=== PATIENT | male | born 1935 | race Caucasian/White ===

== ENCOUNTER 2021-03-23 14:11 | Inpatient (IN) ==
[2021-03-23] MEDS: SODIUM CHLORIDE 0.9% 1000ML 1,000 ML IV SCH ×5 (15:17→21:33)
[2021-03-23 15:20] LABS: Prothrombin Time 10.3 Seconds (9.0-12.0)
[2021-03-23] MEDS: METOPROLOL TARTRATE 1 MG/ML VIAL IV PRN ×2 (15:28→17:16)
[2021-03-23 15:44] LABS: Albumin Globulin Ratio 0.5 (0.9-2); Albumin Level 2.4 gm/dl (3.4-5.0); BUN Creatinine Ratio 49.4 (10-20); Bilirubin,Total 0.9 mg/dl (0.2-1); Calcium 8.4 mg/dl (8.5-10.1); Creatinine Clr Calc Pharmacy 42.9 ml/min; Est GFR (African American) 53.4 ml/min; Globulin 4.5 gm/dl (2.5-4.0)
[2021-03-23 15:47] LABS: Bilirubin Direct 0.4 mg/dl (0-0.2); Potassium 3.4 mmol/L (3.5-5.1); Total Protein 6.9 gm/dl (6.4-8.2)
[2021-03-23 16:14] LABS: Appearance Urine Clear (Clear); Bacteria Urine Automated Negative (Negative); Bilirubin Urine Negative (Negative); Blood Urine Negative (Negative); Color Urine Dark Yellow; Glucose Urine UA Negative (Negative); Ketones Urine Trace (Negative); Leukocyte Esterase Urine Negative (Negative); Nitrite Urine Negative (Negative); Protein Urine 1+ (Negative); Urobilinogen Urine Negative (Negative)
--- NOTE | 2021-03-23 16:29 | CT Scan Report ---
CT head/brain wo con CLINICAL HISTORY: 85 years-old Male with Ams. Acutely altered mental status TECHNIQUE: Multiple axial CT images of the head were obtained without contrast. A dose lowering tech nique was utilized adhering to the principles of ALARA. CT DOSE: 767.83 mGy.cm COMPARISON: None. FINDINGS: No acute intracranial hemorrhage, midline shift, intracranial mass, hydrocephalus, territorial ischem ia or abnormal extra-axial collection. Age-related involutional changes with ex vacuo ventricular lita tamra. White matter hypodensities suggestive of chronic microvascular ischemic disease. Mildly motion d egraded exam. The calvarium is intact. Prior bilateral lens repair. The paranasal sinuses, mastoid air cells, and m iddle ear cavities are clear. IMPRESSION: No acute intracranial abnormality. ACT 112: Negative or not required by law. The above report was generated using voice recognition software. It may contain grammatical, syntax o r spelling errors. Electronically signed by: Trey Good M.D. 03/23/2021 4:28 PM
[2021-03-23 17:09] LABS: Hematocrit (blood only) 42.4 % (42-52); Hemoglobin 14.7 g/dL (14.0-18.0); Mean Corpuscular Hgb Conc 34.7 g/dL (32-36); Mean Corpuscular Volume 92.2 fL (80-100); Mean Platelet Volume 12.8 fL (7.4-10.4); Platelet Count 38 K/uL (130-400); RDW Coefficient of Variation 13.9 % (11.5-14.5); RDW Standard Deviation 46.9 fL (36.4-46.3); White Blood Count 25.86 K/uL (4.8-10.8)
--- NOTE | 2021-03-23 17:14 | Emergency Department Note ---
History of Present Illness General Chief complaint: Weakness Stated complaint: increased weakness,dehydration, not taking meds Time Seen by Provider: 03/23/21 14:28 History of Present Illness Maximum Pain Intensity: 5 This 85-year-old male presents today by EMS, for evaluation of weakness and inability to care for himself. Patient is a poor historian. He lives at home with his and son. 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 Patient states he has been bedridden. He feels weak and is afraid he will fall if he gets out of bed. He is unclear if he has been in bed for a few days, or over a week. He last saw his PCP March 10. He was given some prednisone at that time. He states he also saw his orthopedist at some point over the last 14 days, for knee pain. He was able to get out of bed at that point. He denies any fevers, chills, sweats, nausea, vomiting, or diarrhea. When asked how he is feeding himself, he states his brings him oranges in bed. He denies any chest pain or shortness of breath. He is noted to have extensive bruising on his extremities, as well as abrasions on his knees and hemorrhagic rash on his right elbow. EMS reports that the house was filthy and in disarray. Neighbors noticed that the grass was not cut for an extended period of time, and they saw his demented walking outside by herself. They became concerned and investigated. They then notified the patient's daughter. Home Medications Medication Instructions Recorded Confirmed Type aspirin 81 mg tablet,delayed 81 mg PO DAILY 03/23/21 03/23/21 History release (Aspirin Low Dose) chlorthalidone 25 mg tablet 25 mg PO DAILY 03/23/21 03/23/21 History citalopram 20 mg tablet 20 mg PO DAILY 03/23/21 03/23/21 History doxazosin 2 mg tablet 2 mg PO HS 03/23/21 03/23/21 History ibuprofen 600 mg tablet 600 mg PO Q8H PRN 03/23/21 03/23/21 History metformin 500 mg tablet 500 mg PO BID 03/23/21 03/23/21 History wluhlpmt-mlf-imavz acid 0.4 1 tab PO DAILY 03/23/21 03/23/21 History mg-lycopene 300 mcg-lutein 250 mcg tablet (Centrum Silver) prednisone 20 mg tablet 20 mg PO UD 03/23/21 03/23/21 History propranolol 40 mg tablet 40 mg PO BID 03/23/21 03/23/21 History simvastatin 10 mg tablet 10 mg PO HS 03/23/21 03/23/21 History tamsulosin 0.4 mg capsule 0.4 mg PO DAILY 03/23/21 03/23/21 History Allergies Allergy/AdvReac Type Severity Reaction Status Date / Time yellow jacket Allergy Severe Unknown Uncoded 03/23/21 15:39 Past Med/Surg History Medical History A-fib Diabetes mellitus Family History Other Cerebral palsy Social History Smoking Status: Former smoker Hx Alcohol Use: No Hx Substance Use: No Preferred Language: Chinese Communication Ability: Effective 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 Son is complete care. has dementia Other Information That Helps Us Care for You: No Feels Safe at Home: Yes Safety Concerns: Feels Safe At This Time Assistive Devices: Glasses Assistive Devices Comment: Dentures at home Review of Systems Unobtainable due to cognitive status Physical Exam Vital Signs Vital Signs - 24 hr 03/23/21 14:15 03/23/21 15:43 03/23/21 17:08 Temperature 36.8 C Temperature Source Oral Pulse Rate 144 H 96 H Pulse Rate [Finger] 106 H Pulse Rhythm Irregular Pulse Strength Normal Respiratory Rate 21 16 18 Respiratory Effort / Characteristics Non-Labored Spontaneous Respiratory Depth Normal Respiratory Pattern Regular Blood Pressure 148/88 H 126/78 Blood Pressure [Left Arm] 128/80 Blood Pressure Mean 108 94 Blood Pressure Mean [Left Arm] 96 Blood Pressure Position Lying Pulse Oximetry 100 100 96 Oxygen Delivery Method Room Air Room Air Room Air Sepsis Recent Fever Within 48 Hours No Sepsis New/Unexplained Change in Mental Status Yes Sepsis Action Taken by Nursing Adv Provider Notified General: Frail, elderly white male, in no acute distress. Pleasantly confused. Laying on the bed. Conversive. Answers unreliably. Skin: Warm and dry with fair turgor. He has a hemorrhagic rash present on his right elbow and upper arm. Dozens of small blisters containing old blood. Skin is erythemic consistent with cellulitis. No areas of niall pus. He has extensive ecchymosis present on his upper and lower extremities. No current skin tears. He does have abrasions present on his legs. 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 Mild intra-articular effusion in the right knee. HEENT: Normocephalic atraumatic. Eyes PERRLA, EOMI. No conjunctiva or scleral injection. Ears TMs intact bilaterally with good light reflexes. No erythema or bulging. No hemotympanum. Canals are patent. Nares patent bilaterally without turbinate enlargement. No significant drainage. No epistaxis. Oropharynx without erythema or exudate. Uvula midline, oral mucosa moist. No lesions present. Heart: Tachycardic, irregularly irregular. No gallops or rubs. No murmurs. Peripheral pulses are 2+. Lungs: Lungs are clear to auscultation. No crackles rhonchi or wheezing. Good air movement. The patient is able to take a deep breath. Abdomen: Abdomen was inspected, auscultated, and palpated. Bowel sounds present x 4. Soft, nontender to palpation. No hepato-splenomegaly. No masses noted. No rebound. Musculoskeletal: Gross motor function of the upper and lower extremities is intact and unremarkable. Patient denies discomfort with motion of his right elbow. There is some mild tenderness to touch diffusely about the elbow. He has intact motor function of his fingers, wrist, and shoulders. Supple motion of both hips without discomfort. Intact flexion and extension of both knees and both ankles. Neurologic: Gross sensation is intact across the upper and lower extremities by soft touch. Course Administered Medications Apixaban (Apixaban 5 Mg Tablet) 5 mg PO BID [facility] Stop: 04/26/21 10:29 Last Admin: 03/27/21 11:08 Dose: 5 mg Documented by: [id number] Aspirin ([facility]in 81 Mg Ectab) [facility] [place] Stop: 04/26/21 08:59 Last Admin: 03/27/21 08:39 Dose: 81 mg Documented by: [id number] Chlorthalidone (Chlorthalidone 25 Mg Tab) 25 mg PO DAILY [facility] Stop: 04/26/21 08:59 Last Admin: 03/27/21 08:40 Dose: 25 mg Documented by: [id number] Citalopram Hydrobromide (Citalopram 20 Mg Tab) 20 mg PO DAILY [facility] Stop: 04/23/21 08:59 Last Admin: 03/27/21 08:40 Dose: 20 mg Documented by: [id number] Admin: 03/26/21 08:22 Dose: 20 mg Documented by: [id number] Admin: 03/25/21 08:07 Dose: 20 mg Documented by: [id number] Admin: 03/24/21 08:22 Dose: 20 mg Documented by: [id number] Ceftriaxone Sodium 2,000 mg/ (Dextrose) 70 mls @ 140 mls/hr IV Q24H [facility]; Protocol Stop: 04/07/21 17:59 Last Infusion: 03/27/21 19:00 Dose: 0 mls/hr Documented by: [id number] Admin: 03/27/21 18:26 Dose: 140 mls/hr Documented by: [id number] Infusion: 03/26/21 17:56 Dose: 0 mls/hr Documented by: [id number] Admin: 03/26/21 17:25 Dose: 140 mls/hr Documented by: [id number] Infusion: 03/25/21 17:54 Dose: 0 mls/hr Documented by: [id number] Admin: 03/25/21 17:26 Dose: 140 mls/hr Documented by: [id number] Infusion: 03/24/21 17:34 Dose: 0 mls/hr Documented by: [id number] Admin: 03/24/21 17:00 Dose: 140 mls/hr Documented by: [id number] Insulin Aspart (Insulin Aspart 100 Units/Ml 3 Ml Pen) 0 units SC ACHS [facility] Stop: 04/23/21 11:29 Last Admin: 03/27/21 16:50 Dose: 3 units Documented by: [id number] Cosigned by: [id number] Admin: 03/27/21 12:01 Dose: 3 units Documented by: [id number] Cosigned by: [id number] Admin: 03/27/21 08:38 Dose: 2 units Documented by: [id number] Cosigned by: [id number] Admin: 03/26/21 20:59 Dose: 2 units Documented by: [id number] Cosigned by: [id number] Admin: 03/26/21 17:10 Dose: 4 units Documented by: [id number] Cosigned by: [id number] Admin: 03/26/21 12:22 Dose: 6 units Documented by: [id number] Cosigned by: [id number] Admin: 03/26/21 08:34 Dose: 2 units Documented by: [id number] Cosigned by: [id number] Admin: 03/25/21 21:46 Dose: 2 units Documented by: [id number] Cosigned by: [id number] Admin: 03/25/21 17:26 Dose: 5 units Documented by: [id number] Cosigned by: [id number] Admin: 03/25/21 12:10 Dose: Not Given Documented by: [id number] Admin: 03/25/21 08:07 Dose: 2 units Documented by: [id number] Cosigned by: [id number] Admin: 03/24/21 21:32 Dose: 2 units Documented by: [id number] Cosigned by: [id number] Admin: 03/24/21 17:00 Dose: 5 units Documented by: [id number] Cosigned by: [id number] Admin: 03/24/21 12:07 Dose: 3 units Documented by: [id number] Cosigned by: [id number] Metoprolol Tartrate (Metoprolol Tartrate 25 Mg Tab) 25 mg PO BID [facility] Stop: 04/26/21 08:59 Last Admin: 03/27/21 08:40 Dose: 25 mg Documented by: [id number] Multivitamins (Multivitamin Tab) 1 tab PO DAILY [facility] Stop: 04/23/21 08:59 Last Admin: 03/27/21 08:40 Dose: 1 tab Documented by: [id number] Admin: 03/26/21 08:33 Dose: 1 tab Documented by: [id number] Admin: 03/25/21 08:07 Dose: 1 tab Documented by: [id number] Admin: 03/24/21 08:22 Dose: 1 tab Documented by: [id number] Multivitamins/Minerals (Calcium 600mg + Vit D 400 Iu Tab) 1 tab PO BID [facility] Stop: 04/23/21 20:59 Last Admin: 03/27/21 08:40 Dose: 1 tab Documented by: [id number] Admin: 03/26/21 19:45 Dose: 1 tab Documented by: [id number] Admin: 03/26/21 08:22 Dose: 1 tab Documented by: [id number] Admin: 03/25/21 20:09 Dose: 1 tab Documented by: [id number] Admin: 03/25/21 08:07 Dose: 1 tab Documented by: [id number] Admin: 03/24/21 21:31 Dose: 1 tab Documented by: [id number] Simvastatin (Simvastatin 10 Mg Tab) 10 mg PO HS [facility] Stop: 04/22/21 20:59 Last Admin: 03/26/21 19:45 Dose: 10 mg Documented by: [id number] Admin: 03/25/21 20:09 Dose: 10 mg Documented by: [id number] Admin: 03/24/21 21:31 Dose: 10 mg Documented by: [id number] Admin: 03/23/21 21:36 Dose: 10 mg Documented by: [id number] Tamsulosin HCl (Tamsulosin Hcl 0.4 Mg Cap) 0.4 mg PO DAILY [facility] Stop: 04/23/21 08:59 Last Admin: 03/27/21 08:41 Dose: 0.4 mg Documented by: [id number] Admin: 03/26/21 08:33 Dose: 0.4 mg Documented by: [id number] Admin: 03/25/21 08:06 Dose: 0.4 mg Documented by: [id number] Admin: 03/24/21 08:22 Dose: 0.4 mg Documented by: [id number] Discontinued Medications Aspirin (Aspirin 81 Mg Ectab) 81 mg PO DAILY [facility] Stop: 04/23/21 08:59 Last Admin: 03/24/21 08:24 Dose: 81 mg Documented by: [id number] Doxazosin Mesylate (Doxazosin Mesylate Tab 2 Mg Tab) 2 mg PO HS [facility] Stop: 04/22/21 20:59 Last Admin: 03/23/21 21:36 Dose: 2 mg Documented by: [id number] Famotidine (Famotidine 20 Mg Tab) 20 mg PO NOW STA Stop: 03/26/21 20:05 Last Admin: 03/26/21 20:58 Dose: 20 mg Documented by: [id number] Heparin Sodium (Porcine) (Heparin Sod 5,000 Unit/0.5 Ml Vial) 5,000 units SQ Q8 [facility] Stop: 04/22/21 21:59 Last Admin: 03/24/21 05:56 Dose: 5,000 units Documented by: [id number] Admin: 03/23/21 21:36 Dose: 5,000 units Documented by: [id number] Sodium Chloride (Nss 1000ml) 1,000 mls @ 80 mls/hr IV .[id number] [facility] Stop: 04/22/21 14:59 Last Infusion: 03/24/21 09:04 Dose: 0 mls/hr Documented by: [id number] Admin: 03/23/21 21:33 Dose: 80 mls/hr Documented by: [id number] Infusion: 03/23/21 21:33 Dose: 80 mls/hr Documented by: [id number] Admin: 03/23/21 15:17 Dose: 80 mls/hr Documented by: [id number] Ceftriaxone Sodium (Rocephin) 2,000 mg in 70 mls @ 140 mls/hr IV NOW STA Stop: 03/23/21 17:48 Last Infusion: 03/23/21 18:11 Dose: 0 mls/hr Documented by: [id number] Admin: 03/23/21 17:41 Dose: 140 mls/hr Documented by: [id number] Sodium Chloride (Nss 1000ml) 500 mls @ 999 mls/hr IV .Q31M [facility] Stop: 03/23/21 17:50 Last Infusion: 03/23/21 18:20 Dose: 0 mls/hr Documented by: [id number] Admin: 03/23/21 17:40 Dose: 999 mls/hr Documented by: [id number] Vancomycin HCl 1,750 mg/ (Sodium Chloride) 535 mls @ 200 mls/hr IV NOW ONE Stop: 03/23/21 20:11 Last Infusion: 03/23/21 21:18 Dose: 0 mls/hr Documented by: [id number] Admin: 03/23/21 18:37 Dose: 200 mls/hr Documented by: [id number] Sodium Chloride (Nss 1000ml) 1,000 mls @ 999 mls/hr IV .Q1H1M [facility] Stop: 03/23/21 20:42 Last Infusion: 03/23/21 21:40 Dose: 0 mls/hr Documented by: [id number] Admin: 03/23/21 20:39 Dose: 999 mls/hr Documented by: [id number] Infusion: 03/23/21 20:39 Dose: 999 mls/hr Documented by: [id number] Admin: 03/23/21 20:00 Dose: 999 mls/hr Documented by: [id number] Sodium Chloride (Nss 1000ml) 1,000 mls @ 100 mls/hr IV .Q10H [facility] Stop: 04/22/21 19:59 Last Infusion: 03/27/21 08:47 Dose: 0 mls/hr Documented by: [id number] Admin: 03/27/21 05:14 Dose: 100 mls/hr Documented by: [id number] Infusion: 03/27/21 05:14 Dose: 100 mls/hr Documented by: [id number] Admin: 03/26/21 19:39 Dose: 100 mls/hr Documented by: [id number] Infusion: 03/26/21 18:21 Dose: 100 mls/hr Documented by: [id number] Admin: 03/26/21 08:21 Dose: 100 mls/hr Documented by: [id number] Infusion: 03/26/21 08:21 Dose: 0 mls/hr Documented by: [id number] Admin: 03/25/21 21:45 Dose: 100 mls/hr Documented by: [id number] Infusion: 03/25/21 21:45 Dose: 100 mls/hr Documented by: [id number] Admin: 03/25/21 12:13 Dose: 100 mls/hr Documented by: [id number] Infusion: 03/25/21 11:42 Dose: 0 mls/hr Documented by: [id number] Admin: 03/25/21 01:42 Dose: 100 mls/hr Documented by: [id number] Infusion: 03/25/21 01:42 Dose: 100 mls/hr Documented by: [id number] Admin: 03/24/21 16:07 Dose: 100 mls/hr Documented by: [id number] Infusion: 03/24/21 15:57 Dose: 100 mls/hr Documented by: [id number] Admin: 03/24/21 05:57 Dose: 100 mls/hr Documented by: [id number] Infusion: 03/24/21 05:57 Dose: 100 mls/hr Documented by: [id number] Admin: 03/23/21 21:30 Dose: 100 mls/hr Documented by: [id number] Vancomycin HCl 1,250 mg/ (Sodium Chloride) 275 mls @ 200 mls/hr IV Q24H [facility] Stop: 03/24/21 18:00 Last Infusion: 03/24/21 15:27 Dose: 0 mls/hr Documented by: [id number] Admin: 03/24/21 13:46 Dose: 200 mls/hr Documented by: [id number] Vancomycin HCl 1,250 mg/ (Sodium Chloride) 275 mls @ 200 mls/hr IV Q18H [facility] Stop: 03/26/21 23:59 Last Infusion: 03/25/21 04:14 Dose: 0 mls/hr Documented by: [id number] Admin: 03/25/21 02:41 Dose: 200 mls/hr Documented by: [id number] Metoprolol Tartrate (Metoprolol Tartrate 1 Mg/Ml Vial) 5 mg IV Q5M PRN PRN Reason: Tachycardia Stop: 04/22/21 15:12 Last Admin: 03/23/21 17:16 Dose: 5 mg Documented by: [id number] Admin: 03/23/21 15:28 Dose: 5 mg Documented by: [id number] Metoprolol Tartrate (Metoprolol Tartrate 25 Mg Tab) 12.5 mg PO QAM [facility] Stop: 04/23/21 08:59 Last Admin: 03/24/21 09:03 Dose: 12.5 mg Documented by: [id number] Metoprolol Tartrate (Metoprolol Tartrate 25 Mg Tab) 12.5 mg PO BID [facility] Stop: 04/23/21 20:59 Last Admin: 03/26/21 19:45 Dose: 12.5 mg Documented by: [id number] Admin: 03/26/21 08:32 Dose: 12.5 mg Documented by: [id number] Admin: 03/25/21 20:09 Dose: 12.5 mg Documented by: [id number] Admin: 03/25/21 08:07 Dose: 12.5 mg Documented by: [id number] Admin: 03/24/21 21:31 Dose: 12.5 mg Documented by: [id number] Potassium Chloride (Potassium Chloride Crtab 20 Meq Tabcr) 40 meq PO NOW [facility] Stop: 03/24/21 12:59 Last Admin: 03/24/21 13:46 Dose: 40 meq Documented by: [id number] Potassium Chloride (Potassium Chloride Crtab 20 Meq Tabcr) 40 meq PO ONE ONE Stop: 03/26/21 09:06 Last Admin: 03/26/21 10:13 Dose: 40 meq Documented by: [id number] Potassium Chloride (Potassium Chloride Crtab 20 Meq Tabcr) 40 meq PO ONE ONE Stop: 03/27/21 09:01 Last Admin: 03/27/21 09:49 Dose: 40 meq Documented by: [id number] Propranolol HCl (Propranolol Hcl 20 Mg Tab) 40 mg PO BID [facility] Stop: 04/22/21 20:59 Last Admin: 03/24/21 08:23 Dose: 40 mg Documented by: [id number] Admin: 03/23/21 21:36 Dose: 40 mg Documented by: [id number] Medical Decision Making Differential Diagnosis Cellulitis, sepsis, dementia, dehydration, electrolyte abnormality, anemia, generalized weakness Medical Records Hospital records, including records from his PCP, were reviewed. Home Medications Additional Comments: Current medication list was reviewed. Laboratory Data CBC, chemistry panel, lactate, UA, Troponin, PT/INR, and blood cultures x2 were obtained. CBC shows a white count of 25.8, hemoglobin 14.7 and hematocrit 42.4. Platelets are 38,000 INR is 1.0. Sodium 135, potassium 3.4, CO2 26, BUN of 68 with creatinine 1.37. Glucose 234. Lactate is 1.9. AST mildly elevated at 41. Total CK unremarkable at 33. Troponin is mildly elevated at 0.045. Urine shows 1+ protein and trace ketones. No bacteria. No significant WBCs. Result diagrams: 03/27/21 06:19 03/27/21 06:19 Lab Results 03/23/21 03/23/21 03/23/21 Range/Units 14:35 14:35 14:35 WBC Cancelled RBC Cancelled Hgb Cancelled Hct Cancelled MCV Cancelled MCH Cancelled MCHC Cancelled RDW Std Deviation Cancelled RDW Coeff of Néstor Cancelled Plt Count Cancelled MPV Cancelled Immature Gran % (Auto) Cancelled Neut % (Auto) Cancelled Lymph % (Auto) Cancelled [place] % (Auto) Cancelled Eos % (Auto) Cancelled Baso % (Auto) Cancelled Neut # (Auto) Cancelled Lymph # (Auto) Cancelled [place] # (Auto) Cancelled Eos # (Auto) Cancelled Baso # (Auto) Cancelled Immature Gran # (Auto) Cancelled Absolute Nucleated RBC Cancelled Nucleated RBC % (auto) Cancelled Neutrophils % (Manual) Cancelled Band Neutrophils % Cancelled Lymphocytes % (Manual) Cancelled Prolymphocyte % Cancelled Reactive Lymphs % (Man) Cancelled Monocytes % (Manual) Cancelled Eosinophils % (Manual) Cancelled Basophils % (Manual) Cancelled Metamyelocytes % (Man) Cancelled Myelocytes % (Man) Cancelled Promyelocytes % (Man) Cancelled Blast Cells % (Manual) Cancelled Plasma Cell % (Manual) Cancelled Other Cells % Cancelled Nucleated RBC % Cancelled Neutrophils # (Manual) Cancelled Band Neutrophils # Cancelled Total Absolute Neuts Cancelled Lymphocytes # (Manual) Cancelled Prolymphocyte # Cancelled Reactive Lymphs # Cancelled Total Abs Lymphocytes Cancelled Monocytes # (Manual) Cancelled Eosinophils # (Manual) Cancelled Basophils # (Manual) Cancelled Metamyelocytes # (Man) Cancelled Myelocytes # (Manual) Cancelled Promyelocytes # (Man) Cancelled Blast Cells # (Man) Cancelled Plasma Cell # (Manual) Cancelled Other Cells # Cancelled Nucleated RBCs # (Man) Cancelled Hypersegmented Neuts Cancelled Hyposegmented Neuts Cancelled Hypogranular Neuts Cancelled Large Granular Lymphs Cancelled # Lrg Granular Lymphs Cancelled Hairy Cells Cancelled Smudge Cells Cancelled Blood Smear Review Toxic Granulation Cancelled Toxic Vacuolation Cancelled Dohle Bodies Cancelled Ac Rods Cancelled Platelet Estimate Cancelled Hypogranular Platelets Cancelled Clumped Platelets Cancelled Giant Platelets Cancelled Platelet Satelliting Cancelled RBC Morphology Cancelled Polychromasia Cancelled Hypochromasia Cancelled Poikilocytosis Cancelled Basophilic Stippling Cancelled Anisocytosis Cancelled Microcytosis Cancelled Macrocytosis Cancelled Spherocytes Cancelled Pappenheimer Bodies Cancelled Sickle Cells Cancelled Target Cells Cancelled Tear Drop Cells Cancelled Ovalocytes Cancelled Stomatocytes Cancelled Whitt-Brewton Bodies Cancelled Echinocytes Cancelled Acanthocytes (Spur) Cancelled Rouleaux Cancelled RBC Agglutinates Cancelled Schistocytes Cancelled RBC Morph Comment Cancelled Sezary Cell Cancelled PT 10.3 (9.0-12.0) Seconds INR 1.0 (0.9-1.1) Sodium 135 L (136-145) mmol/L Potassium 3.4 L (3.5-5.1) mmol/L Chloride 98 (98-107) mmol/L Carbon Dioxide 26 (21-32) mmol/L Anion Gap 11.0 (3-11) BUN 68 H (7-18) mg/dl Creatinine 1.37 (0.6-1.4) mg/dl Est Cr Clr Drug Dosing 42.9 ml/min Est GFR ( Amer) 53.4 ml/min Est GFR (Non-Af Amer) 46.0 ml/min BUN/Creatinine Ratio 49.4 H (10-20) Glucose 234 H (70-99) mg/dl Lactate (0.4-2.0) mmol/L Calcium 8.4 L (8.5-10.1) mg/dl Total Bilirubin 0.9 (0.2-1) mg/dl Direct Bilirubin 0.4 H (0-0.2) mg/dl AST 41 H (15-37) U/L ALT 37 (12-78) U/L Alkaline Phosphatase 75 (45-117) U/L Total Creatine Kinase (39-308) U/L Troponin I (0-0.045) ng/ml Total Protein 6.9 (6.4-8.2) gm/dl Albumin 2.4 L (3.4-5.0) gm/dl Globulin 4.5 H (2.5-4.0) gm/dl Albumin/Globulin Ratio 0.5 L (0.9-2) Procalcitonin (0-0.5) ng/ml Urine Color Urine Appearance (Clear) Urine pH (4.5-7.5) Ur Specific Crescent (1.000-1.030) Urine Protein (Negative) Urine Glucose (UA) (Negative) Urine Ketones (Negative) Urine Blood (Negative) Urine Nitrite (Negative) Urine Bilirubin (Negative) Urine Urobilinogen (Negative) Ur Leukocyte Esterase (Negative) Urine WBC (Auto) (0-5) /hpf Urine RBC (Auto) (0-4) /hpf U Hyaline Cast (Auto) (0-5) /lpf U Epithel Cells (Auto) (0-5) /lpf Urine Bacteria (Auto) (Negative) COVID-19 Eval Order SARS-CoV-2 (PCR) (Negative) Bld Cult Staph aureus PCR (Negative) Blood Culture MRSA PCR (Negative) 03/23/21 03/23/21 03/23/21 Range/Units 14:35 14:35 15:25 WBC RBC Hgb Hct MCV MCH MCHC RDW Std Deviation RDW Coeff of Néstor Plt Count MPV Immature Gran % (Auto) Neut % (Auto) Lymph % (Auto) [place] % (Auto) Eos % (Auto) Baso % (Auto) Neut # (Auto) Lymph # (Auto) [place] # (Auto) Eos # (Auto) Baso # (Auto) Immature Gran # (Auto) Absolute Nucleated RBC Nucleated RBC % (auto) Neutrophils % (Manual) Band Neutrophils % Lymphocytes % (Manual) Prolymphocyte % Reactive Lymphs % (Man) Monocytes % (Manual) Eosinophils % (Manual) Basophils % (Manual) Metamyelocytes % (Man) Myelocytes % (Man) Promyelocytes % (Man) Blast Cells % (Manual) Plasma Cell % (Manual) Other Cells % Nucleated RBC % Neutrophils # (Manual) Band Neutrophils # Total Absolute Neuts Lymphocytes # (Manual) Prolymphocyte # Reactive Lymphs # Total Abs Lymphocytes Monocytes # (Manual) Eosinophils # (Manual) Basophils # (Manual) Metamyelocytes # (Man) Myelocytes # (Manual) Promyelocytes # (Man) Blast Cells # (Man) Plasma Cell # (Manual) Other Cells # Nucleated RBCs # (Man) Hypersegmented Neuts Hyposegmented Neuts Hypogranular Neuts Large Granular Lymphs # Lrg Granular Lymphs Hairy Cells Smudge Cells Blood Smear Review Toxic Granulation Toxic Vacuolation Dohle Bodies Ac Rods Platelet Estimate Hypogranular Platelets Clumped Platelets Giant Platelets Platelet Satelliting RBC Morphology Polychromasia Hypochromasia Poikilocytosis Basophilic Stippling Anisocytosis Microcytosis Macrocytosis Spherocytes Pappenheimer Bodies Sickle Cells Target Cells Tear Drop Cells Ovalocytes Stomatocytes Whitt-Brewton Bodies Echinocytes Acanthocytes (Spur) Rouleaux RBC Agglutinates Schistocytes RBC Morph Comment Sezary Cell PT (9.0-12.0) Seconds INR (0.9-1.1) Sodium (136-145) mmol/L Potassium (3.5-5.1) mmol/L Chloride (98-107) mmol/L Carbon Dioxide (21-32) mmol/L Anion Gap (3-11) BUN (7-18) mg/dl Creatinine (0.6-1.4) mg/dl Est Cr Clr Drug Dosing ml/min Est GFR ( Amer) ml/min Est GFR (Non-Af Amer) ml/min BUN/Creatinine Ratio (10-20) Glucose (70-99) mg/dl Lactate (0.4-2.0) mmol/L Calcium (8.5-10.1) mg/dl Total Bilirubin (0.2-1) mg/dl Direct Bilirubin (0-0.2) mg/dl AST (15-37) U/L ALT (12-78) U/L Alkaline Phosphatase (45-117) U/L Total Creatine Kinase 33 L (39-308) U/L Troponin I (0-0.045) ng/ml Total Protein (6.4-8.2) gm/dl Albumin (3.4-5.0) gm/dl Globulin (2.5-4.0) gm/dl Albumin/Globulin Ratio (0.9-2) Procalcitonin < 0.05 (0-0.5) ng/ml Urine Color Dark Yellow Urine Appearance Clear (Clear) Urine pH 6.0 (4.5-7.5) Ur Specific Crescent 1.020 (1.000-1.030) Urine Protein 1+ H (Negative) Urine Glucose (UA) Negative (Negative) Urine Ketones Trace H (Negative) Urine Blood Negative (Negative) Urine Nitrite Negative (Negative) Urine Bilirubin Negative (Negative) Urine Urobilinogen Negative (Negative) Ur Leukocyte Esterase Negative (Negative) Urine WBC (Auto) 1-5 (0-5) /hpf Urine RBC (Auto) 5-10 H (0-4) /hpf U Hyaline Cast (Auto) 5-10 H (0-5) /lpf U Epithel Cells (Auto) 10-20 H (0-5) /lpf Urine Bacteria (Auto) Negative (Negative) COVID-19 Eval Order SARS-CoV-2 (PCR) (Negative) Bld Cult Staph aureus PCR (Negative) Blood Culture MRSA PCR (Negative) 03/23/21 03/23/21 03/23/21 Range/Units 16:34 16:34 16:34 WBC 25.86 H RBC 4.60 L Hgb 14.7 Hct 42.4 MCV 92.2 MCH 32.0 MCHC 34.7 RDW Std Deviation 46.9 H RDW Coeff of Néstor 13.9 Plt Count 38 L MPV 12.8 H Immature Gran % (Auto) Neut % (Auto) Lymph % (Auto) [place] % (Auto) Eos % (Auto) Baso % (Auto) Neut # (Auto) Lymph # (Auto) [place] # (Auto) Eos # (Auto) Baso # (Auto) Immature Gran # (Auto) Absolute Nucleated RBC Nucleated RBC % (auto) Neutrophils % (Manual) 81.7 Band Neutrophils % Lymphocytes % (Manual) 13.9 Prolymphocyte % Reactive Lymphs % (Man) Monocytes % (Manual) 3.5 Eosinophils % (Manual) Basophils % (Manual) Metamyelocytes % (Man) Myelocytes % (Man) 0.9 Promyelocytes % (Man) Blast Cells % (Manual) Plasma Cell % (Manual) Other Cells % Nucleated RBC % Neutrophils # (Manual) 21.13 H Band Neutrophils # Total Absolute Neuts 21.13 H Lymphocytes # (Manual) 3.59 H Prolymphocyte # Reactive Lymphs # Total Abs Lymphocytes 3.59 H Monocytes # (Manual) 0.91 H Eosinophils # (Manual) Basophils # (Manual) Metamyelocytes # (Man) Myelocytes # (Manual) 0.23 H Promyelocytes # (Man) Blast Cells # (Man) Plasma Cell # (Manual) Other Cells # Nucleated RBCs # (Man) Hypersegmented Neuts Hyposegmented Neuts Hypogranular Neuts Large Granular Lymphs # Lrg Granular Lymphs Hairy Cells Smudge Cells Blood Smear Review Cancelled Toxic Granulation Toxic Vacuolation Dohle Bodies Ac Rods Platelet Estimate Decreased L Hypogranular Platelets Clumped Platelets Giant Platelets Platelet Satelliting RBC Morphology Polychromasia Hypochromasia Poikilocytosis Basophilic Stippling Anisocytosis Microcytosis Macrocytosis Spherocytes Pappenheimer Bodies Sickle Cells Target Cells Tear Drop Cells Ovalocytes Stomatocytes Whitt-Brewton Bodies Echinocytes Acanthocytes (Spur) Rouleaux RBC Agglutinates Schistocytes RBC Morph Comment Sezary Cell PT (9.0-12.0) Seconds INR (0.9-1.1) Sodium (136-145) mmol/L Potassium (3.5-5.1) mmol/L Chloride (98-107) mmol/L Carbon Dioxide (21-32) mmol/L Anion Gap (3-11) BUN (7-18) mg/dl Creatinine (0.6-1.4) mg/dl Est Cr Clr Drug Dosing ml/min Est GFR ( Amer) ml/min Est GFR (Non-Af Amer) ml/min BUN/Creatinine Ratio (10-20) Glucose (70-99) mg/dl Lactate 2.2 H* (0.4-2.0) mmol/L Calcium (8.5-10.1) mg/dl Total Bilirubin (0.2-1) mg/dl Direct Bilirubin (0-0.2) mg/dl AST (15-37) U/L ALT (12-78) U/L Alkaline Phosphatase (45-117) U/L Total Creatine Kinase (39-308) U/L Troponin I (0-0.045) ng/ml Total Protein (6.4-8.2) gm/dl Albumin (3.4-5.0) gm/dl Globulin (2.5-4.0) gm/dl Albumin/Globulin Ratio (0.9-2) Procalcitonin (0-0.5) ng/ml Urine Color Urine Appearance (Clear) Urine pH (4.5-7.5) Ur Specific Crescent (1.000-1.030) Urine Protein (Negative) Urine Glucose (UA) (Negative) Urine Ketones (Negative) Urine Blood (Negative) Urine Nitrite (Negative) Urine Bilirubin (Negative) Urine Urobilinogen (Negative) Ur Leukocyte Esterase (Negative) Urine WBC (Auto) (0-5) /hpf Urine RBC (Auto) (0-4) /hpf U Hyaline Cast (Auto) (0-5) /lpf U Epithel Cells (Auto) (0-5) /lpf Urine Bacteria (Auto) (Negative) COVID-19 Eval Order SARS-CoV-2 (PCR) (Negative) Bld Cult Staph aureus PCR Positive A (Negative) Blood Culture MRSA PCR Negative (Negative) 03/23/21 03/23/21 Range/Units 16:57 16:57 WBC RBC Hgb Hct MCV MCH MCHC RDW Std Deviation RDW Coeff of Néstor Plt Count MPV Immature Gran % (Auto) Neut % (Auto) Lymph % (Auto) [place] % (Auto) Eos % (Auto) Baso % (Auto) Neut # (Auto) Lymph # (Auto) [place] # (Auto) Eos # (Auto) Baso # (Auto) Immature Gran # (Auto) Absolute Nucleated RBC Nucleated RBC % (auto) Neutrophils % (Manual) Band Neutrophils % Lymphocytes % (Manual) Prolymphocyte % Reactive Lymphs % (Man) Monocytes % (Manual) Eosinophils % (Manual) Basophils % (Manual) Metamyelocytes % (Man) Myelocytes % (Man) Promyelocytes % (Man) Blast Cells % (Manual) Plasma Cell % (Manual) Other Cells % Nucleated RBC % Neutrophils # (Manual) Band Neutrophils # Total Absolute Neuts Lymphocytes # (Manual) Prolymphocyte # Reactive Lymphs # Total Abs Lymphocytes Monocytes # (Manual) Eosinophils # (Manual) Basophils # (Manual) Metamyelocytes # (Man) Myelocytes # (Manual) Promyelocytes # (Man) Blast Cells # (Man) Plasma Cell # (Manual) Other Cells # Nucleated RBCs # (Man) Hypersegmented Neuts Hyposegmented Neuts Hypogranular Neuts Large Granular Lymphs # Lrg Granular Lymphs Hairy Cells Smudge Cells Blood Smear Review Toxic Granulation Toxic Vacuolation Dohle Bodies Ac Rods Platelet Estimate Hypogranular Platelets Clumped Platelets Giant Platelets Platelet Satelliting RBC Morphology Polychromasia Hypochromasia Poikilocytosis Basophilic Stippling Anisocytosis Microcytosis Macrocytosis Spherocytes Pappenheimer Bodies Sickle Cells Target Cells Tear Drop Cells Ovalocytes Stomatocytes Whitt-Brewton Bodies Echinocytes Acanthocytes (Spur) Rouleaux RBC Agglutinates Schistocytes RBC Morph Comment Sezary Cell PT (9.0-12.0) Seconds INR (0.9-1.1) Sodium (136-145) mmol/L Potassium (3.5-5.1) mmol/L Chloride (98-107) mmol/L Carbon Dioxide (21-32) mmol/L Anion Gap (3-11) BUN (7-18) mg/dl Creatinine (0.6-1.4) mg/dl Est Cr Clr Drug Dosing ml/min Est GFR ( Amer) ml/min Est GFR (Non-Af Amer) ml/min BUN/Creatinine Ratio (10-20) Glucose (70-99) mg/dl Lactate (0.4-2.0) mmol/L Calcium (8.5-10.1) mg/dl Total Bilirubin (0.2-1) mg/dl Direct Bilirubin (0-0.2) mg/dl AST (15-37) U/L ALT (12-78) U/L Alkaline Phosphatase (45-117) U/L Total Creatine Kinase (39-308) U/L Troponin I (0-0.045) ng/ml Total Protein (6.4-8.2) gm/dl Albumin (3.4-5.0) gm/dl Globulin (2.5-4.0) gm/dl Albumin/Globulin Ratio (0.9-2) Procalcitonin (0-0.5) ng/ml Urine Color Urine Appearance (Clear) Urine pH (4.5-7.5) Ur Specific Crescent (1.000-1.030) Urine Protein (Negative) Urine Glucose (UA) (Negative) Urine Ketones (Negative) Urine Blood (Negative) Urine Nitrite (Negative) Urine Bilirubin (Negative) Urine Urobilinogen (Negative) Ur Leukocyte Esterase (Negative) Urine WBC (Auto) (0-5) /hpf Urine RBC (Auto) (0-4) /hpf U Hyaline Cast (Auto) (0-5) /lpf U Epithel Cells (Auto) (0-5) /lpf Urine Bacteria (Auto) (Negative) COVID-19 Eval Order Covid19 at [facility] SARS-CoV-2 (PCR) NEGATIVE (Negative) Bld Cult Staph aureus PCR (Negative) Blood Culture MRSA PCR (Negative) Imaging Data My Impression: Films obtained today were reviewed by me and read by radiology. Chest x-ray obtained today shows no acute process. No pulmonary edema consoli dation, or pneumothorax. Elbow films obtained today show soft tissue swelling without acute fracture. No foreign bodies. CT scan imaging of the head was also obtained. This was read by radiology as unremarkable. Chronic microvascular ischemic disease. Age-related changes are present. Radiologist's Impression: Head CT 03/23/21 15:12 CT head/brain wo con CLINICAL HISTORY: 85 years-old Male with Ams. Acutely altered mental status TECHNIQUE: Multiple axial CT images of the head were obtained without contrast. A dose lowering technique was utilized adhering to the principles of ALARA. CT DOSE: 767.83 mGy.cm COMPARISON: None. FINDINGS: No acute intracranial hemorrhage, midline shift, intracranial mass, hydrocephalus, territorial ischemia or abnormal extra-axial collection. Age- related involutional changes with ex vacuo ventricular megaly. White matter hypodensities suggestive of chronic microvascular ischemic disease. Mildly motion degraded exam. The calvarium is intact. Prior bilateral lens repair. The paranasal sinuses, mastoid air cells, and middle ear cavities are clear. IMPRESSION: No acute intracranial abnormality. ACT 112: Negative or not required by law. The above report was generated using voice recognition software. It may contain grammatical, syntax or spelling errors. Electronically signed by: Trey Good M.D. 03/23/2021 4:28 PM ECG Data Additional Comments: EKG obtained today shows atrial fibrillation with RVR. Rate of 144. No other significant abnormalities. Blood Pressure Blood Pressure Findings: Normal blood pressure MDM Narrative Patient was evaluated in room A12. Conservative care measures were discussed. Patient is pleasantly confused. He is an unreliable historian. 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 He must get on the ground and hug him close to lift him. Patient states he has been unable to get out of bed for the last several days. He has not been able to take his medication, or give his and son their medications. Patient believes that the rash on his arm is not significant. He thinks it is getting better over the last few days. He is not sure what started it. He cannot recall if he fell. I did speak with his daughter, who did come to the department. She states that the patient has been unwilling to sign over power of tax attorney, or make any medical decisions regarding future care for his or son. They are also here in the department due to his inability to care for them. IV was established. Labs were obtained. Patient was initially hydrated gently at 80 mL/h of normal sterile saline. His initial CBC coagulated, and required a redraw. Upon finding that his white count was significantly elevated, patient was given a liter of fluid bolus. He was also given Rocephin 2 g IV. Because of his tachycardic rate, patient was given metoprolol 5 mg IV. Imaging, including chest x-ray, right elbow x-ray, and CT imaging of the head, were all obtained. They are all unremarkable. Likelihood of sepsis from the elbow cellulitis was discussed. He will require admission. Troponin did come back at 0.045, mildly elevated. He is also in A. fib. When asked about this, patient states that he knows that he frequently has an abnormal rhythm. He is unsure how long this has occurred and whether he is being treated for it. He seems to believe that it is not new. Impression & Plan Sepsis, Dehydration, Cellulitis of arm, right Patient was seen in conjunction with Dr. Davis, who also evaluated the patient. Patient appears to be currently septic. Cultures have been obtained. Hospitalist service was consulted for admission. Please see that dictation for final management. Covid nasal swab was obtained prior to admission, and is negative. Care plan decisions were made in conjunction with his daughter, who was in the department for discussion. Discharge Plan Visit Data Chief Complaint: Weakness Stated Complaint: increased weakness,dehydration, not taking meds ED Midlevel Provider: Sachin Nichols Discharge Problem: Sepsis, Dehydration, Cellulitis of arm, right Patient Disposition: Admitted As Inpatient Discharge Instructions Interventions: ED Discharge Assessment Last Done: 03/23/21 20:12 Discharge Problem: Sepsis Qualifiers: Sepsis type: sepsis due to unspecified organism Sepsis acute organ dysfunction status: unspecified Qualified Code(s): A41.9 - Sepsis, unspecified organism
[2021-03-23 17:15] LABS: ALC (manual) 3.59 K/uL (1.2-3.4); ANC (manual) 21.13 K/uL (1.4-6.5); Lymphocytes # (manual) 3.59 K/uL (1.2-3.4); Lymphocytes % (manual) 13.9 %; Monocytes # (manual) 0.91 K/uL (0.11-0.59); Monocytes % (manual) 3.5 %; Myelocytes # (manual) 0.23 K/uL (0-0); Myelocytes % (manual) 0.9 %; Neutrophils # (manual) 21.13 K/uL (1.4-6.5); Neutrophils % (manual) 81.7 %; Platelet Estimate Decreased (Normal)
[2021-03-23] MEDS ORDERED: cefTRIAXone SODIUM 2,000 MG/70 ML BAG IV STA (17:19)
[2021-03-23] MEDS ORDERED: SODIUM CHLORIDE 0.9% 1000ML 500 ML IV ONE ×2 (17:20→18:42)
--- NOTE | 2021-03-23 17:27 | Emergency Department Note ---
ED Visit Note Physician Wheel Loader Operator Supervision Note: I interviewed and examined the patient. Discussed with Sachin Nichols PA-C and agree with findings and plan as documented in the note. Patient was evaluated and appeared to be significantly weak and debilitated. He had right elbow cellulitis, likely posttraumatic. There is no evidence of fracture on x-ray. WBC is noted to be 25 with a platelet count of 38. Blood cultures were sent and the patient was medicated with IV ceftriaxone. IV fluids were initiated. Patient's case was discussed with the hospitalist service. Dr. Desai has requested the addition of vancomycin. We have discussed the IV fluid management in the emergency department and he will complete the 30 cc/kg hydration as patient does meet sepsis criteria. It also appears that he is in a new onset atrial fibrillation although his most previous EKG is many years ago. Head CT is negative. Pt was discussed will be admitted to the hospitalist service for further management. Please see Sachin Nichols PA-C's notes for further details of the history, physical and visit. Documented By: Leni Davis MD .
[2021-03-23] MEDS ORDERED: VANCOMYCIN CONSULT ACTIVE PRN (17:31)
[2021-03-23] MEDS ORDERED: VANCOMYCIN HCL 1,750 MG in SODIUM CHLORIDE 0.9% 500 ML IV ONE (17:31)
--- NOTE | 2021-03-23 17:34 | History & Physical Report ---
Date of Service March 23, 2021 Assessment & Plan (1) Sepsis: (2) Dehydration: Patient is clearly very dehydrated. Unclear how long patient has been bedbound from history obtained but at least he was a seen by PCP on 03/10/2021. Lactate is 2.2, WBCs 25,000, tachycardic Meets SIRS criteria. Unclear source. Skin rash is a possible source Give vancomycin and ceftriaxone Follow-up blood cultures MRSA screen, check procalcitonin We will give 30 cc/kg bolus as patient is severely dehydrated, tachycardic and possible sepsis Add on CPK as it is unclear how long patient has been down CT head does not show acute abnormality Exam is nonfocal Confusion likely metabolic encephalopathy We will do dysphagia screen and start diet once passed with aspiration precaution Hold home chlorthalidone (3) Ambulatory dysfunction: We will get PT/OT evaluation (4) A-fib: EKG shows A. fib (compared to one in [facility] from 2010) Get 2D echo Cardiology consult Lopressor IV as needed Continue home propranolol CHADVASC is 4. Likely high risk for bleeding as well considering ecchymoses on hand Also high fall risk Will hold off anticoagulation till card eval Hep sq for DVT ppx for now (5) Diabetes mellitus: A1c from 03/10/2021 is 6.4 Monitor blood glucose (6) DVT prophylaxis: hep sq History of Present Illness 85-year-old man with history of DM type II, dyslipidemia, hypertension, BPH adjustment disorder with anxious mood who was brought into the ER for weakness and confusion. Patient is a very poor historian though currently alert and oriented to person and place, is confused. Could not obtain much history from patient. History obtained from ER physician. Patient lives at home with who has dementia and 60-year-old son who has cerebral palsy and fully dependent. Patient takes care of both. Apparently, his grass was high which is unusual and was seen wandering by neighbor trying to get mail. Patient was apparently found by neighbor who followed into the home. Daughter was called According to patient, he has been having difficulty moving around to have been in bed for days or weeks. He is not exactly sure. Review of outpatient labs showed that patient was seen by his PCP on 03/10/2021. Difficult to get review of system from patient as he is confused and answering yes and no to same questions On presentation to the ER, was noted to be in A. fib with initial heart rate in [address] head without contrast did not show any acute abnormal ities WBC is 25,000, lactate is 2.2. 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 Review of systems, family and social history could not be obtained due to confus ion Primary Care Provider: Sarita Rebolledo MD Allergies Allergy/AdvReac Type Severity Reaction Status Date / Time yellow jacket Allergy Severe Unknown Uncoded 03/23/21 15:39 Home Medications Medication Instructions Recorded Confirmed Type aspirin [Aspirin Low Dose] 81 mg PO DAILY 03/23/21 03/23/21 History chlorthalidone 25 mg PO DAILY 03/23/21 03/23/21 History citalopram 20 mg PO DAILY 03/23/21 03/23/21 History doxazosin 2 mg PO HS 03/23/21 03/23/21 History ibuprofen 600 mg PO Q8H PRN 03/23/21 03/23/21 History metformin 500 mg PO BID 03/23/21 03/23/21 History ykeammds-rnt-SG-lycopen-lutein 1 tab PO DAILY 03/23/21 03/23/21 History [Centrum Silver] prednisone 20 mg PO UD 03/23/21 03/23/21 History propranolol 40 mg PO BID 03/23/21 03/23/21 History simvastatin 10 mg PO HS 03/23/21 03/23/21 History tamsulosin 0.4 mg PO DAILY 03/23/21 03/23/21 History Past Med/Surg History Social History Smoking Status: Unknown if ever smoked Feels Safe at Home: Yes Review of Systems Review of Systems: Unobtainable due to cognitive status Physical Exam Constitutional: no acute distress Dehydrated Elderly man confused Eyes: PERRL, conjunctivae normal, anicteric sclerae ENMT: Dry oral mucosa Respiratory: normal respiratory effort, lungs clear to auscultation Cardiovascular: Rate/Rhythm: + tachycardic and + irregularly irregular S1- S2 No pedal edema Gastrointestinal (Abdomen): normal bowel sounds, soft, nontender, no hepatosplenomegaly Musculoskeletal: no cyanosis or clubbing, extremities motor strength 5/5 Skin: Ecchymosis over both forearms. Rash and bruise over the right elbow. Abrasions on right knee Neurologic: PERRL, EOMI, accommodation nl, no face palsy, no dysarthria Alert and oriented to person. Knows he is in the hospital but does not know which Oriented to month Cooperative. Moves all extremities and follows commands Results & Data Results & Data ([facility]) Vital Signs (Past 12 Hours) Vital Signs Temp Pulse Pulse Resp BP BP Pulse Ox 03/23/21 17:08 106 H 18 128/80 96 03/23/21 15:43 96 H 16 126/78 100 03/23/21 14:15 36.8 C 144 H 21 148/88 H 100 Laboratory Results Abnormal lab results 03/23/21 03/23/21 03/23/21 Range/Units 14:35 15:25 16:34 WBC (4.8-10.8) K/uL RBC (4.7-6.1) M/uL RDW Std Deviation (36.4-46.3) fL Plt Count (130-400) K/uL MPV (7.4-10.4) fL Neutrophils # (Manual) (1.4-6.5) K/uL Total Absolute Neuts (1.4-6.5) K/uL Lymphocytes # (Manual) (1.2-3.4) K/uL Total Abs Lymphocytes (1.2-3.4) K/uL Monocytes # (Manual) (0.11-0.59) K/uL Myelocytes # (Manual) (0-0) K/uL Platelet Estimate (Normal) Sodium 135 L (136-145) mmol/L Potassium 3.4 L (3.5-5.1) mmol/L BUN 68 H (7-18) mg/dl BUN/Creatinine Ratio 49.4 H (10-20) Glucose 234 H (70-99) mg/dl Lactate 2.2 H* (0.4-2.0) mmol/L Calcium 8.4 L (8.5-10.1) mg/dl Direct Bilirubin 0.4 H (0-0.2) mg/dl AST 41 H (15-37) U/L Albumin 2.4 L (3.4-5.0) gm/dl Globulin 4.5 H (2.5-4.0) gm/dl Albumin/Globulin Ratio 0.5 L (0.9-2) Urine Protein 1+ H (Negative) Urine Ketones Trace H (Negative) Urine RBC (Auto) 5-10 H (0-4) /hpf U Hyaline Cast (Auto) 5-10 H (0-5) /lpf U Epithel Cells (Auto) 10-20 H (0-5) /lpf 03/23/21 Range/Units 16:34 WBC 25.86 H (4.8-10.8) K/uL RBC 4.60 L (4.7-6.1) M/uL RDW Std Deviation 46.9 H (36.4-46.3) fL Plt Count 38 L (130-400) K/uL MPV 12.8 H (7.4-10.4) fL Neutrophils # (Manual) 21.13 H (1.4-6.5) K/uL Total Absolute Neuts 21.13 H (1.4-6.5) K/uL Lymphocytes # (Manual) 3.59 H (1.2-3.4) K/uL Total Abs Lymphocytes 3.59 H (1.2-3.4) K/uL Monocytes # (Manual) 0.91 H (0.11-0.59) K/uL Myelocytes # (Manual) 0.23 H (0-0) K/uL Platelet Estimate Decreased L (Normal) Sodium (136-145) mmol/L Potassium (3.5-5.1) mmol/L BUN (7-18) mg/dl BUN/Creatinine Ratio (10-20) Glucose (70-99) mg/dl Lactate (0.4-2.0) mmol/L Calcium (8.5-10.1) mg/dl Direct Bilirubin (0-0.2) mg/dl AST (15-37) U/L Albumin (3.4-5.0) gm/dl Globulin (2.5-4.0) gm/dl Albumin/Globulin Ratio (0.9-2) Urine Protein (Negative) Urine Ketones (Negative) Urine RBC (Auto) (0-4) /hpf U Hyaline Cast (Auto) (0-5) /lpf U Epithel Cells (Auto) (0-5) /lpf
--- NOTE | 2021-03-23 17:45 | XRay Report ---
XR elbow RT min 3V routine HISTORY: 85 years-old Male Cellulitis acute pain with soft tissue swelling of the right elbow COMPARISON: None TECHNIQUE: 3 views of the right elbow FINDINGS: Degenerative spurring of the distal humerus] proximal ulna. Mild multifocal osteoarthritis. No acute fracture, dislocation or large joint effusion. Moderate soft tissue swelling circumferentially about the elbow. No opaque foreign body. IMPRESSION: Soft tissue swelling without acute fracture. ACT 112: Negative or not required by law. The above report was generated using voice recognition software. It may contain grammatical, syntax o r spelling errors. Electronically signed by: Trey Good M.D. 03/23/2021 5:44 PM
--- NOTE | 2021-03-23 17:46 | XRay Report ---
XR chest 1V portable HISTORY: 85 years-old Male Fever acute fever COMPARISON: None TECHNIQUE: Portable AP view the chest FINDINGS: Cardiomediastinal and hilar silhouettes are within normal limits. Nodular opacities projecting over t he lung bases are suggestive of nipple shadows. No pneumothorax, pleural effusion, airspace consolida tion or overt pulmonary edema. Degenerative changes of the shoulders and spine. IMPRESSION: No acute process. ACT 112: Negative or not required by law. The above report was generated using voice recognition software. It may contain grammatical, syntax o r spelling errors. Electronically signed by: Trey Good M.D. 03/23/2021 5:45 PM
[2021-03-23] MEDS ORDERED: DEXTROSE 50% 50 ML SYRINGE IV PRN (19:56)
[2021-03-23] MEDS ORDERED: GLUCAGON FOR INJ 1 MG VIAL SQ PRN (19:56)
[2021-03-23] MEDS ORDERED: METOPROLOL TARTRATE 1 MG/ML VIAL IV PRN (19:56)
[2021-03-23] MEDS ORDERED: GLUCOSE 40% GEL 15 GM TUBE PO PRN (19:56)
[2021-03-23] MEDS ORDERED: GLUCOSE 10 TABS/TUBE PO PRN (19:56)
[2021-03-23] MEDS ORDERED: CARBOHYDRATES FOR HYPOGLYCEMIA PO PRN (19:56)
--- NOTE | 2021-03-23 20:49 | Pharmacy Report ---
Pharmacy Abx Dose Short Note - Date of Service March 23, 2021 - Assessment & Plan Assessment 85 year old M receiving Vancomycin and Ceftriaxone for empiric treatment of skin and soft tissue infection * Afebrile. White count of 26k. Lactate elevated. * Cultures pending Plan Vancomycin * Loading Dose: 1750 mg (21 mg/kg) IV x 1 * Maintenance Dose: 1250 mg (15 mg/kg) IV every 24 hours * No trough level ordered unless therapy to extend beyond 48 hours Pharmacy will continue to follow and will adjust dose/frequency as necessary. Thank you.
[2021-03-23] MEDS ORDERED: DOXAZosin MESYLATE TAB 2 MG TAB PO SCH (21:00)
[2021-03-23] MEDS: PROPRANOLOL HCL 20 MG TAB PO SCH (21:36)
[2021-03-23] MEDS: HEPARIN SOD 5,000 UNIT/0.5 ML VIAL SQ SCH (21:36)
[2021-03-23] MEDS: SIMVASTATIN 10 MG TAB PO SCH (21:36)
[2021-03-24] MEDS: HEPARIN SOD 5,000 UNIT/0.5 ML VIAL SQ SCH (05:56)
[2021-03-24] MEDS: SODIUM CHLORIDE 0.9% 1000ML 1,000 ML IV SCH ×2 (05:57→16:07)
[2021-03-24] MEDS: CITALOPRAM 20 MG TAB PO SCH (08:22)
[2021-03-24] MEDS: TAMSULOSIN HCL 0.4 MG CAP PO SCH (08:22)
[2021-03-24] MEDS: MULTIVITAMIN TAB PO SCH (08:22)
[2021-03-24] MEDS: PROPRANOLOL HCL 20 MG TAB PO SCH (08:23)
[2021-03-24] MEDS ORDERED: METOPROLOL TARTRATE 25 MG TAB PO SCH (09:00)
[2021-03-24] MEDS ORDERED: ASPIRIN 81 MG ECTAB PO SCH (09:00)
--- NOTE | 2021-03-24 09:01 | Hospitalist Progress Note ---
Date of Service March 24, 2021 Assessment & Plan (1) Sepsis: (2) Dehydration: Severe sepsis,: Meets criteria for sepsis admitted with lactic 2.2, WBC 25,000, tachycardic lactate is 2.2, WBCs 25,000, tachycardic Meets SIRS criteria. Clear of the source, blood culture obtained still pending, chest x-ray on imaging shows no acute abnormality, on auscultation, stress crackles noted on left lower base. Sent for urine culture, Continue with IV vancomycin and Rocephin, will cultures are available Continue IV fluids to correct dehydration-secondary to above Confusion disorientation secondary to metabolic encephalopathy. CT head does not show acute abnormality Mental status improved to baseline after fluid resuscitation (3) Ambulatory dysfunction: Evidence of falls, with multiple bruises ecchymosis of the knees, and arms, PT OT evaluation (4) A-fib: New diagnosis of A. fib, Possible secondary to acute illness,? Patient remains in A. fib, heart rate between 90s to low 100s Patient remains asymptomatic Discontinued home propanolol, Ordered for low-dose of Lopressor 12.5 daily 2D echo ordered Cardiology consult will defer to cardiology for antiarrhythmic drugs CHADVASC is 4. Likely high risk for bleeding as well considering ecchymoses on hand Also high fall risk Labs shows thrombocytopenia, platelet count less than 100-possible secondary to sepsis Order to hold aspirin now, but may needs to be resumed if there is no other option for anticoagulation Systemic anticoagulation with IV heparin was not ordered We will wait for cardiology recommendation (5) Diabetes mellitus: A1c from 03/10/2021 is 6.4 Insulin sliding scale (6) DVT prophylaxis: hep sq We will follow daily platelets level watch for evidence of bleeding, subcu heparin may need to be discontinued if worsening of thrombocytopenia noted CODE STATUS: Full code Disposition: 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 fib: Patient seen at bedside, very pleasant, alert and oriented today, Knows that he is in the hospital-can tell me it is [facility] knows this is 2019, of March, was not sure of the date but could tell that it was Wednesday, knows the name of the president of [employer] Says that he has not been feeling well for past several days or week he was not sure He was overwhelmed with all the responsibilities of taking care of of his adult son with disability, and with advanced dementia. Not get out of bed for days, Not sure he was eating or drinking enough, does not recall whether he had fever or chills, Day he is feeling better, still have severe weakness and fatigue, No complaint of chest pain or shortness of breath does not feel any palpitation, No dizzy spell or lightheadedness while lying down, patient has not been out of bed since admission Does not have any cough, no fever or chills No nausea vomiting appetite fair,-finished his breakfast tray Worried about his son and , Patient is updated that his son is admitted in hospital and being taken care of, patient feels relieved He will reach out to his daughter to check where about of his Review of Systems Review of Systems: All systems reviewed & are unremarkable except as noted in HPI & below Cardiovascular: no chest pain, no orthopnea, no palpitations and no syncope Gastrointestinal: no abdominal pain, no nausea, no vomiting and no diarrhea/loose stools Musculoskeletal: Generalized weakness, denies of any muscle ache or joint pain Integumentary: To pull bruise/ecchymosis on bilateral arms, Physical Exam Constitutional: WD/WN, vitals as above + ill appearing; no acute distress Very pleasant conversing Eyes: PERRL, conjunctivae normal, anicteric sclerae + anicteric sclerae ENMT: external ear and nose normal, oropharynx normal Neck: normal visual inspection Respiratory: normal respiratory effort; no respiratory distress A uscultation: + crackles (Faint crackles noted on left lower lobe); no wheezes Cardiovascular: Rate/Rhythm: + irregularly irregular Extremities: no edema Gastrointestinal (Abdomen): Percussion/Palpation: abdomen soft; abdomen nontender Musculoskeletal: Knee: + ecchymosis (On bilateral knee, right is worse than left) Extensive bruise/ecchymosis on bilateral arm Skin: + ecchymosis (Extensive ecchymosis noted on bilateral arms.) Trauma: + abrasion Neurologic: PERRL, EOMI, accommodation nl, no face palsy, no dysarthria moves all extremities (Noted to have normal muscle strength); no focal motor deficits Psychiatric: A+Ox3, euthymic affect Results & Data Results & Data ([facility]) Vital Signs (Past 12 Hours) Vital Signs Temp Pulse Pulse Resp BP Pulse Ox 03/24/21 07:05 36.7 C 96 H 19 113/69 94 03/24/21 03:53 36.6 C 89 18 126/76 95 03/23/21 23:25 89 03/23/21 22:43 36.4 C L 78 20 103/69 94 03/23/21 21:24 102 H
--- NOTE | 2021-03-24 09:51 | Cardiology Consultation ---
Date of Consultation March 24, 2021 Assessment & Plan (1) Sepsis: (2) Dehydration: (3) A-fib: The patient has no significant cardiac history and actually his last EKG was 2010 at our clinic when he was in a sinus mechanism. He is on a low dose of metoprolol with adequate rate control of his atrial fibrillation. At this point I would treat his sepsis. I agree with subcu heparin at this time. His echocardiogram completed this admission is encouraging with normal left and right ventricular function and no significant valvular pathology. I do not believe any additional cardiac testing is indicated at this time. History of Present Illness Attending Physician: Vannessa Lackey MD History of Present Illness This is an 85-year-old male patient with no significant cardiac history. He was admitted with confusion and possible sepsis. He has been started on antibiotics and has improved. He has newly discovered atrial fibrillation. The only previous EKGs at our clinic were from 2010 when he was in a sinus mechanism. He has been started on a low-dose of metoprolol and is currently in a rate controlled atrial fibrillation. He has no cardiac complaints. Echocardiogram is being completed during my visit with him. Overall LV and RV function looks good with no significant valvular pathology. Past medical history: Type 2 diabetes mellitus with hemoglobin A1c goal of less than 8.0% ([facility]) History of peptic ulcer disease Sciatica Cervical spondylosis Chronic rhinitis GENERAL OSTEOARTHROSIS BPH without obstruction/lower urinary tract symptoms HTN, GOAL BELOW 140/90 Dyslipidemia, goal LDL below 100 Adjustment disorder with anxious mood Seasonal allergic rhinitis due to pollen Allergies Allergy/AdvReac Type Severity Reaction Status Date / Time yellow jacket Allergy Severe Unknown Uncoded 03/23/21 15:39 Home Medications Medication Instructions Recorded Confirmed Type aspirin [Aspirin Low Dose] 81 mg PO DAILY 03/23/21 03/23/21 History chlorthalidone 25 mg PO DAILY 03/23/21 03/23/21 History citalopram 20 mg PO DAILY 03/23/21 03/23/21 History doxazosin 2 mg PO HS 03/23/21 03/23/21 History ibuprofen 600 mg PO Q8H PRN 03/23/21 03/23/21 History metformin 500 mg PO BID 03/23/21 03/23/21 History qbewzcuf-oai-HO-lycopen-lutein 1 tab PO DAILY 03/23/21 03/23/21 History [Centrum Silver] prednisone 20 mg PO UD 03/23/21 03/23/21 History propranolol 40 mg PO BID 03/23/21 03/23/21 History simvastatin 10 mg PO HS 03/23/21 03/23/21 History tamsulosin 0.4 mg PO DAILY 03/23/21 03/23/21 History Patient History Social History Smoking Status: Former smoker Hx Alcohol Use: No Hx Substance Use: No Preferred Language: Maori Communication Ability: Effective Hand Rug Cleaner Required: No Beliefs That Will Affect Care: None Current Living Situation: Family Current Living Situation Comment: Lives in house with and son. Son is complete care. has dementia Other Information That Helps Us Care for You: No Feels Safe at Home: Yes Safety Concerns: Feels Safe At This Time Assistive Devices: None Assistive Devices Comment: Dentures at home Review of Systems Review of Systems: All systems reviewed & are unremarkable except as noted in HPI & below Nothing additional to add. Physical Exam Physical Exam: General: no acute distress and stated age Head: normocephalic, no masses, lesions, tenderness or abnormalities Eyes: conjunctiva are pink and non-injected, sclera clear Neck: supple, no adenopathy, no bruits, normal jugular venous pulse, no hepatojugular reflux Chest: normal shape and normal respiratory effort Lungs: clear to auscultation and percussion Cardiac Exam: - regular rate & rhythm, no murmurs gallops or rubs - normal S1, normal S2 Pulses: 2(+) throughout Abdomen: abdomen soft, non-tender, no abnormal masses and no hepatosplenomegaly Musculoskeletal: no gait disturbance, no joint inflammation, no deforming arthritis Extremities: no edema and no cyanosis Neuro: grossly normal exam Results & Data ([facility]) Vital Signs (Past 12 Hours) Vital Signs Temp Pulse Pulse Resp BP Pulse Ox 03/24/21 07:05 36.7 C 96 H 19 113/69 94 03/24/21 03:53 36.6 C 89 18 126/76 95 03/23/21 23:25 89 03/23/21 22:43 36.4 C L 78 20 103/69 94 Laboratory Results Laboratory Results - last 24 hr 03/23/21 03/23/21 03/23/21 14:35 14:35 14:35 WBC Cancelled RBC Cancelled Hgb Cancelled Hct Cancelled MCV Cancelled MCH Cancelled MCHC Cancelled RDW Std Deviation Cancelled RDW Coeff of Néstor Cancelled Plt Count Cancelled MPV Cancelled Immature Gran % (Auto) Cancelled Neut % (Auto) Cancelled Lymph % (Auto) Cancelled [place] % (Auto) Cancelled Eos % (Auto) Cancelled Baso % (Auto) Cancelled Neut # (Auto) Cancelled Lymph # (Auto) Cancelled [place] # (Auto) Cancelled Eos # (Auto) Cancelled Baso # (Auto) Cancelled Immature Gran # (Auto) Cancelled Absolute Nucleated RBC Cancelled Nucleated RBC % (auto) Cancelled Neutrophils % (Manual) Cancelled Band Neutrophils % Cancelled Lymphocytes % (Manual) Cancelled Prolymphocyte % Cancelled Reactive Lymphs % (Man) Cancelled Monocytes % (Manual) Cancelled Eosinophils % (Manual) Cancelled Basophils % (Manual) Cancelled Metamyelocytes % (Man) Cancelled Myelocytes % (Man) Cancelled Promyelocytes % (Man) Cancelled Blast Cells % (Manual) Cancelled Plasma Cell % (Manual) Cancelled Other Cells % Cancelled Nucleated RBC % Cancelled Neutrophils # (Manual) Cancelled Band Neutrophils # Cancelled Total Absolute Neuts Cancelled Lymphocytes # (Manual) Cancelled Prolymphocyte # Cancelled Reactive Lymphs # Cancelled Total Abs Lymphocytes Cancelled Monocytes # (Manual) Cancelled Eosinophils # (Manual) Cancelled Basophils # (Manual) Cancelled Metamyelocytes # (Man) Cancelled Myelocytes # (Manual) Cancelled Promyelocytes # (Man) Cancelled Blast Cells # (Man) Cancelled Plasma Cell # (Manual) Cancelled Other Cells # Cancelled Nucleated RBCs # (Man) Cancelled Hypersegmented Neuts Cancelled Hyposegmented Neuts Cancelled Hypogranular Neuts Cancelled Large Granular Lymphs Cancelled # Lrg Granular Lymphs Cancelled Hairy Cells Cancelled Smudge Cells Cancelled Blood Smear Review Toxic Granulation Cancelled Toxic Vacuolation Cancelled Dohle Bodies Cancelled Ac Rods Cancelled Platelet Estimate Cancelled Hypogranular Platelets Cancelled Clumped Platelets Cancelled Giant Platelets Cancelled Platelet Satelliting Cancelled RBC Morphology Cancelled Polychromasia Cancelled Hypochromasia Cancelled Poikilocytosis Cancelled Basophilic Stippling Cancelled Anisocytosis Cancelled Microcytosis Cancelled Macrocytosis Cancelled Spherocytes Cancelled Pappenheimer Bodies Cancelled Sickle Cells Cancelled Target Cells Cancelled Tear Drop Cells Cancelled Ovalocytes Cancelled Stomatocytes Cancelled Whitt-[place] Bodies Cancelled Echinocytes Cancelled Acanthocytes (Spur) Cancelled Rouleaux Cancelled RBC Agglutinates Cancelled Schistocytes Cancelled RBC Morph Comment Cancelled Sezary Cell Cancelled PT 10.3 INR 1.0 Sodium 135 L Potassium 3.4 L Chloride 98 Carbon Dioxide 26 Anion Gap 11.0 BUN 68 H Creatinine 1.37 Est Cr Clr Drug Dosing 42.9 Est GFR ( Amer) 53.4 Est GFR (Non-Af Amer) 46.0 BUN/Creatinine Ratio 49.4 H Glucose 234 H POC Glucose Lactate Calcium 8.4 L Magnesium Total Bilirubin 0.9 Direct Bilirubin 0.4 H AST 41 H ALT 37 Alkaline Phosphatase 75 Total Creatine Kinase Troponin I Total Protein 6.9 Albumin 2.4 L Globulin 4.5 H Albumin/Globulin Ratio 0.5 L Procalcitonin Urine Color Urine Appearance Urine pH Ur Specific [place] Urine Protein Urine Glucose (UA) Urine Ketones Urine Blood Urine Nitrite Urine Bilirubin Urine Urobilinogen Ur Leukocyte Esterase Urine WBC (Auto) Urine RBC (Auto) U Hyaline Cast (Auto) U Epithel Cells (Auto) Urine Bacteria (Auto) Nasal Screen MRSA (PCR) COVID-19 Eval Order SARS-CoV-2 (PCR) Hepatitis C Ab Screen 03/23/21 03/23/21 03/23/21 14:35 14:35 15:25 WBC RBC Hgb Hct MCV MCH MCHC RDW Std Deviation RDW Coeff of Néstor Plt Count MPV Immature Gran % (Auto) Neut % (Auto) Lymph % (Auto) [place] % (Auto) Eos % (Auto) Baso % (Auto) Neut # (Auto) Lymph # (Auto) [place] # (Auto) Eos # (Auto) Baso # (Auto) Immature Gran # (Auto) Absolute Nucleated RBC Nucleated RBC % (auto) Neutrophils % (Manual) Band Neutrophils % Lymphocytes % (Manual) Prolymphocyte % Reactive Lymphs % (Man) Monocytes % (Manual) Eosinophils % (Manual) Basophils % (Manual) Metamyelocytes % (Man) Myelocytes % (Man) Promyelocytes % (Man) Blast Cells % (Manual) Plasma Cell % (Manual) Other Cells % Nucleated RBC % Neutrophils # (Manual) Band Neutrophils # Total Absolute Neuts Lymphocytes # (Manual) Prolymphocyte # Reactive Lymphs # Total Abs Lymphocytes Monocytes # (Manual) Eosinophils # (Manual) Basophils # (Manual) Metamyelocytes # (Man) Myelocytes # (Manual) Promyelocytes # (Man) Blast Cells # (Man) Plasma Cell # (Manual) Other Cells # Nucleated RBCs # (Man) Hypersegmented Neuts Hyposegmented Neuts Hypogranular Neuts Large Granular Lymphs # Lrg Granular Lymphs Hairy Cells Smudge Cells Blood Smear Review Toxic Granulation Toxic Vacuolation Dohle Bodies Ac Rods Platelet Estimate Hypogranular Platelets Clumped Platelets Giant Platelets Platelet Satelliting RBC Morphology Polychromasia Hypochromasia Poikilocytosis Basophilic Stippling Anisocytosis Microcytosis Macrocytosis Spherocytes Pappenheimer Bodies Sickle Cells Target Cells Tear Drop Cells Ovalocytes Stomatocytes Whitt-[place] Bodies Echinocytes Acanthocytes (Spur) Rouleaux RBC Agglutinates Schistocytes RBC Morph Comment Sezary Cell PT INR Sodium Potassium Chloride Carbon Dioxide Anion Gap BUN Creatinine Est Cr Clr Drug Dosing Est GFR ( Amer) Est GFR (Non-Af Amer) BUN/Creatinine Ratio Glucose POC Glucose Lactate Calcium Magnesium Total Bilirubin Direct Bilirubin AST ALT Alkaline Phosphatase Total Creatine Kinase 33 L Troponin I Total Protein Albumin Globulin Albumin/Globulin Ratio Procalcitonin < 0.05 Urine Color Dark Yellow Urine Appearance Clear Urine pH 6.0 Ur Specific [place] 1.020 Urine Protein 1+ H Urine Glucose (UA) Negative Urine Ketones Trace H Urine Blood Negative Urine Nitrite Negative Urine Bilirubin Negative Urine Urobilinogen Negative Ur Leukocyte Esterase Negative Urine WBC (Auto) 1-5 Urine RBC (Auto) 5-10 H U Hyaline Cast (Auto) 5-10 H U Epithel Cells (Auto) 10-20 H Urine Bacteria (Auto) Negative Nasal Screen MRSA (PCR) COVID-19 Eval Order SARS-CoV-2 (PCR) Hepatitis C Ab Screen 03/23/21 03/23/21 03/23/21 16:34 16:34 16:57 WBC 25.86 H RBC 4.60 L Hgb 14.7 Hct 42.4 MCV 92.2 MCH 32.0 MCHC 34.7 RDW Std Deviation 46.9 H RDW Coeff of Néstor 13.9 Plt Count 38 L MPV 12.8 H Immature Gran % (Auto) Neut % (Auto) Lymph % (Auto) [place] % (Auto) Eos % (Auto) Baso % (Auto) Neut # (Auto) Lymph # (Auto) [place] # (Auto) Eos # (Auto) Baso # (Auto) Immature Gran # (Auto) Absolute Nucleated RBC Nucleated RBC % (auto) Neutrophils % (Manual) 81.7 Band Neutrophils % Lymphocytes % (Manual) 13.9 Prolymphocyte % Reactive Lymphs % (Man) Monocytes % (Manual) 3.5 Eosinophils % (Manual) Basophils % (Manual) Metamyelocytes % (Man) Myelocytes % (Man) 0.9 Promyelocytes % (Man) Blast Cells % (Manual) Plasma Cell % (Manual) Other Cells % Nucleated RBC % Neutrophils # (Manual) 21.13 H Band Neutrophils # Total Absolute Neuts 21.13 H Lymphocytes # (Manual) 3.59 H Prolymphocyte # Reactive Lymphs # Total Abs Lymphocytes 3.59 H Monocytes # (Manual) 0.91 H Eosinophils # (Manual) Basophils # (Manual) Metamyelocytes # (Man) Myelocytes # (Manual) 0.23 H Promyelocytes # (Man) Blast Cells # (Man) Plasma Cell # (Manual) Other Cells # Nucleated RBCs # (Man) Hypersegmented Neuts Hyposegmented Neuts Hypogranular Neuts Large Granular Lymphs # Lrg Granular Lymphs Hairy Cells Smudge Cells Blood Smear Review Cancelled Toxic Granulation Toxic Vacuolation Dohle Bodies Ac Rods Platelet Estimate Decreased L Hypogranular Platelets Clumped Platelets Giant Platelets Platelet Satelliting RBC Morphology Polychromasia Hypochromasia Poikilocytosis Basophilic Stippling Anisocytosis Microcytosis Macrocytosis Spherocytes Pappenheimer Bodies Sickle Cells Target Cells Tear Drop Cells Ovalocytes Stomatocytes Whitt-[place]cken[place] Bodies Echinocytes Acanthocytes (Spur) Rouleaux RBC Agglutinates Schistocytes RBC Morph Comment Sezary Cell PT INR Sodium Potassium Chloride Carbon Dioxide Anion Gap BUN Creatinine Est Cr Clr Drug Dosing Est GFR ( Amer) Est GFR (Non-Af Amer) BUN/Creatinine Ratio Glucose POC Glucose Lactate 2.2 H* Calcium Magnesium Total Bilirubin Direct Bilirubin AST ALT Alkaline Phosphatase Total Creatine Kinase Troponin I Total Protein Albumin Globulin Albumin/Globulin Ratio Procalcitonin Urine Color Urine Appearance Urine pH Ur Specific [place] Urine Protein Urine Glucose (UA) Urine Ketones Urine Blood Urine Nitrite Urine Bilirubin Urine Urobilinogen Ur Leukocyte Esterase Urine WBC (Auto) Urine RBC (Auto) U Hyaline Cast (Auto) U Epithel Cells (Auto) Urine Bacteria (Auto) Nasal Screen MRSA (PCR) COVID-19 Eval Order Covid19 at [facility] SARS-CoV-2 (PCR) Hepatitis C Ab Screen 03/23/21 03/23/21 03/23/21 16:57 20:34 20:40 WBC RBC Hgb Hct MCV MCH MCHC RDW Std Deviation RDW Coeff of Néstor Plt Count MPV Immature Gran % (Auto) Neut % (Auto) Lymph % (Auto) [place] % (Auto) Eos % (Auto) Baso % (Auto) Neut # (Auto) Lymph # (Auto) [place] # (Auto) Eos # (Auto) Baso # (Auto) Immature Gran # (Auto) Absolute Nucleated RBC Nucleated RBC % (auto) Neutrophils % (Manual) Band Neutrophils % Lymphocytes % (Manual) Prolymphocyte % Reactive Lymphs % (Man) Monocytes % (Manual) Eosinophils % (Manual) Basophils % (Manual) Metamyelocytes % (Man) Myelocytes % (Man) Promyelocytes % (Man) Blast Cells % (Manual) Plasma Cell % (Manual) Other Cells % Nucleated RBC % Neutrophils # (Manual) Band Neutrophils # Total Absolute Neuts Lymphocytes # (Manual) Prolymphocyte # Reactive Lymphs # Total Abs Lymphocytes Monocytes # (Manual) Eosinophils # (Manual) Basophils # (Manual) Metamyelocytes # (Man) Myelocytes # (Manual) Promyelocytes # (Man) Blast Cells # (Man) Plasma Cell # (Manual) Other Cells # Nucleated RBCs # (Man) Hypersegmented Neuts Hyposegmented Neuts Hypogranular Neuts Large Granular Lymphs # Lrg Granular Lymphs Hairy Cells Smudge Cells Blood Smear Review Toxic Granulation Toxic Vacuolation Dohle Bodies Ac Rods Platelet Estimate Hypogranular Platelets Clumped Platelets Giant Platelets Platelet Satelliting RBC Morphology Polychromasia Hypochromasia Poikilocytosis Basophilic Stippling Anisocytosis Microcytosis Macrocytosis Spherocytes Pappenheimer Bodies Sickle Cells Target Cells Tear Drop Cells Ovalocytes Stomatocytes Whitt-Brecken[place] Bodies Echinocytes Acanthocytes (Spur) Rouleaux RBC Agglutinates Schistocytes RBC Morph Comment Sezary Cell PT INR Sodium Potassium Chloride Carbon Dioxide Anion Gap BUN Creatinine Est Cr Clr Drug Dosing Est GFR ( Amer) Est GFR (Non-Af Amer) BUN/Creatinine Ratio Glucose POC Glucose 215 H Lactate 4.0 H* Calcium Magnesium Total Bilirubin Direct Bilirubin AST ALT Alkaline Phosphatase Total Creatine Kinase Troponin I Total Protein Albumin Globulin Albumin/Globulin Ratio Procalcitonin Urine Color Urine Appearance Urine pH Ur Specific [place] Urine Protein Urine Glucose (UA) Urine Ketones Urine Blood Urine Nitrite Urine Bilirubin Urine Urobilinogen Ur Leukocyte Esterase Urine WBC (Auto) Urine RBC (Auto) U Hyaline Cast (Auto) U Epithel Cells (Auto) Urine Bacteria (Auto) Nasal Screen MRSA (PCR) COVID-19 Eval Order SARS-CoV-2 (PCR) NEGATIVE Hepatitis C Ab Screen 03/23/21 03/23/21 03/24/21 21:40 22:36 06:38 WBC RBC Hgb Hct MCV MCH MCHC RDW Std Deviation RDW Coeff of Néstor Plt Count MPV Immature Gran % (Auto) Neut % (Auto) Lymph % (Auto) [place] % (Auto) Eos % (Auto) Baso % (Auto) Neut # (Auto) Lymph # (Auto) [place] # (Auto) Eos # (Auto) Baso # (Auto) Immature Gran # (Auto) Absolute Nucleated RBC Nucleated RBC % (auto) Neutrophils % (Manual) Band Neutrophils % Lymphocytes % (Manual) Prolymphocyte % Reactive Lymphs % (Man) Monocytes % (Manual) Eosinophils % (Manual) Basophils % (Manual) Metamyelocytes % (Man) Myelocytes % (Man) Promyelocytes % (Man) Blast Cells % (Manual) Plasma Cell % (Manual) Other Cells % Nucleated RBC % Neutrophils # (Manual) Band Neutrophils # Total Absolute Neuts Lymphocytes # (Manual) Prolymphocyte # Reactive Lymphs # Total Abs Lymphocytes Monocytes # (Manual) Eosinophils # (Manual) Basophils # (Manual) Metamyelocytes # (Man) Myelocytes # (Manual) Promyelocytes # (Man) Blast Cells # (Man) Plasma Cell # (Manual) Other Cells # Nucleated RBCs # (Man) Hypersegmented Neuts Hyposegmented Neuts Hypogranular Neuts Large Granular Lymphs # Lrg Granular Lymphs Hairy Cells Smudge Cells Blood Smear Review Toxic Granulation Toxic Vacuolation Dohle Bodies Ac Rods Platelet Estimate Hypogranular Platelets Clumped Platelets Giant Platelets Platelet Satelliting RBC Morphology Polychromasia Hypochromasia Poikilocytosis Basophilic Stippling Anisocytosis Microcytosis Macrocytosis Spherocytes Pappenheimer Bodies Sickle Cells Target Cells Tear Drop Cells Ovalocytes Stomatocytes Whitt-Breck[place] Bodies Echinocytes Acanthocytes (Spur) Rouleaux RBC Agglutinates Schistocytes RBC Morph Comment Sezary Cell PT INR Sodium Potassium Chloride Carbon Dioxide Anion Gap BUN Creatinine Est Cr Clr Drug Dosing Est GFR ( Amer) Est GFR (Non-Af Amer) BUN/Creatinine Ratio Glucose POC Glucose Lactate 1.9 Calcium Magnesium Total Bilirubin Direct Bilirubin AST ALT Alkaline Phosphatase Total Creatine Kinase Troponin I Total Protein Albumin Globulin Albumin/Globulin Ratio Procalcitonin Urine Color Urine Appearance Urine pH Ur Specific [place] Urine Protein Urine Glucose (UA) Urine Ketones Urine Blood Urine Nitrite Urine Bilirubin Urine Urobilinogen Ur Leukocyte Esterase Urine WBC (Auto) Urine RBC (Auto) U Hyaline Cast (Auto) U Epithel Cells (Auto) Urine Bacteria (Auto) Nasal Screen MRSA (PCR) Negative COVID-19 Eval Order SARS-CoV-2 (PCR) Hepatitis C Ab Screen Pending 03/24/21 03/24/21 03/24/21 07:02 09:25 09:33 WBC RBC Hgb Hct MCV MCH MCHC RDW Std Deviation RDW Coeff of Néstor Plt Count MPV Immature Gran % (Auto) Neut % (Auto) Lymph % (Auto) [place] % (Auto) Eos % (Auto) Baso % (Auto) Neut # (Auto) Lymph # (Auto) [place] # (Auto) Eos # (Auto) Baso # (Auto) Immature Gran # (Auto) Absolute Nucleated RBC Nucleated RBC % (auto) Neutrophils % (Manual) Band Neutrophils % Lymphocytes % (Manual) Prolymphocyte % Reactive Lymphs % (Man) Monocytes % (Manual) Eosinophils % (Manual) Basophils % (Manual) Metamyelocytes % (Man) Myelocytes % (Man) Promyelocytes % (Man) Blast Cells % (Manual) Plasma Cell % (Manual) Other Cells % Nucleated RBC % Neutrophils # (Manual) Band Neutrophils # Total Absolute Neuts Lymphocytes # (Manual) Prolymphocyte # Reactive Lymphs # Total Abs Lymphocytes Monocytes # (Manual) Eosinophils # (Manual) Basophils # (Manual) Metamyelocytes # (Man) Myelocytes # (Manual) Promyelocytes # (Man) Blast Cells # (Man) Plasma Cell # (Manual) Other Cells # Nucleated RBCs # (Man) Hypersegmented Neuts Hyposegmented Neuts Hypogranular Neuts Large Granular Lymphs # Lrg Granular Lymphs Hairy Cells Smudge Cells Blood Smear Review Toxic Granulation Toxic Vacuolation Dohle Bodies Ac Rods Platelet Estimate Hypogranular Platelets Clumped Platelets Giant Platelets Platelet Satelliting RBC Morphology Polychromasia Hypochromasia Poikilocytosis Basophilic Stippling Anisocytosis Microcytosis Macrocytosis Spherocytes Pappenheimer Bodies Sickle Cells Target Cells Tear Drop Cells Ovalocytes Stomatocytes Whitt-Breckenridge Bodies Echinocytes Acanthocytes (Spur) Rouleaux RBC Agglutinates Schistocytes RBC Morph Comment Sezary Cell PT INR Sodium Pending Potassium Pending Chloride Pending Carbon Dioxide Pending Anion Gap Pending BUN Pending Creatinine Pending Est Cr Clr Drug Dosing Pending Est GFR ( Amer) Pending Est GFR (Non-Af Amer) Pending BUN/Creatinine Ratio Pending Glucose Pending POC Glucose 179 H Lactate Calcium Pending Magnesium Pending Cancelled Total Bilirubin Pending Direct Bilirubin AST Pending ALT Pending Alkaline Phosphatase Pending Total Creatine Kinase Troponin I Total Protein Pending Albumin Pending Globulin Pending Albumin/Globulin Ratio Pending Procalcitonin Urine Color Urine Appearance Urine pH Ur Specific [place] Urine Protein Urine Glucose (UA) Urine Ketones Urine Blood Urine Nitrite Urine Bilirubin Urine Urobilinogen Ur Leukocyte Esterase Urine WBC (Auto) Urine RBC (Auto) U Hyaline Cast (Auto) U Epithel Cells (Auto) Urine Bacteria (Auto) Nasal Screen MRSA (PCR) COVID-19 Eval Order SARS-CoV-2 (PCR) Hepatitis C Ab Screen Medications Administered Current Inpatient Medications Aspirin (Aspirin 81 Mg Ectab) 81 mg PO DAILY [facility] Stop: 04/23/21 08:59 Last Admin: 03/24/21 08:24 Dose: 81 mg Documented by: Citalopram Hydrobromide (Citalopram 20 Mg Tab) 20 mg PO DAILY [facility] Stop: 04/23/21 08:59 Last Admin: 03/24/21 08:22 Dose: 20 mg Documented by: Dextrose (Dextrose 50% 50 Ml Syringe) 25 - 50 ml IV UD PRN; Protocol PRN Reason: Hypoglycemia Protocol Stop: 04/22/21 19:55 Glucagon (Glucagon For Inj 1 Mg Vial) 1 mg SQ UD PRN; Protocol PRN Reason: Hypoglycemia Protocol Stop: 04/22/21 19:55 Glucose (Glucose 10 Tabs/Tube) 4 - 8 tabs PO UD PRN; Protocol PRN Reason: Hypoglycemia Protocol Stop: 04/22/21 19:55 Glucose (Glucose 40% Gel 15 Gm Tube) 15 - 30 gm PO UD PRN; Protocol PRN Reason: Hypoglycemia Protocol Stop: 04/22/21 19:55 Heparin Sodium (Porcine) (Heparin Sod 5,000 Unit/0.5 Ml Vial) 5,000 units SQ Q8 [facility] Stop: 04/22/21 21:59 Last Admin: 03/24/21 05:56 Dose: 5,000 units Documented by: Ceftriaxone Sodium 2,000 mg/ (Dextrose) 70 mls @ 140 mls/hr IV Q24H [facility]; Protocol Stop: 03/26/21 17:59 Sodium Chloride (Nss 1000ml) 1,000 mls @ 100 mls/hr IV .Q10H [facility] Stop: 04/22/21 19:59 Last Admin: 03/24/21 05:57 Dose: 100 mls/hr Documented by: Vancomycin HCl 1,250 mg/ (Sodium Chloride) 275 mls @ 200 mls/hr IV Q24H [facility] Stop: 03/26/21 17:59 Insulin Aspart (Insulin Aspart 100 Units/Ml 3 Ml Pen) 0 units SC ACHS [facility] Stop: 04/23/21 11:29 Metoprolol Tartrate (Metoprolol Tartrate 1 Mg/Ml Vial) 5 mg IV Q6 PRN PRN Reason: HR>120 Stop: 04/22/21 19:55 Metoprolol Tartrate (Metoprolol Tartrate 25 Mg Tab) 12.5 mg PO BID [facility] Stop: 04/23/21 20:59 Miscellaneous (Carbohydrates For Hypoglycemia ) 15 - 30 gm PO UD PRN PRN Reason: Hypoglycemia Protocol Stop: 04/22/21 19:55 Miscellaneous Information (Vancomycin Consult Active) 1 ea N/A UD PRN PRN Reason: Consult Stop: 04/22/21 17:30 Multivitamins (Multivitamin Tab) 1 tab PO DAILY [facility] Stop: 04/23/21 08:59 Last Admin: 03/24/21 08:22 Dose: 1 tab Documented by: Simvastatin (Simvastatin 10 Mg Tab) 10 mg PO HS [facility] Stop: 04/22/21 20:59 Last Admin: 03/23/21 21:36 Dose: 10 mg Documented by: Tamsulosin HCl (Tamsulosin Hcl 0.4 Mg Cap) 0.4 mg PO DAILY [facility] Stop: 04/23/21 08:59 Last Admin: 03/24/21 08:22 Dose: 0.4 mg Documented by:
[2021-03-24 10:08] LABS: BUN Creatinine Ratio 47.9 (10-20); Calcium 7.7 mg/dl (8.5-10.1); Creatinine Clr Calc Pharmacy 56.6 ml/min; Est GFR (African American) 74.5 ml/min; Est GFR (Non-African American) 64.3 ml/min; Magnesium 2.5 mg/dl (1.8-2.4); Potassium 3.1 mmol/L (3.5-5.1)
[2021-03-24 10:13] LABS: Albumin Globulin Ratio 0.5 (0.9-2); Bilirubin,Total 0.7 mg/dl (0.2-1); Globulin 3.7 gm/dl (2.5-4.0); Total Protein 5.7 gm/dl (6.4-8.2)
[2021-03-24 11:13] LABS: Hematocrit (blood only) 37.1 % (42-52); Hemoglobin 12.7 g/dL (14.0-18.0); Mean Corpuscular Hemoglobin 31.2 pg (25-34); Mean Corpuscular Hgb Conc 34.2 g/dL (32-36); Mean Corpuscular Volume 91.2 fL (80-100); Mean Platelet Volume 11.7 fL (7.4-10.4); Platelet Count 29 K/uL (130-400); RDW Coefficient of Variation 14.1 % (11.5-14.5); RDW Standard Deviation 47.3 fL (36.4-46.3); Red Blood Count 4.07 M/uL (4.7-6.1); White Blood Count 19.52 K/uL (4.8-10.8)
[2021-03-24 11:14] LABS: Basophils # (auto) 0.05 K/uL (0-0.2); Basophils % (auto) 0.3 %; Eosinophils # (auto) 0.01 K/uL (0-0.5); Eosinophils % (auto) 0.1 %; Immature Granulocytes % (auto) 0.5 %; Lymphocytes # (auto) 3.66 K/uL (1.2-3.4); Lymphocytes % (auto) 18.8 %; Monocytes # (auto) 1.47 K/uL (0.11-0.59); Monocytes % (auto) 7.5 %; Neutrophils # (auto) 14.23 K/uL (1.4-6.5); Neutrophils % (auto) 72.8 %; Platelet Estimate SIGNIFIC DECREASED (Normal)
[2021-03-24] MEDS: INSULIN ASPART 100 UNITS/ML 3 ML PEN SC SCH ×3 (12:07→21:32)
[2021-03-24] MEDS ORDERED: POTASSIUM CHLORIDE CRTAB 20 MEQ TABCR PO STA (12:58)
[2021-03-24] MEDS ORDERED: VANCOMYCIN HCL 1,250 MG in SODIUM CHLORIDE 0.9% 250 ML IV SCH ×2 (14:00→18:00)
[2021-03-24] MEDS: cefTRIAXone SODIUM 2,000 MG in DEXTROSE 5% 50 ML IV SCH (17:00)
--- NOTE | 2021-03-24 17:31 | Electrocardiogram Report ---
Test Reason : Blood Pressure : / mmHG Vent. Rate : 144 BPM Atrial Rate : 113 BPM P-R Int : 000 ms QRS Dur : 088 ms QT Int : 322 ms P-R-T Axes : 000 023 071 degrees QTc Int : 498 ms Atrial fibrillation with rapid ventricular response Nonspecific ST abnormality Abnormal ECG No previous ECGs available Confirmed by Michael Wooten ([id number]) on 03/24/2021 5:31:03 PM Referred By: REFERRED SELF Confirmed By:Brad Wooten
--- NOTE | 2021-03-24 17:37 | Electrocardiogram Report ---
Test Reason : Blood Pressure : / mmHG Vent. Rate : 097 BPM Atrial Rate : 085 BPM P-R Int : 000 ms QRS Dur : 098 ms QT Int : 382 ms P-R-T Axes : 000 000 028 degrees QTc Int : 485 ms Atrial fibrillation Prolonged QT Abnormal ECG When compared with ECG of 23-MAR-2021 14:21, (unconfirmed) No significant change was found Confirmed by Michael Wooten ([id number]) on 03/24/2021 5:37:07 PM Referred By: REFERRED SELF Confirmed By:Brad Wooten
[2021-03-24] MEDS: METOPROLOL TARTRATE 25 MG TAB PO SCH (21:31)
[2021-03-24] MEDS: CALCIUM 600MG + VIT D 400 IU TAB PO SCH (21:31)
[2021-03-24] MEDS: SIMVASTATIN 10 MG TAB PO SCH (21:31)
[2021-03-25] MEDS: SODIUM CHLORIDE 0.9% 1000ML 1,000 ML IV SCH ×3 (01:42→21:45)
[2021-03-25] MEDS ORDERED: VANCOMYCIN HCL 1,250 MG in SODIUM CHLORIDE 0.9% 250 ML IV SCH (02:00)
[2021-03-25 07:07] LABS: Hematocrit (blood only) 33.5 % (42-52); Hemoglobin 11.2 g/dL (14.0-18.0); Mean Corpuscular Hemoglobin 31.2 pg (25-34); Mean Corpuscular Hgb Conc 33.4 g/dL (32-36); Mean Corpuscular Volume 93.3 fL (80-100); Mean Platelet Volume 10.5 fL (7.4-10.4); Platelet Count 63 K/uL (130-400); RDW Coefficient of Variation 14.3 % (11.5-14.5); RDW Standard Deviation 49.3 fL (36.4-46.3); Red Blood Count 3.59 M/uL (4.7-6.1); White Blood Count 11.72 K/uL (4.8-10.8)
[2021-03-25 07:28] LABS: Basophils # (auto) 0.02 K/uL (0-0.2); Basophils % (auto) 0.2 %; Eosinophils # (auto) 0.05 K/uL (0-0.5); Eosinophils % (auto) 0.4 %; Immature Granulocytes # (auto) 0.06 K/uL (0.00-0.02); Immature Granulocytes % (auto) 0.5 %; Lymphocytes # (auto) 1.96 K/uL (1.2-3.4); Lymphocytes % (auto) 16.7 %; Monocytes # (auto) 1.09 K/uL (0.11-0.59); Monocytes % (auto) 9.3 %; Neutrophils # (auto) 8.54 K/uL (1.4-6.5); Neutrophils % (auto) 72.9 %
[2021-03-25 07:43] LABS: Calcium 7.6 mg/dl (8.5-10.1); Creatinine Clr Calc Pharmacy 73.5 ml/min; Est GFR (African American) 93.1 ml/min; Est GFR (Non-African American) 80.3 ml/min
[2021-03-25] MEDS: TAMSULOSIN HCL 0.4 MG CAP PO SCH (08:06)
[2021-03-25] MEDS: CALCIUM 600MG + VIT D 400 IU TAB PO SCH ×2 (08:07→20:09)
[2021-03-25] MEDS: METOPROLOL TARTRATE 25 MG TAB PO SCH ×2 (08:07→20:09)
[2021-03-25] MEDS: INSULIN ASPART 100 UNITS/ML 3 ML PEN SC SCH ×4 (08:07→21:46)
[2021-03-25] MEDS: CITALOPRAM 20 MG TAB PO SCH (08:07)
[2021-03-25] MEDS: MULTIVITAMIN TAB PO SCH (08:07)
--- NOTE | 2021-03-25 11:57 | Hospitalist Progress Note ---
Date of Service March 25, 2021 Assessment & Plan (1) Sepsis: (2) Dehydration: Severe sepsis,: Meets criteria for sepsis admitted with lactic 2.2, WBC 25,000, tachycardic lactate is 2.2, WBCs 25,000, tachycardic Meets SIRS criteria. source of infection left arm infected wound blood culture : gram positive cocci [facility] ID eval requesed Sent for urine culture, Continue with IV vancomycin and Rocephin, Confusion disorientation secondary to metabolic encephalopathy. CT head does not show acute abnormality Mental status improved to baseline after fluid resuscitation (3) Ambulatory dysfunction: Evidence of falls, with multiple bruises ecchymosis of the knees, and arms, PT OT evaluation (4) A-fib: New diagnosis of A. fib, Possible secondary to acute illness,? Patient remains in A. fib, heart rate between 90s to low 100s Patient remains asymptomatic Discontinued home propanolol, on low-dose of Lopressor 12.5 daily 2D echo ordered Cardiology consult appreciated CHADVASC is 4. 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 anticoagulation (5) Diabetes mellitus: A1c from 03/10/2021 is 6.4 Insulin sliding scale (6) DVT prophylaxis: scd and teds avoid pharmacological anticoagulation given thormbocytopenia CODE STATUS: Full code Disposition: 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 of 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-year-old son with cerebral palsy who is nonambulatory and nonverbal needs complete assistance And with advanced dementia Office of aging should be involved to assess home situation, Social service consulted PT OT evaluation requested Admission and Anticipated Discharge Date Admission Date: March 23, 2021 Subjective awake and alert today , conversing appropriately still experiencing significant weakness and fatigue no fever or chills no cough or sob no complain of palpitation or chest heaviness Review of Systems Cardiovascular: no chest pain, no orthopnea, no palpitations and no syncope Gastrointestinal: no abdominal pain, no nausea, no vomiting and no diarrhea/loose stools Musculoskeletal: Generalized weakness, denies of any muscle ache or joint pain Integumentary: bruise/ecchymosis on bilateral arms, Physical Exam Constitutional: WD/WN, vitals as above + ill appearing; no acute distress Eyes: PERRL, conjunctivae normal, anicteric sclerae + anicteric sclerae ENMT: external ear and nose normal, oropharynx normal Neck: normal visual inspection Respiratory: normal respiratory effort; no respiratory distress Auscultation: + crackles (Faint crackles noted on left lower lobe); no wheezes Cardiovascular: Rate/Rhythm: + irregularly irregular Extremities: no edema Gastrointestinal (Abdomen): Percussion/Palpation: abdomen soft; abdomen nontender Musculoskeletal: Knee: + ecchymosis (On bilateral knee, right is worse than left) Skin: + ecchymosis (Extensive ecchymosis noted on bilateral arms.) Trauma: + abrasion Neurologic: PERRL, EOMI, accommodation nl, no face palsy, no dysarthria moves all extremities (Noted to have normal muscle strength); no focal motor deficits Psychiatric: A+Ox3, euthymic affect Results & Data Results & Data ([facility]) Vital Signs (Past 12 Hours) Vital Signs Temp Pulse Resp BP Pulse Ox 03/25/21 11:44 36.5 C 97 H 23 136/66 95 03/25/21 07:40 36.6 C 103 H 23 131/81 93 03/25/21 04:47 36.7 C 87 18 152/78 H 93
--- NOTE | 2021-03-25 14:44 | Cardiology Progress Note ---
Date of Service March 25, 2021 Assessment & Plan (1) Sepsis: (2) A-fib: (3) Diabetes mellitus: The patient is currently clinically stable. He has atrial fibrillation with a controlled heart rate. I think at this time it is adequate just to control his heart rate and to keep him on anticoagulation. Admission and Anticipated Discharge Date Admission Date: March 23, 2021 Subjective The patient had an uneventful night. No new cardiac complaints. Review of Systems Review of Systems: All systems reviewed & are unremarkable except as noted in Subjective Physical Exam Physical Exam: General: no acute distress and stated age Head: normocephalic, no masses, lesions, tenderness or abnormalities Eyes: conjunctiva are pink and non-injected, sclera clear Neck: supple, no adenopathy, no bruits, normal jugular venous pulse, no hepatojugular reflux Chest: normal shape and normal respiratory effort Lungs: clear to auscultation and percussion Cardiac Exam: - regular rate & rhythm, no murmurs gallops or rubs - normal S1, normal S2 Pulses: 2(+) throughout Abdomen: abdomen soft, non-tender, no abnormal masses and no hepatosplenomegaly Musculoskeletal: no gait disturbance, no joint inflammation, no deforming arthritis Extremities: no edema and no cyanosis Neuro: grossly normal exam Results & Data ([facility]) Vital Signs (Past 12 Hours) Vital Signs Temp Pulse Resp BP Pulse Ox 03/25/21 11:44 36.5 C 97 H 23 136/66 95 03/25/21 07:40 36.6 C 103 H 23 131/81 93 03/25/21 04:47 36.7 C 87 18 152/78 H 93 Laboratory Results Laboratory Results - last 24 hr 03/23/21 03/24/21 03/24/21 16:34 15:59 20:32 WBC RBC Hgb Hct MCV MCH MCHC RDW Std Deviation RDW Coeff of Néstor Plt Count MPV Immature Gran % (Auto) Neut % (Auto) Lymph % (Auto) Nicholas % (Auto) Eos % (Auto) Baso % (Auto) Neut # (Auto) Lymph # (Auto) Nicholas # (Auto) Eos # (Auto) Baso # (Auto) Immature Gran # (Auto) Sodium Potassium Chloride Carbon Dioxide Anion Gap BUN Creatinine Est Cr Clr Drug Dosing Est GFR ( Amer) Est GFR (Non-Af Amer) BUN/Creatinine Ratio Glucose POC Glucose 231 H 223 H Calcium Iron TIBC Transferrin Bld Cult Staph aureus PCR Positive A Blood Culture MRSA PCR Negative 03/25/21 03/25/21 03/25/21 06:31 06:31 07:53 WBC 11.72 H RBC 3.59 L Hgb 11.2 L Hct 33.5 L MCV 93.3 MCH 31.2 MCHC 33.4 RDW Std Deviation 49.3 H RDW Coeff of Néstor 14.3 Plt Count 63 L D MPV 10.5 H Immature Gran % (Auto) 0.5 Neut % (Auto) 72.9 Lymph % (Auto) 16.7 Nicholas % (Auto) 9.3 Eos % (Auto) 0.4 Baso % (Auto) 0.2 Neut # (Auto) 8.54 H Lymph # (Auto) 1.96 Nicholas # (Auto) 1.09 H Eos # (Auto) 0.05 Baso # (Auto) 0.02 Immature Gran # (Auto) 0.06 H Sodium 139 Potassium 3.0 L Chloride 110 H Carbon Dioxide 26 Anion Gap 3.0 BUN 38 H Creatinine 0.80 Est Cr Clr Drug Dosing 73.5 Est GFR ( Amer) 93.1 Est GFR (Non-Af Amer) 80.3 BUN/Creatinine Ratio 47.0 H Glucose 158 H POC Glucose 164 H Calcium 7.6 L Iron 20 L TIBC 181 L Transferrin 115 L Bld Cult Staph aureus PCR Blood Culture MRSA PCR 03/25/21 11:08 WBC RBC Hgb Hct MCV MCH MCHC RDW Std Deviation RDW Coeff of Néstor Plt Count MPV Immature Gran % (Auto) Neut % (Auto) Lymph % (Auto) Nicholas % (Auto) Eos % (Auto) Baso % (Auto) Neut # (Auto) Lymph # (Auto) Nicholas # (Auto) Eos # (Auto) Baso # (Auto) Immature Gran # (Auto) Sodium Potassium Chloride Carbon Dioxide Anion Gap BUN Creatinine Est Cr Clr Drug Dosing Est GFR ( Amer) Est GFR (Non-Af Amer) BUN/Creatinine Ratio Glucose POC Glucose 152 H Calcium Iron TIBC Transferrin Bld Cult Staph aureus PCR Blood Culture MRSA PCR Medications Administered Current Inpatient Medications Citalopram Hydrobromide (Citalopram 20 Mg Tab) 20 mg PO DAILY [facility] Stop: 04/23/21 08:59 Last Admin: 03/25/21 08:07 Dose: 20 mg Documented by: Dextrose (Dextrose 50% 50 Ml Syringe) 25 - 50 ml IV UD PRN; Protocol PRN Reason: Hypoglycemia Protocol Stop: 04/22/21 19:55 Glucagon (Glucagon For Inj 1 Mg Vial) 1 mg SQ UD PRN; Protocol PRN Reason: Hypoglycemia Protocol Stop: 04/22/21 19:55 Glucose (Glucose 10 Tabs/Tube) 4 - 8 tabs PO UD PRN; Protocol PRN Reason: Hypoglycemia Protocol Stop: 04/22/21 19:55 Glucose (Glucose 40% Gel 15 Gm Tube) 15 - 30 gm PO UD PRN; Protocol PRN Reason: Hypoglycemia Protocol Stop: 04/22/21 19:55 Ceftriaxone Sodium 2,000 mg/ (Dextrose) 70 mls @ 140 mls/hr IV Q24H [facility]; Protocol Stop: 04/07/21 17:59 Last Infusion: 03/24/21 17:34 Dose: Infused Documented by: Sodium Chloride (Nss 1000ml) 1,000 mls @ 100 mls/hr IV .Q10H [facility] Stop: 04/22/21 19:59 Last Admin: 03/25/21 12:13 Dose: 100 mls/hr Documented by: Insulin Aspart (Insulin Aspart 100 Units/Ml 3 Ml Pen) 0 units SC ACHS [facility] Stop: 04/23/21 11:29 Last Admin: 03/25/21 12:10 Dose: Not Given Documented by: Metoprolol Tartrate (Metoprolol Tartrate 1 Mg/Ml Vial) 5 mg IV Q6 PRN PRN Reason: HR>120 Stop: 04/22/21 19:55 Metoprolol Tartrate (Metoprolol Tartrate 25 Mg Tab) 12.5 mg PO BID [facility] Stop: 04/23/21 20:59 Last Admin: 03/25/21 08:07 Dose: 12.5 mg Documented by: Miscellaneous (Carbohydrates For Hypoglycemia ) 15 - 30 gm PO UD PRN PRN Reason: Hypoglycemia Protocol Stop: 04/22/21 19:55 Multivitamins (Multivitamin Tab) 1 tab PO DAILY [facility] Stop: 04/23/21 08:59 Last Admin: 03/25/21 08:07 Dose: 1 tab Documented by: Multivitamins/Minerals (Calcium 600mg + Vit D 400 Iu Tab) 1 tab PO BID [facility] Stop: 04/23/21 20:59 Last Admin: 03/25/21 08:07 Dose: 1 tab Documented by: Simvastatin (Simvastatin 10 Mg Tab) 10 mg PO HS [facility] Stop: 04/22/21 20:59 Last Admin: 03/24/21 21:31 Dose: 10 mg Documented by: Tamsulosin HCl (Tamsulosin Hcl 0.4 Mg Cap) 0.4 mg PO DAILY [facility] Stop: 04/23/21 08:59 Last Admin: 03/25/21 08:06 Dose: 0.4 mg Documented by:
[2021-03-25] MEDS: cefTRIAXone SODIUM 2,000 MG in DEXTROSE 5% 50 ML IV SCH (17:26)
[2021-03-25] MEDS: SIMVASTATIN 10 MG TAB PO SCH (20:09)
[2021-03-26 07:45] LABS: BUN Creatinine Ratio 38.4 (10-20); Calcium 7.9 mg/dl (8.5-10.1); Est GFR (African American) 98.3 ml/min; Est GFR (Non-African American) 84.9 ml/min
[2021-03-26] MEDS: SODIUM CHLORIDE 0.9% 1000ML 1,000 ML IV SCH ×2 (08:21→19:39)
[2021-03-26] MEDS: CALCIUM 600MG + VIT D 400 IU TAB PO SCH ×2 (08:22→19:45)
[2021-03-26] MEDS: CITALOPRAM 20 MG TAB PO SCH (08:22)
[2021-03-26] MEDS: METOPROLOL TARTRATE 25 MG TAB PO SCH ×2 (08:32→19:45)
[2021-03-26] MEDS: MULTIVITAMIN TAB PO SCH (08:33)
[2021-03-26] MEDS: TAMSULOSIN HCL 0.4 MG CAP PO SCH (08:33)
[2021-03-26] MEDS: INSULIN ASPART 100 UNITS/ML 3 ML PEN SC SCH ×4 (08:34→20:59)
[2021-03-26 08:41] LABS: Basophils # (auto) 0.03 K/uL (0-0.2); Basophils % (auto) 0.3 %; Eosinophils # (auto) 0.09 K/uL (0-0.5); Hematocrit (blood only) 33.9 % (42-52); Hemoglobin 11.2 g/dL (14.0-18.0); Immature Granulocytes # (auto) 0.05 K/uL (0.00-0.02); Immature Granulocytes % (auto) 0.5 %; Lymphocytes # (auto) 1.94 K/uL (1.2-3.4); Lymphocytes % (auto) 21.1 %; Mean Corpuscular Hemoglobin 31.3 pg (25-34); Mean Corpuscular Volume 94.7 fL (80-100); Mean Platelet Volume 10.6 fL (7.4-10.4); Monocytes # (auto) 1.02 K/uL (0.11-0.59); Monocytes % (auto) 11.1 %; Neutrophils # (auto) 6.08 K/uL (1.4-6.5); Platelet Count 107 K/uL (130-400); Platelet Estimate Decreased (Normal); RDW Coefficient of Variation 14.4 % (11.5-14.5); RDW Standard Deviation 50.2 fL (36.4-46.3); Red Blood Count 3.58 M/uL (4.7-6.1); White Blood Count 9.21 K/uL (4.8-10.8)
[2021-03-26] MEDS ORDERED: POTASSIUM CHLORIDE CRTAB 20 MEQ TABCR PO ONE (09:05)
[2021-03-26] MEDS: cefTRIAXone SODIUM 2,000 MG in DEXTROSE 5% 50 ML IV SCH (17:25)
--- NOTE | 2021-03-26 18:39 | Hospitalist Progress Note ---
Date of Service March 26, 2021 Assessment & Plan (1) Sepsis: Plan: Severe sepsis Meets SIRS criteria. Left arm infected wound/Cellulitis Staph Bacteremia Blood culture: 1/2 Staph Repeat Blood Cx: pending Wound Cx not obtained prior to starting abx ECHO: No evidence of mass or vegetation IV vancomycin, Rocephin>> transition to Rocephin Appreciate ID input Continue wound care Acute metabolic encephalopathy. CT head does not show acute abnormality Mental status back to baseline Thrombocytopenia Likely secondary to sepsis Platelet count improving No signs of bleeding Monitor Ambulatory dysfunction: Evidence of falls, with multiple bruises ecchymosis of the knees, and arms, PT OT evaluation Atrial Fibrillation New diagnosis Possible secondary to acute infection Continue Metoprolol Given high risk of bleeding, falls, currently not on any anticoagulation Appreciate cardiology input Diabetes mellitus: A1c from 03/10/2021 is 6.4 Insulin sliding scale DVT Px: SCDs CODE STATUS: Full code Admission and Anticipated Discharge Date Admission Date: March 23, 2021 Subjective Patient is seen and examined at bedside States having right elbow swelling, discomfort Denies chest pain, dyspnea, dizziness, nausea, abd pain Offers no other complaints Review of Systems Review of Systems: All systems reviewed & are unremarkable except as noted in Subjective Physical Exam Physical Exam: Physical Exam: Vitals signs as noted above General Appearance:Moderately built and nourished, no apparent distress Head: normocephalic, Atraumatic Eyes: normal inspection, EOMI Neck: supple, Trachea midline Respiratory/Chest: Normal breath sounds, CTA, No accessory muscle use Cardiovascular: Irregularly irregular, +murmur Abdomen/GI:Soft, Non tender, Bowel sounds present Extremities/Musculoskeletal:normal inspection, no edema, R elbow in dressing Neurologic/Psych:AAOX3, grossly no focal neurological deficits Skin: normal color, warm Results & Data Results & Data ([facility]) Vital Signs (Past 12 Hours) Vital Signs Temp Pulse Pulse Resp BP BP Pulse Ox 03/26/21 15:35 36.4 C L 105 H 19 172/78 H 995 H 03/26/21 11:45 36.5 C 89 17 160/92 H 97 03/26/21 08:15 36.6 C 100 H 17 115/76 97 03/26/21 07:48 103 H Laboratory Results Short CBC 03/26/21 Range/Units 06:42 WBC 9.21 (4.8-10.8) K/uL Hgb 11.2 L (14.0-18.0) g/dL Hct 33.9 L (42-52) % Plt Count 107 L D (130-400) K/uL [facility] 03/26/21 06:42 Sodium 139 Potassium 3.0 L Chloride 109 H Carbon Dioxide 24 BUN 27 H Creatinine 0.70 Glucose 150 H Calcium 7.9 L
[2021-03-26] MEDS: SIMVASTATIN 10 MG TAB PO SCH (19:45)
[2021-03-26] MEDS ORDERED: FAMOTIDINE 20 MG TAB PO STA (20:04)
[2021-03-26] MEDS ORDERED: FAMOTIDINE 20 MG TAB PO PRN (20:05)
[2021-03-27] MEDS: SODIUM CHLORIDE 0.9% 1000ML 1,000 ML IV SCH (05:14)
[2021-03-27 06:42] LABS: Basophils # (auto) 0.01 K/uL (0-0.2); Basophils % (auto) 0.1 %; Eosinophils # (auto) 0.07 K/uL (0-0.5); Hematocrit (blood only) 32.3 % (42-52); Hemoglobin 10.7 g/dL (14.0-18.0); Immature Granulocytes # (auto) 0.04 K/uL (0.00-0.02); Immature Granulocytes % (auto) 0.6 %; Lymphocytes # (auto) 1.75 K/uL (1.2-3.4); Lymphocytes % (auto) 24.3 %; Mean Corpuscular Hemoglobin 30.7 pg (25-34); Mean Corpuscular Hgb Conc 33.1 g/dL (32-36); Mean Corpuscular Volume 92.8 fL (80-100); Mean Platelet Volume 9.4 fL (7.4-10.4); Monocytes # (auto) 0.82 K/uL (0.11-0.59); Monocytes % (auto) 11.4 %; Neutrophils # (auto) 4.51 K/uL (1.4-6.5); Neutrophils % (auto) 62.6 %; Platelet Count 126 K/uL (130-400); RDW Coefficient of Variation 14.5 % (11.5-14.5); RDW Standard Deviation 48.9 fL (36.4-46.3); Red Blood Count 3.48 M/uL (4.7-6.1)
[2021-03-27 07:23] LABS: BUN Creatinine Ratio 27.6 (10-20); Calcium 7.8 mg/dl (8.5-10.1); Creatinine Clr Calc Pharmacy 79.5 ml/min; Est GFR (African American) 96.1 ml/min; Est GFR (Non-African American) 82.9 ml/min; Magnesium 1.8 mg/dl (1.8-2.4); Potassium 3.4 mmol/L (3.5-5.1)
[2021-03-27] MEDS: INSULIN ASPART 100 UNITS/ML 3 ML PEN SC SCH ×4 (08:38→21:02)
[2021-03-27] MEDS: ASPIRIN 81 MG ECTAB PO SCH (08:39)
[2021-03-27] MEDS: MULTIVITAMIN TAB PO SCH (08:40)
[2021-03-27] MEDS: CHLORTHALIDONE 25 MG TAB PO SCH (08:40)
[2021-03-27] MEDS: CALCIUM 600MG + VIT D 400 IU TAB PO SCH ×2 (08:40→21:03)
[2021-03-27] MEDS: METOPROLOL TARTRATE 25 MG TAB PO SCH ×2 (08:40→21:03)
[2021-03-27] MEDS: CITALOPRAM 20 MG TAB PO SCH (08:40)
[2021-03-27] MEDS: TAMSULOSIN HCL 0.4 MG CAP PO SCH (08:41)
[2021-03-27] MEDS ORDERED: POTASSIUM CHLORIDE CRTAB 20 MEQ TABCR PO ONE (09:00)
--- NOTE | 2021-03-27 10:08 | Cardiology Progress Note ---
Date of Service March 27, 2021 Assessment & Plan (1) Sepsis: (2) A-fib: (3) Diabetes mellitus: Plan: The patient had high heart rates while working with physical therapy. His heart rates are in the low 100s currently while he is sitting in a chair. He just got his first increased dose of metoprolol. He also has a as needed IV dose if necessary. Otherwise from a cardiac standpoint he is stable. He is not anticoagulated and today I am going to start Eliquis at 5 mg twice daily. Admission and Anticipated Discharge Date Admission Date: March 23, 2021 Subjective The patient is currently sitting in a chair but he was working with physical therapy. He states that he is doing better. Review of Systems Review of Systems: Review of Systems: See HPI for pertinent positives. All other 10 point review of systems are negative. Physical Exam Physical Exam: General: no acute distress and stated age Head: normocephalic, no masses, lesions, tenderness or abnormalities Eyes: conjunctiva are pink and non-injected, sclera clear Neck: supple, no adenopathy, no bruits, normal jugular venous pulse, no hepatojugular reflux Chest: normal shape and normal respiratory effort Lungs: clear to auscultation and percussion Cardiac Exam: - irregular rate & rhythm, no murmurs gallops or rubs - normal S1, normal S2 Pulses: 2(+) throughout Abdomen: abdomen soft, non-tender, no abnormal masses and no hepatosplenomegaly Musculoskeletal: no gait disturbance, no joint inflammation, no deforming arthritis Extremities: Right arm is bandaged. Neuro: grossly normal exam Results & Data ([facility]) Vital Signs (Past 12 Hours) Vital Signs Temp Pulse Pulse Resp BP BP Pulse Ox 03/27/21 08:07 120 H 03/27/21 07:50 36.8 C 107 H 18 150/81 H 94 03/27/21 04:17 36.5 C 114 H 18 132/76 94 03/26/21 23:27 36.7 C 101 H 20 147/83 H 95 Laboratory Results Laboratory Results - last 24 hr 03/26/21 03/26/21 03/26/21 11:18 16:11 20:56 WBC RBC Hgb Hct MCV MCH MCHC RDW Std Deviation RDW Coeff of Néstor Plt Count MPV Immature Gran % (Auto) Neut % (Auto) Lymph % (Auto) Orange % (Auto) Eos % (Auto) Baso % (Auto) Neut # (Auto) Lymph # (Auto) Orange # (Auto) Eos # (Auto) Baso # (Auto) Immature Gran # (Auto) Sodium Potassium Chloride Carbon Dioxide Anion Gap BUN Creatinine Est Cr Clr Drug Dosing Est GFR ( Amer) Est GFR (Non-Af Amer) BUN/Creatinine Ratio Glucose POC Glucose 267 H 220 H 214 H Calcium Magnesium COVID-19 Eval Order SARS-CoV-2, RNA, NAAT 03/26/21 03/26/21 03/27/21 Unknown Unknown 06:19 WBC 7.20 RBC 3.48 L Hgb 10.7 L Hct 32.3 L MCV 92.8 MCH 30.7 MCHC 33.1 RDW Std Deviation 48.9 H RDW Coeff of Néstor 14.5 Plt Count 126 L MPV 9.4 Immature Gran % (Auto) 0.6 Neut % (Auto) 62.6 Lymph % (Auto) 24.3 Orange % (Auto) 11.4 Eos % (Auto) 1.0 Baso % (Auto) 0.1 Neut # (Auto) 4.51 Lymph # (Auto) 1.75 Orange # (Auto) 0.82 H Eos # (Auto) 0.07 Baso # (Auto) 0.01 Immature Gran # (Auto) 0.04 H Sodium Potassium Chloride Carbon Dioxide Anion Gap BUN Creatinine Est Cr Clr Drug Dosing Est GFR ( Amer) Est GFR (Non-Af Amer) BUN/Creatinine Ratio Glucose POC Glucose Calcium Magnesium COVID-19 Eval Order Covid19 [facility] SARS-CoV-2, RNA, NAAT NEGATIVE 03/27/21 03/27/21 06:19 07:29 WBC RBC Hgb Hct MCV MCH MCHC RDW Std Deviation RDW Coeff of Néstor Plt Count MPV Immature Gran % (Auto) Neut % (Auto) Lymph % (Auto) Orange % (Auto) Eos % (Auto) Baso % (Auto) Neut # (Auto) Lymph # (Auto) Orange # (Auto) Eos # (Auto) Baso # (Auto) Immature Gran # (Auto) Sodium 137 Potassium 3.4 L Chloride 108 H Carbon Dioxide 27 Anion Gap 2.0 L BUN 20 H Creatinine 0.74 Est Cr Clr Drug Dosing 79.5 Est GFR ( Amer) 96.1 Est GFR (Non-Af Amer) 82.9 BUN/Creatinine Ratio 27.6 H Glucose 160 H POC Glucose 155 H Calcium 7.8 L Magnesium 1.8 COVID-19 Eval Order SARS-CoV-2, RNA, NAAT Medications Administered Current Inpatient Medications Aspirin (Aspirin 81 Mg Ectab) 81 mg PO QAM [facility] Stop: 04/26/21 08:59 Last Admin: 03/27/21 08:39 Dose: 81 mg Documented by: Chlorthalidone (Chlorthalidone 25 Mg Tab) 25 mg PO DAILY [facility] Stop: 04/26/21 08:59 Last Admin: 03/27/21 08:40 Dose: 25 mg Documented by: Citalopram Hydrobromide (Citalopram 20 Mg Tab) 20 mg PO DAILY [facility] Stop: 04/23/21 08:59 Last Admin: 03/27/21 08:40 Dose: 20 mg Documented by: Dextrose (Dextrose 50% 50 Ml Syringe) 25 - 50 ml IV UD PRN; Protocol PRN Reason: Hypoglycemia Protocol Stop: 04/22/21 19:55 Famotidine (Famotidine 20 Mg Tab) 20 mg PO DAILY PRN PRN Reason: Heartburn Stop: 04/26/21 08:59 Glucagon (Glucagon For Inj 1 Mg Vial) 1 mg SQ UD PRN; Protocol PRN Reason: Hypoglycemia Protocol Stop: 04/22/21 19:55 Glucose (Glucose 10 Tabs/Tube) 4 - 8 tabs PO UD PRN; Protocol PRN Reason: Hypoglycemia Protocol Stop: 04/22/21 19:55 Glucose (Glucose 40% Gel 15 Gm Tube) 15 - 30 gm PO UD PRN; Protocol PRN Reason: Hypoglycemia Protocol Stop: 04/22/21 19:55 Ceftriaxone Sodium 2,000 mg/ (Dextrose) 70 mls @ 140 mls/hr IV Q24H [facility]; Protocol Stop: 04/07/21 17:59 Last Infusion: 03/26/21 17:56 Dose: Infused Documented by: Insulin Aspart (Insulin Aspart 100 Units/Ml 3 Ml Pen) 0 units SC ACHS [facility] Stop: 04/23/21 11:29 Last Admin: 03/27/21 08:38 Dose: 2 units Documented by: Metoprolol Tartrate (Metoprolol Tartrate 1 Mg/Ml Vial) 5 mg IV Q6 PRN PRN Reason: HR>120 Stop: 04/22/21 19:55 Metoprolol Tartrate (Metoprolol Tartrate 25 Mg Tab) 25 mg PO BID [facility] Stop: 04/26/21 08:59 Last Admin: 03/27/21 08:40 Dose: 25 mg Documented by: Miscellaneous (Carbohydrates For Hypoglycemia ) 15 - 30 gm PO UD PRN PRN Reason: Hypoglycemia Protocol Stop: 04/22/21 19:55 Multivitamins (Multivitamin Tab) 1 tab PO DAILY [facility] Stop: 04/23/21 08:59 Last Admin: 03/27/21 08:40 Dose: 1 tab Documented by: Multivitamins/Minerals (Calcium 600mg + Vit D 400 Iu Tab) 1 tab PO BID [facility] Stop: 04/23/21 20:59 Last Admin: 03/27/21 08:40 Dose: 1 tab Documented by: Simvastatin (Simvastatin 10 Mg Tab) 10 mg PO HS [facility] Stop: 04/22/21 20:59 Last Admin: 03/26/21 19:45 Dose: 10 mg Documented by: Tamsulosin HCl (Tamsulosin Hcl 0.4 Mg Cap) 0.4 mg PO DAILY [facility] Stop: 04/23/21 08:59 Last Admin: 03/27/21 08:41 Dose: 0.4 mg Documented by:
[2021-03-27] MEDS: APIXABAN 5 MG TABLET PO SCH ×2 (11:08→21:03)
--- NOTE | 2021-03-27 15:10 | Hospitalist Progress Note ---
Date of Service March 27, 2021 Assessment & Plan (1) Sepsis: Plan: Severe sepsis Meets SIRS criteria. Left arm infected wound/Cellulitis Staph Bacteremia Blood culture: 1/2 Staph Repeat Blood Cx: No growth to date Wound Cx not obtained prior to starting abx ECHO: No evidence of mass or vegetation IV vancomycin, Rocephin>> transition to Rocephin Appreciate ID input Continue wound care Plan to complete 2 week course of IV Rocephin Acute metabolic encephalopathy. CT head does not show acute abnormality Mental status back to baseline Thrombocytopenia Likely secondary to sepsis Platelet count improving No signs of bleeding Monitor Ambulatory dysfunction: Evidence of falls, with multiple bruises ecchymosis of the knees, and arms, PT OT evaluation Atrial Fibrillation New diagnosis Possible secondary to acute infection Continue Metoprolol increased to 25mg BID Started on Eliquis for anticoagulation Appreciate cardiology input Diabetes mellitus: A1c from 03/10/2021 is 6.4 Insulin sliding scale DVT Px: Eliquis CODE STATUS: Full code Admission and Anticipated Discharge Date Admission Date: March 23, 2021 Subjective Patient is seen and examined at bedside Noted to be in afib RVR this morning but asymptomatic Had PT eval Less right elbow pain today Denies chest pain, dyspnea, dizziness, nausea, abd pain Discussed with ID today Review of Systems Review of Systems: All systems reviewed & are unremarkable except as noted in Subjective Physical Exam Physical Exam: Physical Exam: Vitals signs as noted above General Appearance:Moderately built and nourished, no apparent distress Head: normocephalic, Atraumatic Eyes: normal inspection, EOMI Neck: supple, Trachea midline Respiratory/Chest: Normal breath sounds, CTA, No accessory muscle use Cardiovascular: Irregularly irregular, +murmur Abdomen/GI:Soft, Non tender, Bowel sounds present Extremities/Musculoskeletal:normal inspection, no edema, R elbow in dressing Neurologic/Psych:AAOX3, grossly no focal neurological deficits Skin: normal color, warm Results & Data Results & Data ([facility]) Vital Signs (Past 12 Hours) Vital Signs Temp Pulse Pulse Resp BP BP Pulse Ox 03/27/21 12:05 36.6 C 85 18 148/82 H 95 03/27/21 08:07 120 H 03/27/21 07:50 36.8 C 107 H 18 150/81 H 94 03/27/21 04:17 36.5 C 114 H 18 132/76 94 Laboratory Results Short CBC 03/27/21 Range/Units 06:19 WBC 7.20 (4.8-10.8) K/uL Hgb 10.7 L (14.0-18.0) g/dL Hct 32.3 L (42-52) % Plt Count 126 L (130-400) K/uL [facility] 03/27/21 06:19 Sodium 137 Potassium 3.4 L Chloride 108 H Carbon Dioxide 27 BUN 20 H Creatinine 0.74 Glucose 160 H Calcium 7.8 L
[2021-03-27] MEDS: cefTRIAXone SODIUM 2,000 MG in DEXTROSE 5% 50 ML IV SCH (18:26)
[2021-03-27] MEDS: SIMVASTATIN 10 MG TAB PO SCH (21:03)
[2021-03-28] MEDS: ACETAMINOPHEN 325 MG TAB PO PRN (05:59)
[2021-03-28 08:08] LABS: Hematocrit (blood only) 32.3 % (42-52); Hemoglobin 10.5 g/dL (14.0-18.0); Mean Corpuscular Hemoglobin 30.9 pg (25-34); Mean Corpuscular Hgb Conc 32.5 g/dL (32-36); Mean Platelet Volume 9.6 fL (7.4-10.4); Platelet Count 142 K/uL (130-400); RDW Coefficient of Variation 14.2 % (11.5-14.5); RDW Standard Deviation 49.1 fL (36.4-46.3)
[2021-03-28] MEDS: ASPIRIN 81 MG ECTAB PO SCH (08:36)
[2021-03-28] MEDS: CALCIUM 600MG + VIT D 400 IU TAB PO SCH ×2 (08:37→20:33)
[2021-03-28] MEDS: CITALOPRAM 20 MG TAB PO SCH (08:37)
[2021-03-28] MEDS: CHLORTHALIDONE 25 MG TAB PO SCH (08:38)
[2021-03-28] MEDS: APIXABAN 5 MG TABLET PO SCH ×2 (08:38→20:34)
[2021-03-28] MEDS: TAMSULOSIN HCL 0.4 MG CAP PO SCH (08:38)
[2021-03-28] MEDS: MULTIVITAMIN TAB PO SCH (08:39)
[2021-03-28 08:40] LABS: BUN Creatinine Ratio 22.7 (10-20); Calcium 8.2 mg/dl (8.5-10.1); Creatinine Clr Calc Pharmacy 80.6 ml/min; Est GFR (African American) 96.7 ml/min; Est GFR (Non-African American) 83.4 ml/min; Magnesium 1.7 mg/dl (1.8-2.4); Potassium 3.7 mmol/L (3.5-5.1)
[2021-03-28] MEDS: INSULIN ASPART 100 UNITS/ML 3 ML PEN SC SCH ×4 (08:45→20:32)
[2021-03-28] MEDS ORDERED: MAGNESIUM SULFATE / D5W 1 GM/100 ML BAG IV ONE (09:00)
[2021-03-28] MEDS: METOPROLOL TARTRATE 50 MG TAB PO SCH ×2 (11:14→20:33)
[2021-03-28] MEDS ORDERED: DIGOXIN 0.25 MG TAB PO ONE (11:45)
--- NOTE | 2021-03-28 11:55 | Cardiology Progress Note ---
Date of Service March 28, 2021 Assessment & Plan (1) Sepsis: (2) A-fib: (3) Diabetes mellitus: Plan: The patient continues to have high heart rates with his atrial fibrillation especially when he ambulates. He will continue his beta-isabel and Eliquis. I have added digoxin to his medical regimen. He will receive digoxin 0.5 mg now and then 0.125 mg at 4 PM today and daily thereafter. The patient should stay on the heart monitor. Admission and Anticipated Discharge Date Admission Date: March 23, 2021 Subjective The patient has no new cardiac complaints today. He is sitting comfortably in a chair. Review of Systems Review of Systems: Review of Systems: See HPI for pertinent positives. All other 10 point review of systems are negative. Physical Exam Physical Exam: General: no acute distress and stated age Head: normocephalic, no masses, lesions, tenderness or abnormalities Eyes: conjunctiva are pink and non-injected, sclera clear Neck: supple, no adenopathy, no bruits, normal jugular venous pulse, no hepatojugular reflux Chest: normal shape and normal respiratory effort Lungs: clear to auscultation and percussion Cardiac Exam: - regular rate & rhythm, no murmurs gallops or rubs - normal S1, normal S2 Pulses: 2(+) throughout Abdomen: abdomen soft, non-tender, no abnormal masses and no hepatosplenomegaly Musculoskeletal: no gait disturbance, no joint inflammation, no deforming arthritis Extremities: no edema and no cyanosis Neuro: grossly normal exam Results & Data ([facility]) Vital Signs (Past 12 Hours) Vital Signs Temp Pulse Resp BP Pulse Ox 03/28/21 11:40 36.5 C 99 H 19 101/52 L 95 03/28/21 07:48 36.7 C 105 H 18 154/78 H 95 03/28/21 03:48 36.8 C 108 H 20 177/75 H 94 03/28/21 00:01 36.7 C 78 20 165/82 H 95 Laboratory Results Laboratory Results - last 24 hr 03/27/21 03/27/21 03/28/21 16:15 20:37 07:23 WBC RBC Hgb Hct MCV MCH MCHC RDW Std Deviation RDW Coeff of Néstor Plt Count MPV Sodium Potassium Chloride Carbon Dioxide Anion Gap BUN Creatinine Est Cr Clr Drug Dosing Est GFR ( Amer) Est GFR (Non-Af Amer) BUN/Creatinine Ratio Glucose POC Glucose 172 H 210 H 190 H Calcium Magnesium 03/28/21 03/28/21 03/28/21 07:40 07:40 11:24 WBC 6.40 RBC 3.40 L Hgb 10.5 L Hct 32.3 L MCV 95.0 MCH 30.9 MCHC 32.5 RDW Std Deviation 49.1 H RDW Coeff of Néstor 14.2 Plt Count 142 MPV 9.6 Sodium 134 L Potassium 3.7 Chloride 104 Carbon Dioxide 29 Anion Gap 1.0 L BUN 17 Creatinine 0.73 Est Cr Clr Drug Dosing 80.6 Est GFR ( Amer) 96.7 Est GFR (Non-Af Amer) 83.4 BUN/Creatinine Ratio 22.7 H Glucose 161 H POC Glucose 202 H Calcium 8.2 L Magnesium 1.7 L Medications Administered Current Inpatient Medications Acetaminophen (Acetaminophen 325 Mg Tab) 650 mg PO Q6H PRN PRN Reason: Fever/pain Stop: 04/27/21 05:40 Last Admin: 03/28/21 05:59 Dose: 650 mg Documented by: Apixaban (Apixaban 5 Mg Tablet) 5 mg PO BID [facility] Stop: 04/26/21 10:29 Last Admin: 03/28/21 08:38 Dose: 5 mg Documented by: Aspirin (Aspirin 81 Mg Ectab) 81 mg PO QAM [facility] Stop: 04/26/21 08:59 Last Admin: 03/28/21 08:36 Dose: 81 mg Documented by: Chlorthalidone (Chlorthalidone 25 Mg Tab) 25 mg PO DAILY [facility] Stop: 04/26/21 08:59 Last Admin: 03/28/21 08:38 Dose: 25 mg Documented by: Citalopram Hydrobromide (Citalopram 20 Mg Tab) 20 mg PO DAILY [facility] Stop: 04/23/21 08:59 Last Admin: 03/28/21 08:37 Dose: 20 mg Documented by: Dextrose (Dextrose 50% 50 Ml Syringe) 25 - 50 ml IV UD PRN; Protocol PRN Reason: Hypoglycemia Protocol Stop: 04/22/21 19:55 Digoxin (Digoxin 0.125 Mg Tab) 0.125 mg PO DAILY@1600 [facility] Stop: 04/27/21 15:59 Famotidine (Famotidine 20 Mg Tab) 20 mg PO DAILY PRN PRN Reason: Heartburn Stop: 04/26/21 08:59 Glucagon (Glucagon For Inj 1 Mg Vial) 1 mg SQ UD PRN; Protocol PRN Reason: Hypoglycemia Protocol Stop: 04/22/21 19:55 Glucose (Glucose 10 Tabs/Tube) 4 - 8 tabs PO UD PRN; Protocol PRN Reason: Hypoglycemia Protocol Stop: 04/22/21 19:55 Glucose (Glucose 40% Gel 15 Gm Tube) 15 - 30 gm PO UD PRN; Protocol PRN Reason: Hypoglycemia Protocol Stop: 04/22/21 19:55 Ceftriaxone Sodium 2,000 mg/ (Dextrose) 70 mls @ 140 mls/hr IV Q24H [facility]; Protocol Stop: 04/07/21 17:59 Last Infusion: 03/27/21 19:00 Dose: Infused Documented by: Insulin Aspart (Insulin Aspart 100 Units/Ml 3 Ml Pen) 0 units SC ACHS [facility] Stop: 04/23/21 11:29 Last Admin: 03/28/21 08:45 Dose: 3 units Documented by: Magnesium Chloride (Magnesium Chloride 64mg Delayed Rel Tab) 64 mg PO BID [facility] Stop: 04/27/21 20:59 Metoprolol Tartrate (Metoprolol Tartrate 1 Mg/Ml Vial) 5 mg IV Q6 PRN PRN Reason: HR>120 Stop: 04/22/21 19:55 Metoprolol Tartrate (Metoprolol Tartrate 50 Mg Tab) 50 mg PO BID [facility] Stop: 04/27/21 08:59 Last Admin: 03/28/21 11:14 Dose: 50 mg Documented by: Miscellaneous (Carbohydrates For Hypoglycemia ) 15 - 30 gm PO UD PRN PRN Reason: Hypoglycemia Protocol Stop: 04/22/21 19:55 Multivitamins (Multivitamin Tab) 1 tab PO DAILY [facility] Stop: 04/23/21 08:59 Last Admin: 03/28/21 08:39 Dose: 1 tab Documented by: Multivitamins/Minerals (Calcium 600mg + Vit D 400 Iu Tab) 1 tab PO BID [facility] Stop: 04/23/21 20:59 Last Admin: 03/28/21 08:37 Dose: 1 tab Documented by: Simvastatin (Simvastatin 10 Mg Tab) 10 mg PO HS [facility] Stop: 04/22/21 20:59 Last Admin: 03/27/21 21:03 Dose: 10 mg Documented by: Tamsulosin HCl (Tamsulosin Hcl 0.4 Mg Cap) 0.4 mg PO DAILY [facility] Stop: 04/23/21 08:59 Last Admin: 03/28/21 08:38 Dose: 0.4 mg Documented by: (1) Sepsis Sepsis acute organ dysfunction status: unspecified Sepsis type: sepsis due to unspecified organism Qualified Code(s): A41.9 - Sepsis, unspecified organism
[2021-03-28] MEDS: cefTRIAXone SODIUM 2,000 MG in DEXTROSE 5% 50 ML IV SCH (17:10)
[2021-03-28] MEDS: DIGOXIN 0.125 MG TAB PO SCH (17:11)
--- NOTE | 2021-03-28 18:16 | Hospitalist Progress Note ---
Date of Service March 28, 2021 Assessment & Plan (1) Sepsis: Plan: Severe sepsis Meets SIRS criteria. Left arm infected wound/Cellulitis Staph Bacteremia Blood culture: 1/2 Staph Repeat Blood Cx: No growth to date Wound Cx not obtained prior to starting abx ECHO: No evidence of mass or vegetation IV vancomycin, Rocephin>> transition to Rocephin Appreciate ID input Continue wound care Plan to complete 2 week course of IV Rocephin as per ID Acute metabolic encephalopathy. CT head does not show acute abnormality Mental status back to baseline Thrombocytopenia Likely secondary to sepsis Platelet count improving No signs of bleeding Monitor Ambulatory dysfunction: Evidence of falls, with multiple bruises ecchymosis of the knees, and arms, PT OT evaluation Needs Rehab placement Atrial Fibrillation New diagnosis Possible secondary to acute infection Continue Eliquis for anticoagulation Appreciate cardiology input Metoprolol increased to 50 mg daily Added digoxin Continue to monitor on telemetry Diabetes mellitus: A1c from 03/10/2021 is 6.4 Insulin sliding scale DVT Px: Eliquis CODE STATUS: Full code Admission and Anticipated Discharge Date Admission Date: March 23, 2021 Subjective Patient is seen and examined at bedside Remains tachycardic on monitor No new complaints Right elbow swelling, pain improving Denies chest pain, dyspnea, dizziness, nausea, abd pain Review of Systems Review of Systems: All systems reviewed & are unremarkable except as noted in Subjective Physical Exam Physical Exam: Physical Exam: Vitals signs as noted above General Appearance:Moderately built and nourished, no apparent distress Head: normocephalic, Atraumatic Eyes: normal inspection, EOMI Neck: supple, Trachea midline Respiratory/Chest: Normal breath sounds, CTA, No accessory muscle use Cardiovascular: Irregularly irregular, +murmur Abdomen/GI:Soft, Non tender, Bowel sounds present Extremities/Musculoskeletal:normal inspection, no edema, R elbow in dressing Neurologic/Psych:AAOX3, grossly no focal neurological deficits Skin: normal color, warm Results & Data Results & Data ([facility]) Vital Signs (Past 12 Hours) Vital Signs Temp Pulse Pulse Resp BP Pulse Ox 03/28/21 17:11 108 H 03/28/21 15:44 36.6 C 101 H 20 147/68 H 95 03/28/21 12:48 97 H 03/28/21 11:40 36.5 C 99 H 19 101/52 L 95 03/28/21 07:48 36.7 C 105 H 18 154/78 H 95 Laboratory Results Short CBC 03/28/21 Range/Units 07:40 WBC 6.40 (4.8-10.8) K/uL Hgb 10.5 L (14.0-18.0) g/dL Hct 32.3 L (42-52) % Plt Count 142 (130-400) K/uL BMP 03/28/21 07:40 Sodium 134 L Potassium 3.7 Chloride 104 Carbon Dioxide 29 BUN 17 Creatinine 0.73 Glucose 161 H Calcium 8.2 L (1) Sepsis Sepsis acute organ dysfunction status: unspecified Sepsis type: sepsis due to unspecified organism Qualified Code(s): A41.9 - Sepsis, unspecified organism
[2021-03-28] MEDS: MAGNESIUM CHLORIDE 64MG DELAYED REL TAB PO SCH (20:34)
[2021-03-28] MEDS: SIMVASTATIN 10 MG TAB PO SCH (20:34)
[2021-03-29] MEDS: ACETAMINOPHEN 325 MG TAB PO PRN (04:36)
[2021-03-29 05:42] LABS: Hemoglobin 10.2 g/dL (14.0-18.0); Mean Corpuscular Hgb Conc 32.9 g/dL (32-36); Mean Corpuscular Volume 94.2 fL (80-100); Mean Platelet Volume 9.1 fL (7.4-10.4); Platelet Count 141 K/uL (130-400); RDW Coefficient of Variation 13.9 % (11.5-14.5); RDW Standard Deviation 48.2 fL (36.4-46.3); Red Blood Count 3.29 M/uL (4.7-6.1); White Blood Count 5.47 K/uL (4.8-10.8)
[2021-03-29 06:11] LABS: BUN Creatinine Ratio 21.6 (10-20); Calcium 8.1 mg/dl (8.5-10.1); Creatinine Clr Calc Pharmacy 78.4 ml/min; Est GFR (African American) 95.6 ml/min; Est GFR (Non-African American) 82.5 ml/min; Magnesium 1.7 mg/dl (1.8-2.4); Potassium 3.5 mmol/L (3.5-5.1)
[2021-03-29] MEDS ORDERED: POTASSIUM CHLORIDE CRTAB 20 MEQ TABCR PO ONE (08:06)
[2021-03-29] MEDS ORDERED: MAGNESIUM SULFATE / D5W 1 GM/100 ML BAG IV ONE (08:30)
[2021-03-29] MEDS: ASPIRIN 81 MG ECTAB PO SCH (08:30)
[2021-03-29] MEDS: APIXABAN 5 MG TABLET PO SCH ×2 (08:31→20:56)
[2021-03-29] MEDS: CITALOPRAM 20 MG TAB PO SCH (08:31)
[2021-03-29] MEDS: TAMSULOSIN HCL 0.4 MG CAP PO SCH (08:31)
[2021-03-29] MEDS: MAGNESIUM CHLORIDE 64MG DELAYED REL TAB PO SCH ×2 (08:31→20:57)
[2021-03-29] MEDS: METOPROLOL TARTRATE 50 MG TAB PO SCH ×2 (08:31→20:57)
[2021-03-29] MEDS: MULTIVITAMIN TAB PO SCH (08:31)
[2021-03-29] MEDS: CHLORTHALIDONE 25 MG TAB PO SCH (08:31)
[2021-03-29] MEDS: CALCIUM 600MG + VIT D 400 IU TAB PO SCH ×2 (08:31→20:57)
[2021-03-29] MEDS: INSULIN ASPART 100 UNITS/ML 3 ML PEN SC SCH ×4 (08:32→20:55)
--- NOTE | 2021-03-29 12:29 | Hospitalist Progress Note ---
Date of Service March 29, 2021 Assessment & Plan (1) Sepsis: Plan: Severe sepsis Meets SIRS criteria. Left arm infected wound/Cellulitis Staph Bacteremia Blood culture: 1/2 Staph Repeat Blood Cx: Remains Negative Wound Cx not obtained prior to starting abx ECHO: No evidence of mass or vegetation IV vancomycin, Rocephin>> transition to Rocephin Appreciate ID input Continue wound care Plan to complete 2 week course of IV Rocephin as per ID Continue current meds Acute metabolic encephalopathy. CT head does not show acute abnormality Mental status back to baseline Thrombocytopenia Likely secondary to sepsis Platelet count Normalized No signs of bleeding Monitor Ambulatory dysfunction: Evidence of falls, with multiple bruises ecchymosis of the knees, and arms PT OT evaluation Needs Rehab placement Atrial Fibrillation New diagnosis Possible secondary to acute infection Continue Eliquis for anticoagulation Explained patient about risk for bleeding while on anticoagulation Appreciate cardiology input Metoprolol increased to 50 mg daily Added digoxin Continue to monitor on telemetry Diabetes mellitus: A1c from 03/10/2021 is 6.4 Insulin sliding scale DVT Px: Eliquis CODE STATUS: Full code Disposition Needs Rehab placement Admission and Anticipated Discharge Date Admission Date: March 23, 2021 Subjective Patient is seen and examined at bedside States feeling well No new complaints Heart rate better controlled Denies any significant Right elbow pain Also denies chest pain, dyspnea, dizziness, nausea, abd pain Review of Systems Review of Systems: All systems reviewed & are unremarkable except as noted in Subjective Physical Exam Physical Exam: Physical Exam: Vitals signs as noted above General Appearance:Moderately built and nourished, no apparent distress Head: normocephalic, Atraumatic Eyes: normal inspection, EOMI Neck: supple, Trachea midline Respiratory/Chest: Normal breath sounds, CTA, No accessory muscle use Cardiovascular: Irregularly irregular, +murmur Abdomen/GI:Soft, Non tender, Bowel sounds present Extremities/Musculoskeletal:normal inspection, no edema, R elbow in dressing Neurologic/Psych:AAOX3, grossly no focal neurological deficits Skin: normal color, warm Results & Data Results & Data ([facility]) Vital Signs (Past 12 Hours) Vital Signs Temp Pulse Resp BP BP Pulse Ox 03/29/21 10:51 36.6 C 77 19 132/76 95 03/29/21 07:02 36.5 C 92 H 19 142/72 H 95 03/29/21 04:30 36.8 C 100 H 17 152/72 H 95 Laboratory Results Short CBC 03/29/21 Range/Units 05:23 WBC 5.47 (4.8-10.8) K/uL Hgb 10.2 L (14.0-18.0) g/dL Hct 31.0 L (42-52) % Plt Count 141 (130-400) K/uL BMP 03/29/21 05:23 Sodium 132 L Potassium 3.5 Chloride 100 Carbon Dioxide 30 BUN 16 Creatinine 0.75 Glucose 156 H Calcium 8.1 L (1) Sepsis Sepsis acute organ dysfunction status: unspecified Sepsis type: sepsis due to unspecified organism Qualified Code(s): A41.9 - Sepsis, unspecified organism
[2021-03-29] MEDS: DIGOXIN 0.125 MG TAB PO SCH (16:58)
[2021-03-29] MEDS: cefTRIAXone SODIUM 2,000 MG in DEXTROSE 5% 50 ML IV SCH (17:06)
--- NOTE | 2021-03-29 17:39 | Communication Note ---
Date of Service: March 29, 2021 resting comfortably, atrial fibrillation in the 90s noted on telemetry. Continue metoprolol 50 mg twice daily, digoxin 0.125 mg daily, Eliquis. Will reassess tomorrow.
[2021-03-29] MEDS: SIMVASTATIN 10 MG TAB PO SCH (20:58)
[2021-03-29] MEDS ORDERED: PHENAZOPYRIDINE HCL 100 MG TAB PO PRN (23:29)
[2021-03-30 00:41] LABS: Appearance Urine Clear (Clear); Bacteria Urine Automated Negative (Negative); Bilirubin Urine Negative (Negative); Blood Urine Trace (Negative); Color Urine Yellow; Glucose Urine UA Negative (Negative); Ketones Urine Negative (Negative); Leukocyte Esterase Urine Negative (Negative); Nitrite Urine Negative (Negative); Protein Urine Negative (Negative); Specific Gravity Urine 1.016 (1.000-1.030); Urobilinogen Urine Negative (Negative); pH Urine 8.5 (4.5-7.5)
[2021-03-30 06:05] LABS: BUN Creatinine Ratio 20.3 (10-20); Calcium 7.8 mg/dl (8.5-10.1); Est GFR (African American) 98.3 ml/min; Est GFR (Non-African American) 84.9 ml/min; Magnesium 1.6 mg/dl (1.8-2.4); Potassium 3.6 mmol/L (3.5-5.1)
--- NOTE | 2021-03-30 06:21 | Communication Note ---
Date of Service: March 30, 2021 6:20 AM Patient noted to have small right red bloody stool as per RN without abdominal complaints. Serum sodium 131. AP Painless L GIB Hyponatremia CBC now, hold aspirin, NOAC until hemoglobin back Hyponatremia work-up, careful correction of sodium, appropriate to hold home diuretic and SSRI for now.
[2021-03-30] MEDS ORDERED: MAGNESIUM SULFATE / D5W 1 GM/100 ML BAG IV ONE (06:23)
[2021-03-30] MEDS ORDERED: SODIUM CHLORIDE 0.9% 500 ML IV ONE (06:26)
[2021-03-30 07:00] LABS: Basophils # (auto) 0.02 K/uL (0-0.2); Basophils % (auto) 0.4 %; Eosinophils # (auto) 0.03 K/uL (0-0.5); Eosinophils % (auto) 0.6 %; Hematocrit (blood only) 32.6 % (42-52); Hemoglobin 10.9 g/dL (14.0-18.0); Immature Granulocytes # (auto) 0.01 K/uL (0.00-0.02); Immature Granulocytes % (auto) 0.2 %; Lymphocytes # (auto) 1.24 K/uL (1.2-3.4); Lymphocytes % (auto) 23.5 %; Mean Corpuscular Hemoglobin 31.3 pg (25-34); Mean Corpuscular Hgb Conc 33.4 g/dL (32-36); Mean Corpuscular Volume 93.7 fL (80-100); Mean Platelet Volume 8.8 fL (7.4-10.4); Monocytes # (auto) 0.66 K/uL (0.11-0.59); Monocytes % (auto) 12.5 %; Neutrophils # (auto) 3.32 K/uL (1.4-6.5); Neutrophils % (auto) 62.8 %; Platelet Count 144 K/uL (130-400); RDW Coefficient of Variation 13.7 % (11.5-14.5); RDW Standard Deviation 46.9 fL (36.4-46.3); Red Blood Count 3.48 M/uL (4.7-6.1); White Blood Count 5.28 K/uL (4.8-10.8)
--- NOTE | 2021-03-30 07:43 | XRay Report ---
XR chest 1V portable CLINICAL HISTORY: hyponatremia COMPARISON STUDY: Chest radiograph March 23, 2021. FINDINGS: There is no pneumothorax. Small left pleural effusion has developed. Bibasilar opacities gan ve developed. Cardiac size is normal. There is no evidence for pulmonary edema. IMPRESSION: Interval development of a small pleural effusion bibasilar opacities that could reflect atelectasis or an infectious process. ACT 112: Negative or not required by law. Electronically signed by: Chester Spears M.D. 03/30/2021 7:42 AM
[2021-03-30] MEDS: INSULIN ASPART 100 UNITS/ML 3 ML PEN SC SCH ×4 (07:54→20:23)
[2021-03-30] MEDS: MULTIVITAMIN TAB PO SCH (07:54)
[2021-03-30] MEDS: METOPROLOL TARTRATE 50 MG TAB PO SCH ×2 (07:54→20:26)
[2021-03-30] MEDS: CALCIUM 600MG + VIT D 400 IU TAB PO SCH ×2 (07:55→20:26)
[2021-03-30] MEDS: TAMSULOSIN HCL 0.4 MG CAP PO SCH (07:55)
[2021-03-30] MEDS: MAGNESIUM CHLORIDE 64MG DELAYED REL TAB PO SCH ×2 (07:55→20:25)
[2021-03-30] MEDS: CITALOPRAM 20 MG TAB PO SCH (08:49)
[2021-03-30] MEDS ORDERED: MAGNESIUM SULFATE / D5W 1 GM/100 ML BAG IV SCH (09:00)
[2021-03-30] MEDS ORDERED: SODIUM CHLORIDE 0.9% 1,500 ML IV ONE (10:36)
[2021-03-30] MEDS: PANTOprazole 40 MG in SYRINGE 0 ML IV SCH ×2 (11:57→20:25)
[2021-03-30 12:07] LABS: Hematocrit (blood only) 30.1 % (42-52); Hemoglobin 10.1 g/dL (14.0-18.0)
[2021-03-30] MEDS ORDERED: SODIUM CHLORIDE 0.9% 1,500 ML IV SCH (14:30)
--- NOTE | 2021-03-30 14:44 | Cardiology Progress Note ---
Date of Service March 30, 2021 Assessment & Plan (1) A-fib: (2) Gastrointestinal bleeding: Plan: Agree with stopping ASA, Eliquis and administering Kcentra. Continue metoprolol and digoxin for rate control Holding chlorthalidone. BP is stable. Hgb of 10.1 g/dl stable compared to yesterday, continue serial measurements. Agree with GI referral. Pt stable for endoscopy if deemed indicated. Admission and Anticipated Discharge Date Admission Date: March 23, 2021 Subjective Pt seen and examined. Nursing notes 8 copious bloody bowel movements. Telemetry reveals AF 100-110 bpm, slightly faster than yesterday. Physical Exam Physical Exam: Temp Pulse Resp BP Pulse Ox 37.2 C 109 H 17 128/75 93 03/30/21 14:12 03/30/21 14:12 03/30/21 14:12 03/30/21 14:12 03/30/21 14:12 Constitutional: ill in appearance, no acute distress Respiratory: normal respiratory effort, lungs clear to auscultation Cardiovascular: Rate/Rhythm: + tachycardic and + irregularly irregular Heart Sounds: no murmur Extremities: no edema Gastrointestinal (Abdomen): normal bowel sounds, soft, nontender, no hepatosplenomegaly Neurologic: PERRL, EOMI, accommodation nl, no face palsy, no dysarthria Results & Data ([facility]) Vital Signs (Past 12 Hours) Vital Signs Temp Pulse Pulse Resp BP BP Pulse Ox 03/30/21 14:12 37.2 C 109 H 17 128/75 93 03/30/21 11:14 36.8 C 92 H 18 131/72 93 03/30/21 11:06 108 H 03/30/21 07:05 36.8 C 104 H 17 163/74 H 93 03/30/21 03:14 36.6 C 95 H 16 144/78 H 93
[2021-03-30] MEDS: SODIUM CHLORIDE 0.9% 1,000 ML IV SCH (14:45)
[2021-03-30] MEDS ORDERED: PROTHROMBIN COMP CONC- KCENTRA 2,000 UNITS in SYRINGE 0 ML IV ONE (14:45)
[2021-03-30 14:59] LABS: Hematocrit (blood only) 29.2 % (42-52); Hemoglobin 9.8 g/dL (14.0-18.0)
--- NOTE | 2021-03-30 15:05 | Hospitalist Progress Note ---
Date of Service March 30, 2021 Assessment & Plan (1) Sepsis: Plan: Severe sepsis Meets SIRS criteria. Left arm infected wound/Cellulitis Staph Bacteremia Blood culture: 1/2 Staph Repeat Blood Cx: Remains Negative Wound Cx not obtained prior to starting abx ECHO: No evidence of mass or vegetation IV vancomycin, Rocephin>> transition to Rocephin Appreciate ID input Continue wound care Plan to complete 2 week course of IV Rocephin as per ID Acute GI bleeding/Rectal Bleeding In setting of Apixaban/Aspirin use-Held Will give Kcentra today Monitor and transfuse PRBCs PRN Appreciate GI Input Continue PPI, Fluids, bowel rest Possible scope tomorrow Check stool for C diff if continues to have diarrhea Hypomagnesemia Likely due to GI loses Replace electrolyses as needed Hyponatremia Likely due to dehydration from GI loses Continue IV fluids Monitor Sodium levels Acute metabolic encephalopathy. CT head does not show acute abnormality Mental status back to baseline Resolved Thrombocytopenia Likely secondary to sepsis Platelet count Normalized Monitor Ambulatory dysfunction: Evidence of falls, with multiple bruises ecchymosis of the knees, and arms PT OT evaluation Needs Rehab placement Atrial Fibrillation New diagnosis Appreciate cardiology input Continue Metoprolol, digoxin Continue to monitor on telemetry Eliquis DCed due to GI bleeding Diabetes mellitus: A1c from 03/10/2021 is 6.4 Insulin sliding scale DVT Px: SCDs Re:GI bleeding CODE STATUS: Full code Disposition Needs Rehab placement Admission and Anticipated Discharge Date Admission Date: March 23, 2021 Subjective Patient is seen and examined at bedside Patient had bloody bowel movements this morning Also noted to have urinary retention well Patient denies any chest pain, dyspnea, abdominal pain Apixaban, Aspirin on hold Discussed with GI today Review of Systems Review of Systems: All systems reviewed & are unremarkable except as noted in Subjective Physical Exam Physical Exam: Physical Exam: Vitals signs as noted above General Appearance:Moderately built and nourished, no apparent distress Head: normocephalic, Atraumatic Eyes: normal inspection, EOMI Neck: supple, Trachea midline Respiratory/Chest: Normal breath sounds, CTA, No accessory muscle use Cardiovascular: Irregularly irregular, +murmur Abdomen/GI:Soft, Non tender, Bowel sounds present Extremities/Musculoskeletal:normal inspection, no edema, R elbow in dressing Neurologic/Psych:AAOX3, grossly no focal neurological deficits Skin: normal color, warm Results & Data Results & Data ([facility]) Vital Signs (Past 12 Hours) Vital Signs Temp Pulse Pulse Resp BP BP Pulse Ox 03/30/21 14:12 37.2 C 109 H 17 128/75 93 03/30/21 11:14 36.8 C 92 H 18 131/72 93 03/30/21 11:06 108 H 03/30/21 07:05 36.8 C 104 H 17 163/74 H 93 03/30/21 03:14 36.6 C 95 H 16 144/78 H 93 Laboratory Results Short CBC 03/30/21 03/30/21 03/30/21 Range/Units 06:41 11:56 14:46 WBC 5.28 (4.8-10.8) K/uL Hgb 10.9 L 10.1 L 9.8 L (14.0-18.0) g/dL Hct 32.6 L 30.1 L 29.2 L (42-52) % Plt Count 144 (130-400) K/uL BMP 03/30/21 03/30/21 05:16 11:56 Sodium 131 L 129 L Potassium 3.6 Chloride 99 Carbon Dioxide 29 BUN 14 Creatinine 0.70 Glucose 137 H Calcium 7.8 L Urine 03/30/21 Range/Units 00:10 Urine Color Yellow Urine Appearance Clear (Clear) Urine pH 8.5 H (4.5-7.5) Ur Specific [place] 1.016 (1.000-1.030) Urine Protein Negative (Negative) Urine Glucose (UA) Negative (Negative) (1) Sepsis Sepsis acute organ dysfunction status: unspecified Sepsis type: sepsis due to unspecified organism Qualified Code(s): A41.9 - Sepsis, unspecified organism
--- NOTE | 2021-03-30 15:14 | Gastrointestinal Consultation ---
Date of Consultation March 30, 2021 Assessment & Plan (1) Acute blood loss anemia: (2) Hematochezia: Agree with holding Eliquis and Aspirin therapy He received Kcentra Continue Protonix 40 mg IV BID Check CT Scan of the abd/pelvis with IV contrast now Clear liquid diet Bowel prep tonight NPO after bowel prep EGD and Colonoscopy with Dr. Delgado in the AM History of Present Illness Reason for Consultation: GI bleed Attending Physician: Chepe Suazo MD History of Present Illness Bebeto Sandoval Sr. has had a prolonged hospitalization secondary to Cellulitis with sepsis and Staph bactereremia, which has been complicated by new onset A-fib with RVR. He was receiving Eliquis therapy in addition to beta blo cker and Digoxin therapy, and was doing quite well until this AM, when he had multiple episodes of bright red blood per rectum. Nursing staff reports that he had approximately 8 bloody BM's. The patient states that he is not having any lightheadedness or dizziness. He is hemodynamically stable at present. He states that he has never had an EGD or colonoscopy in the past. He does take PPI therapy at home for GERD, and admits to using Aspirin, Aleve and Ibuprofen therapy almost every day to treat, "aches and pains." He denies any abdominal pain, fevers, chills, nausea, vomiting, hematemesis, or other complaints. His Hgb was 10.1 earlier today, and his repeat following his BM's returned at 9.8. Allergies Allergy/AdvReac Type Severity Reaction Status Date / Time yellow jacket Allergy Severe Unknown Uncoded 03/23/21 15:39 Home Medications Medication Instructions Recorded Confirmed Type aspirin 81 mg tablet,delayed 81 mg PO DAILY 03/23/21 03/23/21 History release (Aspirin Low Dose) chlorthalidone 25 mg tablet 25 mg PO DAILY 03/23/21 03/23/21 History citalopram 20 mg tablet 20 mg PO DAILY 03/23/21 03/23/21 History doxazosin 2 mg tablet 2 mg PO HS 03/23/21 03/23/21 History ibuprofen 600 mg tablet 600 mg PO Q8H PRN 03/23/21 03/23/21 History metformin 500 mg tablet 500 mg PO BID 03/23/21 03/23/21 History eezakruu-kgj-unvyh acid 0.4 1 tab PO DAILY 03/23/21 03/23/21 History mg-lycopene 300 mcg-lutein 250 mcg tablet (Centrum Silver) prednisone 20 mg tablet 20 mg PO UD 03/23/21 03/23/21 History propranolol 40 mg tablet 40 mg PO BID 03/23/21 03/23/21 History simvastatin 10 mg tablet 10 mg PO HS 03/23/21 03/23/21 History tamsulosin 0.4 mg capsule 0.4 mg PO DAILY 03/23/21 03/23/21 History Patient History Medical History A-fib Diabetes mellitus Family History Other Cerebral palsy Social History Smoking Status: Former smoker Hx Alcohol Use: No Hx Substance Use: No Preferred Language: Com[place] Communication Ability: Effective Owner Professional Engineer Required: No Beliefs That Will Affect Care: None Current Living Situation: Family Current Living Situation Comment: Lives in house with and son. Son is complete care. has dementia Other Information That Helps Us Care for You: No Feels Safe at Home: Yes Safety Concerns: Feels Safe At This Time Assistive Devices: None Assistive Devices Comment: Dentures at home Review of Systems Constitutional: as per Subjective / HPI Eyes: as per Subjective / HPI Ear, Nose, Mouth, Throat: as per Subjective / HPI Respiratory: as per Subjective / HPI Cardiovascular: as per Subjective / HPI Gastrointestinal: as per Subjective / HPI Musculoskeletal: as per Subjective / HPI Integumentary: as per Subjective / HPI Neurologic: as per Subjective / HPI Psychiatric: as per Subjective / HPI Endocrine: as per Subjective / HPI Hematologic / Lymphatic: as per Subjective / HPI Allergy / Immunological: as per Subjective / HPI Physical Exam Constitutional: + ill appearing (chronic); no acute distress Eyes: + anicteric sclerae ENMT: external ear and nose normal, oropharynx normal Neck: normal visual inspection Respiratory: normal respiratory effort, lungs clear to auscultation Cardiovascular: Rate/Rhythm: + irregularly irregular Gastrointestinal (Abdomen): normal bowel sounds, soft, nontender, no hepatosplenomegaly Skin: + pallor Psychiatric: A+Ox3, euthymic affect Results & Data ([facility]) Vital Signs (Past 12 Hours) Vital Signs Temp Pulse Pulse Resp BP BP Pulse Ox 03/30/21 14:12 37.2 C 109 H 17 128/75 93 03/30/21 11:14 36.8 C 92 H 18 131/72 93 03/30/21 11:06 108 H 03/30/21 07:05 36.8 C 104 H 17 163/74 H 93 03/30/21 03:14 36.6 C 95 H 16 144/78 H 93 PG Care Time/CCT Total # of Minutes Spent Total Time Spent with Patient: Total time spent is greater than 50% in coordination of care (as documented) at patient's floor/unit and/or counseling patient: Coding Level of Care Code 00713 Initial Inpt Care Lvl 3 Diagnoses Acute blood loss anemia D62 Hematochezia K92.1
[2021-03-30 15:21] LABS: Appearance Urine Clear (Clear); Bacteria Urine Automated Negative (Negative); Bilirubin Urine Negative (Negative); Blood Urine Trace (Negative); Color Urine Yellow; Glucose Urine UA Negative (Negative); Ketones Urine Negative (Negative); Leukocyte Esterase Urine Negative (Negative); Nitrite Urine Negative (Negative); Protein Urine Negative (Negative); Specific Gravity Urine 1.016 (1.000-1.030); Urobilinogen Urine Negative (Negative)
[2021-03-30] MEDS ORDERED: OPTIRAY 320 100ml IV ONE (15:38)
[2021-03-30] MEDS: DIGOXIN 0.125 MG TAB PO SCH (15:49)
--- NOTE | 2021-03-30 16:11 | CT Scan Report ---
CT OF THE ABDOMEN AND PELVIS WITH CONTRAST CLINICAL HISTORY: GI bleeding COMPARISON STUDY: None. TECHNIQUE: Following IV administration of 90 mL of Optiray, axial images of the abdomen and pelvis we re obtained from the lung bases to the proximal femurs. Images were reviewed in the axial, sagittal, and coronal planes. IV contrast was administered without complication. Automated exposure control wa s utilized for the study. A dose lowering technique was utilized adhering to the principles of ALARA . CT DOSE: 616.03 mGy.cm FINDINGS: This exam is mildly compromised by motion artifact. Visualized portions of the lower chest demonstrate small bilateral pleural effusions. No pneumatosis, free air or portal venous gas is prese nt. Size of the spleen is at the upper limits of normal. No hepatic lesions are present. The adrenal glands are unremarkable. There is a probable 1.5 cm cystic lesion within the pancreatic tail. This fa vors a side branch IPMN. Bilateral renal lesions favor cyst. There are multiple subcentimeter renal l esions which are too small to characterize. No hydronephrosis. There is no biliary or pancreatic duct al dilatation. The appendix is mildly distended, measuring 8 mm. There is apparent mild thickening at the base of the cecum There is no definite periappendiceal infiltration. There is evidence for mild anasarca. There is gas within the bladder, likely from recent instrumentation. Note is made of extens leticia sigmoid diverticulosis. There is a subtle linear hyperdense focus within the proximal sigmoid col on shown on axial image 358 of 511. Small fat-containing left inguinal hernia is present. There is no evidence for a bowel obstruction. There is no evidence for acute diverticulitis. There is a small am ount of pelvic ascites. There is trace abdominal ascites. IMPRESSION: 1. Extensive sigmoid diverticulosis. No evidence for acute diverticulitis. Small linear intraluminal hyperdense focus within the proximal sigmoid colon. This is of questionable significance and may be a rtifactual. However, given the clinical history, intraluminal GI bleed cannot be excluded. 2. Apparent mild wall thickening at the base of the cecum with mildly distended appendix. However, no convincing evidence for acute appendicitis. Findings could be correlated with follow-up colonoscopy to exclude the unlikely possibility of an underlying lesion. 3. Evidence for mild volume overload. Small bilateral pleural effusions and trace ascites. Anasarca. ACT 112: Negative or not required by law. Electronically signed by: Chester Spears M.D. 03/30/2021 4:10 PM
[2021-03-30] MEDS: cefTRIAXone SODIUM 2,000 MG in DEXTROSE 5% 50 ML IV SCH (17:04)
[2021-03-30 18:55] LABS: Hematocrit (blood only) 27.7 % (42-52); Hemoglobin 9.2 g/dL (14.0-18.0)
[2021-03-30] MEDS ORDERED: POLYETHYLENE (MIRALAX) 17 GM PACK PO ONE (19:00)
[2021-03-30] MEDS: SIMVASTATIN 10 MG TAB PO SCH (20:26)
[2021-03-31 01:05] LABS: Hematocrit (blood only) 25.5 % (42-52); Hemoglobin 8.6 g/dL (14.0-18.0)
[2021-03-31] MEDS: SODIUM CHLORIDE 0.9% 1,000 ML IV SCH ×2 (01:20→10:46)
[2021-03-31] MEDS ORDERED: POLYETHYLENE (MIRALAX) 17 GM PACK PO ONE (02:00)
[2021-03-31] MEDS ORDERED: LORazepam 0.5 MG TAB PO STA (04:05)
[2021-03-31 04:19] LABS: Hemoglobin 8.4 g/dL (14.0-18.0)
[2021-03-31] MEDS ORDERED: LORazepam 0.25 MG/0.5 ML VIAL IV STA (04:21)
[2021-03-31] MEDS ORDERED: LORazepam 2 MG/4 ML VIAL ONE (04:25)
[2021-03-31 04:36] LABS: BUN Creatinine Ratio 20.8 (10-20); Calcium 7.5 mg/dl (8.5-10.1); Creatinine Clr Calc Pharmacy 73.5 ml/min; Est GFR (African American) 93.1 ml/min; Est GFR (Non-African American) 80.3 ml/min; Magnesium 1.9 mg/dl (1.8-2.4); Potassium 3.8 mmol/L (3.5-5.1)
[2021-03-31] MEDS ORDERED: LIDOCAINE 2% 2 ML VIAL/AMP(20MG/ML) INFIL ONE (08:22)
[2021-03-31] MEDS ORDERED: PROPOFOL IV EMULSION 10 MG/ML 20 ML VIAL IV ONE (08:22)
--- NOTE | 2021-03-31 08:27 | Gastroenterology Progress Note ---
Date of Service March 31, 2021 Assessment & Plan (1) Gastrointestinal bleeding: (2) Acute blood loss anemia: Plan: Pt is a 85 y/o male seen for rectal bleeding in setting of Eliquis & ASA use for Afib. Completed autumn prep overnight and NPO for endoscopic eval. Blood ct decreasing - EGD/Colonoscopy today - Keep NPO - Keep PPI IV BID - Monitor blood ct and transfuse prn - Hold Eliquis and ASA - Further recs after endoscopies completed Admission and Anticipated Discharge Date Admission Date: March 23, 2021 Supervising Physician Co-Signing Physician Notes I saw and evaluated the patient. We are planning to perform an upper endoscopy and colonoscopy today due to evaluate a history of hematochezia thought to be related to anticoagulation. I have discussed the risks of the procedures to include bleeding, infection, perforation, pain and need for follow-up exams. Subjective Pt denies abd pain, n/v. He completed bowel prep for planned EGD/Colonoscopy today. Had been NPO Review of Systems Review of Systems: All systems reviewed & are unremarkable except as noted in HPI & below Constitutional: as per Subjective / HPI Physical Exam Constitutional: WD/WN, vitals as above well groomed, cooperative and comfortable Eyes: PERRL, conjunctivae normal, anicteric sclerae ENMT: external ear and nose normal, oropharynx normal Respiratory: normal respiratory effort, lungs clear to auscultation Cardiovascular: RRR, no murmur, no edema Gastrointestinal (Abdomen): normal bowel sounds, soft, nontender, no hepatosplenomegaly Skin: no rashes, warm and dry no jaundice Psychiatric: A+Ox3, euthymic affect Lymphatic: no lymphedema Results & Data ([facility]) Vital Signs (Past 12 Hours) Vital Signs Temp Pulse Pulse Resp BP Pulse Ox 03/31/21 04:17 36.7 C 101 H 18 109/67 92 03/31/21 00:03 36.8 C 100 H 18 126/75 94 03/30/21 23:43 95 H
--- NOTE | 2021-03-31 08:38 | Anesthesiology Consultation ---
Date of Service March 31, 2021 Assessment & Plan (1) Encounter for pre-operative examination: Chart Review Chart Review: Acceptable Risk for Surgery, Patient NOT seen in Pre Admission Testing and data entry initiated Consults Requested none ASA ASA3 Proposed Anesthesia Anesthesia Type: MAC Risk / Benefits Reviewed With: PT / POA / Parent / Guardian, Accepts Plan and Informed Consent Obtained History Surgery Operation Date: 03/31/21 16:00 Proposed Procedures p Colonoscopy EGD Dr Danny Delgado, DO Height/Weight Height: 6 ft 1 in Weight: 93.3 kg Allergies Allergy/AdvReac Type Severity Reaction Status Date / Time yellow jacket Allergy Severe Unknown Uncoded 03/23/21 15:39 Medications Home Medications Medication Instructions Recorded Confirmed Last Taken aspirin 81 mg tablet,delayed 81 mg PO DAILY 03/23/21 03/23/21 Unknown release (Aspirin Low Dose) chlorthalidone 25 mg tablet 25 mg PO DAILY 03/23/21 03/23/21 Unknown citalopram 20 mg tablet 20 mg PO DAILY 03/23/21 03/23/21 Unknown doxazosin 2 mg tablet 2 mg PO HS 03/23/21 03/23/21 Unknown ibuprofen 600 mg tablet 600 mg PO Q8H PRN 03/23/21 03/23/21 Unknown metformin 500 mg tablet 500 mg PO BID 03/23/21 03/23/21 Unknown [id number] acid 0.4 1 tab PO DAILY 03/23/21 03/23/21 Unknown mg-lycopene 300 mcg-lutein 250 mcg tablet (Centrum Silver) prednisone 20 mg tablet 20 mg PO UD 03/23/21 03/23/21 Unknown propranolol 40 mg tablet 40 mg PO BID 03/23/21 03/23/21 Unknown simvastatin 10 mg tablet 10 mg PO HS 03/23/21 03/23/21 Unknown tamsulosin 0.4 mg capsule 0.4 mg PO DAILY 03/23/21 03/23/21 Unknown Active Medications Generic Name Dose Route Start Last Admin Trade Name Freq PRN Reason Stop Dose Admin Acetaminophen 650 mg 03/28/21 05:41 03/29/21 04:36 Acetaminophen 325 Mg Tab PO 04/27/21 05:40 650 mg Q6H PRN Administration Fever/pain Apixaban 5 mg 03/27/21 10:30 03/29/21 20:56 Apixaban 5 Mg Tablet PO 04/26/21 10:29 5 mg BID WESLEY Administration Aspirin 81 mg 03/27/21 09:00 03/29/21 08:30 Aspirin 81 Mg Ectab PO 04/26/21 08:59 81 mg QAM WESLEY Administration Chlorthalidone 25 mg 03/27/21 09:00 03/29/21 08:31 Chlorthalidone 25 Mg Tab PO 04/26/21 08:59 25 mg DAILY WESLEY Administration Citalopram Hydrobromide 20 mg 03/24/21 09:00 03/30/21 08:49 Citalopram 20 Mg Tab PO 04/23/21 08:59 20 mg DAILY WESLEY Administration Digoxin 0.125 mg 03/28/21 16:00 03/30/21 15:49 Digoxin 0.125 Mg Tab PO 04/27/21 15:59 0.125 mg DAILY@1600 WESLEY Administration Famotidine 20 mg 03/26/21 20:05 03/29/21 09:48 Famotidine 20 Mg Tab PO 04/26/21 08:59 20 mg DAILY PRN Administration Heartburn Ceftriaxone Sodium 2,000 mg/ 70 mls @ 140 mls/hr 03/24/21 18:00 03/30/21 17:54 Dextrose IV 04/07/21 17:59 Infused Q24H WESLEY Infusion Protocol Pantoprazole Sodium 40 mg/ 10 mls @ 5 mls/min 03/30/21 11:00 03/30/21 20:25 Syringe IV 04/29/21 10:59 5 mls/min BID WESLEY Administration Sodium Chloride 1,000 mls @ 100 mls/hr 03/30/21 14:45 03/31/21 01:20 Nss IV 04/29/21 14:44 100 mls/hr .Q10H WESLEY Administration Insulin Aspart 0 units 03/24/21 11:30 03/30/21 20:23 Insulin Aspart 100 Units/Ml 3 Ml Pen SC 04/23/21 11:29 Not Given ACHS WESLEY Magnesium Chloride 64 mg 03/28/21 21:00 03/30/21 20:25 Magnesium Chloride 64mg Delayed Rel Tab PO 04/27/21 20:59 64 mg BID WESLEY Administration Metoprolol Tartrate 50 mg 03/28/21 09:00 03/30/21 20:26 Metoprolol Tartrate 50 Mg Tab PO 04/27/21 08:59 50 mg BID WESLEY Administration Multivitamins 1 tab 03/24/21 09:00 03/30/21 07:54 Multivitamin Tab PO 04/23/21 08:59 1 tab DAILY WESLEY Administration Multivitamins/Minerals 1 tab 03/24/21 21:00 03/30/21 20:26 Calcium 600mg + Vit D 400 Iu Tab PO 04/23/21 20:59 1 tab BID WESLEY Administration Simvastatin 10 mg 03/23/21 21:00 03/30/21 20:26 Simvastatin 10 Mg Tab PO 04/22/21 20:59 10 mg HS WESLEY Administration Tamsulosin HCl 0.4 mg 03/24/21 09:00 03/30/21 07:55 Tamsulosin Hcl 0.4 Mg Cap PO 04/23/21 08:59 0.4 mg DAILY WESLEY Administration Past Medical History Medical History A-fib Diabetes mellitus Past Family History Family History Other Cerebral palsy Social History Smoking Status: Former smoker Hx Alcohol Use: No Hx Substance Use: No Physical Exam Vital Signs Last Vital Signs Temp 36.7 C 03/31/21 04:17 Pulse 101 H 03/31/21 04:17 Resp 18 03/31/21 04:17 BP 109/67 03/31/21 04:17 Pulse Ox 92 03/31/21 04:17 Testing Laboratory Results 03/31/21 04:09 PT 10.3 Seconds (9.0-12.0) 03/23/21 14:35 INR 1.0 (0.9-1.1) 03/23/21 14:35 Urine Color Yellow 03/30/21 14:07 Urine Appearance Clear (Clear) 03/30/21 14:07 Urine pH 8.0 (4.5-7.5) H 03/30/21 14:07 Ur Specific [place] 1.016 (1.000-1.030) 03/30/21 14:07 Urine Protein Negative (Negative) 03/30/21 14:07 Urine Glucose (UA) Negative (Negative) 03/30/21 14:07 Urine Ketones Negative (Negative) 03/30/21 14:07 Urine Nitrite Negative (Negative) 03/30/21 14:07 Ur Leukocyte Esterase Negative (Negative) 03/30/21 14:07 Urine WBC (Auto) 1-5 /hpf (0-5) 03/30/21 14:07 Urine RBC (Auto) 5-10 /hpf (0-4) H 03/30/21 14:07 U Hyaline Cast (Auto) 1-5 /lpf (0-5) 03/30/21 14:07 U Epithel Cells (Auto) 10-20 /lpf (0-5) H 03/30/21 14:07 Urine Bacteria (Auto) Negative (Negative) 03/30/21 14:07 Blood Type A Negative 03/30/21 06:41 Antibody Screen NEGATIVE 03/30/21 06:41 03/23/21 14:35 Aerobic Blood Culture - Final Blood No growth in Aerobic bottle after 5 days. Anaerobic Blood Culture - Final 03/26/21 09:51 Aerobic Blood Culture - Preliminary Blood No growth in Aerobic bottle after 48 hours. Anaerobic Blood Culture - Preliminary No growth in Anaerobic bottle after 48 hours. 03/26/21 09:47 Aerobic Blood Culture - Preliminary Blood No growth in Aerobic bottle after 48 hours. Anaerobic Blood Culture - Preliminary No growth in Anaerobic bottle after 48 hours. 03/24/21 10:50 Urine Culture - Final Urine,Clean Catch No growth - less than 1,000 colonies/mL. 03/23/21 16:34 Aerobic Blood Culture - Final Blood Staphylococcus aureus Anaerobic Blood Culture - Final Staphylococcus aureus 03/31/21 07:31 POC Glucose 138 H Electrocardiogram Date: 03/23/21 Test Reason : Blood Pressure : / mmHG Vent. Rate : 097 BPM Atrial Rate : 085 BPM P-R Int : 000 ms QRS Dur : 098 ms QT Int : 382 ms P-R-T Axes : 000 000 028 degrees QTc Int : 485 ms Atrial fibrillation Prolonged QT Abnormal ECG When compared with ECG of 23-MAR-2021 14:21, (unconfirmed) No significant change was found Confirmed by Michael Wooten ([id number]) on 03/24/2021 5:37:07 PM Referred By: REFERRED SELF Confirmed By:Brad Wooten Chest X-Ray Date: 03/30/21 XR chest 1V portable CLINICAL HISTORY: hyponatremia COMPARISON STUDY: Chest radiograph March 23, 2021. FINDINGS: There is no pneumothorax. Small left pleural effusion has developed. Bibasilar opacities have developed. Cardiac size is normal. There is no evidence for pulmonary edema. IMPRESSION: Interval development of a small pleural effusion bibasilar opacities that could reflect atelectasis or an infectious process. ACT 112: Negative or not required by law.
[2021-03-31 08:45] LABS: Hematocrit (blood only) 23.8 % (42-52)
[2021-03-31] MEDS: INSULIN ASPART 100 UNITS/ML 3 ML PEN SC SCH ×4 (09:06→20:46)
--- NOTE | 2021-03-31 09:38 | GI REPORT ---
Patient Name: Bebeto Sandoval Procedure Date: 03/31/2021 8:42 AM Date of : 1935 Admit Type: Inpatient Age: 85 Gender: Male Attending MD: Santiago Delgado DO Procedure: Colonoscopy Providers: Santiago Delgado DO Referring MD: Chepe Suazo Md Indications: Hematochezia Medicines: Monitored Anesthesia Care Complications: No immediate complications. Estimated blood loss: Minimal. Estimated Blood Loss: Estimated blood loss was minimal. Procedure: Pre-Anesthesia Assessment: - Prior to the procedure, a History and Physical was performed, and patient medications, allergies and sensitivities were reviewed. The patient's tolerance of previous anesthesia was reviewed. - The risks and benefits of the procedure and the sedation options and risks were discussed with the patient. All questions were answered and informed consent was obtained. - Patient identification and proposed procedure were verified prior to the procedure by the physician, the nurse and the broker in charge. The procedure was verified in the procedure room. - Pre-procedure physical examination revealed no contraindications to sedation. - ASA Grade Assessment: III - A patient with severe systemic disease. - After reviewing the risks and benefits, the patient was deemed in satisfactory condition to undergo the procedure. - The anesthesia plan was to use monitored anesthesia care (MAC). - Immediately prior to administration of medications, the patient was re-assessed for adequacy to receive sedatives. - The heart rate, respiratory rate, oxygen saturations, blood pressure, adequacy of pulmonary ventilation, and response to care were monitored throughout the procedure. - The physical status of the patient was re-assessed after the procedure. After I obtained informed consent, the scope was passed under direct vision. Throughout the procedure, the patient's blood pressure, pulse, and oxygen saturations were monitored continuously. The scope was introduced through the anus and advanced to the cecum, identified by appendiceal orifice and ileocecal valve. The colonoscopy was performed without difficulty. The patient tolerated the procedure well. The quality of the bowel preparation was fair. Findings: The digital rectal exam findings include non-thrombosed external hemorrhoids. Pertinent negatives include normal sphincter tone. Many small and large-mouthed diverticula were found in the sigmoid colon, descending colon and transverse colon. There was no evidence of diverticular bleeding. Internal hemorrhoids were found during retroflexion. The hemorrhoids were moderate. Clotted blood was found in the entire colon. Impression: - Preparation of the colon was fair. - Non-thrombosed external hemorrhoids found on digital rectal exam. - Moderate diverticulosis in the sigmoid colon, in the descending colon and in the transverse colon. There was no evidence of diverticular bleeding. - Internal hemorrhoids. - Old blood in the entire examined colon, likely for an upper GI source as seen on EGD. - No specimens collected. Recommendation: - The patient will be observed post-procedure, until all discharge criteria are met. - Clear liquid diet today. Santiago Delgado D.O. Santiago Delgado, 03/31/2021 9:38:32 AM This report has been signed electronically. Note Initiated On: 03/31/2021 8:42 AM Number of Addenda: 0 I attest to the content of the Intraoperative Record and orders documented therein, exceptions below {[id number]}
--- NOTE | 2021-03-31 09:46 | GI REPORT ---
Patient Name: Bebeto Sandoval Procedure Date: 03/31/2021 8:44 AM Date of : 1935 Admit Type: Inpatient Age: 85 Gender: Male Attending MD: Santigao Delgado DO Procedure: Upper GI endoscopy Providers: Santiago Delgado DO Referring MD: Chepe Suazo Md Indications: Hematochezia Medicines: Monitored Anesthesia Care Complications: No immediate complications. Estimated blood loss: Minimal. Estimated Blood Loss: Estimated blood loss was minimal. Procedure: Pre-Anesthesia Assessment: - Prior to the procedure, a History and Physical was performed, and patient medications, allergies and sensitivities were reviewed. The patient's tolerance of previous anesthesia was reviewed. - The risks and benefits of the procedure and the sedation options and risks were discussed with the patient. All questions were answered and informed consent was obtained. - Patient identification and proposed procedure were verified prior to the procedure by the physician, the nurse and the core paster. The procedure was verified in the procedure room. - Pre-procedure physical examination revealed no contraindications to sedation. - ASA Grade Assessment: III - A patient with severe systemic disease. - After reviewing the risks and benefits, the patient was deemed in satisfactory condition to undergo the procedure. - The anesthesia plan was to use monitored anesthesia care (MAC). - Immediately prior to administration of medications, the patient was re-assessed for adequacy to receive sedatives. - The heart rate, respiratory rate, oxygen saturations, blood pressure, adequacy of pulmonary ventilation, and response to care were monitored throughout the procedure. - The physical status of the patient was re-assessed after the procedure. After obtaining informed consent, the endoscope was passed under direct vision. Throughout the procedure, the patient's blood pressure, pulse, and oxygen saturations were monitored continuously. The scope was introduced through the mouth, and advanced to the fourth part of duodenum. The Endoscope was introduced through the mouth, and advanced to the third part of duodenum. The upper GI endoscopy was accomplished without difficulty. The patient tolerated the procedure well. Findings: The examined esophagus was normal. A small hiatal hernia was found. The proximal extent of the gastric folds (end of tubular esophagus) was 38 cm from the incisors. The hiatal narrowing was 40 cm from the incisors. The Z-line was 38 cm from the incisors. Diffuse mild inflammation characterized by congestion (edema), erythema and granularity was found in the entire examined stomach. Biopsies were taken with a cold forceps for histology. The pathology specimen was placed into Bottle A. Estimated blood loss was minimal. Many non-obstructing non-bleeding cratered duodenal ulcers, one with a visible vessel were found in the duodenal bulb. The largest lesion was 8 mm in largest dimension. To prevent bleeding post-intervention, one hemostatic clip was successfully placed (MR conditional) to the visible vessel ([employer]). There was no bleeding at the end of the procedure. The second portion of the duodenum, third portion of the duodenum and fourth portion of the duodenum were normal. Impression: - Normal esophagus. - Small hiatal hernia. - Gastritis. Biopsied. - Non-obstructing non-bleeding duodenal ulcers with a visible vessel. NSAID induced etiology. Clip (MR conditional) was placed to a visible vessel. - Normal second portion of the duodenum, third portion of the duodenum and fourth portion of the duodenum. Recommendation: - Clear liquid diet today. - Use Protonix (pantoprazole) 40 mg PO BID for 6 weeks, then 20 mg daily indefinitely. - Use sucralfate tablets 1 gram PO QID for 2 weeks. - No aspirin, ibuprofen, naproxen, or other non-steroidal anti-inflammatory drugs for 6 weeks. Santiago Delgado D.O. Santiago Delgado, 03/31/2021 9:45:39 AM This report has been signed electronically. Note Initiated On: 03/31/2021 8:44 AM Number of Addenda: 0 I attest to the content of the Intraoperative Record and orders documented therein, exceptions below {[id number]}
--- NOTE | 2021-03-31 09:47 | Communication Note ---
Date of Service: March 31, 2021 The patient underwent upper endoscopy and colonoscopy today as scheduled. Colonoscopy was notable for extensive diverticulosis of the left colon and inter nal hemorrhoids. There was evidence of old blood in the colon. The upper endoscopy was notable for mild gastritis and multiple ulcers of the duodenal bulb. One of the ulcers did have a visible vessel which was the likely source of the patient's bleeding. The visible vessel was treated with placement of an endoscopic clip Recommendations Avoid use of nonsteroidals Protonix 40 mg twice daily for 6 weeks then 20 mg 1 time daily indefinitely Carafate 4 times daily for 2 weeks Surveillance upper endoscopy in 3 months Clear liquid diet today then advance diet as tolerated If rebleeding occurs patient would need to be referred to a tertiary center with interventional radiology capabilities
--- NOTE | 2021-03-31 09:50 | Anesthesiology Progress Note ---
Date of Service March 31, 2021 Anesthesia Post Procedure Vital Signs Vital Signs: Temp Pulse Pulse Resp BP Pulse Ox 03/31/21 08:40 36.5 C 106 H 24 136/73 94 03/31/21 04:17 36.7 C 101 H 18 109/67 92 03/31/21 00:03 36.8 C 100 H 18 126/75 94 03/30/21 23:43 95 H 03/30/21 20:01 37.2 C 110 H 18 131/69 94 03/30/21 15:49 95 H 03/30/21 15:14 36.8 C 105 H 17 142/77 H 94 03/30/21 14:12 37.2 C 109 H 17 128/75 93 03/30/21 11:14 36.8 C 92 H 18 131/72 93 03/30/21 11:06 108 H Pain Intensity Right Elbow: Pain Intensity: 5 Transfer of Care Handoff Completed per policy Notes Mental Status: alert / awake / arousable and participated in evaluation Patient Amnestic to Procedure: Yes Nausea / Vomiting: adequately controlled Pain: adequately controlled Airway Patency, RR, SpO2: stable & adequate BP & HR: stable & adequate Hydration State: stable & adequate Anesthetic Complications: no major complications apparent and Pt Satisfied with anesthetic care
[2021-03-31] MEDS: PANTOprazole 40 MG in SYRINGE 0 ML IV SCH ×2 (10:46→20:32)
[2021-03-31] MEDS: METOPROLOL TARTRATE 50 MG TAB PO SCH ×2 (12:08→20:33)
[2021-03-31] MEDS: MAGNESIUM CHLORIDE 64MG DELAYED REL TAB PO SCH ×2 (12:09→20:34)
[2021-03-31] MEDS: CALCIUM 600MG + VIT D 400 IU TAB PO SCH ×2 (12:09→20:33)
[2021-03-31] MEDS: CITALOPRAM 20 MG TAB PO SCH (12:09)
[2021-03-31] MEDS: TAMSULOSIN HCL 0.4 MG CAP PO SCH (12:09)
[2021-03-31] MEDS: MULTIVITAMIN TAB PO SCH (12:09)
[2021-03-31] MEDS: SUCRALFATE 1 GM/10 ML UDC PO SCH ×7 (12:10→20:41)
--- NOTE | 2021-03-31 15:45 | Cardiology Progress Note ---
Date of Service March 31, 2021 Assessment & Plan (1) A-fib: (2) Gastrointestinal bleeding: Plan: Gastritis, duodenal ulcers noted on EGD. Non bleeding diverticula noted on colonoscopy. Continue protonix. ASA and Eliquis have been stopped. Continue metoprolol and digoxin for rate control. Admission and Anticipated Discharge Date Admission Date: March 23, 2021 Subjective Patient without complaints. Atrial fibrillation with rates of 90-100 bpm noted while resting in bed. Physical Exam 2 Physical Exam: Temp Pulse Resp BP Pulse Ox 37.1 C 106 H 20 137/78 93 03/31/21 15:36 03/31/21 15:36 03/31/21 15:36 03/31/21 15:36 03/31/21 15:36 Respiratory: normal respiratory effort, lungs clear to auscultation Cardiovascular: Rate/Rhythm: + irregularly irregular Heart Sounds: no murmur Neurologic: PERRL, EOMI, accommodation nl, no face palsy, no dysarthria Results & Data ([facility]) Vital Signs (Past 12 Hours) Vital Signs Temp Pulse Pulse Resp BP Pulse Ox 03/31/21 15:36 37.1 C 106 H 20 137/78 93 03/31/21 12:14 36.5 C 96 H 20 162/79 H 91 03/31/21 11:30 93 H 03/31/21 10:36 36.7 C 105 H 22 116/71 94 03/31/21 10:10 96 H 20 102/56 L 95 03/31/21 09:55 108 H 20 107/48 L 98 03/31/21 09:52 96/47 L 03/31/21 09:45 101 H 20 100 03/31/21 08:40 36.5 C 106 H 24 136/73 94 03/31/21 04:17 36.7 C 101 H 18 109/67 92 Laboratory Results CBC 03/30/21 03/31/21 03/31/21 Range/Units 18:42 00:50 04:08 Hgb 9.2 L 8.6 L 8.4 L (14.0-18.0) g/dL Hct 27.7 L 25.5 L 25.0 L (42-52) % 03/31/21 Range/Units 08:14 Hgb 8.0 L (14.0-18.0) g/dL Hct 23.8 L (42-52) % Comprehensive Metabolic Panel 03/30/21 03/31/21 Range/Units 18:42 04:09 Sodium 128 L 131 L (136-145) mmol/L Potassium 3.8 (3.5-5.1) mmol/L Chloride 99 (98-107) mmol/L Carbon Dioxide 27 (21-32) mmol/L BUN 17 (7-18) mg/dl Creatinine 0.80 (0.6-1.4) mg/dl Glucose 133 H (70-99) mg/dl Calcium 7.5 L (8.5-10.1) mg/dl Intake and Output 03/31/21 03/31/21 03/31/21 06:59 14:59 22:59 Intake Total 1100 / 2385 943.333 / 943.333 Output Total 200 / 932 250 / 1000 750 / 1000 Balance 900 / 1453 693.333 / -56.667 -750 / -56.667 Intake: IV 1000 / 1735 943.333 / 943.333 Sodium Chloride 0.9% 1,000 ml @ 1000 / 1000 943.333 / 943.333 60 mls/hr IV .[id number] [facility] Rx#: [id number] Oral 100 / 650 Output: Urine 200 / 625 250 / 250 Urine Amount (Catheter) 750 / 750 Nielson/Indwelling 750 / 750 Other: Weight 93.3 kg 93.3 kg Weight Measurement Method Built in [facility] Patient Weight 04/01/21 06:59 Weight 93.3 kg
[2021-03-31 16:23] LABS: Hematocrit (blood only) 26.3 % (42-52); Hemoglobin 8.8 g/dL (14.0-18.0)
[2021-03-31] MEDS: DIGOXIN 0.125 MG TAB PO SCH (17:27)
[2021-03-31] MEDS: cefTRIAXone SODIUM 2,000 MG in DEXTROSE 5% 50 ML IV SCH (17:31)
--- NOTE | 2021-03-31 18:12 | Hospitalist Progress Note ---
Date of Service March 31, 2021 Assessment & Plan (1) Sepsis: Plan: Severe sepsis Meets SIRS criteria. Left arm infected wound/Cellulitis Staph Bacteremia Blood culture: 1/2 Staph Repeat Blood Cx: Negative Wound Cx not obtained prior to starting abx ECHO: No evidence of mass or vegetation IV vancomycin, Rocephin>> transition to Rocephin Appreciate ID input Continue wound care Plan to complete 2 week course of IV Rocephin as per ID Acute GI bleeding/Rectal Bleeding In setting of Apixaban/Aspirin use-Held -S/P EGD: Normal esophagus, small hiatal hernia, gastritis, nonobstructing nonbleeding duodenal ulcers with visible vessel -Colonoscopy: External hemorrhoids, moderate diverticulosis of the sigmoid colon, descending colon and transverse colon, internal hemorrhoids, Received Kcentra Monitor and transfuse PRBCs PRN Appreciate GI Input Continue PPI BID for 6 weeks and then 20 mg daily indefinitely Decrease IV Fluids Started on Carafate --continue for 2 weeks Check stool for C diff if continues to have diarrhea Needs repeat upper endoscopy in 3 months Advance diet as tolerated Hypomagnesemia Likely due to GI loses Replace electrolyses as needed Hyponatremia Likely due to dehydration from GI loses Continue IV fluids Monitor Sodium levels: 131 Acute metabolic encephalopathy. CT head does not show acute abnormality Mental status back to baseline Resolved Thrombocytopenia Likely secondary to sepsis Platelet count Normalized Monitor Ambulatory dysfunction: Evidence of falls, with multiple bruises ecchymosis of the knees, and arms PT OT evaluation Needs Rehab placement Atrial Fibrillation New diagnosis Appreciate cardiology input Continue Metoprolol, digoxin Continue to monitor on telemetry Eliquis DCed due to GI bleeding Diabetes mellitus: A1c from 03/10/2021 is 6.4 Insulin sliding scale DVT Px: SCDs Re:GI bleeding CODE STATUS: Full code Disposition Needs Rehab placement Admission and Anticipated Discharge Date Admission Date: March 23, 2021 Subjective Patient is seen and examined at bedside States feeling better today Had EGD/Colonoscopy earlier today No bleeding this morning Denies any chest pain, dyspnea, abdominal pain Review of Systems Review of Systems: All systems reviewed & are unremarkable except as noted in Subjective Physical Exam Physical Exam: Physical Exam: Vitals signs as noted above General Appearance:Moderately built and nourished, no apparent distress Head: normocephalic, Atraumatic Eyes: normal inspection, EOMI Neck: supple, Trachea midline Respiratory/Chest: Normal breath sounds, CTA, No accessory muscle use Cardiovascular: Irregularly irregular, +murmur Abdomen/GI:Soft, Non tender, Bowel sounds present Extremities/Musculoskeletal:normal inspection, no edema, R elbow in dressing Neurologic/Psych:AAOX3, grossly no focal neurological deficits Skin: normal color, warm Results & Data Results & Data ([facility]) Vital Signs (Past 12 Hours) Vital Signs Temp Pulse Pulse Resp BP Pulse Ox 03/31/21 17:27 115 H 03/31/21 16:07 96 H 03/31/21 15:36 37.1 C 106 H 20 137/78 93 03/31/21 12:14 36.5 C 96 H 20 162/79 H 91 03/31/21 11:30 93 H 03/31/21 10:36 36.7 C 105 H 22 116/71 94 03/31/21 10:10 96 H 20 102/56 L 95 03/31/21 09:55 108 H 20 107/48 L 98 03/31/21 09:52 96/47 L 03/31/21 09:45 101 H 20 100 03/31/21 08:40 36.5 C 106 H 24 136/73 94 Laboratory Results Short CBC 03/30/21 03/31/21 03/31/21 Range/Units 18:42 00:50 04:08 Hgb 9.2 L 8.6 L 8.4 L (14.0-18.0) g/dL Hct 27.7 L 25.5 L 25.0 L (42-52) % 03/31/21 03/31/21 Range/Units 08:14 16:12 Hgb 8.0 L 8.8 L (14.0-18.0) g/dL Hct 23.8 L 26.3 L (42-52) % BMP 03/30/21 03/31/21 18:42 04:09 Sodium 128 L 131 L Potassium 3.8 Chloride 99 Carbon Dioxide 27 BUN 17 Creatinine 0.80 Glucose 133 H Calcium 7.5 L (1) Sepsis Sepsis acute organ dysfunction status: unspecified Sepsis type: sepsis due to unspecified organism Qualified Code(s): A41.9 - Sepsis, unspecified organism
[2021-03-31] MEDS: SIMVASTATIN 10 MG TAB PO SCH (20:33)
[2021-03-31] MEDS: ACETAMINOPHEN 325 MG TAB PO PRN (23:06)
[2021-04-01 06:55] LABS: Hematocrit (blood only) 22.5 % (42-52); Hemoglobin 7.4 g/dL (14.0-18.0)
[2021-04-01 07:26] LABS: BUN Creatinine Ratio 18.5 (10-20); Calcium 7.2 mg/dl (8.5-10.1); Creatinine Clr Calc Pharmacy 66.8 ml/min; Est GFR (African American) 89.5 ml/min; Est GFR (Non-African American) 77.2 ml/min; Magnesium 1.8 mg/dl (1.8-2.4); Potassium 3.4 mmol/L (3.5-5.1)
[2021-04-01] MEDS: SUCRALFATE 1 GM/10 ML UDC PO SCH ×4 (07:30→20:31)
[2021-04-01] MEDS: SODIUM CHLORIDE 0.9% 1,000 ML IV SCH (08:52)
[2021-04-01] MEDS: INSULIN ASPART 100 UNITS/ML 3 ML PEN SC SCH ×4 (08:53→20:30)
[2021-04-01] MEDS: CITALOPRAM 20 MG TAB PO SCH (08:54)
[2021-04-01] MEDS: CALCIUM 600MG + VIT D 400 IU TAB PO SCH ×2 (08:54→20:29)
[2021-04-01] MEDS: MAGNESIUM CHLORIDE 64MG DELAYED REL TAB PO SCH ×2 (08:54→20:29)
[2021-04-01] MEDS: PANTOprazole 40 MG in SYRINGE 0 ML IV SCH (08:54)
[2021-04-01] MEDS: METOPROLOL TARTRATE 50 MG TAB PO SCH ×2 (08:55→20:29)
[2021-04-01] MEDS: TAMSULOSIN HCL 0.4 MG CAP PO SCH (08:55)
[2021-04-01] MEDS ORDERED: POTASSIUM CHLORIDE CRTAB 20 MEQ TABCR PO ONE (09:28)
--- NOTE | 2021-04-01 10:22 | Gastroenterology Progress Note ---
Date of Service April 01, 2021 Assessment & Plan (1) Gastrointestinal bleeding: (2) Acute blood loss anemia: Plan: Pt is a 85 y/o male seen for rectal bleeding in setting of Eliquis & ASA use for Afib. Completed autumn prep overnight and NPO for endoscopic eval. EGD/colonoscopy 03/31/2021 - showed gastritis, duodenal ulcer w visible vessel, clipped; diverticulosis, int/ext hemorrhoids No further s/s of GI bleeding. Blood ct dropped slightly today. - Advanced diet as tolerated - Protonix 40mg BID x 6 weeks ; then once daily indefinitely - Carafate 1g QID x 2 weeks - Avoid NSAIDs - Monitor blood ct and transfuse prn - Repeat EGD in 3 month's time to eval for ulcer healing - GI sign off; pls recall prn Admission and Anticipated Discharge Date Admission Date: March 23, 2021 Supervising Physician Co-Signing Physician Notes I saw and evaluated the patient this afternoon. He denies having any abdominal discomfort and there is no evidence of recurrent bleeding overnight. His hemoglobin hematocrit appear to be remaining stable. Recommendations Protonix 40 mg twice daily for 6 weeks then 20 mg once daily thereafter Carafate 1 g 4 times daily for 2 weeks Avoid use of nonsteroidals Would suggest an iron supplement 1 time daily for 6 to 8 weeks to help rebuild red blood cell count Repeat upper endoscopy in 3 months Please call with any questions or concerns Subjective Pt reports no BM today, no abd pain, n/v. Tolerated CL diet well Noted blood ct decreased slightly today 7.01/02 Review of Systems Review of Systems: All systems reviewed & are unremarkable except as noted in Subjective Physical Exam Constitutional: WD/WN, vitals as above well groomed, cooperative and comfortable Eyes: PERRL, conjunctivae normal, anicteric sclerae ENMT: external ear and nose normal, oropharynx normal Respiratory: normal respiratory effort, lungs clear to auscultation Cardiovascular: RRR, no murmur, no edema Gastrointestinal (Abdomen): normal bowel sounds, soft, nontender, no hepatosplenomegaly Skin: no rashes, warm and dry no jaundice Psychiatric: A+Ox3, euthymic affect Lymphatic: no lymphedema Results & Data ([facility]) Vital Signs (Past 12 Hours) Vital Signs Temp Pulse Pulse Resp BP Pulse Ox 04/01/21 08:26 36.5 C 103 H 18 127/72 93 03/31/21 23:49 91 H 03/31/21 23:03 38.1 C H 92 H 16 111/71 93
[2021-04-01] MEDS: MULTIVITAMIN TAB PO SCH (10:35)
--- NOTE | 2021-04-01 16:45 | Hospitalist Progress Note ---
Date of Service April 01, 2021 Assessment & Plan (1) Sepsis: Plan: Severe sepsis Meets SIRS criteria. Left arm infected wound/Cellulitis Staph Bacteremia Blood culture: 1/2 Staph Repeat Blood Cx: Negative Wound Cx not obtained prior to starting abx ECHO: No evidence of mass or vegetation IV vancomycin, Rocephin>> transition to Rocephin Appreciate ID input Continue wound care Plan to complete 2 week course of IV Rocephin as per ID Repeat Blood Cultures given Low grade fever Recheck CXR Acute GI bleeding/Rectal Bleeding In setting of Apixaban/Aspirin use-Held -S/P EGD: Normal esophagus, small hiatal hernia, gastritis, nonobstructing nonbleeding duodenal ulcers with visible vessel -Colonoscopy: External hemorrhoids, moderate diverticulosis of the sigmoid colon, descending colon and transverse colon, internal hemorrhoids, Received Kcentra Monitor and transfuse PRBCs PRN Appreciate GI Input Continue PPI BID for 6 weeks and then 20 mg daily indefinitely Decrease IV Fluids Started on Carafate --continue for 2 weeks stool for C diff:Negative Needs repeat upper endoscopy in 3 months Hb drop likely dilutional due to IV fluids Monitor H&H and transfuse PRBCs PRN Hypomagnesemia Likely due to GI loses Replace electrolyses as needed Hyponatremia Likely due to dehydration from GI loses Received IV fluids Monitor Sodium levels: 132 Acute metabolic encephalopathy. CT head does not show acute abnormality Mental status back to baseline Resolved Thrombocytopenia Likely secondary to sepsis Platelet count Normalized Monitor Ambulatory dysfunction: Evidence of falls, with multiple bruises ecchymosis of the knees, and arms PT OT evaluation Needs Rehab placement Atrial Fibrillation New diagnosis Appreciate cardiology input Continue Metoprolol, digoxin Continue to monitor on telemetry Eliquis DCed due to GI bleeding Diabetes mellitus: A1c from 03/10/2021 is 6.4 Insulin sliding scale DVT Px: SCDs Re:GI bleeding CODE STATUS: Full code Disposition Needs Rehab placement Admission and Anticipated Discharge Date Admission Date: March 23, 2021 Subjective Patient is seen and examined at bedside Febrile overnight Denies any bleeding issues currently Denies any chest pain, dyspnea, abdominal pain Hb drop likely dilutional from IV fluids Review of Systems Review of Systems: All systems reviewed & are unremarkable except as noted in Subjective Physical Exam Physical Exam: Physical Exam: Vitals signs as noted above General Appearance:Moderately built and nourished, no apparent distress Head: normocephalic, Atraumatic Eyes: normal inspection, EOMI Neck: supple, Trachea midline Respiratory/Chest: Normal breath sounds, CTA, No accessory muscle use Cardiovascular: Irregularly irregular, +murmur Abdomen/GI:Soft, Non tender, Bowel sounds present Extremities/Musculoskeletal:normal inspection, no edema, R elbow in dressing Neurologic/Psych:AAOX3, grossly no focal neurological deficits Skin: normal color, warm Results & Data Results & Data ([facility]) Vital Signs (Past 12 Hours) Vital Signs Temp Pulse Resp BP Pulse Ox 04/01/21 16:08 37.8 C H 129 H 21 170/82 H 91 04/01/21 10:51 36.4 C L 91 H 19 133/84 94 04/01/21 08:26 36.5 C 103 H 18 127/72 93 Laboratory Results Short CBC 03/31/21 04/01/21 Range/Units 22:56 06:32 Hgb 8.0 L 7.4 L (14.0-18.0) g/dL Hct 24.0 L 22.5 L (42-52) % BMP 04/01/21 06:32 Sodium 132 L Potassium 3.4 L Chloride 102 Carbon Dioxide 23 BUN 16 Creatinine 0.88 Glucose 116 H Calcium 7.2 L (1) Sepsis Sepsis acute organ dysfunction status: unspecified Sepsis type: sepsis due to unspecified organism Qualified Code(s): A41.9 - Sepsis, unspecified organism
[2021-04-01 17:00] LABS: Hematocrit (blood only) 25.3 % (42-52); Hemoglobin 8.4 g/dL (14.0-18.0)
[2021-04-01] MEDS: DIGOXIN 0.125 MG TAB PO SCH (17:00)
[2021-04-01] MEDS ORDERED: LEVALBUTEROL HCL 0.63 MG/3 ML NEB NEB PRN (17:42)
[2021-04-01] MEDS: cefTRIAXone SODIUM 2,000 MG in DEXTROSE 5% 50 ML IV SCH (17:59)
[2021-04-01] MEDS: ACETAMINOPHEN 325 MG TAB PO PRN (18:00)
[2021-04-01] MEDS ORDERED: FUROSEMIDE 40 MG in SYRINGE 0 ML IV ONE (18:00)
--- NOTE | 2021-04-01 18:10 | XRay Report ---
XR chest 1V portable CLINICAL HISTORY: Wheezing COMPARISON STUDY: 03/30/2021 FINDINGS: The cardiac and mediastinal contours remain stable. There are bibasilar opacities, likely a telectatic although an infectious/inflammatory processes could appear similar. There are trace bilate ral pleural effusions. A line shadow paralleling the left chest wall. Markings are seen peripheral to this and therefore this is felt to represent a skinfold.[ IMPRESSION: 1. Persistent bibasilar opacities, atelectatic versus infectious/inflammatory 2. Trace bilateral pleural effusions ACT 112: Negative or not required by law. Electronically signed by: Thom Bui M.D. 04/01/2021 6:09 PM
--- NOTE | 2021-04-01 19:17 | Cardiology Progress Note ---
Date of Service April 01, 2021 Assessment & Plan (1) A-fib: (2) Gastrointestinal bleeding: Plan: Gastritis, duodenal ulcers noted on EGD. Non bleeding diverticula noted on colonoscopy. Continue protonix. ASA and Eliquis have been stopped. Continue metoprolol and digoxin for rate control. Ventricular rates a little high, but pt is asymptomatic. Agree with furosemide 40 mg IV x 1 and potassium supplement. SCDs for DVT prophylaxis. Admission and Anticipated Discharge Date Admission Date: March 23, 2021 Subjective Pt seen in follow up. No complaints. Physical Exam Physical Exam: Temp Pulse Resp BP Pulse Ox 37.1 C 121 H 18 106/62 91 04/01/21 19:10 04/01/21 19:10 04/01/21 19:10 04/01/21 19:10 04/01/21 19:10 Constitutional: no acute distress Respiratory: normal respiratory effort, lungs clear to auscultation Cardiovascular: Rate/Rhythm: + irregularly irregular Heart Sounds: no murmur Gastrointestinal (Abdomen): normal bowel sounds, soft, nontender, no hepatosplenomegaly Results & Data ([facility]) Vital Signs (Past 12 Hours) Vital Signs Temp Pulse Pulse Resp BP Pulse Ox 04/01/21 19:10 37.1 C 121 H 18 106/62 91 04/01/21 17:00 108 H 04/01/21 16:08 37.8 C H 129 H 21 170/82 H 91 04/01/21 10:51 36.4 C L 91 H 19 133/84 94 04/01/21 08:26 36.5 C 103 H 18 127/72 93 Laboratory Results CBC 03/31/21 04/01/21 04/01/21 Range/Units 22:56 06:32 16:49 Hgb 8.0 L 7.4 L 8.4 L (14.0-18.0) g/dL Hct 24.0 L 22.5 L 25.3 L (42-52) % Comprehensive Metabolic Panel 04/01/21 Range/Units 06:32 Sodium 132 L (136-145) mmol/L Potassium 3.4 L (3.5-5.1) mmol/L Chloride 102 (98-107) mmol/L Carbon Dioxide 23 (21-32) mmol/L BUN 16 (7-18) mg/dl Creatinine 0.88 (0.6-1.4) mg/dl Glucose 116 H (70-99) mg/dl Calcium 7.2 L (8.5-10.1) mg/dl Intake and Output 04/01/21 04/01/21 04/01/21 06:59 14:59 22:59 Intake Total 100 / 2451.666 242 / 572 330 / 572 Output Total 50 / 1125 250 / 450 200 / 450 Balance 50 / 1326.666 -8 / 122 130 / 122 Intake: IV 42 / 112 70 / 112 Sodium Chloride 0.9% 1,000 ml @ 42 / 42 60 mls/hr IV .[id number] [facility] Rx#: [id number] cefTRIAXone SODIUM 2,000 mg In 70 / 70 Dextrose 5% 50 ml @ 140 mls/hr IV Q24H [facility] Rx#:[id number] Oral 100 / 450 200 / 460 260 / 460 Output: Urine 50 / 375 250 / 450 200 / 450 Other: Weight 95 kg 95 kg Weight Measurement Method Built in [facility] Patient Weight 04/02/21 06:59 Weight 95 kg
[2021-04-01] MEDS: DOXYCYCLINE HYCLATE 100 MG CAP PO SCH (20:28)
[2021-04-01] MEDS: SIMVASTATIN 10 MG TAB PO SCH (20:29)
[2021-04-01] MEDS: PANTOprazole 40 MG TAB PO SCH (20:30)
[2021-04-01 22:09] LABS: Hematocrit (blood only) 22.3 % (42-52); Hemoglobin 7.5 g/dL (14.0-18.0)
[2021-04-02] MEDS: ACETAMINOPHEN 325 MG TAB PO PRN ×2 (01:51→16:33)
[2021-04-02 06:21] LABS: Hematocrit (blood only) 22.8 % (42-52); Hemoglobin 7.5 g/dL (14.0-18.0); Mean Corpuscular Hemoglobin 30.6 pg (25-34); Mean Corpuscular Hgb Conc 32.9 g/dL (32-36); Mean Corpuscular Volume 93.1 fL (80-100); RDW Coefficient of Variation 13.6 % (11.5-14.5); RDW Standard Deviation 46.3 fL (36.4-46.3); Red Blood Count 2.45 M/uL (4.7-6.1); White Blood Count 3.72 K/uL (4.8-10.8)
[2021-04-02 06:56] LABS: BUN Creatinine Ratio 16.9 (10-20); Calcium 7.4 mg/dl (8.5-10.1); Creatinine Clr Calc Pharmacy 71.4 ml/min; Est GFR (African American) 89.1 ml/min; Est GFR (Non-African American) 76.9 ml/min; Potassium 3.7 mmol/L (3.5-5.1)
[2021-04-02 07:16] LABS: Mean Platelet Volume 8.8 fL (7.4-10.4); Platelet Count 83 K/uL (130-400)
[2021-04-02 07:37] LABS: Basophils # (auto) 0.02 K/uL (0-0.2); Basophils % (auto) 0.5 %; Dohle Bodies 1+; Eosinophils # (auto) 0.01 K/uL (0-0.5); Eosinophils % (auto) 0.3 %; Immature Granulocytes # (auto) 0.01 K/uL (0.00-0.02); Immature Granulocytes % (auto) 0.3 %; Lymphocytes # (auto) 1.06 K/uL (1.2-3.4); Lymphocytes % (auto) 28.5 %; Monocytes # (auto) 0.49 K/uL (0.11-0.59); Monocytes % (auto) 13.2 %; Neutrophils # (auto) 2.13 K/uL (1.4-6.5); Neutrophils % (auto) 57.2 %; Platelet Estimate Decreased (Normal)
[2021-04-02] MEDS: PANTOprazole 40 MG TAB PO SCH ×2 (08:43→20:53)
[2021-04-02] MEDS: FERROUS SULFATE 325 MG TAB PO SCH (08:43)
[2021-04-02] MEDS: SUCRALFATE 1 GM/10 ML UDC PO SCH ×4 (08:43→20:52)
[2021-04-02] MEDS: METOPROLOL TARTRATE 50 MG TAB PO SCH ×2 (08:43→20:54)
[2021-04-02] MEDS: TAMSULOSIN HCL 0.4 MG CAP PO SCH (08:44)
[2021-04-02] MEDS: DOXYCYCLINE HYCLATE 100 MG CAP PO SCH (08:44)
[2021-04-02] MEDS: INSULIN ASPART 100 UNITS/ML 3 ML PEN SC SCH ×4 (08:44→20:58)
[2021-04-02] MEDS: MULTIVITAMIN TAB PO SCH (08:44)
[2021-04-02] MEDS: MAGNESIUM CHLORIDE 64MG DELAYED REL TAB PO SCH ×2 (08:44→20:53)
[2021-04-02] MEDS: CALCIUM 600MG + VIT D 400 IU TAB PO SCH ×2 (08:44→20:53)
[2021-04-02] MEDS: CITALOPRAM 20 MG TAB PO SCH (08:44)
--- NOTE | 2021-04-02 09:10 | XRay Report ---
SINGLE VIEW CHEST CLINICAL HISTORY: Fever. FINDINGS: An AP, portable, upright chest radiograph is compared to study dated 04/01/2021. The heart i s top normal for projection noting atherosclerotic calcification of the thoracic aorta. The pulmonary vasculature is noncongested. There are left larger than right pleural effusions with bibasilar conso lidation. No pneumothorax is seen. The skeletal structures are osteopenic. The bony thorax is grossly intact. IMPRESSION: Left larger than right pleural effusions with bibasilar consolidation. These are unchange d to minimally increased as compared to yesterday. ACT 112: Negative or not required by law. Electronically signed by: Selwyn Diez M.D. 04/02/2021 9:09 AM
--- NOTE | 2021-04-02 14:31 | Hospitalist Progress Note ---
Date of Service April 02, 2021 Assessment & Plan (1) Sepsis: Plan: Severe sepsis Left arm infected wound/Cellulitis Staph Bacteremia ,Blood culture: 1/2 Staph Repeat Blood Cx: Negative Wound Cx not obtained prior to starting abx ECHO: No evidence of mass or vegetation Started with IV vancomycin transition to Rocephin after sensitivity Appreciate ID input Continue wound care Plan to complete 2 week course of IV Rocephin as per ID Recheck CXR-left larger than right pleural effusions with bibasilar consolidation. Slightly worse compared with prior Continue current treatment with IV doxycycline which was added yesterday 04/01/2021 Possible anaplasmosis Bloody smear is suggestive of anaplasmosis He has been on doxycycline since yesterday Await PCR Acute GI bleeding/Rectal Bleeding In setting of Apixaban/Aspirin use-Held -S/P EGD: Normal esophagus, small hiatal hernia, gastritis, nonobstructing nonbleeding duodenal ulcers with visible vessel -Colonoscopy: External hemorrhoids, moderate diverticulosis of the sigmoid colon, descending colon and transverse colon, internal hemorrhoids, Received Kcentra Appreciate GI Input Continue PPI BID for 6 weeks and then 20 mg daily indefinitely Started on Carafate --continue for 2 weeks stool for C diff:Negative Needs repeat upper endoscopy in 3 months Hemoglobin remains stable at 7.5 Hypomagnesemia Likely due to GI loses Replace electrolyses as needed Hyponatremia Likely due to dehydration from GI loses Received IV fluids Monitor Sodium levels: 132 Sodium level is slightly dropped to [address] metabolic [address] head does not show acute abnormality Mental status back to baseline Resolved Thrombocytopenia Likely secondary to sepsis Platelet count Normalized Haladaf-[id number]-uxxqh one 04/02/2021 Ambulatory dysfunction: Evidence of falls, with multiple bruises ecchymosis of the knees, and arms PT OT evaluation Needs Rehab placement Atrial Fibrillation New diagnosis Appreciate cardiology input Continue Metoprolol, digoxin Continue to monitor on telemetry Eliquis DCed due to GI bleeding Diabetes mellitus: A1c from 03/10/2021 is 6.4 Insulin sliding scale DVT Px: SCDs Re:GI bleeding CODE STATUS: Full code Disposition Needs Rehab placement Admission and Anticipated Discharge Date Admission Date: March 23, 2021 Subjective 04/02/2021 The patient was seen and examined in telemetry unit He has been feeling much better today and denies any significant symptoms except weakness He has dry mouth and speech seems to be a little bit off Review of Systems Review of Systems: All systems reviewed and are unremarkable except as noted below Neurologic: + generalized weakness Physical Exam Physical Exam: Lying in bed without any distress Constitutional: + ill appearing and + obese; no acute distress Eyes: PERRL, conjunctivae normal, anicteric sclerae ENMT: external ear and nose normal, oropharynx normal Neck: trachea midline, no thyromegaly Respiratory: no respiratory distress and no cough Auscultation: + diminished lung sounds; no crackles and no wheezes Cardiovascular: Rate/Rhythm: regular rate and regular rhythm; not tachycardic Gastrointestinal (Abdomen): normal bowel sounds, soft, nontender, no hepatosplenomegaly Neurologic: moves all extremities, awake and + confused (Pleasantly confused) Results & Data Results & Data ([facility]) Vital Signs (Past 12 Hours) Vital Signs Temp Pulse Pulse Resp BP Pulse Ox 04/02/21 11:37 36.5 C 92 H 19 121/71 94 04/02/21 09:00 91 H 04/02/21 06:50 36.6 C 87 16 128/69 95 04/02/21 04:37 36.7 C 96 H 18 116/57 L 91 Laboratory Results Short CBC 04/01/21 04/01/21 04/02/21 Range/Units 16:49 21:15 06:04 WBC 3.72 L (4.8-10.8) K/uL Hgb 8.4 L 7.5 L 7.5 L (14.0-18.0) g/dL Hct 25.3 L 22.3 L 22.8 L (42-52) % Plt Count 83 L (130-400) K/uL [facility] 04/02/21 06:04 Sodium 130 L Potassium 3.7 Chloride 100 Carbon Dioxide 26 BUN 15 Creatinine 0.89 Glucose 114 H Calcium 7.4 L Medications Administered Current Inpatient Medications Acetaminophen (Acetaminophen 325 Mg Tab) 650 mg PO Q6H PRN PRN Reason: Fever/pain Stop: 04/27/21 05:40 Last Admin: 04/02/21 01:51 Dose: 650 mg Documented by: Aspirin (Aspirin 81 Mg Ectab) 81 mg PO [facility] Stop: 04/26/21 08:59 Last Admin: 03/29/21 08:30 Dose: 81 mg Documented by: Chlorthalidone (Chlorthalidone 25 Mg Tab) 25 mg PO DAILY [facility] Stop: 04/26/21 08:59 Last Admin: 03/29/21 08:31 Dose: 25 mg Documented by: Citalopram Hydrobromide (Citalopram 20 Mg Tab) 20 mg PO DAILY [facility] Stop: 04/23/21 08:59 Last Admin: 04/02/21 08:44 Dose: 20 mg Documented by: Dextrose (Dextrose 50% 50 Ml Syringe) 25 - 50 ml IV UD PRN; Protocol PRN Reason: Hypoglycemia Protocol Stop: 04/22/21 19:55 Digoxin (Digoxin 0.125 Mg Tab) 0.125 mg PO DAILY@1600 [facility] Stop: 04/27/21 15:59 Last Admin: 04/01/21 17:00 Dose: 0.125 mg Documented by: Doxycycline Hyclate (Doxycycline Hyclate 100 Mg Cap) 100 mg PO BID@0700,1900 [facility] Stop: 04/08/21 18:59 Last Admin: 04/02/21 08:44 Dose: 100 mg Documented by: Famotidine (Famotidine 20 Mg Tab) 20 mg PO DAILY PRN PRN Reason: Heartburn Stop: 04/26/21 08:59 Last Admin: 03/29/21 09:48 Dose: 20 mg Documented by: Ferrous Sulfate (Ferrous Sulfate 325 Mg Tab) 325 mg PO QAM [facility] Stop: 05/02/21 08:59 Last Admin: 04/02/21 08:43 Dose: 325 mg Documented by: Glucagon (Glucagon For Inj 1 Mg Vial) 1 mg SQ UD PRN; Protocol PRN Reason: Hypoglycemia Protocol Stop: 04/22/21 19:55 Glucose (Glucose 10 Tabs/Tube) 4 - 8 tabs PO UD PRN; Protocol PRN Reason: Hypoglycemia Protocol Stop: 04/22/21 19:55 Glucose (Glucose 40% Gel 15 Gm Tube) 15 - 30 gm PO UD PRN; Protocol PRN Reason: Hypoglycemia Protocol Stop: 04/22/21 19:55 Ceftriaxone Sodium 2,000 mg/ (Dextrose) 70 mls @ 140 mls/hr IV Q24H [facility]; Protocol Stop: 04/07/21 17:59 Last Infusion: 04/01/21 18:47 Dose: Infused Documented by: Insulin Aspart (Insulin Aspart 100 Units/Ml 3 Ml Pen) 0 units SC ACHS [facility] Stop: 04/23/21 11:29 Last Admin: 04/02/21 12:35 Dose: 2 units Documented by: Levalbuterol HCl (Levalbuterol Hcl 0.63 Mg/3 Ml Neb) 0.63 mg NEB Q6R PRN PRN Reason: Shortness Of Breath Or Wheezing Stop: 05/01/21 18:59 Magnesium Chloride (Magnesium Chloride 64mg Delayed Rel Tab) 64 mg PO BID [facility] Stop: 04/27/21 20:59 Last Admin: 04/02/21 08:44 Dose: 64 mg Documented by: Metoprolol Tartrate (Metoprolol Tartrate 1 Mg/Ml Vial) 5 mg IV Q6 PRN PRN Reason: HR>120 Stop: 04/22/21 19:55 Metoprolol Tartrate (Metoprolol Tartrate 50 Mg Tab) 50 mg PO BID [facility] Stop: 04/27/21 08:59 Last Admin: 04/02/21 08:43 Dose: 50 mg Documented by: Miscellaneous (Carbohydrates For Hypoglycemia ) 15 - 30 gm PO UD PRN PRN Reason: Hypoglycemia Protocol Stop: 04/22/21 19:55 Multivitamins (Multivitamin Tab) 1 tab PO DAILY [facility] Stop: 04/23/21 08:59 Last Admin: 04/02/21 08:44 Dose: 1 tab Documented by: Multivitamins/Minerals (Calcium 600mg + Vit D 400 Iu Tab) 1 tab PO BID [facility] Stop: 04/23/21 20:59 Last Admin: 04/02/21 08:44 Dose: 1 tab Documented by: Pantoprazole Sodium (Pantoprazole 40 Mg Tab) 40 mg PO BID [facility] Stop: 05/01/21 20:59 Last Admin: 04/02/21 08:43 Dose: 40 mg Documented by: Phenazopyridine HCl (Phenazopyridine Hcl 100 Mg Tab) 100 mg PO TID PRN PRN Reason: Bladder pain Stop: 04/28/21 23:28 Simvastatin (Simvastatin 10 Mg Tab) 10 mg PO HS [facility] Stop: 04/22/21 20:59 Last Admin: 04/01/21 20:29 Dose: 10 mg Documented by: Sucralfate (Sucralfate 1 Gm/10 Ml Udc) 1 gm PO ACHS [facility] Stop: 04/30/21 11:29 Last Admin: 04/02/21 12:35 Dose: 1 gm Documented by: Tamsulosin HCl (Tamsulosin Hcl 0.4 Mg Cap) 0.4 mg PO DAILY [facility] Stop: 04/23/21 08:59 Last Admin: 04/02/21 08:44 Dose: 0.4 mg Documented by: (1) Sepsis Sepsis acute organ dysfunction status: unspecified Sepsis type: sepsis due to unspecified organism Qualified Code(s): A41.9 - Sepsis, unspecified organism
--- NOTE | 2021-04-02 16:10 | Cardiology Progress Note ---
Date of Service April 02, 2021 Assessment & Plan (1) A-fib: Plan: Continue metoprolol 40 mg BID , digoxin for rate control. (2) Gastrointestinal bleeding: Plan: Hgb 7.5. Continue to hold ASA and Eliquis. I do not plan to resume anticoagulation. Continue Carafate, protonix, FeSO4. Pt lives at home with elderly spouse and son who is handicapped (about 60 years old) who has cerebral palsy. Will likely need help at home. Admission and Anticipated Discharge Date Admission Date: March 23, 2021 Subjective 04/02/2021 No cardiac complaints. On telemetry, he remains in AF, however ventricular rates are much improved, down to the 70s. Denies having had recurrent blood with bowel movements. Physical Exam Physical Exam: Temp Pulse Resp BP Pulse Ox 37.1 C 121 H 18 106/62 91 04/01/21 19:10 04/01/21 19:10 04/01/21 19:10 04/01/21 19:10 04/01/21 19:10 Constitutional: no acute distress Respiratory: normal respiratory effort, lungs clear to auscultation Cardiovascular: Rate/Rhythm: + irregularly irregular Heart Sounds: no murmur Extremities: no edema Gastrointestinal (Abdomen): normal bowel sounds, soft, nontender, no hepatosplenomegaly Neurologic: PERRL, EOMI, accommodation nl, no face palsy, no dysarthria Results & Data ([facility]) Vital Signs (Past 12 Hours) Vital Signs Temp Pulse Pulse Resp BP Pulse Ox 04/02/21 15:37 36.4 C L 66 22 112/68 96 04/02/21 14:50 36.4 C L 76 17 111/70 93 04/02/21 11:37 36.5 C 92 H 19 121/71 94 04/02/21 09:00 91 H 04/02/21 06:50 36.6 C 87 16 128/69 95 04/02/21 04:37 36.7 C 96 H 18 116/57 L 91
[2021-04-02] MEDS: DIGOXIN 0.125 MG TAB PO SCH (16:30)
[2021-04-02] MEDS: DOXYCYCLINE HYCLATE 100 MG in DEXTROSE 5% 100 ML IV SCH (17:03)
[2021-04-02] MEDS: cefTRIAXone SODIUM 2,000 MG in DEXTROSE 5% 50 ML IV SCH (17:04)
[2021-04-02] MEDS: SIMVASTATIN 10 MG TAB PO SCH (20:54)
[2021-04-03] MEDS: ACETAMINOPHEN 325 MG TAB PO PRN (03:20)
[2021-04-03] MEDS: DOXYCYCLINE HYCLATE 100 MG in DEXTROSE 5% 100 ML IV SCH ×2 (06:28→17:27)
[2021-04-03] MEDS: INSULIN ASPART 100 UNITS/ML 3 ML PEN SC SCH ×4 (08:28→20:26)
[2021-04-03] MEDS: METOPROLOL TARTRATE 50 MG TAB PO SCH ×2 (08:29→20:25)
[2021-04-03] MEDS: CITALOPRAM 20 MG TAB PO SCH (08:29)
[2021-04-03] MEDS: FERROUS SULFATE 325 MG TAB PO SCH (08:29)
[2021-04-03] MEDS: MULTIVITAMIN TAB PO SCH (08:30)
[2021-04-03] MEDS: TAMSULOSIN HCL 0.4 MG CAP PO SCH (08:30)
[2021-04-03] MEDS: PANTOprazole 40 MG TAB PO SCH ×2 (08:30→20:25)
[2021-04-03] MEDS: SUCRALFATE 1 GM/10 ML UDC PO SCH ×4 (08:30→20:25)
[2021-04-03] MEDS: MAGNESIUM CHLORIDE 64MG DELAYED REL TAB PO SCH ×2 (08:30→20:25)
[2021-04-03] MEDS: CALCIUM 600MG + VIT D 400 IU TAB PO SCH ×2 (08:30→20:25)
[2021-04-03 10:00] LABS: Hematocrit (blood only) 20.3 % (42-52); Hemoglobin 6.8 g/dL (14.0-18.0); Mean Corpuscular Hemoglobin 30.9 pg (25-34); Mean Corpuscular Hgb Conc 33.5 g/dL (32-36); Mean Corpuscular Volume 92.3 fL (80-100); Mean Platelet Volume 8.8 fL (7.4-10.4); Platelet Count 112 K/uL (130-400); RDW Coefficient of Variation 13.7 % (11.5-14.5); RDW Standard Deviation 46.3 fL (36.4-46.3); White Blood Count 3.03 K/uL (4.8-10.8)
[2021-04-03 10:17] LABS: Calcium 7.3 mg/dl (8.5-10.1); Creatinine Clr Calc Pharmacy 76.6 ml/min; Est GFR (African American) 91.7 ml/min; Est GFR (Non-African American) 79.1 ml/min; Potassium 3.5 mmol/L (3.5-5.1)
[2021-04-03] MEDS ORDERED: SODIUM CHLORIDE 0.9% 250 ML IV PRN (10:18)
[2021-04-03] MEDS ORDERED: SODIUM PHOSPHATE 3 MMOL/1 ML 5 ML VIAL IV ONE (10:20)
[2021-04-03] MEDS ORDERED: FUROSEMIDE 40 MG in SYRINGE 0 ML IV ONE (10:21)
[2021-04-03 10:44] LABS: Basophils # (auto) 0.02 K/uL (0-0.2); Basophils % (auto) 0.7 %; Eosinophils # (auto) 0.03 K/uL (0-0.5); Lymphocytes # (auto) 1.26 K/uL (1.2-3.4); Lymphocytes % (auto) 41.6 %; Monocytes # (auto) 0.52 K/uL (0.11-0.59); Monocytes % (auto) 17.2 %; Neutrophils % (auto) 39.5 %
[2021-04-03] MEDS ORDERED: SODIUM PHOSPHATE 30 MMOL in SODIUM CHLORIDE 0.9% 500 ML IV ONE (11:00)
[2021-04-03] MEDS: DIGOXIN 0.125 MG TAB PO SCH (17:19)
[2021-04-03] MEDS: cefTRIAXone SODIUM 2,000 MG in DEXTROSE 5% 50 ML IV SCH (17:27)
--- NOTE | 2021-04-03 18:24 | Hospitalist Progress Note ---
Date of Service April 03, 2021 Assessment & Plan (1) Sepsis: Plan: Severe sepsis Left arm infected wound/Cellulitis Staph Bacteremia ,Blood culture: 1/2 Staph Repeat Blood Cx: Negative Wound Cx not obtained prior to starting abx ECHO: No evidence of mass or vegetation Started with IV vancomycin transition to Rocephin after sensitivity Appreciate ID input Continue wound care Plan to complete 2 week course of IV Rocephin as per ID Recheck CXR-left larger than right pleural effusions with bibasilar consolidation. Slightly worse compared with prior Continue current treatment with IV doxycycline which was added yesterday 04/01/2021 Hemoglobin dropped to 6.8 today and likely secondary to ongoing infection and is complicated by GI bleed We will give 2 units of blood transfusion today Lasix in between Possible anaplasmosis Bloody smear is suggestive of anaplasmosis He has been on doxycycline since yesterday Await PCR Clinically better Acute GI bleeding/Rectal Bleeding In setting of Apixaban/Aspirin use-Held -S/P EGD: Normal esophagus, small hiatal hernia, gastritis, nonobstructing nonbleeding duodenal ulcers with visible vessel -Colonoscopy: External hemorrhoids, moderate diverticulosis of the sigmoid colon, descending colon and transverse colon, internal hemorrhoids, Received Kcentra Appreciate GI Input Continue PPI BID for 6 weeks and then 20 mg daily indefinitely Started on Carafate --continue for 2 weeks stool for C diff:Negative Needs repeat upper endoscopy in 3 months Hemoglobin is 6.8-we will receive 2 units PRBC today Hypomagnesemia Likely due to GI loses Replace electrolyses as needed Hyponatremia Likely due to dehydration from GI loses Received IV fluids Monitor Sodium levels: 132 Sodium level is slightly dropped to 129 We will monitor Acute metabolic encephalopathy. CT head does not show acute abnormality Mental status back to baseline Resolved Thrombocytopenia Likely secondary to sepsis Platelet count Normalized Hjslcgw-[id number] one 04/02/2021 Ambulatory dysfunction: Evidence of falls, with multiple bruises ecchymosis of the knees, and arms PT OT evaluation Needs Rehab placement Atrial Fibrillation New diagnosis Appreciate cardiology input Continue Metoprolol, digoxin Continue to monitor on telemetry Eliquis DCed due to GI bleeding Will not start any aspirin and/or Eliquis Diabetes mellitus: A1c from 03/10/2021 is 6.4 Insulin sliding scale DVT Px: SCDs Re:GI bleeding Will not restart any aspirin and/or Eliquis for A. fib CODE STATUS: Full code Disposition Needs Rehab placement Admission and Anticipated Discharge Date Admission Date: March 23, 2021 Subjective 04/02/2021 The patient was seen and examined in telemetry unit He has been feeling much better today and denies any significant symptoms except weakness He has dry mouth and speech seems to be a little bit off 04/03/2021 The patient was seen and examined in telemetry unit He has been feeling much better but remains weak and lethargic He was noted to have a hemoglobin drop to 6.8 today Denies any acute distress Review of Systems Review of Systems: All systems reviewed and are unremarkable except as noted below Cardiovascular: no chest pain, no orthopnea, no palpitations and no syncope Gastrointestinal: no abdominal pain, no nausea, no vomiting and no diarrhea/loose stools Musculoskeletal: Generalized weakness, denies of any muscle ache or joint pain Integumentary: bruise/ecchymosis on bilateral arms, Neurologic: + generalized weakness Physical Exam Physical Exam: Lying in bed without any distress Constitutional: + ill appearing and + obese; no acute distress Eyes: PERRL, conjunctivae normal, anicteric sclerae ENMT: external ear and nose normal, oropharynx normal Neck: trachea midline, no thyromegaly Respiratory: no respiratory distress and no cough Auscultation: + diminished lung sounds; no crackles and no wheezes Cardiovascular: Rate/Rhythm: regular rate and regular rhythm; not tachycardic Gastrointestinal (Abdomen): normal bowel sounds, soft, nontender, no hepatosplenomegaly Musculoskeletal: No acute arthritis in any joint Neurologic: moves all extremities, awake and + confused (Pleasantly confused) Results & Data Results & Data ([facility]) Vital Signs (Past 12 Hours) Vital Signs Temp Pulse Pulse Resp BP BP BP 04/03/21 18:10 36.9 C 86 18 119/73 04/03/21 18:09 36.8 C 86 18 124/74 04/03/21 17:36 36.9 C 86 18 140/83 04/03/21 17:19 84 04/03/21 17:06 36.8 C 83 18 137/80 04/03/21 16:51 36.8 C 74 18 126/72 04/03/21 16:37 36.7 C 72 16 128/77 04/03/21 14:49 36.7 C 69 18 111/66 04/03/21 14:03 36.4 C L 81 16 119/56 L 04/03/21 13:03 36.5 C 76 16 106/67 04/03/21 12:33 36.5 C 74 18 106/66 04/03/21 12:18 36.4 C L 81 18 114/66 04/03/21 12:01 36.4 C L 82 14 114/63 04/03/21 11:45 36.9 C 82 20 114/68 04/03/21 08:00 70 04/03/21 07:07 36.7 C 84 17 132/65 Pulse Ox 04/03/21 18:10 95 04/03/21 18:09 94 04/03/21 17:36 96 04/03/21 17:19 04/03/21 17:06 95 04/03/21 16:51 95 04/03/21 16:37 94 04/03/21 14:49 95 04/03/21 14:03 94 04/03/21 13:03 92 04/03/21 12:33 94 04/03/21 12:18 94 04/03/21 12:01 96 04/03/21 11:45 94 04/03/21 08:00 04/03/21 07:07 93 Laboratory Results Short CBC 04/03/21 Range/Units 09:37 WBC 3.03 L (4.8-10.8) K/uL Hgb 6.8 L* (14.0-18.0) g/dL Hct 20.3 L* (42-52) % Plt Count 112 L (130-400) K/uL BMP 04/03/21 09:37 Sodium 129 L Potassium 3.5 Chloride 99 Carbon Dioxide 26 BUN 18 Creatinine 0.83 Glucose 115 H Calcium 7.3 L Medications Administered Current Inpatient Medications Acetaminophen (Acetaminophen 325 Mg Tab) 650 mg PO Q6H PRN PRN Reason: Fever/pain Stop: 04/27/21 05:40 Last Admin: 04/03/21 03:20 Dose: 650 mg Documented by: Aspirin (Aspirin 81 Mg Ectab) 81 mg PO [facility] Stop: 04/26/21 08:59 Last Admin: 03/29/21 08:30 Dose: 81 mg Documented by: Chlorthalidone (Chlorthalidone 25 Mg Tab) 25 mg PO DAILY [facility] Stop: 04/26/21 08:59 Last Admin: 03/29/21 08:31 Dose: 25 mg Documented by: Citalopram Hydrobromide (Citalopram 20 Mg Tab) 20 mg PO DAILY [facility] Stop: 04/23/21 08:59 Last Admin: 04/03/21 08:29 Dose: 20 mg Documented by: Dextrose (Dextrose 50% 50 Ml Syringe) 25 - 50 ml IV UD PRN; Protocol PRN Reason: Hypoglycemia Protocol Stop: 04/22/21 19:55 Digoxin (Digoxin 0.125 Mg Tab) 0.125 mg PO DAILY@1600 [facility] Stop: 04/27/21 15:59 Last Admin: 04/03/21 17:19 Dose: 0.125 mg Documented by: Famotidine (Famotidine 20 Mg Tab) 20 mg PO DAILY PRN PRN Reason: Heartburn Stop: 04/26/21 08:59 Last Admin: 03/29/21 09:48 Dose: 20 mg Documented by: Ferrous Sulfate (Ferrous Sulfate 325 Mg Tab) 325 mg PO QAM [facility] Stop: 05/02/21 08:59 Last Admin: 04/03/21 08:29 Dose: 325 mg Documented by: Glucagon (Glucagon For Inj 1 Mg Vial) 1 mg SQ UD PRN; Protocol PRN Reason: Hypoglycemia Protocol Stop: 04/22/21 19:55 Glucose (Glucose 10 Tabs/Tube) 4 - 8 tabs PO UD PRN; Protocol PRN Reason: Hypoglycemia Protocol Stop: 04/22/21 19:55 Glucose (Glucose 40% Gel 15 Gm Tube) 15 - 30 gm PO UD PRN; Protocol PRN Reason: Hypoglycemia Protocol Stop: 04/22/21 19:55 Ceftriaxone Sodium 2,000 mg/ (Dextrose) 70 mls @ 140 mls/hr IV Q24H [facility]; Protocol Stop: 04/07/21 17:59 Last Infusion: 04/03/21 18:05 Dose: Infused Documented by: Doxycycline Hyclate 100 mg/ (Dextrose) 110 mls @ 50 mls/hr IV Q12H [facility]; Protocol Stop: 04/16/21 17:59 Last Admin: 04/03/21 17:27 Dose: 50 mls/hr Documented by: Sodium Chloride (Nss) 250 mls @ 15 mls/hr IV .[id number] PRN PRN Reason: For Transfusion Stop: 04/03/21 20:18 Insulin Aspart (Insulin Aspart 100 Units/Ml 3 Ml Pen) 0 units SC ACHS [facility] Stop: 04/23/21 11:29 Last Admin: 04/03/21 17:19 Dose: 2 units Documented by: Levalbuterol HCl (Levalbuterol Hcl 0.63 Mg/3 Ml Neb) 0.63 mg NEB Q6R PRN PRN Reason: Shortness Of Breath Or Wheezing Stop: 05/01/21 18:59 Magnesium Chloride (Magnesium Chloride 64mg Delayed Rel Tab) 64 mg PO BID [facility] Stop: 04/27/21 20:59 Last Admin: 04/03/21 08:30 Dose: 64 mg Documented by: Metoprolol Tartrate (Metoprolol Tartrate 1 Mg/Ml Vial) 5 mg IV Q6 PRN PRN Reason: HR>120 Stop: 04/22/21 19:55 Metoprolol Tartrate (Metoprolol Tartrate 50 Mg Tab) 50 mg PO BID [facility] Stop: 04/27/21 08:59 Last Admin: 04/03/21 08:29 Dose: 50 mg Documented by: Miscellaneous (Carbohydrates For Hypoglycemia ) 15 - 30 gm PO UD PRN PRN Reason: Hypoglycemia Protocol Stop: 04/22/21 19:55 Multivitamins (Multivitamin Tab) 1 tab PO DAILY [facility] Stop: 04/23/21 08:59 Last Admin: 04/03/21 08:30 Dose: 1 tab Documented by: Multivitamins/Minerals (Calcium 600mg + Vit D 400 Iu Tab) 1 tab PO BID [facility] Stop: 04/23/21 20:59 Last Admin: 04/03/21 08:30 Dose: 1 tab Documented by: Pantoprazole Sodium (Pantoprazole 40 Mg Tab) 40 mg PO BID [facility] Stop: 05/01/21 20:59 Last Admin: 04/03/21 08:30 Dose: 40 mg Documented by: Phenazopyridine HCl (Phenazopyridine Hcl 100 Mg Tab) 100 mg PO TID PRN PRN Reason: Bladder pain Stop: 04/28/21 23:28 Simvastatin (Simvastatin 10 Mg Tab) 10 mg PO HS [facility] Stop: 04/22/21 20:59 Last Admin: 04/02/21 20:54 Dose: 10 mg Documented by: Sucralfate (Sucralfate 1 Gm/10 Ml Udc) 1 gm PO ACHS [facility] Stop: 04/30/21 11:29 Last Admin: 04/03/21 17:21 Dose: 1 gm Documented by: Tamsulosin HCl (Tamsulosin Hcl 0.4 Mg Cap) 0.4 mg PO DAILY [facility] Stop: 04/23/21 08:59 Last Admin: 04/03/21 08:30 Dose: 0.4 mg Documented by: (1) Sepsis Sepsis acute organ dysfunction status: unspecified Sepsis type: sepsis due to unspecified organism Qualified Code(s): A41.9 - Sepsis, unspecified organism
[2021-04-03] MEDS: SIMVASTATIN 10 MG TAB PO SCH (20:25)
[2021-04-04] MEDS: DOXYCYCLINE HYCLATE 100 MG in DEXTROSE 5% 100 ML IV SCH ×2 (06:01→17:08)
[2021-04-04 07:24] LABS: Hematocrit (blood only) 26.1 % (42-52); Hemoglobin 8.9 g/dL (14.0-18.0); Mean Corpuscular Hemoglobin 30.5 pg (25-34); Mean Corpuscular Hgb Conc 34.1 g/dL (32-36); Mean Corpuscular Volume 89.4 fL (80-100); Mean Platelet Volume 8.8 fL (7.4-10.4); Platelet Count 142 K/uL (130-400); RDW Coefficient of Variation 14.4 % (11.5-14.5); RDW Standard Deviation 47.9 fL (36.4-46.3); Red Blood Count 2.92 M/uL (4.7-6.1)
[2021-04-04] MEDS: SUCRALFATE 1 GM/10 ML UDC PO SCH ×4 (07:48→20:14)
[2021-04-04 07:54] LABS: BUN Creatinine Ratio 18.3 (10-20); Calcium 7.5 mg/dl (8.5-10.1); Creatinine Clr Calc Pharmacy 74.2 ml/min; Est GFR (African American) 90.4 ml/min; Potassium 3.1 mmol/L (3.5-5.1)
[2021-04-04] MEDS: INSULIN ASPART 100 UNITS/ML 3 ML PEN SC SCH ×4 (07:56→20:50)
[2021-04-04] MEDS: TAMSULOSIN HCL 0.4 MG CAP PO SCH (08:00)
[2021-04-04] MEDS: PANTOprazole 40 MG TAB PO SCH ×2 (08:00→20:14)
[2021-04-04] MEDS: MAGNESIUM CHLORIDE 64MG DELAYED REL TAB PO SCH ×2 (08:00→20:14)
[2021-04-04] MEDS: MULTIVITAMIN TAB PO SCH (08:00)
[2021-04-04] MEDS: CITALOPRAM 20 MG TAB PO SCH (08:00)
[2021-04-04] MEDS: CALCIUM 600MG + VIT D 400 IU TAB PO SCH ×2 (08:00→20:14)
[2021-04-04] MEDS: METOPROLOL TARTRATE 50 MG TAB PO SCH ×2 (08:00→20:14)
[2021-04-04] MEDS: FERROUS SULFATE 325 MG TAB PO SCH (08:00)
[2021-04-04 08:07] LABS: Basophils # (auto) 0.04 K/uL (0-0.2); Eosinophils # (auto) 0.06 K/uL (0-0.5); Eosinophils % (auto) 1.5 %; Immature Granulocytes # (auto) 0.01 K/uL (0.00-0.02); Immature Granulocytes % (auto) 0.2 %; Lymphocytes # (auto) 2.06 K/uL (1.2-3.4); Lymphocytes % (auto) 50.2 %; Monocytes # (auto) 0.56 K/uL (0.11-0.59); Monocytes % (auto) 13.7 %; Neutrophils # (auto) 1.37 K/uL (1.4-6.5); Neutrophils % (auto) 33.4 %
[2021-04-04] MEDS ORDERED: POTASSIUM CHLORIDE CRTAB 20 MEQ TABCR PO STA (08:46)
--- NOTE | 2021-04-04 15:09 | Hospitalist Progress Note ---
Date of Service April 04, 2021 Assessment & Plan (1) Sepsis: Plan: Severe sepsis Left arm infected wound/Cellulitis Staph Bacteremia ,Blood culture: /2 Staph Repeat Blood Cx: Negative Wound Cx not obtained prior to starting abx ECHO: No evidence of mass or vegetation Started with IV vancomycin transition to Rocephin after sensitivity Appreciate ID input Continue wound care Plan to complete 2 week course of IV Rocephin as per ID Recheck CXR-left larger than right pleural effusions with bibasilar consolidation. Slightly worse compared with prior Continue current treatment with IV doxycycline which was added yesterday 04/01/2021 Hemoglobin dropped to 6.8 today and likely secondary to ongoing infection and is complicated by GI bleed Hemoglobin went up to 8.9 following 2 units of blood transfusion He has been feeling much better We will monitor CBC Possible anaplasmosis Bloody smear is suggestive of anaplasmosis He has been on doxycycline since yesterday Await PCR Clinically better Acute GI bleeding/Rectal Bleeding In setting of Apixaban/Aspirin use-Held -S/P EGD: Normal esophagus, small hiatal hernia, gastritis, nonobstructing nonbleeding duodenal ulcers with visible vessel -Colonoscopy: External hemorrhoids, moderate diverticulosis of the sigmoid colon, descending colon and transverse colon, internal hemorrhoids, Received Kcentra Appreciate GI Input Continue PPI BID for 6 weeks and then 20 mg daily indefinitely Started on Carafate --continue for 2 weeks stool for C diff:Negative Needs repeat upper endoscopy in 3 months No more GI bleed-drop in hemoglobin is likely secondary to ongoing infection Received 2 more units of blood transfusion on 04/03/2021 Hypomagnesemia Likely due to GI loses Replace electrolyses as needed Hyponatremia Likely due to dehydration from GI loses Received IV fluids Monitor Sodium levels: 132 Sodium level is slightly dropped to 129 We will monitor-sodium is 132 today Low potassium of 3.1 and he received 40 mEq potassium this morning We will monitor Acute metabolic encephalopathy. CT head does not show acute abnormality Mental status back to baseline Resolved Thrombocytopenia Likely secondary to sepsis Platelet count Normalized [id number]-[id number]-hsfxz one 04/02/2021 Ambulatory dysfunction: Evidence of falls, with multiple bruises ecchymosis of the knees, and arms PT OT evaluation Needs Rehab placement Atrial Fibrillation New diagnosis Appreciate cardiology input Continue Metoprolol, digoxin Continue to monitor on telemetry Eliquis DCed due to GI bleeding Will not start any aspirin and/or Eliquis Diabetes mellitus: A1c from 03/10/2021 is 6.4 Insulin sliding scale DVT Px: SCDs Re:GI bleeding Will not restart any aspirin and/or Eliquis for A. fib CODE STATUS: Full code Disposition Needs Rehab placement Admission and Anticipated Discharge Date Admission Date: March 23, 2021 Subjective 04/02/2021 The patient was seen and examined in telemetry unit He has been feeling much better today and denies any significant symptoms except weakness He has dry mouth and speech seems to be a little bit off 04/03/2021 The patient was seen and examined in telemetry unit He has been feeling much better but remains weak and lethargic He was noted to have a hemoglobin drop to 6.8 today Denies any acute distress The patient was seen and examined in telemetry unit He has been feeling much better today and is out of bed on a chair Denies any significant symptoms except weakness Review of Systems Review of Systems: All systems reviewed and are unremarkable except as noted below Cardiovascular: no chest pain, no orthopnea, no palpitations and no syncope Gastrointestinal: no abdominal pain, no nausea, no vomiting and no diarrhea/loose stools Musculoskeletal: Generalized weakness, denies of any muscle ache or joint pain Integumentary: bruise/ecchymosis on bilateral arms, Neurologic: + generalized weakness Physical Exam Physical Exam: Sitting on a chair without any acute distress Constitutional: + ill appearing and + obese; no acute distress Eyes: PERRL, conjunctivae normal, anicteric sclerae ENMT: external ear and nose normal, oropharynx normal Neck: trachea midline, no thyromegaly Respiratory: no respiratory distress and no cough Auscultation: + diminished lung sounds; no crackles and no wheezes Cardiovascular: Rate/Rhythm: regular rate and regular rhythm; not tachycardic Gastrointestinal (Abdomen): normal bowel sounds, soft, nontender, no hepatosplenomegaly Musculoskeletal: No acute arthritis in any joint Neurologic: moves all extremities, awake and + confused (Pleasantly confused) Speech / Cognition: + abnormal cognition Motor/Sensory: no tremor Lymphatic: no cervical or axillary lymphadenopathy Results & Data Results & Data ([facility]) Vital Signs (Past 12 Hours) Vital Signs Temp Pulse Pulse Resp BP Pulse Ox 04/04/21 11:54 36.3 C L 59 L 18 111/66 98 04/04/21 11:41 69 04/04/21 06:48 36.5 C 73 17 149/74 H 96 Laboratory Results Short CBC 04/04/21 Range/Units 06:29 WBC 4.10 L (4.8-10.8) K/uL Hgb 8.9 L (14.0-18.0) g/dL Hct 26.1 L (42-52) % Plt Count 142 (130-400) K/uL BMP 04/04/21 06:29 Sodium 132 L Potassium 3.1 L Chloride 100 Carbon Dioxide 30 BUN 16 Creatinine 0.86 Glucose 133 H Calcium 7.5 L Medications Administered Current Inpatient Medications Acetaminophen (Acetaminophen 325 Mg Tab) 650 mg PO Q6H PRN PRN Reason: Fever/pain Stop: 04/27/21 05:40 Last Admin: 04/03/21 03:20 Dose: 650 mg Documented by: Aspirin (Aspirin 81 Mg Ectab) 81 mg PO QAM [facility] Stop: 04/26/21 08:59 Last Admin: 03/29/21 08:30 Dose: 81 mg Documented by: Chlorthalidone (Chlorthalidone 25 Mg Tab) 25 mg PO DAILY [facility] Stop: 04/26/21 08:59 Last Admin: 03/29/21 08:31 Dose: 25 mg Documented by: Citalopram Hydrobromide (Citalopram 20 Mg Tab) 20 mg PO DAILY [facility] Stop: 04/23/21 08:59 Last Admin: 04/04/21 08:00 Dose: 20 mg Documented by: Dextrose (Dextrose 50% 50 Ml Syringe) 25 - 50 ml IV UD PRN; Protocol PRN Reason: Hypoglycemia Protocol Stop: 04/22/21 19:55 Digoxin (Digoxin 0.125 Mg Tab) 0.125 mg PO DAILY@1600 [facility] Stop: 04/27/21 15:59 Last Admin: 04/03/21 17:19 Dose: 0.125 mg Documented by: Famotidine (Famotidine 20 Mg Tab) 20 mg PO DAILY PRN PRN Reason: Heartburn Stop: 04/26/21 08:59 Last Admin: 03/29/21 09:48 Dose: 20 mg Documented by: Ferrous Sulfate (Ferrous Sulfate 325 Mg Tab) 325 mg PO QAM [facility] Stop: 05/02/21 08:59 Last Admin: 04/04/21 08:00 Dose: 325 mg Documented by: Glucagon (Glucagon For Inj 1 Mg Vial) 1 mg SQ UD PRN; Protocol PRN Reason: Hypoglycemia Protocol Stop: 04/22/21 19:55 Glucose (Glucose 10 Tabs/Tube) 4 - 8 tabs PO UD PRN; Protocol PRN Reason: Hypoglycemia Protocol Stop: 04/22/21 19:55 Glucose (Glucose 40% Gel 15 Gm Tube) 15 - 30 gm PO UD PRN; Protocol PRN Reason: Hypoglycemia Protocol Stop: 04/22/21 19:55 Ceftriaxone Sodium 2,000 mg/ (Dextrose) 70 mls @ 140 mls/hr IV Q24H [facility]; Protocol Stop: 04/07/21 17:59 Last Infusion: 04/03/21 18:05 Dose: Infused Documented by: Doxycycline Hyclate 100 mg/ (Dextrose) 110 mls @ 50 mls/hr IV Q12H [facility]; Protocol Stop: 04/16/21 17:59 Last Infusion: 04/04/21 08:48 Dose: Infused Documented by: Insulin Aspart (Insulin Aspart 100 Units/Ml 3 Ml Pen) 0 units SC ACHS [facility] Stop: 04/23/21 11:29 Last Admin: 04/04/21 11:35 Dose: Not Given Documented by: Levalbuterol HCl (Levalbuterol Hcl 0.63 Mg/3 Ml Neb) 0.63 mg NEB Q6R PRN PRN Reason: Shortness Of Breath Or Wheezing Stop: 05/01/21 18:59 Magnesium Chloride (Magnesium Chloride 64mg Delayed Rel Tab) 64 mg PO BID [facility] Stop: 04/27/21 20:59 Last Admin: 04/04/21 08:00 Dose: 64 mg Documented by: Metoprolol Tartrate (Metoprolol Tartrate 1 Mg/Ml Vial) 5 mg IV Q6 PRN PRN Reason: HR>120 Stop: 04/22/21 19:55 Metoprolol Tartrate (Metoprolol Tartrate 50 Mg Tab) 50 mg PO BID [facility] Stop: 04/27/21 08:59 Last Admin: 04/04/21 08:00 Dose: 50 mg Documented by: Miscellaneous (Carbohydrates For Hypoglycemia ) 15 - 30 gm PO UD PRN PRN Reason: Hypoglycemia Protocol Stop: 04/22/21 19:55 Multivitamins (Multivitamin Tab) 1 tab PO DAILY [facility] Stop: 04/23/21 08:59 Last Admin: 04/04/21 08:00 Dose: 1 tab Documented by: Multivitamins/Minerals (Calcium 600mg + Vit D 400 Iu Tab) 1 tab PO BID [facility] Stop: 04/23/21 20:59 Last Admin: 04/04/21 08:00 Dose: 1 tab Documented by: Pantoprazole Sodium (Pantoprazole 40 Mg Tab) 40 mg PO BID [facility] Stop: 05/01/21 20:59 Last Admin: 04/04/21 08:00 Dose: 40 mg Documented by: Phenazopyridine HCl (Phenazopyridine Hcl 100 Mg Tab) 100 mg PO TID PRN PRN Reason: Bladder pain Stop: 04/28/21 23:28 Simvastatin (Simvastatin 10 Mg Tab) 10 mg PO HS [facility] Stop: 04/22/21 20:59 Last Admin: 04/03/21 20:25 Dose: 10 mg Documented by: Sucralfate (Sucralfate 1 Gm/10 Ml Udc) 1 gm PO ACHS [facility] Stop: 04/30/21 11:29 Last Admin: 04/04/21 12:52 Dose: 1 gm Documented by: Tamsulosin HCl (Tamsulosin Hcl 0.4 Mg Cap) 0.4 mg PO DAILY [facility] Stop: 04/23/21 08:59 Last Admin: 04/04/21 08:00 Dose: 0.4 mg Documented by: (1) Sepsis Sepsis acute organ dysfunction status: unspecified Sepsis type: sepsis due to unspecified organism Qualified Code(s): A41.9 - Sepsis, unspecified organism
[2021-04-04] MEDS: DIGOXIN 0.125 MG TAB PO SCH (16:59)
[2021-04-04] MEDS: cefTRIAXone SODIUM 2,000 MG in DEXTROSE 5% 50 ML IV SCH (17:02)
[2021-04-04] MEDS: SIMVASTATIN 10 MG TAB PO SCH (20:14)
[2021-04-05] MEDS: DOXYCYCLINE HYCLATE 100 MG in DEXTROSE 5% 100 ML IV SCH ×2 (05:20→17:28)
[2021-04-05] MEDS: MAGNESIUM CHLORIDE 64MG DELAYED REL TAB PO SCH ×2 (07:29→20:22)
[2021-04-05] MEDS: SUCRALFATE 1 GM/10 ML UDC PO SCH ×4 (07:29→20:22)
[2021-04-05] MEDS: FERROUS SULFATE 325 MG TAB PO SCH (07:30)
[2021-04-05] MEDS: CITALOPRAM 20 MG TAB PO SCH (07:30)
[2021-04-05] MEDS: CALCIUM 600MG + VIT D 400 IU TAB PO SCH ×2 (07:30→20:22)
[2021-04-05] MEDS: MULTIVITAMIN TAB PO SCH (07:30)
[2021-04-05] MEDS: PANTOprazole 40 MG TAB PO SCH ×2 (07:30→20:22)
[2021-04-05] MEDS: METOPROLOL TARTRATE 50 MG TAB PO SCH ×2 (07:30→20:22)
[2021-04-05] MEDS: TAMSULOSIN HCL 0.4 MG CAP PO SCH (07:30)
[2021-04-05] MEDS: INSULIN ASPART 100 UNITS/ML 3 ML PEN SC SCH ×4 (07:56→20:13)
[2021-04-05 07:58] LABS: Basophils # (auto) 0.03 K/uL (0-0.2); Basophils % (auto) 0.6 %; Eosinophils # (auto) 0.08 K/uL (0-0.5); Eosinophils % (auto) 1.7 %; Immature Granulocytes # (auto) 0.03 K/uL (0.00-0.02); Immature Granulocytes % (auto) 0.6 %; Lymphocytes % (auto) 45.4 %; Mean Corpuscular Hgb Conc 33.3 g/dL (32-36); Mean Platelet Volume 8.3 fL (7.4-10.4); Monocytes # (auto) 0.79 K/uL (0.11-0.59); Monocytes % (auto) 17.1 %; Neutrophils % (auto) 34.6 %; Platelet Count 171 K/uL (130-400); RDW Coefficient of Variation 14.5 % (11.5-14.5); RDW Standard Deviation 47.6 fL (36.4-46.3); White Blood Count 4.63 K/uL (4.8-10.8)
[2021-04-05 08:15] LABS: BUN Creatinine Ratio 15.7 (10-20); Calcium 8.1 mg/dl (8.5-10.1); Creatinine Clr Calc Pharmacy 76.4 ml/min; Est GFR (African American) 94.6 ml/min; Est GFR (Non-African American) 81.6 ml/min; Magnesium 1.8 mg/dl (1.8-2.4); Phosphorus 2.3 mg/dl (2.5-4.9); Potassium 3.4 mmol/L (3.5-5.1)
[2021-04-05] MEDS ORDERED: POTASSIUM PHOS 3 MMOL/1 ML INFUSION IV STA (08:35)
[2021-04-05] MEDS ORDERED: POTASSIUM PHOSPHATE 30 MMOL in SODIUM CHLORIDE 0.9% 500 ML IV ONE (09:15)
--- NOTE | 2021-04-05 14:41 | Hospitalist Progress Note ---
Date of Service April 05, 2021 Assessment & Plan (1) Sepsis: Plan: Severe sepsis Left arm infected wound/Cellulitis Staph Bacteremia ,Blood culture: /2 Staph Repeat Blood Cx: Negative Wound Cx not obtained prior to starting abx ECHO: No evidence of mass or vegetation Started with IV vancomycin transition to Rocephin after sensitivity Appreciate ID input Continue wound care Plan to complete 2 week course of IV Rocephin as per ID Recheck CXR-left larger than right pleural effusions with bibasilar consolidation. Slightly worse compared with prior Continue current treatment with IV doxycycline which was added yesterday 04/01/2021 Hemoglobin dropped to 6.8 today and likely secondary to ongoing infection and is complicated by GI bleed Hemoglobin went up to 8.9 following 2 units of blood transfusion He has been feeling much better We will monitor CBC Possible anaplasmosis Bloody smear is suggestive of anaplasmosis He has been on doxycycline since yesterday Await PCR Clinically better Acute GI bleeding/Rectal Bleeding In setting of Apixaban/Aspirin use-Held -S/P EGD: Normal esophagus, small hiatal hernia, gastritis, nonobstructing nonbleeding duodenal ulcers with visible vessel -Colonoscopy: External hemorrhoids, moderate diverticulosis of the sigmoid colon, descending colon and transverse colon, internal hemorrhoids, Received Kcentra Appreciate GI Input Continue PPI BID for 6 weeks and then 20 mg daily indefinitely Started on Carafate --continue for 2 weeks stool for C diff:Negative Needs repeat upper endoscopy in 3 months No more GI bleed-drop in hemoglobin is likely secondary to ongoing infection Received 2 more units of blood transfusion on 04/03/2021 Pathology did not show any malignancy and/or HPV infection Hypomagnesemia Likely due to GI loses Replace electrolyses as needed Phosphate and potassium have been replaced We will monitor levels on Wednesday Hyponatremia Likely due to dehydration from GI loses Received IV fluids Monitor Sodium levels: 132 Sodium level is slightly dropped to 129 We will monitor-sodium is 132 today Low potassium of 3.1 and he received 40 mEq potassium this morning We will monitor Acute metabolic encephalopathy. CT head does not show acute abnormality Mental status back to baseline Resolved Thrombocytopenia Likely secondary to sepsis Platelet count Normalized [id number] one 04/02/2021 Ambulatory dysfunction: Evidence of falls, with multiple bruises ecchymosis of the knees, and arms PT OT evaluation Needs Rehab placement Atrial Fibrillation New diagnosis Appreciate cardiology input Continue Metoprolol, digoxin Continue to monitor on telemetry Eliquis DCed due to GI bleeding Will not start any aspirin and/or Eliquis Diabetes mellitus: A1c from 03/10/2021 is 6.4 Insulin sliding scale DVT Px: SCDs Re:GI bleeding Will not restart any aspirin and/or Eliquis for A. fib CODE STATUS: Full code Disposition Needs Rehab placement Likely be discharged on Wednesday Admission and Anticipated Discharge Date Admission Date: March 23, 2021 Subjective 04/02/2021 The patient was seen and examined in telemetry unit He has been feeling much better today and denies any significant symptoms except weakness He has dry mouth and speech seems to be a little bit off 04/03/2021 The patient was seen and examined in telemetry unit He has been feeling much better but remains weak and lethargic He was noted to have a hemoglobin drop to 6.8 today Denies any acute distress The patient was seen and examined in telemetry unit He has been feeling much better today and is out of bed on a chair Denies any significant symptoms except weakness 04/05/2021 The patient was seen and examined in telemetry unit He remains stable and is out of bed on a chair without any acute distress Waiting to be placed Review of Systems Review of Systems: All systems reviewed and are unremarkable except as noted below Cardiovascular: no chest pain, no orthopnea, no palpitations and no syncope Gastrointestinal: no abdominal pain, no nausea, no vomiting and no diarrhea/loose stools Musculoskeletal: Generalized weakness, denies of any muscle ache or joint pain Integumentary: bruise/ecchymosis on bilateral arms, Neurologic: + generalized weakness Physical Exam Physical Exam: Sitting on a chair without any acute distress Constitutional: + ill appearing and + obese; no acute distress Eyes: PERRL, conjunctivae normal, anicteric sclerae ENMT: external ear and nose normal, oropharynx normal Neck: trachea midline, no thyromegaly Respiratory: no respiratory distress and no cough Auscultation: + diminished lung sounds; no crackles and no wheezes Cardiovascular: Rate/Rhythm: regular rate and regular rhythm; not tachycardic Gastrointestinal (Abdomen): normal bowel sounds, soft, nontender, no hepatosplenomegaly Musculoskeletal: No acute arthritis in any joint Neurologic: moves all extremities, awake and + confused (Pleasantly confused) Speech / Cognition: + abnormal cognition Motor/Sensory: no tremor Lymphatic: no cervical or axillary lymphadenopathy Results & Data Results & Data ([facility]) Vital Signs (Past 12 Hours) Vital Signs Temp Pulse Pulse Resp BP Pulse Ox 04/05/21 11:35 36.5 C 68 18 129/71 94 04/05/21 07:50 66 04/05/21 07:31 37.0 C 81 20 173/68 H 94 04/05/21 03:16 36.5 C 78 20 161/81 H 92 Laboratory Results Short CBC 04/05/21 Range/Units 07:47 WBC 4.63 L (4.8-10.8) K/uL Hgb 9.0 L (14.0-18.0) g/dL Hct 27.0 L (42-52) % Plt Count 171 (130-400) K/uL BMP 04/05/21 07:47 Sodium 135 L Potassium 3.4 L Chloride 104 Carbon Dioxide 27 BUN 12 Creatinine 0.77 Glucose 125 H Calcium 8.1 L Medications Administered Current Inpatient Medications Acetaminophen (Acetaminophen 325 Mg Tab) 650 mg PO Q6H PRN PRN Reason: Fever/pain Stop: 04/27/21 05:40 Last Admin: 04/03/21 03:20 Dose: 650 mg Documented by: Aspirin (Aspirin 81 Mg Ectab) 81 mg PO QAM [facility] Stop: 04/26/21 08:59 Last Admin: 03/29/21 08:30 Dose: 81 mg Documented by: Chlorthalidone (Chlorthalidone 25 Mg Tab) 25 mg PO DAILY [facility] Stop: 04/26/21 08:59 Last Admin: 03/29/21 08:31 Dose: 25 mg Documented by: Citalopram Hydrobromide (Citalopram 20 Mg Tab) 20 mg PO DAILY [facility] Stop: 04/23/21 08:59 Last Admin: 04/05/21 07:30 Dose: 20 mg Documented by: Dextrose (Dextrose 50% 50 Ml Syringe) 25 - 50 ml IV UD PRN; Protocol PRN Reason: Hypoglycemia Protocol Stop: 04/22/21 19:55 Digoxin (Digoxin 0.125 Mg Tab) 0.125 mg PO DAILY@1600 [facility] Stop: 04/27/21 15:59 Last Admin: 04/04/21 16:59 Dose: 0.125 mg Documented by: Famotidine (Famotidine 20 Mg Tab) 20 mg PO DAILY PRN PRN Reason: Heartburn Stop: 04/26/21 08:59 Last Admin: 03/29/21 09:48 Dose: 20 mg Documented by: Ferrous Sulfate (Ferrous Sulfate 325 Mg Tab) 325 mg PO QAM [facility] Stop: 05/02/21 08:59 Last Admin: 04/05/21 07:30 Dose: 325 mg Documented by: Glucagon (Glucagon For Inj 1 Mg Vial) 1 mg SQ UD PRN; Protocol PRN Reason: Hypoglycemia Protocol Stop: 04/22/21 19:55 Glucose (Glucose 10 Tabs/Tube) 4 - 8 tabs PO UD PRN; Protocol PRN Reason: Hypoglycemia Protocol Stop: 04/22/21 19:55 Glucose (Glucose 40% Gel 15 Gm Tube) 15 - 30 gm PO UD PRN; Protocol PRN Reason: Hypoglycemia Protocol Stop: 04/22/21 19:55 Ceftriaxone Sodium 2,000 mg/ (Dextrose) 70 mls @ 140 mls/hr IV Q24H [facility]; Protocol Stop: 04/07/21 17:59 Last Infusion: 04/04/21 17:36 Dose: Infused Documented by: Doxycycline Hyclate 100 mg/ (Dextrose) 110 mls @ 50 mls/hr IV Q12H [facility]; Protocol Stop: 04/16/21 17:59 Last Infusion: 04/05/21 07:55 Dose: Infused Documented by: Potassium Phosphate 30 mmol/ (Sodium Chloride) 510 mls @ 88 mls/hr IV ONE ONE Stop: 04/05/21 15:02 Last Admin: 04/05/21 10:05 Dose: 88 mls/hr Documented by: Insulin Aspart (Insulin Aspart 100 Units/Ml 3 Ml Pen) 0 units SC ACHS [facility] Stop: 04/23/21 11:29 Last Admin: 04/05/21 12:28 Dose: Not Given Documented by: Levalbuterol HCl (Levalbuterol Hcl 0.63 Mg/3 Ml Neb) 0.63 mg NEB Q6R PRN PRN Reason: Shortness Of Breath Or Wheezing Stop: 05/01/21 18:59 Magnesium Chloride (Magnesium Chloride 64mg Delayed Rel Tab) 64 mg PO BID [facility] Stop: 04/27/21 20:59 Last Admin: 04/05/21 07:29 Dose: 64 mg Documented by: Metoprolol Tartrate (Metoprolol Tartrate 1 Mg/Ml Vial) 5 mg IV Q6 PRN PRN Reason: HR>120 Stop: 04/22/21 19:55 Metoprolol Tartrate (Metoprolol Tartrate 50 Mg Tab) 50 mg PO BID [facility] Stop: 04/27/21 08:59 Last Admin: 04/05/21 07:30 Dose: 50 mg Documented by: Miscellaneous (Carbohydrates For Hypoglycemia ) 15 - 30 gm PO UD PRN PRN Reason: Hypoglycemia Protocol Stop: 04/22/21 19:55 Multivitamins (Multivitamin Tab) 1 tab PO DAILY [facility] Stop: 04/23/21 08:59 Last Admin: 04/05/21 07:30 Dose: 1 tab Documented by: Multivitamins/Minerals (Calcium 600mg + Vit D 400 Iu Tab) 1 tab PO BID [facility] Stop: 04/23/21 20:59 Last Admin: 04/05/21 07:30 Dose: 1 tab Documented by: Pantoprazole Sodium (Pantoprazole 40 Mg Tab) 40 mg PO BID [facility] Stop: 05/01/21 20:59 Last Admin: 04/05/21 07:30 Dose: 40 mg Documented by: Phenazopyridine HCl (Phenazopyridine Hcl 100 Mg Tab) 100 mg PO TID PRN PRN Reason: Bladder pain Stop: 04/28/21 23:28 Simvastatin (Simvastatin 10 Mg Tab) 10 mg PO HS [facility] Stop: 04/22/21 20:59 Last Admin: 04/04/21 20:14 Dose: 10 mg Documented by: Sucralfate (Sucralfate 1 Gm/10 Ml Udc) 1 gm PO ACHS [facility] Stop: 04/30/21 11:29 Last Admin: 04/05/21 12:28 Dose: 1 gm Documented by: Tamsulosin HCl (Tamsulosin Hcl 0.4 Mg Cap) 0.4 mg PO DAILY [facility] Stop: 04/23/21 08:59 Last Admin: 04/05/21 07:30 Dose: 0.4 mg Documented by: (1) Sepsis Sepsis acute organ dysfunction status: unspecified Sepsis type: sepsis due to unspecified organism Qualified Code(s): A41.9 - Sepsis, unspecified organism
[2021-04-05] MEDS: DIGOXIN 0.125 MG TAB PO SCH (16:23)
[2021-04-05] MEDS: cefTRIAXone SODIUM 2,000 MG in DEXTROSE 5% 50 ML IV SCH (17:28)
[2021-04-05] MEDS: SIMVASTATIN 10 MG TAB PO SCH (20:22)
[2021-04-06] MEDS: DOXYCYCLINE HYCLATE 100 MG in DEXTROSE 5% 100 ML IV SCH ×2 (05:36→17:20)
[2021-04-06] MEDS: CITALOPRAM 20 MG TAB PO SCH (07:45)
[2021-04-06] MEDS: CALCIUM 600MG + VIT D 400 IU TAB PO SCH ×2 (07:45→20:43)
[2021-04-06] MEDS: SUCRALFATE 1 GM/10 ML UDC PO SCH ×4 (07:45→20:45)
[2021-04-06] MEDS: PANTOprazole 40 MG TAB PO SCH ×2 (07:45→20:45)
[2021-04-06] MEDS: METOPROLOL TARTRATE 50 MG TAB PO SCH ×2 (07:45→20:44)
[2021-04-06] MEDS: MAGNESIUM CHLORIDE 64MG DELAYED REL TAB PO SCH ×2 (07:45→20:43)
[2021-04-06] MEDS: MULTIVITAMIN TAB PO SCH (07:46)
[2021-04-06] MEDS: TAMSULOSIN HCL 0.4 MG CAP PO SCH (07:46)
[2021-04-06] MEDS: FERROUS SULFATE 325 MG TAB PO SCH (07:47)
[2021-04-06] MEDS: INSULIN ASPART 100 UNITS/ML 3 ML PEN SC SCH ×4 (07:53→20:46)
--- NOTE | 2021-04-06 12:57 | Hospitalist Progress Note ---
Date of Service April 06, 2021 Assessment & Plan (1) Sepsis: Plan: Severe sepsis Left arm infected wound/Cellulitis Staph Bacteremia ,Blood culture: / Staph Repeat Blood Cx: Negative Wound Cx not obtained prior to starting abx ECHO: No evidence of mass or vegetation Started with IV vancomycin transition to Rocephin after sensitivity Appreciate ID input Continue wound care Plan to complete 2 week course of IV Rocephin as per ID Recheck CXR-left larger than right pleural effusions with bibasilar consolidation. Slightly worse compared with prior Continue current treatment with IV doxycycline which was added yesterday 04/01/2021 Hemoglobin dropped to 6.8 today and likely secondary to ongoing infection and is complicated by GI bleed Hemoglobin went up to 8.9 following 2 units of blood transfusion A total of 14 days of intravenous ceftriaxone will be done by tomorrow Remains stable and will moved to medical floor and possible discharge tomorrow to [facility] Possible anaplasmosis Bloody smear is suggestive of anaplasmosis He has been on doxycycline since yesterday Await PCR We will continue doxycycline for a total of 10 days Acute GI bleeding/Rectal Bleeding In setting of Apixaban/Aspirin use-Held -S/P EGD: Normal esophagus, small hiatal hernia, gastritis, nonobstructing nonbleeding duodenal ulcers with visible vessel -Colonoscopy: External hemorrhoids, moderate diverticulosis of the sigmoid colon, descending colon and transverse colon, internal hemorrhoids, Received K[facility]ra Appreciate GI Input Continue PPI BID for 6 weeks and then 20 mg daily indefinitely Started on Carafate --continue for 2 weeks stool for C diff:Negative Needs repeat upper endoscopy in 3 months No more GI bleed-drop in hemoglobin is likely secondary to ongoing infection Received 2 more units of blood transfusion on 04/03/2021 Pathology did not show any malignancy and/or HPV infection No more GI bleed Hypomagnesemia Likely due to GI loses Replace electrolyses as needed Phosphate and potassium have been replaced We will monitor levels on Wednesday Hyponatremia Likely due to dehydration from GI loses Received IV fluids Monitor Sodium levels: 132 Sodium level is slightly dropped to 129 We will monitor-sodium is 132 today Low potassium of 3.1 and he received 40 mEq potassium this morning We will monitor Acute metabolic encephalopathy. CT head does not show acute abnormality Mental status back to baseline Resolved Thrombocytopenia Likely secondary to sepsis Platelet count Normalized Zkzcvhi-kzylyu-yjbjh one 04/02/2021 Thrombocytopenia is resolved Ambulatory dysfunction: Evidence of falls, with multiple bruises ecchymosis of the knees, and arms PT OT evaluation Needs Rehab placement Atrial Fibrillation New diagnosis Appreciate cardiology input Continue Metoprolol, digoxin Continue to monitor on telemetry Eliquis DCed due to GI bleeding Will not start any aspirin and/or Eliquis Diabetes mellitus: A1c from 03/10/2021 is 6.4 Insulin sliding scale DVT Px: SCDs Re:GI bleeding Will not restart any aspirin and/or Eliquis for A. fib CODE STATUS: Full code Disposition Needs Rehab placement Likely be discharged on Wednesday Admission and Anticipated Discharge Date Admission Date: March 23, 2021 Subjective 04/02/2021 The patient was seen and examined in telemetry unit He has been feeling much better today and denies any significant symptoms except weakness He has dry mouth and speech seems to be a little bit off 04/03/2021 The patient was seen and examined in telemetry unit He has been feeling much better but remains weak and lethargic He was noted to have a hemoglobin drop to 6.8 today Denies any acute distress The patient was seen and examined in telemetry unit He has been feeling much better today and is out of bed on a chair Denies any significant symptoms except weakness 04/05/2021 The patient was seen and examined in telemetry unit He remains stable and is out of bed on a chair without any acute distress Waiting to be placed 04/06/2021 The patient was seen and examined in telemetry unit He remains drowsy and weak but denies any acute symptoms No fever and no chills, no nausea no vomiting Review of Systems Review of Systems: All systems reviewed and are unremarkable except as noted below Cardiovascular: no chest pain, no orthopnea, no palpitations and no syncope Gastrointestinal: no abdominal pain, no nausea, no vomiting and no diarrhea/loose stools Musculoskeletal: Generalized weakness, denies of any muscle ache or joint pain Integumentary: bruise/ecchymosis on bilateral arms, Neurologic: + generalized weakness Physical Exam Physical Exam: Lying in the bed without any acute distress Constitutional: + ill appearing and + obese; no acute distress Eyes: PERRL, conjunctivae normal, anicteric sclerae ENMT: external ear and nose normal, oropharynx normal Neck: trachea midline, no thyromegaly Respiratory: no respiratory distress and no cough Auscultation: + diminishe d lung sounds; no crackles and no wheezes Cardiovascular: Rate/Rhythm: regular rate and regular rhythm; not tachycardic Gastrointestinal (Abdomen): normal bowel sounds, soft, nontender, no hepatosplenomegaly Musculoskeletal: No acute arthritis in any joint Neurologic: moves all extremities, awake and + confused (Pleasantly confused) Speech / Cognition: + abnormal cognition Motor/Sensory: no tremor Psychiatric: Remains pleasantly confused Lymphatic: no cervical or axillary lymphadenopathy Results & Data Results & Data ([facility]) Vital Signs (Past 12 Hours) Vital Signs Temp Pulse Resp BP Pulse Ox 04/06/21 11:23 36.7 C 61 18 117/67 94 04/06/21 07:59 36.7 C 73 20 144/82 H 92 04/06/21 03:15 36.5 C 68 20 156/82 H 95 Medications Administered Current Inpatient Medications Acetaminophen (Acetaminophen 325 Mg Tab) 650 mg PO Q6H PRN PRN Reason: Fever/pain Stop: 04/27/21 05:40 Last Admin: 04/03/21 03:20 Dose: 650 mg Documented by: Aspirin (Aspirin 81 Mg Ectab) 81 mg PO QAM [facility] Stop: 04/26/21 08:59 Last Admin: 03/29/21 08:30 Dose: 81 mg Documented by: Chlorthalidone (Chlorthalidone 25 Mg Tab) 25 mg PO DAILY [facility] Stop: 04/26/21 08:59 Last Admin: 03/29/21 08:31 Dose: 25 mg Documented by: Citalopram Hydrobromide (Citalopram 20 Mg Tab) 20 mg PO DAILY [facility] Stop: 04/23/21 08:59 Last Admin: 04/06/21 07:45 Dose: 20 mg Documented by: Dextrose (Dextrose 50% 50 Ml Syringe) 25 - 50 ml IV UD PRN; Protocol PRN Reason: Hypoglycemia Protocol Stop: 04/22/21 19:55 Digoxin (Digoxin 0.125 Mg Tab) 0.125 mg PO DAILY@1600 [facility] Stop: 04/27/21 15:59 Last Admin: 04/05/21 16:23 Dose: 0.125 mg Documented by: Famotidine (Famotidine 20 Mg Tab) 20 mg PO DAILY PRN PRN Reason: Heartburn Stop: 04/26/21 08:59 Last Admin: 03/29/21 09:48 Dose: 20 mg Documented by: Ferrous Sulfate (Ferrous Sulfate 325 Mg Tab) 325 mg PO QAM [facility] Stop: 05/02/21 08:59 Last Admin: 04/06/21 07:47 Dose: 325 mg Documented by: Glucagon (Glucagon For Inj 1 Mg Vial) 1 mg SQ UD PRN; Protocol PRN Reason: Hypoglycemia Protocol Stop: 04/22/21 19:55 Glucose (Glucose 10 Tabs/Tube) 4 - 8 tabs PO UD PRN; Protocol PRN Reason: Hypoglycemia Protocol Stop: 04/22/21 19:55 Glucose (Glucose 40% Gel 15 Gm Tube) 15 - 30 gm PO UD PRN; Protocol PRN Reason: Hypoglycemia Protocol Stop: 04/22/21 19:55 Ceftriaxone Sodium 2,000 mg/ (Dextrose) 70 mls @ 140 mls/hr IV Q24H [facility]; Protocol Stop: 04/07/21 17:59 Last Infusion: 04/05/21 18:00 Dose: Infused Documented by: Doxycycline Hyclate 100 mg/ (Dextrose) 110 mls @ 50 mls/hr IV Q12H [facility]; Protocol Stop: 04/16/21 17:59 Last Infusion: 04/06/21 07:44 Dose: Infused Documented by: Insulin Aspart (Insulin Aspart 100 Units/Ml 3 Ml Pen) 0 units SC ACHS [facility] Stop: 04/23/21 11:29 Last Admin: 04/06/21 12:07 Dose: 1 units Documented by: Levalbuterol HCl (Levalbuterol Hcl 0.63 Mg/3 Ml Neb) 0.63 mg NEB Q6R PRN PRN Reason: Shortness Of Breath Or Wheezing Stop: 05/01/21 18:59 Magnesium Chloride (Magnesium Chloride 64mg Delayed Rel Tab) 64 mg PO BID [facility] Stop: 04/27/21 20:59 Last Admin: 04/06/21 07:45 Dose: 64 mg Documented by: Metoprolol Tartrate (Metoprolol Tartrate 1 Mg/Ml Vial) 5 mg IV Q6 PRN PRN Reason: HR>120 Stop: 04/22/21 19:55 Metoprolol Tartrate (Metoprolol Tartrate 50 Mg Tab) 50 mg PO BID [facility] Stop: 04/27/21 08:59 Last Admin: 04/06/21 07:45 Dose: 50 mg Documented by: Miscellaneous (Carbohydrates For Hypoglycemia ) 15 - 30 gm PO UD PRN PRN Reason: Hypoglycemia Protocol Stop: 04/22/21 19:55 Multivitamins (Multivitamin Tab) 1 tab PO DAILY [facility] Stop: 04/23/21 08:59 Last Admin: 04/06/21 07:46 Dose: 1 tab Documented by: Multivitamins/Minerals (Calcium 600mg + Vit D 400 Iu Tab) 1 tab PO BID [facility] Stop: 04/23/21 20:59 Last Admin: 04/06/21 07:45 Dose: 1 tab Documented by: Pantoprazole Sodium (Pantoprazole 40 Mg Tab) 40 mg PO BID [facility] Stop: 05/01/21 20:59 Last Admin: 04/06/21 07:45 Dose: 40 mg Documented by: Phenazopyridine HCl (Phenazopyridine Hcl 100 Mg Tab) 100 mg PO TID PRN PRN Reason: Bladder pain Stop: 04/28/21 23:28 Simvastatin (Simvastatin 10 Mg Tab) 10 mg PO HS [facility] Stop: 04/22/21 20:59 Last Admin: 04/05/21 20:22 Dose: 10 mg Documented by: Sucralfate (Sucralfate 1 Gm/10 Ml Udc) 1 gm PO ACHS [facility] Stop: 04/30/21 11:29 Last Admin: 04/06/21 11:35 Dose: 1 gm Documented by: Tamsulosin HCl (Tamsulosin Hcl 0.4 Mg Cap) 0.4 mg PO DAILY [facility] Stop: 04/23/21 08:59 Last Admin: 04/06/21 07:46 Dose: 0.4 mg Documented by: (1) Sepsis Sepsis acute organ dysfunction status: unspecified Sepsis type: sepsis due to unspecified organism Qualified Code(s): A41.9 - Sepsis, unspecified organism
[2021-04-06] MEDS: DIGOXIN 0.125 MG TAB PO SCH (16:50)
[2021-04-06] MEDS: cefTRIAXone SODIUM 2,000 MG in DEXTROSE 5% 50 ML IV SCH (17:19)
[2021-04-06] MEDS: SIMVASTATIN 10 MG TAB PO SCH (20:45)
[2021-04-07] MEDS: DOXYCYCLINE HYCLATE 100 MG in DEXTROSE 5% 100 ML IV SCH ×2 (05:50→17:34)
[2021-04-07 06:04] LABS: Basophils # (auto) 0.02 K/uL (0-0.2); Basophils % (auto) 0.4 %; Eosinophils # (auto) 0.12 K/uL (0-0.5); Eosinophils % (auto) 2.2 %; Hematocrit (blood only) 27.2 % (42-52); Hemoglobin 9.2 g/dL (14.0-18.0); Immature Granulocytes # (auto) 0.06 K/uL (0.00-0.02); Immature Granulocytes % (auto) 1.1 %; Lymphocytes # (auto) 2.09 K/uL (1.2-3.4); Lymphocytes % (auto) 37.9 %; Mean Corpuscular Hemoglobin 31.1 pg (25-34); Mean Corpuscular Hgb Conc 33.8 g/dL (32-36); Mean Corpuscular Volume 91.9 fL (80-100); Mean Platelet Volume 8.1 fL (7.4-10.4); Monocytes # (auto) 1.03 K/uL (0.11-0.59); Monocytes % (auto) 18.7 %; Neutrophils # (auto) 2.19 K/uL (1.4-6.5); Neutrophils % (auto) 39.7 %; Platelet Count 190 K/uL (130-400); RDW Coefficient of Variation 14.7 % (11.5-14.5); RDW Standard Deviation 49.4 fL (36.4-46.3); Red Blood Count 2.96 M/uL (4.7-6.1); White Blood Count 5.51 K/uL (4.8-10.8)
[2021-04-07 06:40] LABS: BUN Creatinine Ratio 16.1 (10-20); Creatinine Clr Calc Pharmacy 80.6 ml/min; Est GFR (African American) 96.7 ml/min; Est GFR (Non-African American) 83.4 ml/min; Magnesium 1.7 mg/dl (1.8-2.4); Potassium 3.7 mmol/L (3.5-5.1)
[2021-04-07] MEDS: SUCRALFATE 1 GM/10 ML UDC PO SCH ×4 (08:07→22:03)
[2021-04-07] MEDS: CHLORTHALIDONE 25 MG TAB PO SCH (08:08)
[2021-04-07] MEDS: MAGNESIUM CHLORIDE 64MG DELAYED REL TAB PO SCH ×2 (08:08→22:03)
[2021-04-07] MEDS: CALCIUM 600MG + VIT D 400 IU TAB PO SCH ×2 (08:08→22:04)
[2021-04-07] MEDS: FERROUS SULFATE 325 MG TAB PO SCH (08:08)
[2021-04-07] MEDS: CITALOPRAM 20 MG TAB PO SCH (08:08)
[2021-04-07] MEDS: PANTOprazole 40 MG TAB PO SCH ×2 (08:08→22:04)
[2021-04-07] MEDS: TAMSULOSIN HCL 0.4 MG CAP PO SCH (08:08)
[2021-04-07] MEDS: MULTIVITAMIN TAB PO SCH (08:08)
[2021-04-07] MEDS: METOPROLOL TARTRATE 50 MG TAB PO SCH ×2 (08:09→22:05)
[2021-04-07] MEDS: INSULIN ASPART 100 UNITS/ML 3 ML PEN SC SCH ×4 (08:09→21:30)
[2021-04-07] MEDS: ACETAMINOPHEN 325 MG TAB PO PRN (11:09)
--- NOTE | 2021-04-07 14:52 | Hospitalist Progress Note ---
Date of Service April 07, 2021 Assessment & Plan (1) Sepsis: Plan: Severe sepsis Left arm infected wound/Cellulitis Staph Bacteremia ,Blood culture: /2 Staph Repeat Blood Cx: Negative Wound Cx not obtained prior to starting abx ECHO: No evidence of mass or vegetation Started with IV vancomycin transition to Rocephin after sensitivity Appreciate ID input Continue wound care Plan to complete 2 week course of IV Rocephin as per ID Recheck CXR-left larger than right pleural effusions with bibasilar consolidation. Slightly worse compared with prior Continue current treatment with IV doxycycline which was added yesterday 04/01/2021 Hemoglobin dropped to 6.8 today and likely secondary to ongoing infection and is complicated by GI bleed Hemoglobin went up to 8.9 following 2 units of blood transfusion A total of 14 days of intravenous ceftriaxone will be done by tomorrow Remains stable and will moved to medical floor and possible discharge tomorrow to [facility] Ceftriaxone will be discontinued but will continue doxy finish the 7 days course Possible anaplasmosis Bloody smear is suggestive of anaplasmosis He has been on doxycycline since yesterday Await PCR We will continue doxycycline for a total of 10 days Acute GI bleeding/Rectal Bleeding In setting of Apixaban/Aspirin use-Held -S/P EGD: Normal esophagus, small hiatal hernia, gastritis, nonobstructing nonbleeding duodenal ulcers with visible vessel -Colonoscopy: External hemorrhoids, moderate diverticulosis of the sigmoid colon, descending colon and transverse colon, internal hemorrhoids, Received Kcentra Appreciate GI Input Continue PPI BID for 6 weeks and then 20 mg daily indefinitely Started on Carafate --continue for 2 weeks stool for C diff:Negative Needs repeat upper endoscopy in 3 months No more GI bleed-drop in hemoglobin is likely secondary to ongoing infection Received 2 more units of blood transfusion on 04/03/2021 Pathology did not show any malignancy and/or HPV infection No more GI bleed and the hemoglobin remained stable Hypomagnesemia Likely due to GI loses Replace electrolyses as needed Phosphate and potassium have been replaced We will monitor levels on Wednesday Hyponatremia Likely due to dehydration from GI loses Received IV fluids Monitor Sodium levels: 132 Sodium level is slightly dropped to 129 We will monitor-sodium is 132 today Low potassium of 3.1 and he received 40 mEq potassium this morning We will monitor-normalized Acute metabolic encephalopathy. CT head does not show acute abnormality Mental status back to baseline Resolved Thrombocytopenia Likely secondary to sepsis Platelet count Normalized [id number]-kmcjr one 04/02/2021 Thrombocytopenia is resolved Ambulatory dysfunction: Evidence of falls, with multiple bruises ecchymosis of the knees, and arms PT OT evaluation Needs Rehab placement Atrial Fibrillation New diagnosis Appreciate cardiology input Continue Metoprolol, digoxin Continue to monitor on telemetry Eliquis DCed due to GI bleeding Will not start any aspirin and/or Eliquis Diabetes mellitus: A1c from 03/10/2021 is 6.4 Insulin sliding scale DVT Px: SCDs Re:GI bleeding Will not restart any aspirin and/or Eliquis for A. fib CODE STATUS: Full code Disposition Needs Rehab placement Likely be discharged on Wednesday Plan: Awaiting placement Admission and Anticipated Discharge Date Admission Date: March 23, 2021 Subjective 04/02/2021 The patient was seen and examined in telemetry unit He has been feeling much better today and denies any significant symptoms except weakness He has dry mouth and speech seems to be a little bit off 04/03/2021 The patient was seen and examined in telemetry unit He has been feeling much better but remains weak and lethargic He was noted to have a hemoglobin drop to 6.8 today Denies any acute distress The patient was seen and examined in telemetry unit He has been feeling much better today and is out of bed on a chair Denies any significant symptoms except weakness 04/05/2021 The patient was seen and examined in telemetry unit He remains stable and is out of bed on a chair without any acute distress Waiting to be placed 04/06/2021 The patient was seen and examined in telemetry unit He remains drowsy and weak but denies any acute symptoms No fever and no chills, no nausea no vomiting 04/07/2021 The patient was seen and examined in telemetry unit He has been feeling much better and doing well with physical therapy Denies any symptoms Review of Systems Review of Systems: All systems reviewed and are unremarkable except as noted below Cardiovascular: no chest pain, no orthopnea, no palpitations and no syncope Gastrointestinal: no abdominal pain, no nausea, no vomiting and no diarrhea/loose stools Musculoskeletal: Generalized weakness, denies of any muscle ache or joint pain Integumentary: bruise/ecchymosis on bilateral arms, Neurologic: + generalized weakness Physical Exam Physical Exam: Sitting on a chair without any acute distress Constitutional: + obese; no acute distress and not ill appearing Eyes: PERRL, conjunctivae normal, anicteric sclerae ENMT: external ear and nose normal, oropharynx normal Neck: trachea midline, no thyromegaly Respiratory: no respiratory distress and no cough Auscultation: + diminished lung sounds; no crackles and no wheezes Cardiovascular: Rate/Rhythm: regular rate and regular rhythm; not tachycardic Gastrointestinal (Abdomen): normal bowel sounds, soft, nontender, no hepatosplenomegaly Musculoskeletal: No acute arthritis in any joint Neurologic: moves all extremities, awake and + confused (Pleasantly confused) Speech / Cognition: + abnormal cognition Motor/Sensory: no tremor Psychiatric: Judgement: + limited judgement Lymphatic: no cervical or axillary lymphadenopathy Results & Data Results & Data ([facility]) Vital Signs (Past 12 Hours) Vital Signs Temp Pulse Resp BP Pulse Ox 04/07/21 11:20 36.6 C 83 16 121/74 91 04/07/21 08:07 36.4 C L 87 18 157/78 H 95 04/07/21 03:15 36.5 C 70 18 150/83 H 92 Laboratory Results Short CBC 04/07/21 Range/Units 05:45 WBC 5.51 (4.8-10.8) K/uL Hgb 9.2 L (14.0-18.0) g/dL Hct 27.2 L (42-52) % Plt Count 190 (130-400) K/uL BMP 04/07/21 05:45 Sodium 135 L Potassium 3.7 Chloride 104 Carbon Dioxide 29 BUN 12 Creatinine 0.73 Glucose 128 H Calcium 8.0 L Medications Administered Current Inpatient Medications Acetaminophen (Acetaminophen 325 Mg Tab) 650 mg PO Q6H PRN PRN Reason: Fever/pain Stop: 04/27/21 05:40 Last Admin: 04/07/21 11:09 Dose: 650 mg Documented by: Aspirin (Aspirin 81 Mg Ectab) [facility] [place]: 04/26/21 08:59 Last Admin: 03/29/21 08:30 Dose: 81 mg Documented by: Chlorthalidone (Chlorthalidone 25 Mg Tab) 25 mg PO DAILY [facility] Stop: 04/26/21 08:59 Last Admin: 04/07/21 08:08 Dose: 25 mg Documented by: Citalopram Hydrobromide (Citalopram 20 Mg Tab) 20 mg PO DAILY [facility] Stop: 04/23/21 08:59 Last Admin: 04/07/21 08:08 Dose: 20 mg Documented by: Dextrose (Dextrose 50% 50 Ml Syringe) 25 - 50 ml IV UD PRN; Protocol PRN Reason: Hypoglycemia Protocol Stop: 04/22/21 19:55 Digoxin (Digoxin 0.125 Mg Tab) 0.125 mg PO DAILY@1600 [facility] Stop: 04/27/21 15:59 Last Admin: 04/06/21 16:50 Dose: 0.125 mg Documented by: Famotidine (Famotidine 20 Mg Tab) 20 mg PO DAILY PRN PRN Reason: Heartburn Stop: 04/26/21 08:59 Last Admin: 03/29/21 09:48 Dose: 20 mg Documented by: Ferrous Sulfate (Ferrous Sulfate 325 Mg Tab) 325 mg PO QAM [facility] Stop: 05/02/21 08:59 Last Admin: 04/07/21 08:08 Dose: 325 mg Documented by: Glucagon (Glucagon For Inj 1 Mg Vial) 1 mg SQ UD PRN; Protocol PRN Reason: Hypoglycemia Protocol Stop: 04/22/21 19:55 Glucose (Glucose 10 Tabs/Tube) 4 - 8 tabs PO UD PRN; Protocol PRN Reason: Hypoglycemia Protocol Stop: 04/22/21 19:55 Glucose (Glucose 40% Gel 15 Gm Tube) 15 - 30 gm PO UD PRN; Protocol PRN Reason: Hypoglycemia Protocol Stop: 04/22/21 19:55 Ceftriaxone Sodium 2,000 mg/ (Dextrose) 70 mls @ 140 mls/hr IV Q24H [facility]; Protocol Stop: 04/07/21 17:59 Last Infusion: 04/06/21 17:58 Dose: Infused Documented by: Doxycycline Hyclate 100 mg/ (Dextrose) 110 mls @ 50 mls/hr IV Q12H [facility]; Protocol Stop: 04/16/21 17:59 Last Infusion: 04/07/21 08:06 Dose: Infused Documented by: Insulin Aspart (Insulin Aspart 100 Units/Ml 3 Ml Pen) 0 units SC ACHS [facility] Stop: 04/23/21 11:29 Last Admin: 04/07/21 12:27 Dose: Not Given Documented by: Levalbuterol HCl (Levalbuterol Hcl 0.63 Mg/3 Ml Neb) 0.63 mg NEB Q6R PRN PRN Reason: Shortness Of Breath Or Wheezing Stop: 05/01/21 18:59 Magnesium Chloride (Magnesium Chloride 64mg Delayed Rel Tab) 64 mg PO BID [facility] Stop: 04/27/21 20:59 Last Admin: 04/07/21 08:08 Dose: 64 mg Documented by: Metoprolol Tartrate (Metoprolol Tartrate 1 Mg/Ml Vial) 5 mg IV Q6 PRN PRN Reason: HR>120 Stop: 04/22/21 19:55 Metoprolol Tartrate (Metoprolol Tartrate 50 Mg Tab) 50 mg PO BID [facility] Stop: 04/27/21 08:59 Last Admin: 04/07/21 08:09 Dose: 50 mg Documented by: Miscellaneous (Carbohydrates For Hypoglycemia ) 15 - 30 gm PO UD PRN PRN Reason: Hypoglycemia Protocol Stop: 04/22/21 19:55 Multivitamins (Multivitamin Tab) 1 tab PO DAILY [facility] Stop: 04/23/21 08:59 Last Admin: 04/07/21 08:08 Dose: 1 tab Documented by: Multivitamins/Minerals (Calcium 600mg + Vit D 400 Iu Tab) 1 tab PO BID [facility] Stop: 04/23/21 20:59 Last Admin: 04/07/21 08:08 Dose: 1 tab Documented by: Pantoprazole Sodium (Pantoprazole 40 Mg Tab) 40 mg PO BID [facility] Stop: 05/01/21 20:59 Last Admin: 04/07/21 08:08 Dose: 40 mg Documented by: Phenazopyridine HCl (Phenazopyridine Hcl 100 Mg Tab) 100 mg PO TID PRN PRN Reason: Bladder pain Stop: 04/28/21 23:28 Simvastatin (Simvastatin 10 Mg Tab) 10 mg PO HS [facility] Stop: 04/22/21 20:59 Last Admin: 04/06/21 20:45 Dose: 10 mg Documented by: Sucralfate (Sucralfate 1 Gm/10 Ml Udc) 1 gm PO ACHS [facility] Stop: 04/30/21 11:29 Last Admin: 04/07/21 11:55 Dose: 1 gm Documented by: Tamsulosin HCl (Tamsulosin Hcl 0.4 Mg Cap) 0.4 mg PO DAILY [facility] Stop: 04/23/21 08:59 Last Admin: 04/07/21 08:08 Dose: 0.4 mg Documented by: (1) Sepsis Sepsis acute organ dysfunction status: unspecified Sepsis type: sepsis due to unspecified organism Qualified Code(s): A41.9 - Sepsis, unspecified organism
[2021-04-07] MEDS: DIGOXIN 0.125 MG TAB PO SCH (16:34)
[2021-04-07] MEDS: SIMVASTATIN 10 MG TAB PO SCH (22:04)
[2021-04-08] MEDS: DOXYCYCLINE HYCLATE 100 MG in DEXTROSE 5% 100 ML IV SCH (05:38)
[2021-04-08] MEDS: INSULIN ASPART 100 UNITS/ML 3 ML PEN SC SCH ×4 (08:36→22:05)
[2021-04-08] MEDS: FERROUS SULFATE 325 MG TAB PO SCH (08:36)
[2021-04-08] MEDS: CHLORTHALIDONE 25 MG TAB PO SCH (08:37)
[2021-04-08] MEDS: CALCIUM 600MG + VIT D 400 IU TAB PO SCH ×2 (08:37→22:05)
[2021-04-08] MEDS: TAMSULOSIN HCL 0.4 MG CAP PO SCH (08:37)
[2021-04-08] MEDS: MAGNESIUM CHLORIDE 64MG DELAYED REL TAB PO SCH ×2 (08:37→22:06)
[2021-04-08] MEDS: PANTOprazole 40 MG TAB PO SCH ×2 (08:37→22:06)
[2021-04-08] MEDS: METOPROLOL TARTRATE 50 MG TAB PO SCH ×2 (08:37→22:06)
[2021-04-08] MEDS: MULTIVITAMIN TAB PO SCH (08:37)
[2021-04-08] MEDS: SUCRALFATE 1 GM/10 ML UDC PO SCH (08:38)
[2021-04-08] MEDS: CITALOPRAM 20 MG TAB PO SCH (09:05)
--- NOTE | 2021-04-08 10:27 | Hospitalist Progress Note ---
Date of Service April 08, 2021 Assessment & Plan (1) Sepsis: Plan: Severe sepsis Left arm infected wound/Cellulitis Staph Bacteremia ,Blood culture: /2 Staph Repeat Blood Cx: Negative Wound Cx not obtained prior to starting abx ECHO: No evidence of mass or vegetation Started with IV vancomycin transition to Rocephin after sensitivity Appreciate ID input Continue wound care Plan to complete 2 week course of IV Rocephin as per ID Recheck CXR-left larger than right pleural effusions with bibasilar consolidation. Slightly worse compared with prior Continue current treatment with IV doxycycline which was added yesterday 04/01/2021 Hemoglobin dropped to 6.8 today and likely secondary to ongoing infection and is complicated by GI bleed Hemoglobin went up to 8.9 following 2 units of blood transfusion A total of 14 days of intravenous ceftriaxone will be done by tomorrow Remains stable and will moved to medical floor and possible discharge tomorrow to [facility] Ceftriaxone will be discontinued but will continue doxy finish the 10 days course Remains stable to be transferred Possible anaplasmosis Bloody smear is suggestive of anaplasmosis He has been on doxycycline since yesterday Await 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 We will continue doxycycline for a total of 10 days Doxycycline has been changed to oral and will finish the course Acute GI bleeding/Rectal Bleeding In setting of Apixaban/Aspirin use-Held -S/P EGD: Normal esophagus, small hiatal hernia, gastritis, nonobstructing nonbleeding duodenal ulcers with visible vessel -Colonoscopy: External hemorrhoids, moderate diverticulosis of the sigmoid colon, descending colon and transverse colon, internal hemorrhoids, Received Kcentra Appreciate GI Input Continue PPI BID for 6 weeks and then 20 mg daily indefinitely Started on Carafate --continue for 2 weeks stool for C diff:Negative Needs repeat upper endoscopy in 3 months No more GI bleed-drop in hemoglobin is likely secondary to ongoing infection Received 2 more units of blood transfusion on 04/03/2021 Pathology did not show any malignancy and/or HPV infection No more GI bleed and the hemoglobin remained stable No more GI bleeding and sucralfate will be discontinued from today Hypomagnesemia Likely due to GI loses Replace electrolyses as needed Phosphate and potassium have been replaced We will monitor levels on Wednesday Hyponatremia Likely due to dehydration from GI loses Received IV fluids Monitor Sodium levels: 132 Sodium level is slightly dropped to 129 We will monitor-sodium is 132 today Low potassium of 3.1 and he received 40 mEq potassium this morning We will monitor-normalized Acute metabolic encephalopathy. CT head does not show acute abnormality Mental status back to baseline Resolved Thrombocytopenia Likely secondary to sepsis Platelet count Normalized Gpabqbu-sgxdsa-ropsi one 04/02/2021 Thrombocytopenia is resolved Ambulatory dysfunction: Evidence of falls, with multiple bruises ecchymosis of the knees, and arms PT OT evaluation Needs Rehab placement Atrial Fibrillation New diagnosis Appreciate cardiology input Continue Metoprolol, digoxin Continue to monitor on telemetry Eliquis DCed due to GI bleeding Will not start any aspirin and/or Eliquis Diabetes mellitus: A1c from 03/10/2021 is 6.4 Insulin sliding scale DVT Px: SCDs Re:GI bleeding Will not restart any aspirin and/or Eliquis for A. fib CODE STATUS: Full code Disposition Needs Rehab placement Medically stable to be discharged when approved Plan: Awaiting placement Admission and Anticipated Discharge Date Admission Date: March 23, 2021 Subjective 04/02/2021 The patient was seen and examined in telemetry unit He has been feeling much better today and denies any significant symptoms except weakness He has dry mouth and speech seems to be a little bit off 04/03/2021 The patient was seen and examined in telemetry unit He has been feeling much better but remains weak and lethargic He was noted to have a hemoglobin drop to 6.8 today Denies any acute distress The patient was seen and examined in telemetry unit He has been feeling much better today and is out of bed on a chair Denies any significant symptoms except weakness 04/05/2021 The patient was seen and examined in telemetry unit He remains stable and is out of bed on a chair without any acute distress Waiting to be placed 04/06/2021 The patient was seen and examined in telemetry unit He remains drowsy and weak but denies any acute symptoms No fever and no chills, no nausea no vomiting 04/07/2021 The patient was seen and examined in telemetry unit He has been feeling much better and doing well with physical therapy Denies any symptoms 04/08/2021 The patient was seen and examined in telemetry unit Remains stable and awaiting placement Denies any symptoms except weakness Review of Systems Review of Systems: All systems reviewed and are unremarkable except as noted below Cardiovascular: no chest pain, no orthopnea, no palpitations and no syncope Gastrointestinal: no abdominal pain, no nausea, no vomiting and no diarrhea/loose stools Musculoskeletal: Generalized weakness, denies of any muscle ache or joint pain Integumentary: bruise/ecchymosis on bilateral arms, Neurologic: + generalized weakness Physical Exam Physical Exam: Lying in bed without any acute distress Constitutional: + obese; no acute distress and not ill appearing Eyes: PERRL, conjunctivae normal, anicteric sclerae ENMT: external ear and nose normal, oropharynx normal Neck: trachea midline, no thyromegaly Respiratory: no respiratory distress and no cough Auscultation: + diminished lung sounds; no crackles and no wheezes Cardiovascular: Rate/Rhythm: regular rate and regular rhythm; not tachycardic Gastrointestinal (Abdomen): normal bowel sounds, soft, nontender, no hepatosp lenomegaly Musculoskeletal: Denies any acute arthritis in any joint Skin: Multiple areas of bruising Neurologic: moves all extremities, awake and + confused (Pleasantly confused) Speech / Cognition: + abnormal cognition Motor/Sensory: no tremor Psychiatric: Judgement: + limited judgement Lymphatic: no cervical or axillary lymphadenopathy Results & Data Results & Data ([facility]) Vital Signs (Past 12 Hours) Vital Signs Temp Pulse Resp BP Pulse Ox 04/08/21 07:38 36.4 C L 86 22 123/68 92 04/08/21 03:35 36.8 C 66 18 132/81 98 04/07/21 22:47 36.6 C 66 18 129/74 95 Medications Administered Current Inpatient Medications Acetaminophen (Acetaminophen 325 Mg Tab) 650 mg PO Q6H PRN PRN Reason: Fever/pain Stop: 04/27/21 05:40 Last Admin: 04/07/21 11:09 Dose: 650 mg Documented by: Aspirin (Aspirin 81 Mg Ectab) 81 mg PO QAM [facility] Stop: 04/26/21 08:59 Last Admin: 03/29/21 08:30 Dose: 81 mg Documented by: Chlorthalidone (Chlorthalidone 25 Mg Tab) 25 mg PO DAILY [facility] Stop: 04/26/21 08:59 Last Admin: 04/08/21 08:37 Dose: 25 mg Documented by: Citalopram Hydrobromide (Citalopram 20 Mg Tab) 20 mg PO DAILY [facility] Stop: 04/23/21 08:59 Last Admin: 04/07/21 08:08 Dose: 20 mg Documented by: Dextrose (Dextrose 50% 50 Ml Syringe) 25 - 50 ml IV UD PRN; Protocol PRN Reason: Hypoglycemia Protocol Stop: 04/22/21 19:55 Digoxin (Digoxin 0.125 Mg Tab) 0.125 mg PO DAILY@1600 [facility] Stop: 04/27/21 15:59 Last Admin: 04/07/21 16:34 Dose: 0.125 mg Documented by: Famotidine (Famotidine 20 Mg Tab) 20 mg PO DAILY PRN PRN Reason: Heartburn Stop: 04/26/21 08:59 Last Admin: 03/29/21 09:48 Dose: 20 mg Documented by: Ferrous Sulfate (Ferrous Sulfate 325 Mg Tab) 325 mg PO QAM [facility] Stop: 05/02/21 08:59 Last Admin: 04/08/21 08:36 Dose: 325 mg Documented by: Glucagon (Glucagon For Inj 1 Mg Vial) 1 mg SQ UD PRN; Protocol PRN Reason: Hypoglycemia Protocol Stop: 04/22/21 19:55 Glucose (Glucose 10 Tabs/Tube) 4 - 8 tabs PO UD PRN; Protocol PRN Reason: Hypoglycemia Protocol Stop: 04/22/21 19:55 Glucose (Glucose 40% Gel 15 Gm Tube) 15 - 30 gm PO UD PRN; Protocol PRN Reason: Hypoglycemia Protocol Stop: 04/22/21 19:55 Doxycycline Hyclate 100 mg/ (Dextrose) 110 mls @ 50 mls/hr IV Q12H [facility]; Protocol Stop: 04/16/21 17:59 Last Infusion: 04/08/21 08:00 Dose: Infused Documented by: Insulin Aspart (Insulin Aspart 100 Units/Ml 3 Ml Pen) 0 units SC ACHS [facility] Stop: 04/23/21 11:29 Last Admin: 04/08/21 08:36 Dose: Not Given Documented by: Levalbuterol HCl (Levalbuterol Hcl 0.63 Mg/3 Ml Neb) 0.63 mg NEB Q6R PRN PRN Reason: Shortness Of Breath Or Wheezing Stop: 05/01/21 18:59 Magnesium Chloride (Magnesium Chloride 64mg Delayed Rel Tab) 64 mg PO BID [facility] Stop: 04/27/21 20:59 Last Admin: 04/08/21 08:37 Dose: 64 mg Documented by: Metoprolol Tartrate (Metoprolol Tartrate 1 Mg/Ml Vial) 5 mg IV Q6 PRN PRN Reason: HR>120 Stop: 04/22/21 19:55 Metoprolol Tartrate (Metoprolol Tartrate 50 Mg Tab) 50 mg PO BID [facility] Stop: 04/27/21 08:59 Last Admin: 04/08/21 08:37 Dose: 50 mg Documented by: Miscellaneous (Carbohydrates For Hypoglycemia ) 15 - 30 gm PO UD PRN PRN Reason: Hypoglycemia Protocol Stop: 04/22/21 19:55 Multivitamins (Multivitamin Tab) 1 tab PO DAILY [facility] Stop: 04/23/21 08:59 Last Admin: 04/08/21 08:37 Dose: 1 tab Documented by: Multivitamins/Minerals (Calcium 600mg + Vit D 400 Iu Tab) 1 tab PO BID [facility] Stop: 04/23/21 20:59 Last Admin: 04/08/21 08:37 Dose: 1 tab Documented by: Pantoprazole Sodium (Pantoprazole 40 Mg Tab) 40 mg PO BID [facility] Stop: 05/01/21 20:59 Last Admin: 04/08/21 08:37 Dose: 40 mg Documented by: Phenazopyridine HCl (Phenazopyridine Hcl 100 Mg Tab) 100 mg PO TID PRN PRN Reason: Bladder pain Stop: 04/28/21 23:28 Simvastatin (Simvastatin 10 Mg Tab) 10 mg PO HS [facility] Stop: 04/22/21 20:59 Last Admin: 04/07/21 22:04 Dose: 10 mg Documented by: Sucralfate (Sucralfate 1 Gm/10 Ml Udc) 1 gm PO ACHS [facility] Stop: 04/30/21 11:29 Last Admin: 04/08/21 08:38 Dose: 1 gm Documented by: Tamsulosin HCl (Tamsulosin Hcl 0.4 Mg Cap) 0.4 mg PO DAILY [facility] Stop: 04/23/21 08:59 Last Admin: 04/08/21 08:37 Dose: 0.4 mg Documented by: (1) Sepsis Sepsis acute organ dysfunction status: unspecified Sepsis type: sepsis due to unspecified organism Qualified Code(s): A41.9 - Sepsis, unspecified organism
[2021-04-08] MEDS: DIGOXIN 0.125 MG TAB PO SCH (16:56)
[2021-04-08] MEDS: DOXYCYCLINE HYCLATE 100 MG CAP PO SCH (22:05)
[2021-04-08] MEDS: SIMVASTATIN 10 MG TAB PO SCH (22:07)
[2021-04-09] MEDS: FERROUS SULFATE 325 MG TAB PO SCH (09:08)
[2021-04-09] MEDS: TAMSULOSIN HCL 0.4 MG CAP PO SCH (09:08)
[2021-04-09] MEDS: CALCIUM 600MG + VIT D 400 IU TAB PO SCH ×2 (09:08→20:42)
[2021-04-09] MEDS: CITALOPRAM 20 MG TAB PO SCH (09:08)
[2021-04-09] MEDS: INSULIN ASPART 100 UNITS/ML 3 ML PEN SC SCH ×4 (09:09→20:55)
[2021-04-09] MEDS: CHLORTHALIDONE 25 MG TAB PO SCH (09:09)
[2021-04-09] MEDS: PANTOprazole 40 MG TAB PO SCH ×2 (09:09→20:43)
[2021-04-09] MEDS: DOXYCYCLINE HYCLATE 100 MG CAP PO SCH ×2 (09:11→20:42)
[2021-04-09] MEDS: MAGNESIUM CHLORIDE 64MG DELAYED REL TAB PO SCH ×2 (09:30→20:44)
[2021-04-09] MEDS: MULTIVITAMIN TAB PO SCH (09:30)
[2021-04-09] MEDS: METOPROLOL TARTRATE 50 MG TAB PO SCH ×2 (09:30→20:44)
--- NOTE | 2021-04-09 10:10 | Hospitalist Progress Note ---
Date of Service April 09, 2021 Assessment & Plan (1) Sepsis: Plan: Severe sepsis Left arm infected wound/Cellulitis Staph Bacteremia ,Blood culture: /2 Staph Repeat Blood Cx: Negative Wound Cx not obtained prior to starting abx ECHO: No evidence of mass or vegetation Started with IV vancomycin transition to Rocephin after sensitivity Appreciate ID input Continue wound care Plan to complete 2 week course of IV Rocephin as per ID Recheck CXR-left larger than right pleural effusions with bibasilar consolidation. Slightly worse compared with prior Continue current treatment with IV doxycycline which was added yesterday 04/01/2021 Hemoglobin dropped to 6.8 today and likely secondary to ongoing infection and is complicated by GI bleed Hemoglobin went up to 8.9 following 2 units of blood transfusion A total of 14 days of intravenous ceftriaxone will be done by tomorrow Remains stable and will moved to medical floor and possible discharge tomorrow to [facility] Ceftriaxone will be discontinued but will continue doxy finish the 10 days course Denies any symptoms today except weakness-remains medically stable to be transferred Possible anaplasmosis Bloody smear is suggestive of anaplasmosis He has been on doxycycline since yesterday Await 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 We will continue doxycycline for a total of 10 days Doxycycline has been changed to oral and will finish the course Acute GI bleeding/Rectal Bleeding In setting of Apixaban/Aspirin use-Held -S/P EGD: Normal esophagus, small hiatal hernia, gastritis, nonobstructing nonbleeding duodenal ulcers with visible vessel -Colonoscopy: External hemorrhoids, moderate diverticulosis of the sigmoid colon, descending colon and transverse colon, internal hemorrhoids, Received [facility] Appreciate GI Input Continue PPI BID for 6 weeks and then 20 mg daily indefinitely Started on Carafate --continue for 2 weeks stool for C diff:Negative Needs repeat upper endoscopy in 3 months No more GI bleed-drop in hemoglobin is likely secondary to ongoing infection Received 2 more units of blood transfusion on 04/03/2021 Pathology did not show any malignancy and/or HPV infection No more GI bleed and the hemoglobin remained stable No more GI bleeding and sucralfate will be discontinued from today Hemoglobin remains stable and did not have any more bleeding Hypomagnesemia Likely due to GI loses Replace electrolyses as needed Phosphate and potassium have been replaced We will monitor levels on Wednesday Hyponatremia Likely due to dehydration from GI loses Received IV fluids Monitor Sodium levels: 132 Sodium level is slightly dropped to 129 We will monitor-sodium is 132 today Low potassium of 3.1 and he received 40 mEq potassium this morning We will monitor-normalized Acute metabolic encephalopathy. CT head does not show acute abnormality Mental status back to baseline Resolved Thrombocytopenia Likely secondary to sepsis Platelet count Normalized [id number] one 04/02/2021 Thrombocytopenia is resolved Ambulatory dysfunction: Evidence of falls, with multiple bruises ecchymosis of the knees, and arms PT OT evaluation Needs Rehab placement -awaiting approval Atrial Fibrillation New diagnosis Appreciate cardiology input Continue Metoprolol, digoxin Continue to monitor on telemetry Eliquis DCed due to GI bleeding Will not start any aspirin and/or Eliquis Diabetes mellitus: A1c from 03/10/2021 is 6.4 Insulin sliding scale DVT Px: SCDs Re:GI bleeding Will not restart any aspirin and/or Eliquis for A. fib CODE STATUS: Full code Disposition Needs Rehab placement Medically stable to be discharged when approved Plan: Awaiting placement Admission and Anticipated Discharge Date Admission Date: March 23, 2021 Subjective 04/02/2021 The patient was seen and examined in telemetry unit He has been feeling much better today and denies any significant symptoms except weakness He has dry mouth and speech seems to be a little bit off 04/03/2021 The patient was seen and examined in telemetry unit He has been feeling much better but remains weak and lethargic He was noted to have a hemoglobin drop to 6.8 today Denies any acute distress The patient was seen and examined in telemetry unit He has been feeling much better today and is out of bed on a chair Denies any significant symptoms except weakness 04/05/2021 The patient was seen and examined in telemetry unit He remains stable and is out of bed on a chair without any acute distress Waiting to be placed 04/06/2021 The patient was seen and examined in telemetry unit He remains drowsy and weak but denies any acute symptoms No fever and no chills, no nausea no vomiting 04/07/2021 The patient was seen and examined in telemetry unit He has been feeling much better and doing well with physical therapy Denies any symptoms 04/08/2021 The patient was seen and examined in telemetry unit Remains stable and awaiting placement Denies any symptoms except weakness 04/09/2021 The patient was seen and examined in telemetry unit He does not have any acute symptoms except some weakness Has been stable for the last few days and awaiting transfer to facility when accepted Review of Systems Review of Systems: All systems reviewed and are unremarkable except as noted below Cardiovascular: no chest pain, no orthopnea, no palpitations and no syncope Gastrointestinal: no abdominal pain, no nausea, no vomiting and no diarrhea/loose stools Musculoskeletal: Generalized weakness, denies of any muscle ache or joint pain Integumentary: bruise/ecchymosis on bilateral arms, Neurologic: + generalized weakness Physical Exam Physical Exam: Lying in bed without any acute distress Constitutional: + obese; no acute distress and not ill appearing Eyes: PERRL, conjunctivae normal, anicteric sclerae ENMT: external ear and nose normal, oropharynx normal Neck: trachea midline, no thyromegaly Respiratory: no respiratory distress and no cough Auscultation: + diminished lung sounds; no crackles and no wheezes Cardiovascular: Rate/Rhythm: regular rate and regular rhythm; not tachycardic Gastrointestinal (Abdomen): normal bowel sounds, soft, nontender, no hepatosplenomegaly Musculoskeletal: No acute arthritis in any joint Neurologic: moves all extremities, awake and + confused (Pleasantly confused) Speech / Cognition: + abnormal cognition Motor/Sensory: no tremor Psychiatric: Judgement: + limited judgement Lymphatic: no cervical or axillary lymphadenopathy Results & Data Results & Data ([facility]) Vital Signs (Past 12 Hours) Vital Signs Temp Pulse Pulse Resp BP Pulse Ox 04/09/21 07:53 36.7 C 67 18 145/70 H 94 04/09/21 04:27 82 04/09/21 03:53 36.9 C 74 20 144/74 H 94 04/08/21 23:05 36.8 C 72 20 121/77 98 Medications Administered Current Inpatient Medications Acetaminophen (Acetaminophen 325 Mg Tab) 650 mg PO Q6H PRN PRN Reason: Fever/pain Stop: 04/27/21 05:40 Last Admin: 04/07/21 11:09 Dose: 650 mg Documented by: Aspirin (Aspirin 81 Mg Ectab) [facility] Stop: 04/26/21 08:59 Last Admin: 03/29/21 08:30 Dose: 81 mg Documented by: Chlorthalidone (Chlorthalidone 25 Mg Tab) 25 mg PO DAILY [facility] Stop: 04/26/21 08:59 Last Admin: 04/09/21 09:09 Dose: 25 mg Documented by: Citalopram Hydrobromide (Citalopram 20 Mg Tab) 20 mg PO DAILY [facility] Stop: 04/23/21 08:59 Last Admin: 04/09/21 09:08 Dose: 20 mg Documented by: Dextrose (Dextrose 50% 50 Ml Syringe) 25 - 50 ml IV UD PRN; Protocol PRN Reason: Hypoglycemia Protocol Stop: 04/22/21 19:55 Digoxin (Digoxin 0.125 Mg Tab) 0.125 mg PO DAILY@1600 [facility] Stop: 04/27/21 15:59 Last Admin: 04/08/21 16:56 Dose: 0.125 mg Documented by: Doxycycline Hyclate (Doxycycline Hyclate 100 Mg Cap) 100 mg PO BID [facility] Stop: 04/22/21 20:59 Last Admin: 04/09/21 09:11 Dose: 100 mg Documented by: Famotidine (Famotidine 20 Mg Tab) 20 mg PO DAILY PRN PRN Reason: Heartburn Stop: 04/26/21 08:59 Last Admin: 03/29/21 09:48 Dose: 20 mg Documented by: Ferrous Sulfate (Ferrous Sulfate 325 Mg Tab) 325 mg PO QAM [facility] Stop: 05/02/21 08:59 Last Admin: 04/09/21 09:08 Dose: 325 mg Documented by: Glucagon (Glucagon For Inj 1 Mg Vial) 1 mg SQ UD PRN; Protocol PRN Reason: Hypoglycemia Protocol Stop: 04/22/21 19:55 Glucose (Glucose 10 Tabs/Tube) 4 - 8 tabs PO UD PRN; Protocol PRN Reason: Hypoglycemia Protocol Stop: 04/22/21 19:55 Glucose (Glucose 40% Gel 15 Gm Tube) 15 - 30 gm PO UD PRN; Protocol PRN Reason: Hypoglycemia Protocol Stop: 04/22/21 19:55 Insulin Aspart (Insulin Aspart 100 Units/Ml 3 Ml Pen) 0 units SC ACHS [facility] Stop: 04/23/21 11:29 Last Admin: 04/09/21 09:09 Dose: Not Given Documented by: Levalbuterol HCl (Levalbuterol Hcl 0.63 Mg/3 Ml Neb) 0.63 mg NEB Q6R PRN PRN Reason: Shortness Of Breath Or Wheezing Stop: 05/01/21 18:59 Magnesium Chloride (Magnesium Chloride 64mg Delayed Rel Tab) 64 mg PO BID [facility] Stop: 04/27/21 20:59 Last Admin: 04/08/21 22:06 Dose: 64 mg Documented by: Metoprolol Tartrate (Metoprolol Tartrate 1 Mg/Ml Vial) 5 mg IV Q6 PRN PRN Reason: HR>120 Stop: 04/22/21 19:55 Metoprolol Tartrate (Metoprolol Tartrate 50 Mg Tab) 50 mg PO BID [facility] Stop: 04/27/21 08:59 Last Admin: 04/08/21 22:06 Dose: 50 mg Documented by: Miscellaneous (Carbohydrates For Hypoglycemia ) 15 - 30 gm PO UD PRN PRN Reason: Hypoglycemia Protocol Stop: 04/22/21 19:55 Multivitamins (Multivitamin Tab) 1 tab PO DAILY [facility] Stop: 04/23/21 08:59 Last Admin: 04/08/21 08:37 Dose: 1 tab Documented by: Multivitamins/Minerals (Calcium 600mg + Vit D 400 Iu Tab) 1 tab PO BID [facility] Stop: 04/23/21 20:59 Last Admin: 04/09/21 09:08 Dose: 1 tab Documented by: Pantoprazole Sodium (Pantoprazole 40 Mg Tab) 40 mg PO BID [facility] Stop: 05/01/21 20:59 Last Admin: 04/09/21 09:09 Dose: 40 mg Documented by: Phenazopyridine HCl (Phenazopyridine Hcl 100 Mg Tab) 100 mg PO TID PRN PRN Reason: Bladder pain Stop: 04/28/21 23:28 Simvastatin (Simvastatin 10 Mg Tab) 10 mg PO HS [facility] Stop: 04/22/21 20:59 Last Admin: 04/08/21 22:07 Dose: 10 mg Documented by: Tamsulosin HCl (Tamsulosin Hcl 0.4 Mg Cap) 0.4 mg PO DAILY [facility] Stop: 04/23/21 08:59 Last Admin: 04/09/21 09:08 Dose: 0.4 mg Documented by: (1) Sepsis Sepsis acute organ dysfunction status: unspecified Sepsis type: sepsis due to unspecified organism Qualified Code(s): A41.9 - Sepsis, unspecified organism
[2021-04-09] MEDS: ACETAMINOPHEN 325 MG TAB PO PRN (12:54)
[2021-04-09] MEDS: DIGOXIN 0.125 MG TAB PO SCH (17:01)
[2021-04-09] MEDS: SIMVASTATIN 10 MG TAB PO SCH (20:44)
[2021-04-10 08:43] VITALS: BP 134/76; PULSE 83; TEMP 98.1; O2SAT 94
[2021-04-10] MEDS: METOPROLOL TARTRATE 50 MG TAB PO SCH (08:56)
[2021-04-10] MEDS: CALCIUM 600MG + VIT D 400 IU TAB PO SCH (08:57)
[2021-04-10] MEDS: FERROUS SULFATE 325 MG TAB PO SCH (08:57)
[2021-04-10] MEDS: PANTOprazole 40 MG TAB PO SCH (08:57)
[2021-04-10] MEDS: DOXYCYCLINE HYCLATE 100 MG CAP PO SCH (08:57)
[2021-04-10] MEDS: TAMSULOSIN HCL 0.4 MG CAP PO SCH (08:57)
[2021-04-10] MEDS: CHLORTHALIDONE 25 MG TAB PO SCH (08:57)
[2021-04-10] MEDS: MAGNESIUM CHLORIDE 64MG DELAYED REL TAB PO SCH (08:57)
[2021-04-10] MEDS: CITALOPRAM 20 MG TAB PO SCH (08:58)
[2021-04-10] MEDS: MULTIVITAMIN TAB PO SCH (08:58)
[2021-04-10] MEDS: INSULIN ASPART 100 UNITS/ML 3 ML PEN SC SCH (09:03)
--- NOTE | 2021-04-10 10:57 | Discharge Summary ---
Date of Service April 10, 2021 Admission HPI Per Admitting Provider 85-year-old man with history of DM type II, dyslipidemia, hypertension, BPH adjustment disorder with anxious mood who was brought into the ER for weakness and confusion. Patient is a very poor historian though currently alert and oriented to person and place, is confused. Could not obtain much history from patient. History obtained from ER physician. Patient lives at home with who has dementia and 60-year-old son who has cerebral palsy and fully dependent. Patient takes care of both. Apparently, his grass was high which is unusual and was seen wandering by neighbor trying to get mail. Patient was apparently found by neighbor who followed into the home. Daughter was called According to patient, he has been having difficulty moving around to have been in bed for days or weeks. He is not exactly sure. Review of outpatient labs showed that patient was seen by his PCP on 03/10/2021. Difficult to get review of system from patient as he is confused and answering yes and no to same questions On presentation to the ER, was noted to be in A. fib with initial heart rate in [address] head without contrast did not show any acute abnormalities WBC is 25,000, lactate is 2.2. 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 Elderly man confused Eyes: PERRL, conjunctivae normal, anicteric sclerae ENMT: Dry oral mucosa Respiratory: normal respiratory effort, lungs clear to auscultation Cardiovascular: + tachycardic and + irregularly irregular S1-S2, No pedal edema Gastrointestinal: normal bowel sounds, soft, nontender, no hepatosplenomegaly Musculoskeletal: no cyanosis or clubbing, extremities motor strength 5/5 Skin: Ecchymosis over both forearms. Rash and bruise over the right elbow. Abrasions on right knee Neurologic: PERRL, EOMI, accommodation nl, no face palsy, no dysarthria Alert and oriented to person. Knows he is in the hospital but does not know which. Oriented to month Cooperative. Moves all extremities and follows commands Principal Diagnosis Sepsis Anaplasmosis Acute GI bleeding/Rectal Bleeding Hypomagnesemia Hyponatremia Acute metabolic encephalopathy. Thrombocytopenia Ambulatory dysfunction: Atrial Fibrillation Diabetes mellitus: Discharge Exam Physical Exam: Lying in bed without any acute distress Constitutional: + obese; no acute distress and not ill appearing Eyes: PERRL, conjunctivae normal, anicteric sclerae ENMT: external ear and nose normal, oropharynx normal Neck: trachea midline, no thyromegaly Respiratory: no respiratory distress and no cough Auscultation: + diminished lung sounds; no crackles and no wheezes Cardiovascular: Rate/Rhythm: regular rate and regular rhythm; not tachycardic Gastrointestinal (Abdomen): normal bowel sounds, soft, nontender, no hepatosplenomegaly Musculoskeletal: No acute arthritis in any joint Neurologic: moves all extremities, awake and + confused (Pleasantly confused) Speech / Cognition: + abnormal cognition Motor/Sensory: no tremor Psychiatric: Judgement: + limited judgement Lymphatic: no cervical or axillary lymphadenopathy Discharge Data Allergies Allergy/AdvReac Type Severity Reaction Status Date / Time yellow jacket Allergy Severe Unknown Uncoded 03/23/21 15:39 Consultations 03/23/21 17:00 ED Decision to Admit Stat 03/23/21 19:56 Consult Cardiology Routine 03/24/21 13:00 Consult Infectious Diseases Routine 03/30/21 10:35 Consult Gastroenterology Routine Procedures Performed Operation Date: 03/31/21 16:00 Actual Procedures p EGD Biopsy Cytology - Santiago Delgado DO s Colonoscopy - Santiago Delgado DO Ordered Studies 03/23/21 15:12 CT head/brain wo con Stat 03/30/21 15:11 CT abd pelvis IV con only Stat SINGLE VIEW CHEST CLINICAL HISTORY: Fever. FINDINGS: An AP, portable, upright chest radiograph is compared to study dated 04/01/2021. The heart is top normal for projection noting atherosclerotic calcification of the thoracic aorta. The pulmonary vasculature is noncongested. There are left larger than right pleural effusions with bibasilar consolidation. No pneumothorax is seen. The skeletal structures are osteopenic. The bony thorax is grossly intact. IMPRESSION: Left larger than right pleural effusions with bibasilar consolidation. These are unchanged to minimally increased as compared to yester day. ACT 112: Negative or not required by law. Electronically signed by: Selwyn Diez M.D. 04/02/2021 9:09 AM Dictated: 07/21/21 0907Transcribed: 04/02/21906 XR chest 1V portable CLINICAL HISTORY: Wheezing COMPARISON STUDY: 03/30/2021 FINDINGS: The cardiac and mediastinal contours remain stable. There are bibasilar opacities, likely atelectatic although an infectious/inflammatory processes could appear similar. There are trace bilateral pleural effusions. A line shadow paralleling the left chest wall. Markings are seen peripheral to this and therefore this is felt to represent a skinfold.[ IMPRESSION: 1. Persistent bibasilar opacities, atelectatic versus infectious/inflammatory 2. Trace bilateral pleural effusions ACT 112: Negative or not required by law. Electronically signed by: Thom Bui M.D. 04/01/2021 6:09 PM Dictated: 04/01/211807Transcribed: 04/01/211807 CT OF THE ABDOMEN AND PELVIS WITH CONTRAST CLINICAL HISTORY: GI bleeding COMPARISON STUDY: None. TECHNIQUE: Following IV administration of 90 mL of Optiray, axial images of the abdomen and pelvis were obtained from the lung bases to the proximal femurs. Images were reviewed in the axial, sagittal, and coronal planes. IV contrast was administered without complication. Automated exposure control was utilized for the study. A dose lowering technique was utilized adhering to the principles of ALARA. CT DOSE: 616.03 mGy.cm FINDINGS: This exam is mildly compromised by motion artifact. Visualized portions of the lower chest demonstrate small bilateral pleural effusions. No pneumatosis, free air or portal venous gas is present. Size of the spleen is at the upper limits of normal. No hepatic lesions are present. The adrenal glands are unremarkable. There is a probable 1.5 cm cystic lesion within the pancreatic tail. This favors a side branch IPMN. Bilateral renal lesions favor cyst. There are multiple subcentimeter renal lesions which are too small to characterize. N o hydronephrosis. There is no biliary or pancreatic ductal dilatation. The appendix is mildly distended, measuring 8 mm. There is apparent mild thickening at the base of the cecum There is no definite periappendiceal infiltration. There is evidence for mild anasarca. There is gas within the bladder, likely from recent instrumentation. Note is made of extensive sigmoid diverticulosis. There is a subtle linear hyperdense focus within the proximal sigmoid colon shown on axial image 358 of 511. Small fat-containing left inguinal hernia is present. There is no evidence for a bowel obstruction. There is no evidence for acute diverticulitis. There is a small amount of pelvic ascites. There is trace abdominal ascites. IMPRESSION: 1. Extensive sigmoid diverticulosis. No evidence for acute diverticulitis. Small linear intraluminal hyperdense focus within the proximal sigmoid colon. This is of questionable significance and may be artifactual. However, given the clinical history, intraluminal GI bleed cannot be excluded. 2. Apparent mild wall thickening at the base of the cecum with mildly distended appendix. However, no convincing evidence for acute appendicitis. Findings could be correlated with follow-up colonoscopy to exclude the unlikely possibility of an underlying lesion. 3. Evidence for mild volume overload. Small bilateral pleural effusions and trace ascites. Anasarca. ACT 112: Negative or not required by law. Electronically signed by: Chester Spears M.D. 03/30/2021 4:10 PM Dictated: 03/30/21 1555Transcribed: 03/30/21 1555 XR chest 1V portable CLINICAL HISTORY: hyponatremia COMPARISON STUDY: Chest radiograph March 23, 2021. FINDINGS: There is no pneumothorax. Small left pleural effusion has developed. Bibasilar opacities have developed. Cardiac size is normal. There is no evidence for pulmonary edema. IMPRESSION: Interval development of a small pleural effusion bibasilar opacities that could reflect atelectasis or an infectious process. ACT 112: Negative or not required by law. Electronically signed by: Chester Spears M.D. 03/30/2021 7:42 AM Dictated: 03/30/21 0740Transcribed: 03/30/21 0740 XR elbow RT min 3V routine HISTORY: 85 years-old Male Cellulitis acute pain with soft tissue swelling of the right elbow COMPARISON: None TECHNIQUE: 3 views of the right elbow FINDINGS: Degenerative spurring of the distal humerus] proximal ulna. Mild multifocal osteoarthritis. No acute fracture, dislocation or large joint effusion. Moderate soft tissue swelling circumferentially about the elbow. No opaque foreign body. IMPRESSION: Soft tissue swelling without acute fracture. ACT 112: Negative or not required by law. The above report was generated using voice recognition software. It may contain grammatical, syntax or spelling errors. Electronically signed by: Trey Good M.D. 03/23/2021 5:44 PM Dictated: 03/23/211742Transcribed: 03/23/211742 XR chest 1V portable HISTORY: 85 years-old Male Fever acute fever COMPARISON: None TECHNIQUE: Portable AP view the chest FINDINGS: Cardiomediastinal and hilar silhouettes are within normal limits. Nodular opacities projecting over the lung bases are suggestive of nipple shadows. No pneumothorax, pleural effusion, airspace consolidation or overt pulmonary edema. Degenerative changes of the shoulders and spine. IMPRESSION: No acute process. ACT 112: Negative or not required by law. The above report was generated using voice recognition software. It may contain grammatical, syntax or spelling errors. Electronically signed by: Trey Good M.D. 03/23/2021 5:45 PM Dictated: 03/23/211743Transcribed: 03/23/211743 CT head/brain wo con CLINICAL HISTORY: 85 years-old Male with Ams. Acutely altered mental status TECHNIQUE: Multiple axial CT images of the head were obtained without contrast. A dose lowering technique was utilized adhering to the principles of ALARA. CT DOSE: 767.83 mGy.cm COMPARISON: None. FINDINGS: No acute intracranial hemorrhage, midline shift, intracranial mass, hydrocephalus, territorial ischemia or abnormal extra-axial collection. Age- related involutional changes with ex vacuo ventricular megaly. White matter hypodensities suggestive of chronic microvascular ischemic disease. Mildly motion degraded exam. The calvarium is intact. Prior bilateral lens repair. The paranasal sinuses, mastoid air cells, and middle ear cavities are clear. IMPRESSION: No acute intracranial abnormality. ACT 112: Negative or not required by law. The above report was generated using voice recognition software. It may contain grammatical, syntax or spelling errors. Electronically signed by: Trey Good M.D. 03/23/2021 4:28 PM Dictated: 03/23/211625Transcribed: 03/23/211625 Hospital Course (1) Sepsis: Severe sepsis Left arm infected wound/Cellulitis Staph Bacteremia ,Blood culture: 09/14 Staph Repeat Blood Cx: Negative Wound Cx not obtained prior to starting abx ECHO: No evidence of mass or vegetation Started with IV vancomycin transition to Rocephin after sensitivity Appreciate ID input Continue wound care Plan to complete 2 week course of IV Rocephin as per ID Recheck CXR-left larger than right pleural effusions with bibasilar consolidation. Slightly worse compared with prior Continue current treatment with IV doxycycline which was added yesterday 04/01/2021 Hemoglobin dropped to 6.8 today and likely secondary to ongoing infection and is complicated by GI bleed Hemoglobin went up to 8.9 following 2 units of blood transfusion A total of 14 days of intravenous ceftriaxone will be done by tomorrow Remains stable and will moved to medical floor and possible discharge tomorrow to [facility] Ceftriaxone will be discontinued but will continue doxy finish the 10 days course Denies any symptoms today except weakness-remains medically stable to be transferred Possible anaplasmosis Bloody smear is suggestive of anaplasmosis He has been on doxycycline since yesterday Await 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 We will continue doxycycline for a total of 10 days Doxycycline has been changed to oral and will finish the course Acute GI bleeding/Rectal Bleeding In setting of Apixaban/Aspirin use-Held -S/P EGD: Normal esophagus, small hiatal hernia, gastritis, nonobstructing nonb leeding duodenal ulcers with visible vessel -Colonoscopy: External hemorrhoids, moderate diverticulosis of the sigmoid colon, descending colon and transverse colon, internal hemorrhoids, Received Kyle Appreciate GI Input Continue PPI BID for 6 weeks and then 20 mg daily indefinitely Started on Carafate --continue for 2 weeks stool for C diff:Negative Needs repeat upper endoscopy in 3 months No more GI bleed-drop in hemoglobin is likely secondary to ongoing infection Received 2 more units of blood transfusion on 04/03/2021 Pathology did not show any malignancy and/or HPV infection No more GI bleed and the hemoglobin remained stable No more GI bleeding and sucralfate will be discontinued from today Hemoglobin remains stable and did not have any more bleeding Hypomagnesemia Likely due to GI loses Replace electrolyses as needed Phosphate and potassium have been replaced We will monitor levels on Wednesday Hyponatremia Likely due to dehydration from GI loses Received IV fluids Monitor Sodium levels: 132 Sodium level is slightly dropped to 129 We will monitor-sodium is 132 today Low potassium of 3.1 and he received 40 mEq potassium this morning We will monitor-normalized Acute metabolic encephalopathy. CT head does not show acute abnormality Mental status back to baseline Resolved Thrombocytopenia Likely secondary to sepsis Platelet count Normalized Cvkshzn-[id number]-wjiwl one 04/02/2021 Thrombocytopenia is resolved Ambulatory dysfunction: Evidence of falls, with multiple bruises ecchymosis of the knees, and arms PT OT evaluation Needs Rehab placement -awaiting approval Atrial Fibrillation New diagnosis Appreciate cardiology input Continue Metoprolol, digoxin Continue to monitor on telemetry Eliquis DCed due to GI bleeding Will not start any aspirin and/or Eliquis Diabetes mellitus: A1c from 03/10/2021 is 6.4 Insulin sliding scale DVT Px: SCDs Re:GI bleeding Will not restart any aspirin and/or Eliquis for A. fib CODE STATUS: Full code Disposition Needs Rehab placement Medically stable to be discharged when approved Awaiting placement Total Time Total Time Spent Total Time Spent (In Minutes): 40 minutes Discharge Plan Discharge Items Patient Disposition: Transfer [facility] Reason For Visit: CONFUSION, WEAKNESS Discharge Diagnosis: Sepsis Anaplasmosis Acute GI bleeding/Rectal Bleeding Hypomagnesemia Hyponatremia Acute metabolic encephalopathy. Thrombocytopenia Ambulatory dysfunction: Atrial Fibrillation Diabetes mellitus: Activity: Resume your previous activity Non-emergency contact: Primary Care Provider Call non-emergency contact if: you have any medication questions and your temperature is above 101 Follow-up/Referrals: Sarita Rebolledo MD [Primary Care Provider] - Diet: Heart Healthy Addtl Attending Provider Instructions: Follow up with your primary care provider once discharge from [facility] Follow up with [facility] Cardiology in 2 to 4 weeks Follow up with gastroenterology to repeat upper endoscopy in 3 months Follow up with the wound care clinic. Continue daily wound care Complete the course of the antibiotic with Doxycycline for the anaplasmosis Check CBC in 1 week to monitor your hemoglobin Check BMP and magnesium in 1 week to monitor your electrolytes Continue Pantoprazole 40mg twice a days for another 5 weeks, then 20mg daily indefinitely Continue physical and occupational therapy Fall precaution Pending Studies at Discharge: No Stand-Alone Forms: My [facility] [id number] Skilled Items Patient informed of condition?: Yes DNR: No Discharge Level of Care: Skilled Communicable Disease: No Discharge Prognosis: Stable Lines: None Urinary Catheter: No Medications and DC Order Prescriptions: New doxycycline hyclate 100 mg Capsule 100 mg PO BID 3 Days Qty: 6 RF: 0 ferrous sulfate 325 mg (65 mg iron) Tablet,Delayed Release (Dr/Ec) 325 mg PO QAM Qty: 30 RF: 0 digoxin [Digitek] 125 mcg (0.125 mg) Tablet 125 mcg PO DAILY@1600 Qty: 30 RF: 0 metoprolol tartrate 50 mg Tablet 50 mg PO BID Qty: 60 RF: 0 acetaminophen 325 mg Tablet 650 mg PO Q6H PRN (Reason: fever or pain) Qty: 30 RF: 0 pantoprazole 40 mg Tablet,Delayed Release (Dr/Ec) 40 mg PO BID Qty: 60 RF: 0 Caltrate 600-D Plus Minerals 600 mg calcium- 800 unit-50 mg Tablet 1 tab PO BID Qty: 60 RF: 0 magnesium chloride [Mag 64] 64 mg Tablet,Delayed Release (Dr/Ec) 64 mg PO BID Qty: 30 RF: 0 phenazopyridine [Pyridium] 100 mg Tablet 100 mg PO TID PRN (Reason: bladder pain) Qty: 10 RF: 0 Continued metformin 500 mg Tablet 500 mg PO BID RF: 0 simvastatin 10 mg Tablet 10 mg PO HS RF: 0 chlorthalidone 25 mg Tablet 25 mg PO DAILY RF: 0 citalopram 20 mg Tablet 20 mg PO DAILY RF: 0 tamsulosin 0.4 mg Capsule 0.4 mg PO DAILY RF: 0 doxazosin 2 mg Tablet 2 mg PO HS RF: 0 Centrum Silver 0.4-300-250 mg-mcg-mcg Tablet 1 tab PO DAILY RF: 0 prednisone 20 mg Tablet 20 mg PO UD RF: 0 Discontinued aspirin [Aspirin Low Dose] 81 mg Tablet,Delayed Release (Dr/Ec) 81 mg PO DAILY RF: 0 propranolol 40 mg Tablet 40 mg PO BID RF: 0 ibuprofen 600 mg Tablet 600 mg PO Q8H PRN (Reason: Pain) RF: 0 Discharge Orders: Discharge Order (Routine); Ordered 04/10/21 Ordered By: Edilberto Hein/Other Patient Handouts: Discharge Instructions- Eating a ... Admission Data Admit Date/Time: 03/23/21 17:37 Attending Provider: Edilberto Carranza Admit Provider: Steffanie Brown I. Primary Care Provider: Sarita Rebolledo Other Providers: Chepe Suazo ; [facility] ; [facility] ; Steffanie Brown I. ; Dane Ramos ; Willian Nguyen ; Yumiko Bañuelos ; Mumtaz Park I. ; Gato Rizvi II ; Cinthia Teague ; Simnoe Reyes ; Mariaa Cramer ; Phylicia Knowles ; Yasmine Tran ; Lilly Tobin ; Bala Rodriguez ; Santiago Delgado ; Adonay Rodriguez ; Viet Mejia ; Dolly Styles ; Yazmin Najera ; Brittany Smith ; Dennise Berry ; Aditya Emanuel ; Jim Ha
== END 2021-04-10 12:29 | DRG 871 ==
LOC: EDBD → ED 14:11 → 2S 17:37 → SUATTDRO 17:37 → 2S 20:12 → 3N 04-09 14:40

== ENCOUNTER 2021-06-20 14:54 | Inpatient (IN) ==
[2021-06-20] MEDS ORDERED: SODIUM CHLORIDE 0.9% 500 ML IV SCH (16:00)
[2021-06-20] MEDS ORDERED: SODIUM CHLORIDE 0.9% 1000ML 1,000 ML IV SCH (16:00)
--- NOTE | 2021-06-20 16:01 | Emergency Department Note ---
Impression & Plan Acute hypotension, Generalized weakness ED Provider Note INFORMANT: Patient and EMS ED PROVIDER(S): Jaswinder Dupont MD CHIEF COMPLAINT: Dizziness PLAN: Disposition: Admitted Condition: Good Outpatient prescription management: none Referral: None patient presented because of dizziness. EMS noted he was MEDICAL DECISION MAKING: Exhibiting orthostatic hypotension. The patient had a work-up initiated. He had a mild anemia on CBC. Chemistry panel looks mild dehydration. His troponin was negative. ECG showed A. fib without any acute findings. Chest x-ray was negative. The patient social situation and: He is not doing well at home. I discussed this with the correctional casework specialist. It was recommended for admission with internal medicine and further work-up and management in the hospital. Patient was in agreement with this. [facility] was [facility] in ER admitted for further management. Triage Nursing notes reviewed and agree them. Vital Signs: reviewed and remarkable for no significant abnormalities Differential diagnosis: Infection, dehydration, metabolic abnormality, hypo/hyperglycemia, electrolyte disturbance, anemia, hypoxia, cardiac sources, intracerebral event, toxicologic, neurologic, as well as other pathologies. Diagnostics interpreted by me: ECG: Twelve-lead ECG reveals an atrial fibrillation at 74 bpm. Incomplete right bundle branch block. No ST elevation or depression. No PVCs. Cardiac Monitoring: Cardiac monitoring ordered by me: The patient was placed on continuous cardiac monitoring and observed. It revealed atrial fibrillation at 75 bpm. Imaging studies: Chest x-ray. Findings: A chest x-ray was performed and revealed no pneumothorax, effusion, infiltrate, pulmonary edema, free air under the diaphragm, or wide mediastinum. Impression: No acute disease. HPI: The patient is a 86 year old male who presents to the Emergency Room with complaints of lightheadedness. This started today and is currently resolved. The patient also notes the following associated symptoms, weakness and dizziness. The patient has taken no medication for relieving factors. Current pain is rated as 0/10. Patient states he feels worse when he is getting up and moving around. The patient had an ambulance summoned. He was found to be orthostatic with a systolic blood pressure dropped to 93. Patient was in A. fib but a normal rate. Patient states he has lost weight and has not been eating and drinking as much as he normally does. Patient does note that he is under stress due to taking care of his who has dementia. Pt denies LOC, headache, fevers, chills, diaphoresis, visual changes, neck pain, chest pain, breathing difficulties, nausea, vomiting, abdominal pain, back pain, melena, hematochezia, urinary symptoms, numbness, lymphadenopathy, rash, or other complaints. ROS: See above HPI for pertinent positives & negatives. A total of 10 systems reviewed and were otherwise negative. PAST MEDICAL HISTORY:See Below , atrial fibrillation, high cholesterol PAST SURGICAL HISTORY:See Below, FAMILY HISTORY:See Below SOCIAL HISTORY:See Below, HOME MEDICATIONS:See Below ALLERGIES:See Below VITALS:See Below PHYSICAL EXAMINATION: GENERAL: Awake, alert, well-appearing, in no distress HENT: Normocephalic, atraumatic. Oropharynx unremarkable. EYES: Normal conjunctiva. Sclera non-icteric. PERRLA. EOMI. NECK: Inspection normal. Non-tender. Supple. No nuchal rigidity. FROM. No masses. RESPIRATORY: Clear to auscultation. No wheezes. No rales. Normal respiratory effort. CARDIAC: Normal rate. Normal rhythm. No murmurs. No rubs. Extremities warm and well perfused. Pulses equal. No JVD. GI: Soft, non-distended. No tenderness to palpation. No rebound or guarding. No masses. RECTAL: Deferred. MUSCULOSKELETAL: Atraumatic. Chest examination reveals no tenderness. The back is symmetrical on inspection without obvious abnormality. There is no CVA tenderness to palpation. No joint edema. LOWER EXTREMITIES: Calves are equal size bilaterally and non-tender. No edema. No discoloration. NEURO: Normal sensorium. No sensory or motor deficits noted. Speech clear. Oriented. SKIN: No rash or jaundice noted. Jaswinder Dupont MD Past Med/Surg History Medical History Cellulitis of arm, right Hematochezia Sepsis Family History Other Cerebral palsy Social History Smoking Status: Former smoker Tobacco Type: Cigarettes Do You Dip or Chew Tobacco: Yes; Hx Alcohol Use: No Hx Substance Use: No Preferred Language: Swedish Communication Ability: Effective [employer] Worker Required: No Beliefs That Will Affect Care: None marital status: Current Living Situation: Spouse Current Living Situation Comment: Lives in house with and son. Son is complete care. has dementia Other Information That Helps Us Care for You: No Feels Safe at Home: Yes Safety Concerns: Feels Safe At This Time Assistive Devices: Denture - Lower Allergies Allergies Allergy/AdvReac Type Severity Reaction Status Date / Time yellow jacket Allergy Severe Unknown Uncoded 06/20/21 16:08 Home Meds Home Medications Medication Instructions Recorded Confirmed chlorthalidone 25 mg tablet 25 mg PO DAILY 03/23/21 06/20/21 citalopram 20 mg tablet 20 mg PO DAILY 03/23/21 06/20/21 doxazosin 2 mg tablet 2 mg PO HS 03/23/21 06/20/21 metformin 500 mg tablet 500 mg PO BIDWMEAL 03/23/21 06/20/21 akjisagh-ylc-urnvr acid 0.4 1 tab PO DAILY 03/23/21 06/20/21 mg-lycopene 300 mcg-lutein 250 mcg tablet (Centrum Silver) simvastatin 10 mg tablet 10 mg PO HS 03/23/21 06/20/21 tamsulosin 0.4 mg capsule 0.4 mg PO DAILY 03/23/21 06/20/21 aspirin 81 mg tablet,delayed 81 mg PO DAILY 06/20/21 06/20/21 release lorazepam 0.5 mg tablet 0.25 - 1 mg PO Q12H PRN 06/20/21 06/20/21 Previous Rx's Medication Instructions Recorded acetaminophen 325 mg tablet 650 mg PO Q6H PRN #30 tab 04/10/21 calcium 600 mg-D3 800 unit-mag11 1 tab PO BID #60 tab 04/10/21 50 tx-cxlj-ltpuyp-alcides-s.borat tablet (Caltrate 600-D Plus Minerals) digoxin 125 mcg (0.125 mg) tablet 125 mcg PO DAILY@1600 #30 tab 04/10/21 (Digitek) ferrous sulfate 325 mg (65 mg 325 mg PO QAM #30 tab 04/10/21 iron) tablet,delayed release magnesium chloride 64 mg 64 mg PO BID #30 tab 04/10/21 (magnesium chloride) tablet,delayed release (Mag 64) metoprolol tartrate 50 mg tablet 50 mg PO BID #60 tab 04/10/21 pantoprazole 40 mg tablet,delayed 40 mg PO BID #60 tab 04/10/21 release phenazopyridine 100 mg tablet 100 mg PO TID PRN #10 tab 04/10/21 (Pyridium) Results & Data (ED) Vital Signs Vital Signs - 24 hr 06/20/21 15:09 06/20/21 15:13 Temperature 36.7 C Temperature Source Oral Pulse Rate 80 Respiratory Rate 16 Blood Pressure 131/86 Blood Pressure Mean 101 Pulse Oximetry 97 Oxygen Delivery Method Room Air Room Air Sepsis Recent Fever Within 48 Hours No Sepsis New/Unexplained Change in Mental Status No Sepsis Action Taken by Nursing No Action Required Laboratory Data Result diagrams: 06/21/21 07:55 06/21/21 07:55 Lab Results 06/20/21 06/20/21 06/20/21 Range/Units 16:04 16:04 18:27 WBC 5.74 (4.8-10.8) K/uL RBC 3.47 L (4.7-6.1) M/uL Hgb 10.4 L (14.0-18.0) g/dL Hct 32.1 L (42-52) % MCV 92.5 (80-100) fL MCH 30.0 (25-34) pg MCHC 32.4 (32-36) g/dL RDW Std Deviation 48.0 H (36.4-46.3) fL RDW Coeff of Néstor 14.3 (11.5-14.5) % Plt Count 112 L (130-400) K/uL MPV 8.1 (7.4-10.4) fL Immature Gran % (Auto) 0.2 % Neut % (Auto) 48.1 % Lymph % (Auto) 38.2 % [place] % (Auto) 12.7 % Eos % (Auto) 0.5 % Baso % (Auto) 0.3 % Neut # (Auto) 2.76 (1.4-6.5) K/uL Lymph # (Auto) 2.19 (1.2-3.4) K/uL [place] # (Auto) 0.73 H (0.11-0.59) K/uL Eos # (Auto) 0.03 (0-0.5) K/uL Baso # (Auto) 0.02 (0-0.2) K/uL Immature Gran # (Auto) 0.01 (0.00-0.02) K/uL Sodium 140 (136-145) mmol/L Potassium 3.6 (3.5-5.1) mmol/L Chloride 105 (98-107) mmol/L Carbon Dioxide 30 (21-32) mmol/L Anion Gap 5.0 (3-11) BUN 23 H (7-18) mg/dl Creatinine 1.02 (0.6-1.4) mg/dl Est Cr Clr Drug Dosing 54.7 ml/min Est GFR ( Amer) 75.7 ml/min Est GFR (Non-Af Amer) 65.3 ml/min BUN/Creatinine Ratio 22.6 H (10-20) Glucose 100 H (70-99) mg/dl Calcium 8.8 (8.5-10.1) mg/dl Magnesium 1.9 (1.8-2.4) mg/dl Total Bilirubin 0.4 (0.2-1) mg/dl AST 14 L (15-37) U/L ALT 11 L (12-78) U/L Alkaline Phosphatase 48 (45-117) U/L Troponin I < 0.015 (0-0.045) ng/ml Total Protein 6.6 (6.4-8.2) gm/dl Albumin 2.8 L (3.4-5.0) gm/dl Globulin 3.8 (2.5-4.0) gm/dl Albumin/Globulin Ratio 0.7 L (0.9-2) TSH 2.060 (0.300-4.500) uIu/ml Urine Color Urine Appearance (Clear) Urine pH (4.5-7.5) Ur Specific [place] (1.000-1.030) Urine Protein (Negative) Urine Glucose (UA) (Negative) Urine Ketones (Negative) Urine Blood (Negative) Urine Nitrite (Negative) Urine Bilirubin (Negative) Urine Urobilinogen (Negative) Ur Leukocyte Esterase (Negative) Urine WBC (Auto) (0-5) /hpf Urine RBC (Auto) (0-4) /hpf U Hyaline Cast (Auto) (0-5) /lpf U Epithel Cells (Auto) (0-5) /lpf Urine Bacteria (Auto) (Negative) COVID-19 Eval Order Covid19 at [facility] SARS-CoV-2 (PCR) (Negative) 06/20/21 06/20/21 Range/Units 18:27 18:59 WBC (4.8-10.8) K/uL RBC (4.7-6.1) M/uL Hgb (14.0-18.0) g/dL Hct (42-52) % MCV (80-100) fL MCH (25-34) pg MCHC (32-36) g/dL RDW Std Deviation (36.4-46.3) fL RDW Coeff of Néstor (11.5-14.5) % Plt Count (130-400) K/uL MPV (7.4-10.4) fL Immature Gran % (Auto) % Neut % (Auto) % Lymph % (Auto) % [place] % (Auto) % Eos % (Auto) % Baso % (Auto) % Neut # (Auto) (1.4-6.5) K/uL Lymph # (Auto) (1.2-3.4) K/uL [place] # (Auto) (0.11-0.59) K/uL Eos # (Auto) (0-0.5) K/uL Baso # (Auto) (0-0.2) K/uL Immature Gran # (Auto) (0.00-0.02) K/uL Sodium (136-145) mmol/L Potassium (3.5-5.1) mmol/L Chloride (98-107) mmol/L Carbon Dioxide (21-32) mmol/L Anion Gap (3-11) BUN (7-18) mg/dl Creatinine (0.6-1.4) mg/dl Est Cr Clr Drug Dosing ml/min Est GFR ( Amer) ml/min Est GFR (Non-Af Amer) ml/min BUN/Creatinine Ratio (10-20) Glucose (70-99) mg/dl Calcium (8.5-10.1) mg/dl Magnesium (1.8-2.4) mg/dl Total Bilirubin (0.2-1) mg/dl AST (15-37) U/L ALT (12-78) U/L Alkaline Phosphatase (45-117) U/L Troponin I (0-0.045) ng/ml Total Protein (6.4-8.2) gm/dl Albumin (3.4-5.0) gm/dl Globulin (2.5-4.0) gm/dl Albumin/Globulin Ratio (0.9-2) TSH (0.300-4.500) uIu/ml Urine Color Dark Yellow Urine Appearance Clear (Clear) Urine pH 6.5 (4.5-7.5) Ur Specific [place] 1.019 (1.000-1.030) Urine Protein Negative (Negative) Urine Glucose (UA) Negative (Negative) Urine Ketones 1+ H (Negative) Urine Blood Negative (Negative) Urine Nitrite Positive A (Negative) Urine Bilirubin 1+ H (Negative) Urine Urobilinogen Negative (Negative) Ur Leukocyte Esterase Negative (Negative) Urine WBC (Auto) 1-5 (0-5) /hpf Urine RBC (Auto) 0-4 (0-4) /hpf U Hyaline Cast (Auto) 1-5 (0-5) /lpf U Epithel Cells (Auto) 5-10 H (0-5) /lpf Urine Bacteria (Auto) Negative (Negative) COVID-19 Eval Order SARS-CoV-2 (PCR) NEGATIVE (Negative) Administered Medications Aspirin (Aspirin 81 Mg Ectab) 81 mg PO DAILY [facility] Stop: 07/21/21 08:59 Last Admin: 06/21/21 07:41 Dose: 81 mg Documented by: [id number] Citalopram Hydrobromide (Citalopram 20 Mg Tab) 20 mg PO DAILY [facility] Stop: 07/21/21 08:59 Last Admin: 06/21/21 07:41 Dose: 20 mg Documented by: [id number] Digoxin (Digoxin 0.125 Mg Tab) 0.125 mg PO DAILY@1600 [facility] Stop: 07/21/21 15:59 Last Admin: 06/21/21 17:02 Dose: 0.125 mg Documented by: [id number] Doxazosin Mesylate (Doxazosin Mesylate Tab 2 Mg Tab) 2 mg PO HS [facility] Stop: 07/20/21 22:44 Last Admin: 06/21/21 21:31 Dose: 2 mg Documented by: [id number] Admin: 06/20/21 23:21 Dose: 2 mg Documented by: [id number] Ferrous Sulfate (Ferrous Sulfate 325 Mg Tab) 325 mg PO QAM [facility] Stop: 07/21/21 08:59 Last Admin: 06/21/21 07:41 Dose: 325 mg Documented by: [id number] Heparin Sodium (Porcine) (Heparin Sod 5,000 Unit/0.5 Ml Vial) 5,000 units SQ Q12 [facility] Stop: 07/20/21 20:59 Last Admin: 06/21/21 21:28 Dose: 5,000 units Documented by: [id number] Admin: 06/21/21 07:41 Dose: 5,000 units Documented by: [id number] Admin: 06/20/21 23:23 Dose: 5,000 units Documented by: [id number] Insulin Aspart (Insulin Aspart 100 Units/Ml 3 Ml Pen) 0 units SC ACHS [facility] Stop: 07/20/21 22:59 Last Admin: 06/21/21 21:16 Dose: Not Given Documented by: [id number] Admin: 06/21/21 17:19 Dose: Not Given Documented by: [id number] Admin: 06/21/21 12:19 Dose: 3 units Documented by: [id number] Cosigned by: [id number] Admin: 06/21/21 08:28 Dose: Not Given Documented by: [id number] Admin: 06/20/21 23:43 Dose: Not Given Documented by: [id number] Magnesium Chloride (Magnesium Chloride 64mg Delayed Rel Tab) 64 mg PO BID [facility] Stop: 07/20/21 22:44 Last Admin: 06/21/21 21:29 Dose: 64 mg Documented by: [id number] Admin: 06/21/21 07:40 Dose: 64 mg Documented by: [id number] Admin: 06/20/21 23:21 Dose: 64 mg Documented by: [id number] Metoprolol Tartrate (Metoprolol Tartrate 50 Mg Tab) 50 mg PO BID [facility] Stop: 07/20/21 22:44 Last Admin: 06/21/21 21:30 Dose: 50 mg Documented by: [id number] Admin: 06/21/21 07:40 Dose: 50 mg Documented by: [id number] Admin: 06/20/21 23:22 Dose: 50 mg Documented by: [id number] Multivitamins/Minerals (Calcium 600mg + Vit D 400 Iu Tab) 1 tab PO BID [facility] Stop: 07/20/21 22:44 Last Admin: 06/21/21 21:30 Dose: 1 tab Documented by: [id number] Admin: 06/21/21 07:41 Dose: 1 tab Documented by: [id number] Admin: 06/20/21 23:20 Dose: 1 tab Documented by: [id number] Multivitamins/Minerals (Cerovite Adv Formula Tab) 1 tab PO DAILY [facility] Stop: 07/21/21 08:59 Last Admin: 06/21/21 07:40 Dose: 1 tab Documented by: [id number] Pantoprazole Sodium (Pantoprazole 40 Mg Tab) 40 mg PO BID [facility] Stop: 07/20/21 22:44 Last Admin: 06/21/21 21:29 Dose: 40 mg Documented by: [id number] Admin: 06/21/21 07:40 Dose: 40 mg Documented by: [id number] Admin: 06/20/21 23:22 Dose: 40 mg Documented by: [id number] Simvastatin (Simvastatin 10 Mg Tab) 10 mg PO HS [facility] Stop: 07/20/21 22:44 Last Admin: 06/21/21 21:30 Dose: 10 mg Documented by: [id number] Admin: 06/20/21 23:22 Dose: 10 mg Documented by: [id number] Tamsulosin HCl (Tamsulosin Hcl 0.4 Mg Cap) 0.4 mg PO DAILY [facility] Stop: 07/21/21 08:59 Last Admin: 06/21/21 07:40 Dose: 0.4 mg Documented by: [id number] Discontinued Medications Sodium Chloride (Nss) 500 mls @ 999 mls/hr IV .Q31M [facility] Stop: 06/20/21 16:30 Last Infusion: 06/20/21 17:18 Dose: 0 mls/hr Documented by: [id number] Admin: 06/20/21 16:47 Dose: 999 mls/hr Documented by: [id number] Sodium Chloride (Nss 1000ml) 1,000 mls @ 125 mls/hr IV .Q8H [facility] Stop: 06/20/21 23:59 Last Infusion: 06/20/21 23:00 Dose: 0 mls/hr Documented by: [id number] Infusion: 06/20/21 23:00 Dose: 0 mls/hr Documented by: [id number] Admin: 06/20/21 17:19 Dose: 125 mls/hr Documented by: [id number] Potassium Chloride/Sodium Chloride (Normal Saline W/20 Meq Kcl) 20 meq in 1,000 mls @ 125 mls/hr IV .Q8H [facility] Stop: 06/21/21 22:59 Last Admin: 06/21/21 17:01 Dose: 125 mls/hr Documented by: [id number] Infusion: 06/21/21 17:01 Dose: 125 mls/hr Documented by: [id number] Admin: 06/21/21 09:22 Dose: 125 mls/hr Documented by: [id number] Infusion: 06/21/21 07:19 Dose: 125 mls/hr Documented by: [id number] Admin: 06/20/21 23:19 Dose: 125 mls/hr Documented by: [id number] Discharge Plan Visit Data Chief Complaint: Hypotension ED Provider: Jaswinder Dupont Discharge Problem: Acute hypotension, Generalized weakness Patient Disposition: Admitted As Inpatient Discharge Instructions Interventions: ED Discharge Assessment Last Done: 06/20/21 20:40
[2021-06-20 16:16] LABS: Basophils # (auto) 0.02 K/uL (0-0.2); Basophils % (auto) 0.3 %; Eosinophils # (auto) 0.03 K/uL (0-0.5); Eosinophils % (auto) 0.5 %; Hematocrit (blood only) 32.1 % (42-52); Hemoglobin 10.4 g/dL (14.0-18.0); Immature Granulocytes # (auto) 0.01 K/uL (0.00-0.02); Immature Granulocytes % (auto) 0.2 %; Lymphocytes # (auto) 2.19 K/uL (1.2-3.4); Lymphocytes % (auto) 38.2 %; Mean Corpuscular Hgb Conc 32.4 g/dL (32-36); Mean Corpuscular Volume 92.5 fL (80-100); Mean Platelet Volume 8.1 fL (7.4-10.4); Monocytes # (auto) 0.73 K/uL (0.11-0.59); Monocytes % (auto) 12.7 %; Neutrophils # (auto) 2.76 K/uL (1.4-6.5); Neutrophils % (auto) 48.1 %; Platelet Count 112 K/uL (130-400); RDW Coefficient of Variation 14.3 % (11.5-14.5); Red Blood Count 3.47 M/uL (4.7-6.1); White Blood Count 5.74 K/uL (4.8-10.8)
[2021-06-20 16:34] LABS: Alanine Aminotransferase 11 U/L (12-78); Albumin Level 2.8 gm/dl (3.4-5.0); Aspartate Aminotransferase 14 U/L (15-37); BUN Creatinine Ratio 22.6 (10-20); Blood Urea Nitrogen 23 mg/dl (7-18); Calcium 8.8 mg/dl (8.5-10.1); Carbon Dioxide 30 mmol/L (21-32); Chloride 105 mmol/L (98-107); Creatinine Clr Calc Pharmacy 54.7 ml/min; Est GFR (African American) 75.7 ml/min; Est GFR (Non-African American) 65.3 ml/min; Glucose 100 mg/dl (70-99); Magnesium 1.9 mg/dl (1.8-2.4); Potassium 3.6 mmol/L (3.5-5.1); Sodium 140 mmol/L (136-145)
[2021-06-20 16:45] LABS: Albumin Globulin Ratio 0.7 (0.9-2); Alkaline Phosphatase 48 U/L (45-117); Bilirubin,Total 0.4 mg/dl (0.2-1); Globulin 3.8 gm/dl (2.5-4.0); Total Protein 6.6 gm/dl (6.4-8.2); Troponin I < 0.015 ng/ml (0-0.045)
--- NOTE | 2021-06-20 17:04 | XRay Report ---
XR chest 1V portable CLINICAL HISTORY: weakness COMPARISON STUDY: Chest radiograph April 02, 2021. FINDINGS: Lung volumes are normal. Linear bibasilar opacities favor atelectasis. There is no pneumoth orax or pleural effusion. Cardiac size is normal. Mediastinal contours are normal. There is no eviden ce for pulmonary edema. IMPRESSION: 1. No acute cardiopulmonary findings. 2. Linear bibasilar opacities which favor atelectasis. ACT 112: Negative or not required by law. Electronically signed by: Chester Spears M.D. 06/20/2021 5:03 PM
--- NOTE | 2021-06-20 19:10 | History & Physical Report ---
Date of Service June 20, 2021 Assessment & Plan (1) Acute hypotension: Plan: Has been complaining of lightheadedness and noted to be hypotensive by the EMS Blood pressure is maintaining the emergency room following fluid administration We will continue with intravenous fluid and monitor blood pressure Hold chlorthalidone (2) Generalized weakness: Plan: Likely secondary to dehydration Has not been eating or drinking enough for the last few days PT and OT evaluation and possible placement (3) Atrial fibrillation: Plan: Rate is controlled Not on any anticoagulation Continue beta-isabel (4) Type 2 diabetes mellitus: Plan: We will hold Metformin Put him on diabetic diet SSI (5) Hypertension: Plan: Hold chlorthalidone (6) Hyperlipidemia: Plan: Continue statin (7) Anxiety disorder: Plan: Has been having more depressive thoughts Wants to Continue Celexa for now Psyche evaluation DVT prophylaxis Subcu heparin CODE STATUS DNR/DNI History of Present Illness Chief Complaint: Generalized weakness, near syncope and fall Primary Care Provider: Sarita Rebolledo MD Is an 86-year-old male with significant past medical history of diabetes type 2, hyperlipidemia, hypertension, BPH and anxiety disorder has been complaining of generalized weakness with hypotension and presyncope for the last few days. He lives with his who is demented and cannot take care of him. He has not been eating or drinking enough for the last few days and has been getting generally weak and lethargic. He was noted to be hypotensive by the EMS with postural symptoms. He has not had any loss of consciousness or significant fall. He feels that he is going to pass out. Denies any fever and/or chills. Denies any problem with urine and bowel habit. No numbness and or tingling in the extremities. No headache and no blurred vision. No weakness involving any side of the body Allergies Allergy/AdvReac Type Severity Reaction Status Date / Time yellow jacket Allergy Severe Unknown Uncoded 06/20/21 16:08 Home Medications Medication Instructions Recorded Confirmed Type chlorthalidone 25 mg tablet 25 mg PO DAILY 03/23/21 06/20/21 History citalopram 20 mg tablet 20 mg PO DAILY 03/23/21 06/20/21 History doxazosin 2 mg tablet 2 mg PO HS 03/23/21 06/20/21 History metformin 500 mg tablet 500 mg PO BIDWMEAL 03/23/21 06/20/21 History oifepbff-dzy-bhptc acid 0.4 1 tab PO DAILY 03/23/21 06/20/21 History mg-lycopene 300 mcg-lutein 250 mcg tablet (Centrum Silver) simvastatin 10 mg tablet 10 mg PO HS 03/23/21 06/20/21 History tamsulosin 0.4 mg capsule 0.4 mg PO DAILY 03/23/21 06/20/21 History acetaminophen 325 mg tablet 650 mg PO Q6H PRN #30 tab 04/10/21 06/20/21 Rx calcium 600 mg-D3 800 unit-mag11 1 tab PO BID #60 tab 04/10/21 06/20/21 Rx 50 hg-blpx-ulvlph-alcides-s.borat tablet (Caltrate 600-D Plus Minerals) digoxin 125 mcg (0.125 mg) tablet 125 mcg PO DAILY@1600 #30 tab 04/10/21 06/20/21 Rx (Digitek) ferrous sulfate 325 mg (65 mg 325 mg PO QAM #30 tab 04/10/21 06/20/21 Rx iron) tablet,delayed release magnesium chloride 64 mg 64 mg PO BID #30 tab 04/10/21 06/20/21 Rx (magnesium chloride) tablet,delayed release (Mag 64) metoprolol tartrate 50 mg tablet 50 mg PO BID #60 tab 04/10/21 06/20/21 Rx pantoprazole 40 mg tablet,delayed 40 mg PO BID #60 tab 04/10/21 06/20/21 Rx release phenazopyridine 100 mg tablet 100 mg PO TID PRN #10 tab 04/10/21 06/20/21 Rx (Pyridium) aspirin 81 mg tablet,delayed 81 mg PO DAILY 06/20/21 06/20/21 History release lorazepam 0.5 mg tablet 0.25 - 1 mg PO Q12H PRN 06/20/21 06/20/21 History Past Med/Surg History Medical History (Updated 06/20/21 @ 19:17 by Jim Ha MD) Cellulitis of arm, right Hematochezia Sepsis Family History Other Cerebral palsy Social History Smoking Status: Former smoker Tobacco Type: Cigarettes Do You Dip or Chew Tobacco: Yes; Hx Alcohol Use: No Hx Substance Use: No Preferred Language: Azeri Communication Ability: Effective [employer] Supervisor Required: No Beliefs That Will Affect Care: None Current Living Situation: Spouse Current Living Situation Comment: Lives in house with and son. Son is complete care. has dementia Other Information That Helps Us Care for You: No Feels Safe at Home: Yes Safety Concerns: Feels Safe At This Time Assistive Devices: Denture - Lower Review of Systems Review of Systems: All systems reviewed & are unremarkable except as noted in HPI & below Physical Exam Physical Exam: Lying in bed comfortably Constitutional: well developed and well nourished; not ill appearing Eyes: PERRL, conjunctivae normal, anicteric sclerae ENMT: external ear and nose normal, oropharynx normal Neck: trachea midline, no thyromegaly Respiratory: no respiratory distress and no cough Auscultation: lungs clear to auscultation bilaterally and + diminished lung sounds Cardiovascular: Rate/Rhythm: not irregularly irregular Heart Sounds: normal S1 and normal S2; no murmur Extremities: no edema Gastrointestinal (Abdomen): Inspection/Auscultation: abdomen not distended Musculoskeletal: No acute arthritis in any joint Neurologic: Alert, awake and oriented x3 Results & Data Results & Data ([facility]) Vital Signs (Past 12 Hours) Vital Signs Temp Pulse Resp BP Pulse Ox 06/20/21 19:00 75 20 139/64 06/20/21 18:30 72 17 136/69 06/20/21 18:00 59 L 16 145/67 H 06/20/21 17:30 114 H 26 H 06/20/21 17:00 64 22 139/75 06/20/21 16:30 66 19 06/20/21 16:15 65 108/62 06/20/21 16:00 68 16 96 06/20/21 15:30 69 22 95 06/20/21 15:09 36.7 C 80 16 131/86 97 06/20/21 15:07 63 23 96 Laboratory Results Short CBC 06/20/21 Range/Units 16:04 WBC 5.74 (4.8-10.8) K/uL Hgb 10.4 L (14.0-18.0) g/dL Hct 32.1 L (42-52) % Plt Count 112 L (130-400) K/uL BMP 06/20/21 16:04 Sodium 140 Potassium 3.6 Chloride 105 Carbon Dioxide 30 BUN 23 H Creatinine 1.02 Glucose 100 H Calcium 8.8 Cardiac Enzymes 06/20/21 Range/Units 16:04 Troponin I < 0.015 (0-0.045) ng/ml Liver Function 06/20/21 Range/Units 16:04 Total Bilirubin 0.4 (0.2-1) mg/dl AST 14 L (15-37) U/L ALT 11 L (12-78) U/L Alkaline Phosphatase 48 (45-117) U/L Albumin 2.8 L (3.4-5.0) gm/dl Medications Administered Current Inpatient Medications Heparin Sodium (Porcine) (Heparin Sod 5,000 Unit/0.5 Ml Vial) 5,000 units SQ Q12 [facility] Stop: 07/20/21 20:59 Sodium Chloride (Nss 1000ml) 1,000 mls @ 125 mls/hr IV .Q8H [facility] Stop: 06/20/21 23:59 Last Admin: 06/20/21 17:19 Dose: 125 mls/hr Documented by: Potassium Chloride/Sodium Chloride (Normal Saline W/20 Meq Kcl) 20 meq in 1,000 mls @ 125 mls/hr IV .Q8H [facility] Stop: 06/21/21 19:14 Code Status & VTE Plan VTE Prophylaxis Plan VTE Prophylaxis will be ordered: Yes
[2021-06-20 19:16] LABS: Appearance Urine Clear (Clear); Bacteria Urine Automated Negative (Negative); Blood Urine Negative (Negative); Color Urine Dark Yellow; Glucose Urine UA Negative (Negative); Ketones Urine 1+ (Negative); Leukocyte Esterase Urine Negative (Negative); Nitrite Urine Positive (Negative); Protein Urine Negative (Negative); RBC Urine Automated 0-4 /hpf (0-4); Specific Gravity Urine 1.019 (1.000-1.030); Urobilinogen Urine Negative (Negative); pH Urine 6.5 (4.5-7.5)
[2021-06-20 19:23] LABS: Bilirubin Urine 1+ (Negative)
[2021-06-20] MEDS ORDERED: PHENAZOPYRIDINE HCL 100 MG TAB PO PRN (22:45)
[2021-06-20] MEDS ORDERED: CARBOHYDRATES FOR HYPOGLYCEMIA PO PRN (23:00)
[2021-06-20] MEDS ORDERED: GLUCOSE 10 TABS/TUBE PO PRN (23:00)
[2021-06-20] MEDS ORDERED: DEXTROSE 50% 50 ML SYRINGE IV PRN (23:00)
[2021-06-20] MEDS ORDERED: GLUCOSE 40% GEL 15 GM TUBE PO PRN (23:00)
[2021-06-20] MEDS ORDERED: GLUCAGON FOR INJ 1 MG VIAL IM PRN (23:00)
[2021-06-20] MEDS: NSS + 20MEQ KCL 20 MEQ/1,000 ML BAG IV SCH (23:19)
[2021-06-20] MEDS: CALCIUM 600MG + VIT D 400 IU TAB PO SCH (23:20)
[2021-06-20] MEDS: MAGNESIUM CHLORIDE 64MG DELAYED REL TAB PO SCH (23:21)
[2021-06-20] MEDS: DOXAZosin MESYLATE TAB 2 MG TAB PO SCH (23:21)
[2021-06-20] MEDS: METOPROLOL TARTRATE 50 MG TAB PO SCH (23:22)
[2021-06-20] MEDS: SIMVASTATIN 10 MG TAB PO SCH (23:22)
[2021-06-20] MEDS: PANTOprazole 40 MG TAB PO SCH (23:22)
[2021-06-20] MEDS: HEPARIN SOD 5,000 UNIT/0.5 ML VIAL SQ SCH (23:23)
[2021-06-20] MEDS: INSULIN ASPART 100 UNITS/ML 3 ML PEN SC SCH (23:43)
--- NOTE | 2021-06-21 07:07 | Electrocardiogram Report ---
Test Reason : Blood Pressure : / mmHG Vent. Rate : 074 BPM Atrial Rate : 069 BPM P-R Int : 000 ms QRS Dur : 098 ms QT Int : 402 ms P-R-T Axes : 000 001 -23 degrees QTc Int : 446 ms Atrial fibrillation Incomplete right bundle branch block Abnormal ECG When compared with ECG of 23-MAR-2021 17:25, No significant change was found Confirmed by Michael Wooten ([id number]) on 06/21/2021 7:07:34 AM Referred By: REFERRED SELF Confirmed By:Brad Wooten
[2021-06-21] MEDS: TAMSULOSIN HCL 0.4 MG CAP PO SCH (07:40)
[2021-06-21] MEDS: METOPROLOL TARTRATE 50 MG TAB PO SCH ×2 (07:40→21:30)
[2021-06-21] MEDS: PANTOprazole 40 MG TAB PO SCH ×2 (07:40→21:29)
[2021-06-21] MEDS: MAGNESIUM CHLORIDE 64MG DELAYED REL TAB PO SCH ×2 (07:40→21:29)
[2021-06-21] MEDS: CEROVITE ADV FORMULA TAB PO SCH (07:40)
[2021-06-21] MEDS: HEPARIN SOD 5,000 UNIT/0.5 ML VIAL SQ SCH ×2 (07:41→21:28)
[2021-06-21] MEDS: FERROUS SULFATE 325 MG TAB PO SCH (07:41)
[2021-06-21] MEDS: CITALOPRAM 20 MG TAB PO SCH (07:41)
[2021-06-21] MEDS: ASPIRIN 81 MG ECTAB PO SCH (07:41)
[2021-06-21] MEDS: CALCIUM 600MG + VIT D 400 IU TAB PO SCH ×2 (07:41→21:30)
[2021-06-21 08:19] LABS: Basophils # (auto) 0.01 K/uL (0-0.2); Basophils % (auto) 0.2 %; Eosinophils # (auto) 0.05 K/uL (0-0.5); Eosinophils % (auto) 0.9 %; Hematocrit (blood only) 32.2 % (42-52); Hemoglobin 10.4 g/dL (14.0-18.0); Immature Granulocytes # (auto) 0.01 K/uL (0.00-0.02); Immature Granulocytes % (auto) 0.2 %; Lymphocytes # (auto) 2.35 K/uL (1.2-3.4); Lymphocytes % (auto) 44.3 %; Mean Corpuscular Hgb Conc 32.3 g/dL (32-36); Mean Corpuscular Volume 92.8 fL (80-100); Mean Platelet Volume 8.3 fL (7.4-10.4); Monocytes # (auto) 0.73 K/uL (0.11-0.59); Monocytes % (auto) 13.7 %; Neutrophils # (auto) 2.16 K/uL (1.4-6.5); Neutrophils % (auto) 40.7 %; Platelet Count 120 K/uL (130-400); RDW Coefficient of Variation 14.3 % (11.5-14.5); RDW Standard Deviation 48.9 fL (36.4-46.3); Red Blood Count 3.47 M/uL (4.7-6.1); White Blood Count 5.31 K/uL (4.8-10.8)
[2021-06-21] MEDS: INSULIN ASPART 100 UNITS/ML 3 ML PEN SC SCH ×4 (08:28→21:16)
[2021-06-21 08:43] LABS: BUN Creatinine Ratio 19.3 (10-20); Calcium 8.7 mg/dl (8.5-10.1); Creatinine Clr Calc Pharmacy 66.9 ml/min; Est GFR (African American) 90.6 ml/min; Est GFR (Non-African American) 78.2 ml/min; Magnesium 1.6 mg/dl (1.8-2.4); Potassium 3.1 mmol/L (3.5-5.1)
[2021-06-21 08:45] LABS: Phosphorus 2.7 mg/dl (2.5-4.9)
[2021-06-21] MEDS: NSS + 20MEQ KCL 20 MEQ/1,000 ML BAG IV SCH ×2 (09:22→17:01)
--- NOTE | 2021-06-21 13:20 | Psychiatric Consultation ---
Date of Consultation June 21, 2021 Impression / Recommendations Impression 86 yo male with worsening of mood/anxiety related to life stage--ego integrity vs. despair. Unclear response to Celexa. He denies SI consistently for myself and liaison, scored PHQ-9 of 5, mainly for sleep disturbance. (1) Depressive disorder: He is not particularly interested in additional interventions, reviewed that depression likely a contributing factor to poor PO and sleep, though also some age related cognitive decline and other medical factors like anemia. He would be more interested in a trial of low dose trazodone rather than any increase in Celexa. Discussed avoiding benzos due to fall risk. Reviewed with patient that Remeron may be more likely than Celexa to improve sleep and appetite. He was thankful for the visit. Will defer any orders to primary hospitalist as patient undecided. Risk Factors Assessment Do You Have Access To A Gun?: No (at [facility], has guns at home) Psych History Identifying Data Mr. Sandoval is an 86 yo male, [place] , admit from [facility] for dehydration and generalized weakness. Chief Complaint "It's just life, I'm believe in God and would never hurt myself". History of Present Illness States that "in general I have a positive attitude" but that hospitalizations and now rehab have been stressful as "I'm used to doing everything for everybody" and this has gotten harder. Son was special needs and in April and has progressive dementia. States that he has never been a "big eater" and that he's used to cooking steak, etc for himself. He recognizes losing 30-40 lbs over the past few months. He denies that he was ever suicidal, states that any comments about wanting to are in the context of him living a good life and not wanting to feel so weak. He reports feeling much better today following hydration, ate 1/3 of lunch. He was unaware that Celexa was for his mood, started after loss of son so unsure if helpful. Sleep remains disrupted but attributes this to not being as physically active as he used to cortes/fish/chop wood. Past Psychiatric History Previous Psych History: none Outpatient Services: none Previous Psych Admissions: none Do You Have Access To A Gun?: No (at [facility], has guns at home) Past Medication Trials: Celexa, Lorazepam prn Allergies Allergy/AdvReac Type Severity Reaction Status Date / Time yellow jacket Allergy Severe Unknown Uncoded 06/20/21 16:08 Home Medications Medication Instructions Recorded Confirmed Type chlorthalidone 25 mg tablet 25 mg PO DAILY 03/23/21 06/20/21 History citalopram 20 mg tablet 20 mg PO DAILY 03/23/21 06/20/21 History doxazosin 2 mg tablet 2 mg PO HS 03/23/21 06/20/21 History metformin 500 mg tablet 500 mg PO BIDWMEAL 03/23/21 06/20/21 History mfchtkbx-ehw-iseir acid 0.4 1 tab PO DAILY 03/23/21 06/20/21 History mg-lycopene 300 mcg-lutein 250 mcg tablet (Centrum Silver) simvastatin 10 mg tablet 10 mg PO HS 03/23/21 06/20/21 History tamsulosin 0.4 mg capsule 0.4 mg PO DAILY 03/23/21 06/20/21 History acetaminophen 325 mg tablet 650 mg PO Q6H PRN #30 tab 04/10/21 06/20/21 Rx calcium 600 mg-D3 800 unit-mag11 1 tab PO BID #60 tab 04/10/21 06/20/21 Rx 50 wy-rett-rodpgi-alcides-s.borat tablet (Caltrate 600-D Plus Minerals) digoxin 125 mcg (0.125 mg) tablet 125 mcg PO DAILY@1600 #30 tab 04/10/21 06/20/21 Rx (Digitek) ferrous sulfate 325 mg (65 mg 325 mg PO QAM #30 tab 04/10/21 06/20/21 Rx iron) tablet,delayed release magnesium chloride 64 mg 64 mg PO BID #30 tab 04/10/21 06/20/21 Rx (magnesium chloride) tablet,delayed release (Mag 64) metoprolol tartrate 50 mg tablet 50 mg PO BID #60 tab 04/10/21 06/20/21 Rx pantoprazole 40 mg tablet,delayed 40 mg PO BID #60 tab 04/10/21 06/20/21 Rx release phenazopyridine 100 mg tablet 100 mg PO TID PRN #10 tab 04/10/21 06/20/21 Rx (Pyridium) aspirin 81 mg tablet,delayed 81 mg PO DAILY 06/20/21 06/20/21 History release lorazepam 0.5 mg tablet 0.25 - 1 mg PO Q12H PRN 06/20/21 06/20/21 History Family History denies Substance Abuse History denies Personal History Born In: lives right next to childhood home 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 Patient History Medical History Cellulitis of arm, right Hematochezia Sepsis Family History Other Cerebral palsy Social History Smoking Status: Former smoker Tobacco Type: Cigarettes Do You Dip or Chew Tobacco: Yes; Hx Alcohol Use: No Hx Substance Use: No Preferred Language: Hebrew Communication Ability: Effective Plush Cutter Required: No Beliefs That Will Affect Care: None Current Living Situation: Spouse Current Living Situation Comment: Lives in house with and son. Son is complete care. has dementia Other Information That Helps Us Care for You: No Feels Safe at Home: Yes Safety Concerns: Feels Safe At This Time Assistive Devices: Denture - Lower Physical Exam Psychiatric: Orientation: alert and oriented x 3 Apperance: appropriately dressed and appropriately groomed Eye Contact: good eye contact Motor Behavior: no abnormal motor movements Speech: normal rate/rhythm/volume of speech Affect: euthymic affect Mood: no depressed mood Thought Process: goal directed thought process Thought Content: reality based without delusions Suicidal Thoughts: denies suicidal thoughts Homicidal Thoughts: denies homicidal thoughts Hallucinations: no auditory hallucinations and no visual hallucinations Cognition: attention grossly intact and language grossly intact Estimated Intelligence: consistent with education level Insight: + fair insight Judgement: + fair judgement Vital Signs (Past 24 Hours): Last Vital Signs Temp 36.5 C 06/21/21 11:40 Pulse 68 06/21/21 11:40 Resp 18 06/21/21 11:40 BP 115/73 06/21/21 11:40 Pulse Ox 96 06/21/21 11:40 Review of Systems All systems reviewed & are unremarkable except as noted in HPI & below Results & Data (PSY) Medications Administered Aspirin (Aspirin 81 Mg Ectab) 81 mg PO DAILY [facility] Stop: 07/21/21 08:59 Last Admin: 06/21/21 07:41 Dose: 81 mg Documented by: [id number] Citalopram Hydrobromide (Citalopram 20 Mg Tab) 20 mg PO DAILY [facility] Stop: 07/21/21 08:59 Last Admin: 06/21/21 07:41 Dose: 20 mg Documented by: [id number] Doxazosin Mesylate (Doxazosin Mesylate Tab 2 Mg Tab) 2 mg PO HS [facility] Stop: 07/20/21 22:44 Last Admin: 06/20/21 23:21 Dose: 2 mg Documented by: [id number] Ferrous Sulfate (Ferrous Sulfate 325 Mg Tab) 325 mg PO QAM [facility] Stop: 07/21/21 08:59 Last Admin: 06/21/21 07:41 Dose: 325 mg Documented by: [id number] Heparin Sodium (Porcine) (Heparin Sod 5,000 Unit/0.5 Ml Vial) 5,000 units SQ Q12 [facility] Stop: 07/20/21 20:59 Last Admin: 06/21/21 07:41 Dose: 5,000 units Documented by: [id number] Admin: 06/20/21 23:23 Dose: 5,000 units Documented by: [id number] Potassium Chloride/Sodium Chloride (Normal Saline W/20 Meq Kcl) 20 meq in 1,000 mls @ 125 mls/hr IV .Q8H W[facility]LEY Stop: 06/21/21 22:59 Last Admin: 06/21/21 09:22 Dose: 125 mls/hr Documented by: [id number] Infusion: 06/21/21 07:19 Dose: 125 mls/hr Documented by: [id number] Admin: 06/20/21 23:19 Dose: 125 mls/hr Documented by: [id number] Insulin Aspart (Insulin Aspart 100 Units/Ml 3 Ml Pen) 0 units SC ACHS W[facility]LEY Stop: 07/20/21 22:59 Last Admin: 06/21/21 12:19 Dose: 3 units Documented by: [id number] Cosigned by: [id number] Admin: 06/21/21 08:28 Dose: Not Given Documented by: [id number] Admin: 06/20/21 23:43 Dose: Not Given Documented by: [id number] Magnesium Chloride (Magnesium Chloride 64mg Delayed Rel Tab) 64 mg PO BID W[facility] Stop: 07/20/21 22:44 Last Admin: 06/21/21 07:40 Dose: 64 mg Documented by: [id number] Admin: 06/20/21 23:21 Dose: 64 mg Documented by: [id number] Metoprolol Tartrate (Metoprolol Tartrate 50 Mg Tab) 50 mg PO BID W[facility] Stop: 07/20/21 22:44 Last Admin: 06/21/21 07:40 Dose: 50 mg Documented by: [id number] Admin: 06/20/21 23:22 Dose: 50 mg Documented by: [id number] Multivitamins/Minerals (Calcium 600mg + Vit D 400 Iu Tab) 1 tab PO BID W[facility] Stop: 07/20/21 22:44 Last Admin: 06/21/21 07:41 Dose: 1 tab Documented by: [id number] Admin: 06/20/21 23:20 Dose: 1 tab Documented by: [id number] Multivitamins/Minerals (Cerovite Adv Formula Tab) 1 tab PO DAILY W[facility] Stop: 07/21/21 08:59 Last Admin: 06/21/21 07:40 Dose: 1 tab Documented by: [id number] Pantoprazole Sodium (Pantoprazole 40 Mg Tab) 40 mg PO BID W[facility] Stop: 07/20/21 22:44 Last Admin: 06/21/21 07:40 Dose: 40 mg Documented by: [id number] Admin: 06/20/21 23:22 Dose: 40 mg Documented by: [id number] Simvastatin (Simvastatin 10 Mg Tab) 10 mg PO HS W[facility]LEY Stop: 07/20/21 22:44 Last Admin: 06/20/21 23:22 Dose: 10 mg Documented by: [id number] Tamsulosin HCl (Tamsulosin Hcl 0.4 Mg Cap) 0.4 mg PO DAILY W[facility] Stop: 07/21/21 08:59 Last Admin: 06/21/21 07:40 Dose: 0.4 mg Documented by: [id number] Coding Level of Care Code 39327 [facility] Intl Hosp Care Lvl 2 Diagnoses Depressive disorder F32.9
--- NOTE | 2021-06-21 16:24 | Hospitalist Progress Note ---
Date of Service June 21, 2021 Assessment & Plan (1) Acute hypotension: Plan: Has been complaining of lightheadedness and noted to be hypotensive by the EMS Blood pressure is maintaining the emergency room following fluid administration We will continue with intravenous fluid and monitor blood pressure Hold chlorthalidone Blood pressure remains on the lower side Advised to drink more fluid as he may not continue with intravenous fluid (2) Generalized weakness: Plan: Likely secondary to dehydration Has not been eating or drinking enough for the last few days PT and OT evaluation and possible placement (3) Atrial fibrillation: Plan: Rate is controlled Not on any anticoagulation Continue beta-isabel (4) Type 2 diabetes mellitus: Plan: We will hold Metformin Put him on diabetic diet SSI (5) Hypertension: Plan: Hold chlorthalidone (6) Hyperlipidemia: Plan: Continue statin (7) Anxiety disorder: Plan: Has been having more depressive thoughts Wants to Continue Celexa for now Psyche evaluation-appreciate psychiatric input and recommendation. Medications advised DVT prophylaxis Subcu heparin CODE STATUS DNR/DNI Admission and Anticipated Discharge Date Admission Date: June 20, 2021 Subjective 06/21/2021 The patient was seen and examined in medical telemetry unit He was noted to be agitated this afternoon He wanted to have respect during his care Review of Systems Review of Systems: All systems reviewed and are unremarkable except as noted below Physical Exam Physical Exam: Lying in bed comfortably Constitutional: well developed and well nourished; not ill appearing Eyes: PERRL, conjunctivae normal, anicteric sclerae ENMT: external ear and nose normal, oropharynx normal Neck: trachea midline, no thyromegaly Respiratory: no respiratory distress and no cough Auscultation: lungs clear to auscultation bilaterally and + diminished lung sounds Cardiovascular: Rate/Rhythm: not irregularly irregular Heart Sounds: normal S1 and normal S2; no murmur Extremities: no edema Gastrointestinal (Abdomen): Inspection/Auscultation: abdomen not distended Musculoskeletal: No acute arthritis in any joint Neurologic: Alert awake and oriented x3. Generally weak but no focal sensory no motor deficit appreciated Results & Data Results & Data ([facility]) Vital Signs (Past 12 Hours) Vital Signs Temp Pulse Resp BP Pulse Ox 06/21/21 15:27 36.4 C L 82 18 109/68 96 06/21/21 11:40 36.5 C 68 18 115/73 96 06/21/21 07:41 36.7 C 65 18 112/67 94 Laboratory Results Short CBC 06/21/21 Range/Units 07:55 WBC 5.31 (4.8-10.8) K/uL Hgb 10.4 L (14.0-18.0) g/dL Hct 32.2 L (42-52) % Plt Count 120 L (130-400) K/uL BMP 06/20/21 06/21/21 16:04 07:55 Sodium 140 138 Potassium 3.6 3.1 L Chloride 105 104 Carbon Dioxide 30 29 BUN 23 H 16 Creatinine 1.02 0.84 Glucose 100 H 105 H Calcium 8.8 8.7 Cardiac Enzymes 06/20/21 Range/Units 16:04 Troponin I < 0.015 (0-0.045) ng/ml Liver Function 06/20/21 Range/Units 16:04 Total Bilirubin 0.4 (0.2-1) mg/dl AST 14 L (15-37) U/L ALT 11 L (12-78) U/L Alkaline Phosphatase 48 (45-117) U/L Albumin 2.8 L (3.4-5.0) gm/dl Urine 06/20/21 Range/Units 18:59 Urine Color Dark Yellow Urine Appearance Clear (Clear) Urine pH 6.5 (4.5-7.5) Ur Specific [place] 1.019 (1.000-1.030) Urine Protein Negative (Negative) Urine Glucose (UA) Negative (Negative) Medications Administered Current Inpatient Medications Acetaminophen (Acetaminophen 325 Mg Tab) 650 mg PO Q6H PRN PRN Reason: fever or pain Stop: 07/20/21 22:44 Aspirin (Aspirin 81 Mg Ectab) 81 mg PO DAILY [facility] Stop: 07/21/21 08:59 Last Admin: 06/21/21 07:41 Dose: 81 mg Documented by: Citalopram Hydrobromide (Citalopram 20 Mg Tab) 20 mg PO DAILY [facility] Stop: 07/21/21 08:59 Last Admin: 06/21/21 07:41 Dose: 20 mg Documented by: Dextrose (Dextrose 50% 50 Ml Syringe) 25 - 50 ml IV UD PRN; Protocol PRN Reason: Hypoglycemia Protocol Stop: 07/20/21 22:59 Digoxin (Digoxin 0.125 Mg Tab) 0.125 mg PO DAILY@1600 [facility] Stop: 07/21/21 15:59 Doxazosin Mesylate (Doxazosin Mesylate Tab 2 Mg Tab) 2 mg PO HS [facility] Stop: 07/20/21 22:44 Last Admin: 06/20/21 23:21 Dose: 2 mg Documented by: Ferrous Sulfate (Ferrous Sulfate 325 Mg Tab) 325 mg PO QAM [facility] Stop: 07/21/21 08:59 Last Admin: 06/21/21 07:41 Dose: 325 mg Documented by: Glucagon (Glucagon For Inj 1 Mg Vial) 1 mg IM UD PRN; Protocol PRN Reason: Hypoglycemia Protocol Stop: 07/20/21 22:59 Glucose (Glucose 40% Gel 15 Gm Tube) 15 - 30 gm PO UD PRN; Protocol PRN Reason: Hypoglycemia Protocol Stop: 07/20/21 22:59 Glucose (Glucose 10 Tabs/Tube) 4 - 8 tabs PO UD PRN; Protocol PRN Reason: Hypoglycemia Protocol Stop: 07/20/21 22:59 Heparin Sodium (Porcine) (Heparin Sod 5,000 Unit/0.5 Ml Vial) 5,000 units SQ Q12 [facility] Stop: 07/20/21 20:59 Last Admin: 06/21/21 07:41 Dose: 5,000 units Documented by: Potassium Chloride/Sodium Chloride (Normal Saline W/20 Meq Kcl) 20 meq in 1,000 mls @ 125 mls/hr IV .Q8H [facility] Stop: 06/21/21 22:59 Last Admin: 06/21/21 09:22 Dose: 125 mls/hr Documented by: Insulin Aspart (Insulin Aspart 100 Units/Ml 3 Ml Pen) 0 units SC ACHS W[facility] Stop: 07/20/21 22:59 Last Admin: 06/21/21 12:19 Dose: 3 units Documented by: Magnesium Chloride (Magnesium Chloride 64mg Delayed Rel Tab) 64 mg PO BID W[facility] Stop: 07/20/21 22:44 Last Admin: 06/21/21 07:40 Dose: 64 mg Documented by: Metoprolol Tartrate (Metoprolol Tartrate 50 Mg Tab) 50 mg PO BID W[facility] Stop: 07/20/21 22:44 Last Admin: 06/21/21 07:40 Dose: 50 mg Documented by: Miscellaneous (Carbohydrates For Hypoglycemia ) 15 - 30 gm PO UD PRN PRN Reason: Hypoglycemia Treatment Stop: 07/20/21 22:59 Multivitamins/Minerals (Calcium 600mg + Vit D 400 Iu Tab) 1 tab PO BID W[facility] Stop: 07/20/21 22:44 Last Admin: 06/21/21 07:41 Dose: 1 tab Documented by: Multivitamins/Minerals (Cerovite Adv Formula Tab) 1 tab PO DAILY [facility] Stop: 07/21/21 08:59 Last Admin: 06/21/21 07:40 Dose: 1 tab Documented by: Pantoprazole Sodium (Pantoprazole 40 Mg Tab) 40 mg PO BID [facility] Stop: 07/20/21 22:44 Last Admin: 06/21/21 07:40 Dose: 40 mg Documented by: Phenazopyridine HCl (Phenazopyridine Hcl 100 Mg Tab) 100 mg PO TID PRN PRN Reason: bladder pain Stop: 07/20/21 22:44 Simvastatin (Simvastatin 10 Mg Tab) 10 mg PO HS [facility] Stop: 07/20/21 22:44 Last Admin: 06/20/21 23:22 Dose: 10 mg Documented by: Tamsulosin HCl (Tamsulosin Hcl 0.4 Mg Cap) 0.4 mg PO DAILY [facility] Stop: 07/21/21 08:59 Last Admin: 06/21/21 07:40 Dose: 0.4 mg Documented by:
[2021-06-21] MEDS: DIGOXIN 0.125 MG TAB PO SCH (17:02)
[2021-06-21] MEDS: SIMVASTATIN 10 MG TAB PO SCH (21:30)
[2021-06-21] MEDS: DOXAZosin MESYLATE TAB 2 MG TAB PO SCH (21:31)
[2021-06-22] MEDS: CALCIUM 600MG + VIT D 400 IU TAB PO SCH ×2 (07:49→20:08)
[2021-06-22] MEDS: METOPROLOL TARTRATE 50 MG TAB PO SCH (07:49)
[2021-06-22] MEDS: PANTOprazole 40 MG TAB PO SCH ×2 (07:49→20:07)
[2021-06-22] MEDS: TAMSULOSIN HCL 0.4 MG CAP PO SCH (07:50)
[2021-06-22] MEDS: HEPARIN SOD 5,000 UNIT/0.5 ML VIAL SQ SCH ×2 (07:50→20:08)
[2021-06-22] MEDS: FERROUS SULFATE 325 MG TAB PO SCH (07:50)
[2021-06-22] MEDS: CEROVITE ADV FORMULA TAB PO SCH (07:50)
[2021-06-22] MEDS: ASPIRIN 81 MG ECTAB PO SCH (07:50)
[2021-06-22] MEDS: CITALOPRAM 20 MG TAB PO SCH (07:50)
[2021-06-22] MEDS: MAGNESIUM CHLORIDE 64MG DELAYED REL TAB PO SCH ×2 (07:51→20:07)
[2021-06-22] MEDS: INSULIN ASPART 100 UNITS/ML 3 ML PEN SC SCH ×4 (08:33→20:10)
[2021-06-22] MEDS: POTASSIUM CHLORIDE / WTR 10 MEQ/100 ML PLCT IV SCH ×2 (08:37→10:07)
[2021-06-22] MEDS ORDERED: MAGNESIUM SULFATE / D5W 1 GM/100 ML BAG IV ONE (08:45)
--- NOTE | 2021-06-22 09:42 | Electrocardiogram Report ---
Test Reason : Blood Pressure : / mmHG Vent. Rate : 068 BPM Atrial Rate : 250 BPM P-R Int : 000 ms QRS Dur : 096 ms QT Int : 416 ms P-R-T Axes : 000 000 -26 degrees QTc Int : 442 ms Atrial fibrillation RSR' or QR pattern in V1 suggests right ventricular conduction delay Low voltage QRS Abnormal ECG When compared with ECG of 20-JUN-2021 15:06, No significant change was found Confirmed by Leonidas Lemus ([id number]) on 06/22/2021 9:41:25 AM Referred By: REFERRED SELF Confirmed By:Leonidas Lemus
--- NOTE | 2021-06-22 09:43 | Electrocardiogram Report ---
Test Reason : Blood Pressure : / mmHG Vent. Rate : 060 BPM Atrial Rate : 061 BPM P-R Int : 000 ms QRS Dur : 096 ms QT Int : 426 ms P-R-T Axes : 000 -13 -31 degrees QTc Int : 426 ms Atrial fibrillation Incomplete right bundle branch block Abnormal ECG When compared with ECG of 21-JUN-2021 15:38, (unconfirmed) No significant change was found Confirmed by Leonidas Lemus ([id number]) on 06/22/2021 9:42:32 AM Referred By: REFERRED SELF Confirmed By:Leonidas Lemus
--- NOTE | 2021-06-22 15:16 | Hospitalist Progress Note ---
Date of Service June 22, 2021 Assessment & Plan (1) Acute hypotension: Plan: Has been complaining of lightheadedness and noted to be hypotensive by the EMS Blood pressure is maintaining the emergency room following fluid administration We will continue with intravenous fluid and monitor blood pressure Hold chlorthalidone and will not restart. Blood pressure remains on the lower side Advised to drink more fluid as he may not continue with intravenous fluid (2) Generalized weakness: Plan: Likely secondary to dehydration Has not been eating or drinking enough for the last few days PT and OT evaluation and possible placement (3) Atrial fibrillation: Plan: Rate is controlled Not on any anticoagulation Continue beta-isabel Sinus pause 3.1-second at 8 AM today Likely contributed by low potassium and magnesium Received supplement and will recheck tomorrow We will observe in telemetry for any further pauses (4) Type 2 diabetes mellitus: Plan: We will hold Metformin Put him on diabetic diet SSI (5) Hypertension: Plan: Hold chlorthalidone We will decrease the dose of beta-isabel (6) Hyperlipidemia: Plan: Continue statin (7) Anxiety disorder: Plan: Has been having more depressive thoughts Wants to Continue Celexa for now Psyche evaluation-appreciate psychiatric input and recommendation. Medications advised DVT prophylaxis Subcu heparin CODE STATUS DNR/DNI Admission and Anticipated Discharge Date Admission Date: June 20, 2021 Subjective 06/21/2021 The patient was seen and examined in medical telemetry unit He was noted to be agitated this afternoon He wanted to have respect during his care 06/22/2021 The patient was seen and examined in medical telemetry unit He remains stable but has had about 3.1-second pause at 8 AM this morning without any symptoms He has been feeling a lot better today Review of Systems Review of Systems: All systems reviewed and are unremarkable except as noted below Physical Exam Physical Exam: Lying in bed comfortably Constitutional: well developed and well nourished; not ill appearing Eyes: PERRL, conjunctivae normal, anicteric sclerae ENMT: external ear and nose normal, oropharynx normal Neck: trachea midline, no thyromegaly Respiratory: no respiratory distress and no cough Auscultation: lungs clear to auscultation bilaterally and + diminished lung sounds Cardiovascular: Rate/Rhythm: not irregularly irregular Heart Sounds: normal S1 and normal S2; no murmur Extremities: no edema Gastrointestinal (Abdomen): Inspection/Auscultation: abdomen not distended Musculoskeletal: No acute arthritis in any joint Neurologic: Alert, awake and oriented x3. Generally weak but no focal sensory or motor deficit appreciated Lymphatic: no cervical or axillary lymphadenopathy Results & Data Results & Data ([facility]) Vital Signs (Past 12 Hours) Vital Signs Temp Pulse Resp BP Pulse Ox 06/22/21 11:45 36.6 C 62 18 94/56 L 92 06/22/21 07:51 36.8 C 61 18 115/65 95 Medications Administered Current Inpatient Medications Acetaminophen (Acetaminophen 325 Mg Tab) 650 mg PO Q6H PRN PRN Reason: fever or pain Stop: 07/20/21 22:44 Aspirin (Aspirin 81 Mg Ectab) 81 mg PO DAILY [facility] Stop: 07/21/21 08:59 Last Admin: 06/22/21 07:50 Dose: 81 mg Documented by: Citalopram Hydrobromide (Citalopram 20 Mg Tab) 20 mg PO DAILY [facility] Stop: 07/21/21 08:59 Last Admin: 06/22/21 07:50 Dose: 20 mg Documented by: Dextrose (Dextrose 50% 50 Ml Syringe) 25 - 50 ml IV UD PRN; Protocol PRN Reason: Hypoglycemia Protocol Stop: 07/20/21 22:59 Digoxin (Digoxin 0.125 Mg Tab) 0.125 mg PO DAILY@1600 [facility] Stop: 07/21/21 15:59 Last Admin: 06/21/21 17:02 Dose: 0.125 mg Documented by: Doxazosin Mesylate (Doxazosin Mesylate Tab 2 Mg Tab) 2 mg PO HS [facility] Stop: 07/20/21 22:44 Last Admin: 06/21/21 21:31 Dose: 2 mg Documented by: Ferrous Sulfate (Ferrous Sulfate 325 Mg Tab) 325 mg PO QAM [facility] Stop: 07/21/21 08:59 Last Admin: 06/22/21 07:50 Dose: 325 mg Documented by: Glucagon (Glucagon For Inj 1 Mg Vial) 1 mg IM UD PRN; Protocol PRN Reason: Hypoglycemia Protocol Stop: 07/20/21 22:59 Glucose (Glucose 40% Gel 15 Gm Tube) 15 - 30 gm PO UD PRN; Protocol PRN Reason: Hypoglycemia Protocol Stop: 07/20/21 22:59 Glucose (Glucose 10 Tabs/Tube) 4 - 8 tabs PO UD PRN; Protocol PRN Reason: Hypoglycemia Protocol Stop: 07/20/21 22:59 Heparin Sodium (Porcine) (Heparin Sod 5,000 Unit/0.5 Ml Vial) 5,000 units SQ Q12 [facility] Stop: 07/20/21 20:59 Last Admin: 06/22/21 07:50 Dose: 5,000 units Documented by: Insulin Aspart (Insulin Aspart 100 Units/Ml 3 Ml Pen) 0 units SC ACHS [facility] Stop: 07/20/21 22:59 Last Admin: 06/22/21 12:41 Dose: 5 units Documented by: Magnesium Chloride (Magnesium Chloride 64mg Delayed Rel Tab) 64 mg PO BID [facility] Stop: 07/20/21 22:44 Last Admin: 06/22/21 07:51 Dose: 64 mg Documented by: Metoprolol Tartrate (Metoprolol Tartrate 50 Mg Tab) 50 mg PO BID [facility] Stop: 07/20/21 22:44 Last Admin: 06/22/21 07:49 Dose: Not Given Documented by: Miscellaneous (Carbohydrates For Hypoglycemia ) 15 - 30 gm PO UD PRN PRN Reason: Hypoglycemia Treatment Stop: 07/20/21 22:59 Multivitamins/Minerals (Calcium 600mg + Vit D 400 Iu Tab) 1 tab PO BID [facility] Stop: 07/20/21 22:44 Last Admin: 06/22/21 07:49 Dose: 1 tab Documented by: Multivitamins/Minerals (Cerovite Adv Formula Tab) 1 tab PO DAILY [facility] Stop: 07/21/21 08:59 Last Admin: 06/22/21 07:50 Dose: 1 tab Documented by: Pantoprazole Sodium (Pantoprazole 40 Mg Tab) 40 mg PO BID [facility] Stop: 07/20/21 22:44 Last Admin: 06/22/21 07:49 Dose: 40 mg Documented by: Phenazopyridine HCl (Phenazopyridine Hcl 100 Mg Tab) 100 mg PO TID PRN PRN Reason: bladder pain Stop: 07/20/21 22:44 Simvastatin (Simvastatin 10 Mg Tab) 10 mg PO HS [facility] Stop: 07/20/21 22:44 Last Admin: 06/21/21 21:30 Dose: 10 mg Documented by: Tamsulosin HCl (Tamsulosin Hcl 0.4 Mg Cap) 0.4 mg PO DAILY [facility] Stop: 07/21/21 08:59 Last Admin: 06/22/21 07:50 Dose: 0.4 mg Documented by:
[2021-06-22] MEDS: DIGOXIN 0.125 MG TAB PO SCH (16:26)
[2021-06-22] MEDS: SIMVASTATIN 10 MG TAB PO SCH (20:06)
[2021-06-22] MEDS: METOPROLOL TARTRATE 25 MG TAB PO SCH (20:07)
[2021-06-22] MEDS: DOXAZosin MESYLATE TAB 2 MG TAB PO SCH (20:08)
[2021-06-23 07:02] LABS: BUN Creatinine Ratio 12.6 (10-20); Calcium 8.4 mg/dl (8.5-10.1); Creatinine Clr Calc Pharmacy 63.9 ml/min; Est GFR (African American) 88.9 ml/min; Est GFR (Non-African American) 76.7 ml/min; Magnesium 1.8 mg/dl (1.8-2.4); Potassium 3.5 mmol/L (3.5-5.1)
[2021-06-23] MEDS: MAGNESIUM CHLORIDE 64MG DELAYED REL TAB PO SCH ×2 (07:51→20:41)
[2021-06-23] MEDS: CALCIUM 600MG + VIT D 400 IU TAB PO SCH ×2 (07:51→20:40)
[2021-06-23] MEDS: CEROVITE ADV FORMULA TAB PO SCH (07:52)
[2021-06-23] MEDS: PANTOprazole 40 MG TAB PO SCH ×2 (07:52→20:40)
[2021-06-23] MEDS: FERROUS SULFATE 325 MG TAB PO SCH (07:52)
[2021-06-23] MEDS: TAMSULOSIN HCL 0.4 MG CAP PO SCH (07:53)
[2021-06-23] MEDS: ASPIRIN 81 MG ECTAB PO SCH (07:53)
[2021-06-23] MEDS: CITALOPRAM 20 MG TAB PO SCH (07:53)
[2021-06-23] MEDS: METOPROLOL TARTRATE 25 MG TAB PO SCH ×2 (07:54→20:41)
[2021-06-23] MEDS: HEPARIN SOD 5,000 UNIT/0.5 ML VIAL SQ SCH ×2 (07:55→20:42)
[2021-06-23] MEDS: INSULIN ASPART 100 UNITS/ML 3 ML PEN SC SCH ×4 (08:08→20:39)
--- NOTE | 2021-06-23 13:28 | Communication Note ---
Date of Service: June 23, 2021 Interim progress reviewed. Liaison was able to get collateral from family. Patient has never been suicidal and although he is not returning home there is only 1 weapon and they have no safety concerns.
--- NOTE | 2021-06-23 15:06 | Hospitalist Progress Note ---
Date of Service June 23, 2021 Assessment & Plan (1) Acute hypotension: Plan: Has been complaining of lightheadedness and noted to be hypotensive by the EMS Blood pressure was maintaining the emergency room following fluid administration. Continue holding chlorthalidone. This morning patient is doing okay. Hemodynamically doing better. Awaiting evaluation by PT/OT. (2) Generalized weakness: Plan: Likely secondary to dehydration Has not been eating or drinking enough for the last few days Awaiting to be evaluated by PT/OT. (3) Atrial fibrillation: Plan: Rate is controlled Not on any anticoagulation Continue beta-isabel Sinus pause 3.1-second at 8 AM on 06/22 Likely contributed by low potassium and magnesium Continue to monitor daily telemetry. (4) Type 2 diabetes mellitus: Plan: We will hold Metformin Put him on diabetic diet SSI (5) Hypertension: Plan: Hold chlorthalidone We will decrease the dose of beta-isabel (6) Hyperlipidemia: Plan: Continue statin (7) Anxiety disorder: Plan: Has been having more depressive thoughts Wants to Continue Celexa for now Psyche evaluation-appreciate psychiatric input and recommendation. Medications advised DVT prophylaxis Subcu heparin CODE STATUS DNR/DNI Admission and Anticipated Discharge Date Admission Date: June 20, 2021 Subjective Patient is doing okay this morning. Awake, alert and oriented. Denies any episodes of dizziness. Reports he feels better. Rest of the review of system is negative. Review of Systems Review of Systems: All systems reviewed & are unremarkable except as noted in HPI & below Physical Exam Physical Exam: General: A&Ox3 HENT: NCAT, MMM, EOMI Eyes: PERRLA Neck: Supple, normal range of motion CVS: normal rate and rhythm Resp: b/l good breath sounds Abdomen: Soft, ND/NT, +BS Extremities: No c/c/e Neuro: face symmetric, no focal deficit Skin: warm and dry MSK: no joint swelling/erythema Results & Data Results & Data ([facility]) Vital Signs (Past 12 Hours) Vital Signs Temp Pulse Resp BP Pulse Ox 06/23/21 11:59 36.6 C 68 19 100/61 96 06/23/21 07:41 36.5 C 74 20 129/70 94 06/23/21 03:47 36.6 C 63 18 129/77 95
[2021-06-23] MEDS: DIGOXIN 0.125 MG TAB PO SCH (15:53)
[2021-06-23] MEDS: SIMVASTATIN 10 MG TAB PO SCH (20:41)
[2021-06-23] MEDS: DOXAZosin MESYLATE TAB 2 MG TAB PO SCH (20:41)
[2021-06-24] MEDS: ACETAMINOPHEN 325 MG TAB PO PRN (04:02)
[2021-06-24] MEDS: ASPIRIN 81 MG ECTAB PO SCH (09:08)
[2021-06-24] MEDS: CITALOPRAM 20 MG TAB PO SCH (09:11)
[2021-06-24] MEDS: CEROVITE ADV FORMULA TAB PO SCH (09:11)
[2021-06-24] MEDS: PANTOprazole 40 MG TAB PO SCH ×2 (09:12→21:04)
[2021-06-24] MEDS: MAGNESIUM CHLORIDE 64MG DELAYED REL TAB PO SCH ×2 (09:12→21:05)
[2021-06-24] MEDS: METOPROLOL TARTRATE 25 MG TAB PO SCH ×2 (09:12→21:04)
[2021-06-24] MEDS: CALCIUM 600MG + VIT D 400 IU TAB PO SCH ×2 (09:12→21:04)
[2021-06-24] MEDS: FERROUS SULFATE 325 MG TAB PO SCH (09:13)
[2021-06-24] MEDS: TAMSULOSIN HCL 0.4 MG CAP PO SCH (09:13)
[2021-06-24] MEDS: INSULIN ASPART 100 UNITS/ML 3 ML PEN SC SCH ×4 (09:15→21:09)
[2021-06-24] MEDS: HEPARIN SOD 5,000 UNIT/0.5 ML VIAL SQ SCH ×2 (09:19→21:05)
--- NOTE | 2021-06-24 12:38 | Hospitalist Progress Note ---
Date of Service June 24, 2021 Assessment & Plan (1) Acute hypotension: Plan: Has been complaining of lightheadedness and noted to be hypotensive by the EMS Blood pressure was maintaining the emergency room following fluid administration. Continue holding chlorthalidone. This morning patient is doing okay. Hemodynamically doing better. Continue to work with PT/OT. Care management is working on placement. (2) Generalized weakness: Plan: Likely secondary to dehydration Has not been eating or drinking enough for the last few days Ports his appetite is improving. However he has lost 40 pounds over the last few months. Reports he was depressed. (3) Atrial fibrillation: Plan: Rate is controlled Not on any anticoagulation Continue beta-isabel Sinus pause 3.1-second at 8 AM on 06/22 Likely contributed by low potassium and magnesium Continue to monitor daily telemetry. (4) Type 2 diabetes mellitus: Plan: We will hold Metformin Put him on diabetic diet SSI (5) Hypertension: Plan: Hold chlorthalidone We will decrease the dose of beta-isabel (6) Hyperlipidemia: Plan: Continue statin (7) Anxiety disorder: Plan: Has been having more depressive thoughts Wants to Continue Celexa for now Psyche evaluation-appreciate psychiatric input and recommendation. Medications advised DVT prophylaxis Subcu heparin CODE STATUS DNR/DNI Admission and Anticipated Discharge Date Admission Date: June 20, 2021 Subjective Awake, alert and oriented. Hemodynamically doing okay. Review of system is negative. Review of Systems Review of Systems: All systems reviewed & are unremarkable except as noted in HPI & below Physical Exam Physical Exam: General: A&Ox3 HENT: NCAT, MMM, EOMI Eyes: PERRLA Neck: Supple, normal range of motion CVS: normal rate and rhythm Resp: b/l good breath sounds Abdomen: Soft, ND/NT, +BS Extremities: No c/c/e Neuro: face symmetric, no focal deficit Skin: warm and dry MSK: no joint swelling/erythema Results & Data Results & Data ([facility]) Vital Signs (Past 12 Hours) Vital Signs Temp Pulse Resp BP Pulse Ox 06/24/21 11:29 36.4 C L 77 18 89/55 L 92 06/24/21 08:11 36.7 C 68 17 108/66 94 06/24/21 04:20 36.7 C 67 16 118/63 96
[2021-06-24] MEDS: DIGOXIN 0.125 MG TAB PO SCH (17:06)
[2021-06-24] MEDS: DOXAZosin MESYLATE TAB 2 MG TAB PO SCH (21:05)
[2021-06-24] MEDS: SIMVASTATIN 10 MG TAB PO SCH (21:05)
[2021-06-25] MEDS: TAMSULOSIN HCL 0.4 MG CAP PO SCH (07:29)
[2021-06-25] MEDS: METOPROLOL TARTRATE 25 MG TAB PO SCH (07:30)
[2021-06-25] MEDS: FERROUS SULFATE 325 MG TAB PO SCH (07:30)
[2021-06-25] MEDS: ASPIRIN 81 MG ECTAB PO SCH (07:30)
[2021-06-25] MEDS: CALCIUM 600MG + VIT D 400 IU TAB PO SCH (07:30)
[2021-06-25] MEDS: CITALOPRAM 20 MG TAB PO SCH (07:30)
[2021-06-25] MEDS: PANTOprazole 40 MG TAB PO SCH (07:30)
[2021-06-25] MEDS: CEROVITE ADV FORMULA TAB PO SCH (07:30)
[2021-06-25] MEDS: MAGNESIUM CHLORIDE 64MG DELAYED REL TAB PO SCH (07:31)
[2021-06-25] MEDS: HEPARIN SOD 5,000 UNIT/0.5 ML VIAL SQ SCH (07:31)
[2021-06-25] MEDS: INSULIN ASPART 100 UNITS/ML 3 ML PEN SC SCH ×2 (08:45→12:42)
[2021-06-25] MEDS: ACETAMINOPHEN 325 MG TAB PO PRN (11:06)
--- NOTE | 2021-06-25 13:02 | Hospitalist Progress Note ---
Date of Service June 25, 2021 Assessment & Plan (1) Acute hypotension: Plan: per Dr. Galdamez' notes: Has been complaining of lightheadedness and noted to be hypotensive by the EMS Blood pressure was maintaining the emergency room following fluid administration. HELD chlorthalidone. 06/25 BP good off Chlorthalidone continue to monitor BP daily PT/OT (2) Generalized weakness: Plan: per Dr. Galdamez' notes: Likely secondary to dehydration Has not been eating or drinking enough for the last few days Ports his appetite is improving. However he has lost 40 pounds over the last few months. Reports he was depressed. -- ff up with PCP (3) Atrial fibrillation: Plan: Rate is controlled Not on any anticoagulation Continue beta-isabel, Digoxin Sinus pause 3.1-second at 8 AM on 06/22 Likely contributed by low potassium and magnesium asymptomatic (4) Type 2 diabetes mellitus: Plan: on Metformin (5) Hypertension: Plan: d/c chlorthalidone monitor BP daily (6) Hyperlipidemia: Plan: Continue statin (7) Anxiety disorder: Plan: Has been having more depressive thoughts Dr. Mcclendon- Psychiatrist- consulted, recommended: "He would be more interested in a trial of low dose trazodone rather than any increase in Celexa. Discussed avoiding benzos due to fall risk. Reviewed with patient that Remeron may be more likely than Celexa to improve sleep and appetite." continue Celexa for now ff up with PCP closely DVT prophylaxis Subcu heparin given CODE STATUS DNR/DNI Disposition d/c to [facility] ff up with PCP in 1 [address] [facility] Admission and Anticipated Discharge Date Admission Date: June 20, 2021 Subjective ff up for weakness, etc seen resting in bed, comfortable in good spirits alert, oriented x 3 states he feels much better overall no weakness, dizziness no chest pain, dyspnea, palpitations no abdominal pain ,nausea/vomiting no other symptoms states he is ready and would like to be discharged today Review of Systems Review of Systems: all noted and negative except for above Physical Exam Physical Exam: General- oriented x 3, not in distress, speaks in sentences with no effort or accessory muscle use Head- atraumatic Eyes- PERRL, EOMI, anicteric ENT- oropharynx clear Neck- supple, no JVD, no adenopathy, no thyromegaly; carotids +2/2, no bruits appreciated Lungs- clear to auscultation bilaterally, no rales/wheezes Heart- normal rate, regular rhythm; no murmur, no gallop, no rub appreciated Abdomen- normal bowel sounds, nondistended, soft, nontender, no masses or he patosplenomegaly Extremities- no pretibial edema, no calf tenderness; peripheral pulses intact Neuro- alert, oriented x 3; CN 2-12 grossly intact; motor 5/5 bilaterally;sensation 100% on all extremities; no other gross focal neurologic deficits Skin- warm & dry Results & Data Results & Data ([facility]) Vital Signs (Past 12 Hours) Vital Signs Temp Pulse Resp BP Pulse Ox 06/25/21 11:30 36.5 C 59 L 18 112/60 94 06/25/21 07:34 36.7 C 80 18 143/77 H 97 06/25/21 03:06 36.7 C 71 18 145/75 H 96 all noted and reviewed including below
--- NOTE | 2021-06-25 13:09 | Discharge Summary ---
Date of Service June 25, 2021 Admission HPI Per Admitting Provider Is an 86-year-old male with significant past medical history of diabetes type 2, hyperlipidemia, hypertension, BPH and anxiety disorder has been complaining of generalized weakness with hypotension and presyncope for the last few days. He lives with his who is demented and cannot take care of him. He has not been eating or drinking enough for the last few days and has been getting generally weak and lethargic. He was noted to be hypotensive by the EMS with postural symptoms. He has not had any loss of consciousness or significant fall. He feels that he is going to pass out. Denies any fever and/or chills. Denies any problem with urine and bowel habit. No numbness and or tingling in the extremities. No headache and no blurred vision. No weakness involving any side of the body Admission Exam (Per Admitting) Constitutional Physical Exam: Lying in bed comfortably Constitutional: well developed and well nourished; not ill appearing Eyes: PERRL, conjunctivae normal, anicteric sclerae ENMT: external ear and nose normal, oropharynx normal Neck: trachea midline, no thyromegaly Respiratory: no respiratory distress and no cough Auscultation: lungs clear to auscultation bilaterally and + diminished lung sounds Cardiovascular: Rate/Rhythm: not irregularly irregular Heart Sounds: normal S1 and normal S2; no murmur Extremities: no edema Gastrointestinal (Abdomen): Inspection/Auscultation: abdomen not distended Musculoskeletal: No acute arthritis in any joint Neurologic: Alert, awake and oriented x3 Discharge Data Consultations 06/20/21 18:32 ED Decision to Admit Stat 06/21/21 07:43 Consult Psychiatry Routine Hospital Course (1) Acute hypotension: per Dr. Galdamez' notes: Has been complaining of lightheadedness and noted to be hypotensive by the EMS Blood pressure was maintaining the emergency room following fluid administration. HELD chlorthalidone. 06/25 BP good off Chlorthalidone, decreased dose of Metoprolol continue to monitor BP daily PT/OT (2) Generalized weakness: per Dr. Galdamez' notes: Likely secondary to dehydration Has not been eating or drinking enough for the last few days Ports his appetite is improving. However he has lost 40 pounds over the last few months. Reports he was depressed. -- ff up with PCP (3) Atrial fibrillation: Rate is controlled Not on any anticoagulation Metoprolol reduced from 50 to 25mg BID to prevent hypotension, monitor continue usual Digoxin Sinus pause 3.1-second at 8 AM on 06/22 Likely contributed by low potassium and magnesium asymptomatic (4) Type 2 diabetes mellitus: on Metformin (5) Hypertension: d/c chlorthalidone monitor BP daily (6) Hyperlipidemia: Continue statin (7) Anxiety disorder: Has been having more depressive thoughts Dr. Mcclendon- Psychiatrist- consulted, recommended: "He would be more interested in a trial of low dose trazodone rather than any increase in Celexa. Discussed avoiding benzos due to fall risk. Reviewed with patient that Remeron may be more likely than Celexa to improve sleep and appetite." continue Celexa for now ff up with PCP closely DVT prophylaxis Subcu heparin given CODE STATUS DNR/DNI Disposition d/c to [facility] ff up with PCP in 1 week after discharge from [facility] plan of care discussed with patient in detail and at length all questions answered he is understanding, agreeable, comfortable with the plan of care
== END 2021-06-25 14:05 | DRG 640 ==
LOC: ED 14:54 → SUATTDRO 19:03 → 2N 19:03

== ENCOUNTER 2022-10-17 00:06 | Inpatient (IN) ==
--- NOTE | 2022-10-17 00:27 | Emergency Department Note ---
Impression & Plan Cough, Acute UTI (urinary tract infection), URI (upper respiratory infection), Nausea & vomiting ED Provider Note ED Provider Note NAME: CHRISTIANE MENDIETA Sr AGE:87 SEX: Male : 1935 ARRIVES VIA: ems INFORMANT: Patient ED PROVIDER(s): Michelle Ardon DO CHIEF COMPLAINT: Cough, runny nose, concern for pneumonia HPI: This is an 87-year-old male presents emergency department via EMS due to concern for cough, sore throat, runny nose, possible pneumonia. Patient states symptoms began several days ago. Patient is a difficult historian. He denies chest pain or shortness of breath, denies fevers or chills. Patient states he is around a lot of people but does not know if anyone was overtly ill. He denies abdominal pain, change in urine or stools, stating he is frequently constipated but this is not new. Patient states he does often have difficulty walking and has had increased weakness. He states several weeks ago he did fall twice and even lost a tooth in the process. He states he has not had any more recent falls and is using his walker. PAST MEDICAL HISTORY:See Below PAST SURGICAL HISTORY:See Below FAMILY HISTORY:See Below SOCIAL HISTORY:See Below HOME MEDICATIONS:See Below ALLERGIES:See Below VITALS:See Below PHYSICAL EXAMINATION: GENERAL: alert, well appearing, well nourished, no distress, non-toxic EYE EXAM: normal conjunctiva, PERRL and EOM's grossly intact OROPHARYNX: no exudate, no erythema, lips, buccal mucosa, and tongue normal and mucous membranes are moist NECK: supple, no nuchal rigidity, no adenopathy, non-tender LUNGS: Clear to auscultation. Normal chest wall mechanics, no w/r/r HEART: no murmurs, S1 normal and S2 normal ABDOMEN: abdomen soft, non-tender, normo-active bowel sounds, no masses, no rebound or guarding. BACK: Back is symmetrical on inspection and there is no deformity, no midline tenderness, no CVA tenderness. SKIN: no rashes, petechiae, orbruising UPPER EXTREMITIES: upper extremities are grossly normal. FROM, nml pulses b/l. LOWER EXTREMITIES: No pitting edema. FROM, nml pulses b/l. NEURO EXAM: Normal sensorium, cranial nerves II-XII grossly intact, normal speech, no facial droop,nogross weakness of arms, no gross weakness of legs. Gross sensation intact. No ataxia. Vital Signs: reviewed and remarkable Differential Diagnosis: Pneumonia, CHF, pleural effusion, viral infection, pericardial effusion, ACS, as well as others were considered MEDICAL DECISION MAKING: This is an 87-year-old male brought in by EMS due to concern for weakness. Patient complains more regarding cough and URI symptoms. Labs drawn and sent, IV established, patient placed on telemetry, EKG obtained and interpreted by me, chest x-ray performed. Patient was afebrile and hemodynamically stable. Bio fire nasal swab was positive and likely the cause of his cough and URI symptoms. Patient also appeared to have a urinary tract infection and after review of EMR, was started on IV antibiotics given prior culture results. I suspect this may have been contributing to the patient's weakness is noticed by staff at [facility]. Patient remained hemodynamically stable throughout, he was started on gentle IV fluid rehydration. Patient began having nausea or vomiting, and following the vomiting then noted some mild generalized abdominal pain. Due to advanced age and comorbidities, patient sent back for additional CT of the abdomen and pelvis as a precaution. Patient given several medications for nausea. CT results were still pending at time of discussion with hospitalist for additional evaluation and management. Patient was updated on the results and verbalized understanding. Consultation(s): 0620: Discussed with Dr. Sanchez. ER Treatment Provided: See below 0535: Pt got up to ambulate and then had n/v and c/o of abdominal pain. Diagnostics Interpreted By Me: -ECG: Atrial fibrillation at a rate of 70, right bundle branch block, normal QTC, normal axis, nonspecific ST/T wave change -Cardiac Monitoring: An order was placed for continuous cardiac monitoring. The monitor shows a rate of 73 with atrial fibrillation rhythm. -Laboratory studies: As stated above and show below. -Imaging studies: Chest x-ray Triage Nursing Note Reviewed Prior/Outside Records Reviewed Procedures: [] Critical Care: [] Past Med/Surg History Medical History Anxiety disorder Atrial fibrillation Cellulitis of arm, right Depressive disorder Hematochezia Hyperlipidemia Hypertension Sepsis Type 2 diabetes mellitus Family History Other Cerebral palsy Social History Smoking Status: Former smoker Tobacco Type: Cigarettes Hx Alcohol Use: No Hx Substance Use: No Preferred Language: Hungarian Communication Ability: Effective Multi Punch Operator Required: No Beliefs That Will Affect Care: Caodaism marital status: Current Living Situation: Personal Care Facility Current Living Situation Comment: Lives in house with and son. Son is complete care. has dementia Other Information That Helps Us Care for You: No Feels Safe at Home: Yes Safety Concerns: Feels Safe At This Time Assistive Devices: Denture - Upper, Denture - Lower, Glasses and Walker Allergies Allergies Allergy/AdvReac Type Severity Reaction Status Date / Time venom-wasp Allergy Severe Yellow Verified 10/17/22 00:17 jacket - severe swelling of extremities bee pollen Allergy Unknown ON [facility] Verified 10/17/22 00:17 MED LIST codeine Allergy Unknown ON [facility] Verified 10/17/22 00:17 MED LIST Home Meds Home Medications Medication Instructions Recorded Confirmed citalopram 20 mg tablet 20 mg PO DAILY 03/23/21 10/17/22 metformin 500 mg tablet 500 mg PO BIDWMEAL 03/23/21 10/17/22 simvastatin 10 mg tablet 10 mg PO HS 03/23/21 10/17/22 tamsulosin 0.4 mg capsule 0.4 mg PO DAILY 03/23/21 10/17/22 aspirin 81 mg tablet,delayed 81 mg PO DAILY 06/20/21 10/17/22 release lorazepam 0.5 mg tablet 0.5 mg PO Q12H PRN Anxiety 06/20/21 10/17/22 digoxin 125 mcg (0.125 mg) tablet 125 mcg PO QAM 02/06/22 10/17/22 (Digitek) docusate sodium 100 mg capsule 100 mg PO BID PRN Constipation 02/06/22 10/17/22 ibuprofen 600 mg tablet 600 mg PO TID PRN Pain 02/06/22 10/17/22 metoprolol tartrate 50 mg tablet 50 mg PO BID 02/06/22 10/17/22 hrqcvxsm-pzy-tjqel acid 300 1 tab PO DAILY 02/06/22 10/17/22 mcg-lycopene 600 mcg-lutein 300 mcg tablet (Centrum Silver Men) citalopram 10 mg tablet 10 mg PO DAILY 10/17/22 10/17/22 donepezil 5 mg tablet 5 mg PO HS 10/17/22 10/17/22 finasteride 5 mg tablet 5 mg PO DAILY 10/17/22 10/17/22 peg 400-propylene glycol (PF) 0.4 2 drp ophthalmic (eye) BID 10/17/22 10/17/22 %-0.3 % eye drops in a dropperette (Systane (PF)) Previous Rx's Medication Instructions Recorded magnesium chloride 64 mg 64 mg PO BID #30 tabs 04/10/21 (magnesium chloride) tablet,delayed release (Mag 64) Results & Data (ED) Vital Signs Vital Signs - 24 hr 10/17/22 00:16 10/17/22 02:13 10/17/22 04:00 Temperature 36.6 C Temperature Source Oral Pulse Rate 62 Pulse Rate [Radial] 61 64 Pulse Rhythm Regular Pulse Strength Normal Respiratory Rate 17 17 17 Respiratory Effort / Characteristics Non-Labored Spontaneous Non-Labored Non-Labored Respiratory Depth Normal Normal Normal Respiratory Pattern Regular Regular Regular Blood Pressure 184/102 H Blood Pressure [Right Arm] 177/90 H 177/94 H Blood Pressure Mean 129 Blood Pressure Mean [Right Arm] 119 121 Blood Pressure Position Lying Pulse Oximetry 95 98 97 Oxygen Delivery Method Room Air Room Air Room Air Sepsis Recent Fever Within 48 Hours No Sepsis New/Unexplained Change in Mental Status N/A Sepsis Action Taken by Nursing No Action Required Laboratory Data 10/17/22 00:26 10/17/22 00:26 Lab Results 10/17/22 10/17/22 10/17/22 Range/Units 00:21 00:26 00:26 WBC 8.91 (4.8-10.8) K/ul RBC 3.96 L (4.70-6.10) M/uL Hgb 12.7 L (14.0-18.0) g/dl Hct 38.6 L (42.0-52.0) % MCV 97.5 (80.0-100.0) fL MCH 32.1 (25.0-34.0) pg MCHC 32.9 (32.0-36.0) g/dL RDW Std Deviation 45.1 (36.4-46.3) fL RDW Coeff of Néstor 12.5 (11.5-14.5) % Plt Count 135 (130-400) K/uL MPV 9.4 (9.4-12.4) fL Immature Gran % (Auto) 0.2 % Neut % (Auto) 73.3 % Lymph % (Auto) 16.2 % Sterling % (Auto) 9.0 % Eos % (Auto) 0.9 % Baso % (Auto) 0.4 % Neut # (Auto) 6.53 H (1.40-6.50) K/uL Lymph # (Auto) 1.44 (1.2-3.4) K/uL Sterling # (Auto) 0.80 H (0.11-0.59) K/uL Eos # (Auto) 0.08 (0-0.50) K/uL Baso # (Auto) 0.04 (0-0.2) K/uL Immature Gran # (Auto) 0.02 (0.01-0.20) K/uL Platelet Estimate Normal (Normal) Sodium 139 (136-145) mmol/L Potassium 3.8 (3.5-5.1) mmol/L Chloride 102 (98-107) mmol/L Carbon Dioxide 32 (21-32) mmol/L Anion Gap 5 (3-11) BUN 21 (6-23) mg/dl Creatinine 0.91 (0.6-1.4) mg/dl Est Cr Clr Drug Dosing 56.4 ml/min Est GFR ( Amer) 86.3 ml/min Est GFR (Non-Af Amer) 74.5 ml/min BUN/Creatinine Ratio 23.1 H (10-20) Glucose 115 H (70-99(Fasting)) mg/dl Calcium 9.2 (8.5-10.1) mg/dl Magnesium 1.6 L (1.7-2.4) mg/dl Total Bilirubin 0.5 (0.2-1.0) mg/dl AST 16 (13-39) U/L ALT 12 (7-52) U/L Alkaline Phosphatase 49 (34-104) U/L Troponin I High Sens 13.8 (0-20) pg/ml Total Protein 6.4 (6.0-8.3) gm/dl Albumin 3.6 (3.4-5.0) gm/dl Globulin 2.8 (2.5-4.0) gm/dl Albumin/Globulin Ratio 1.3 (0.9-2) Urine Color Urine Appearance (Clear) Urine pH (4.5-7.5) Ur Specific [place] (1.000-1.030) Urine Protein (Negative) Urine Glucose (UA) (Negative) Urine Ketones (Negative) Urine Blood (Negative) Urine Nitrite (Negative) Urine Bilirubin (Negative) Urine Urobilinogen (Negative) Ur Leukocyte Esterase (Negative) Urine WBC (Auto) (0-5) /hpf Urine RBC (Auto) (0-4) /hpf U Hyaline Cast (Auto) (0-5) /lpf U Epithel Cells (Auto) (0-5) /lpf Urine Bacteria (Auto) (Negative) Adenovirus (PCR) Not Detected (NotDetected) B. pertussis DNA (PCR) Not Detected (NotDetected) B.parapertussis DNA PCR Not Detected (NotDetected) C. pneumoniae DNA (PCR) Not Detected (NotDetected) Coronavirus OC43 (PCR) Not Detected (NotDetected) Coronavirus HKU1 (PCR) Not Detected (NotDetected) Coronavirus 229E (PCR) Not Detected (NotDetected) SARS-CoV-2 (PCR) Not Detected (NotDetected) Coronavirus NL63 (PCR) Not Detected (NotDetected) Human Metapneumovir PCR Not Detected (NotDetected) Influenza Type A (PCR) Not Detected (NotDetected) Influenza Type B (PCR) Not Detected (NotDetected) M. pneumoniae (PCR) Not Detected (NotDetected) Parainfluenza 1 (PCR) Not Detected (NotDetected) Parainfluenza 2 (PCR) Not Detected (NotDetected) Parainfluenza 3 (PCR) Not Detected (NotDetected) Parainfluenza 4 (PCR) Not Detected (NotDetected) RSV (PCR) Not Detected (NotDetected) Entero/Rhino (PCR) DETECTED A* (NotDetected) 10/17/22 Range/Units 01:41 WBC (4.8-10.8) K/ul RBC (4.70-6.10) M/uL Hgb (14.0-18.0) g/dl Hct (42.0-52.0) % MCV (80.0-100.0) fL MCH (25.0-34.0) pg MCHC (32.0-36.0) g/dL RDW Std Deviation (36.4-46.3) fL RDW Coeff of Néstor (11.5-14.5) % Plt Count (130-400) K/uL MPV (9.4-12.4) fL Immature Gran % (Auto) % Neut % (Auto) % Lymph % (Auto) % Sterling % (Auto) % Eos % (Auto) % Baso % (Auto) % Neut # (Auto) (1.40-6.50) K/uL Lymph # (Auto) (1.2-3.4) K/uL Sterling # (Auto) (0.11-0.59) K/uL Eos # (Auto) (0-0.50) K/uL Baso # (Auto) (0-0.2) K/uL Immature Gran # (Auto) (0.01-0.20) K/uL Platelet Estimate (Normal) Sodium (136-145) mmol/L Potassium (3.5-5.1) mmol/L Chloride (98-107) mmol/L Carbon Dioxide (21-32) mmol/L Anion Gap (3-11) BUN (6-23) mg/dl Creatinine (0.6-1.4) mg/dl Est Cr Clr Drug Dosing ml/min Est GFR ( Amer) ml/min Est GFR (Non-Af Amer) ml/min BUN/Creatinine Ratio (10-20) Glucose (70-99(Fasting)) mg/dl Calcium (8.5-10.1) mg/dl Magnesium (1.7-2.4) mg/dl Total Bilirubin (0.2-1.0) mg/dl AST (13-39) U/L ALT (7-52) U/L Alkaline Phosphatase (34-104) U/L Troponin I High Sens (0-20) pg/ml Total Protein (6.0-8.3) gm/dl Albumin (3.4-5.0) gm/dl Globulin (2.5-4.0) gm/dl Albumin/Globulin Ratio (0.9-2) Urine Color Yellow Urine Appearance Cloudy A (Clear) Urine pH 7.5 (4.5-7.5) Ur Specific [place] 1.012 (1.000-1.030) Urine Protein 2+ H (Negative) Urine Glucose (UA) Negative (Negative) Urine Ketones Trace H (Negative) Urine Blood 1+ H (Negative) Urine Nitrite Negative (Negative) Urine Bilirubin Negative (Negative) Urine Urobilinogen Negative (Negative) Ur Leukocyte Esterase 1+ H (Negative) Urine WBC (Auto) >30 H (0-5) /hpf Urine RBC (Auto) 10-30 H (0-4) /hpf U Hyaline Cast (Auto) 1-5 (0-5) /lpf U Epithel Cells (Auto) 0-5 (0-5) /lpf Urine Bacteria (Auto) 1+ H (Negative) Adenovirus (PCR) (NotDetected) B. pertussis DNA (PCR) (NotDetected) B.parapertussis DNA PCR (NotDetected) C. pneumoniae DNA (PCR) (NotDetected) Coronavirus OC43 (PCR) (NotDetected) Coronavirus HKU1 (PCR) (NotDetected) Coronavirus 229E (PCR) (NotDetected) SARS-CoV-2 (PCR) (NotDetected) Coronavirus NL63 (PCR) (NotDetected) Human Metapneumovir PCR (NotDetected) Influenza Type A (PCR) (NotDetected) Influenza Type B (PCR) (NotDetected) M. pneumoniae (PCR) (NotDetected) Parainfluenza 1 (PCR) (NotDetected) Parainfluenza 2 (PCR) (NotDetected) Parainfluenza 3 (PCR) (NotDetected) Parainfluenza 4 (PCR) (NotDetected) RSV (PCR) (NotDetected) Entero/Rhino (PCR) (NotDetected) Administered Medications Artificial Tears (Artificial Tears) 2 drops OP BID [facility] Stop: 11/16/22 09:59 Last Admin: 10/17/22 20:05 Dose: 2 drops Documented By: Admin: 10/17/22 12:07 Dose: 2 drops Documented By: DLS Aspirin (Aspirin 81 Mg Ectab) 81 mg PO DAILY [facility] Stop: 11/16/22 09:12 Last Admin: 10/17/22 11:56 Dose: 81 mg Documented By: ALIX Citalopram Hydrobromide (Citalopram 20 Mg Tab) 30 mg PO DAILY [facility] Stop: 11/16/22 09:12 Last Admin: 10/17/22 11:56 Dose: 30 mg Documented By: ALIX Digoxin (Digoxin 0.125 Mg Tab) 0.125 mg PO QAM [facility] Stop: 11/16/22 09:12 Last Admin: 10/17/22 11:57 Dose: 0.125 mg Documented By: ALIX Donepezil HCl (Donepezil Hcl 5 Mg Tab) 5 mg PO HS [facility] Stop: 11/16/22 20:59 Last Admin: 10/17/22 20:05 Dose: 5 mg Documented By: MADALYN Finasteride (Finasteride 5 Mg Tab) 5 mg PO DAILY [facility] Stop: 11/16/22 09:12 Last Admin: 10/17/22 11:57 Dose: 5 mg Documented By: ALIX Heparin Sodium (Porcine) (Heparin Sod 5,000 Unit/0.5 Ml Vial) 5,000 units SQ Q12 [facility] Stop: 11/16/22 09:12 Last Admin: 10/17/22 20:05 Dose: 5,000 units Documented By: Admin: 10/17/22 12:04 Dose: 5,000 units Documented By: ALIX Ampicillin Sodium/Sulbactam Sodium 3,000 mg/ Sodium Chloride 108 mls @ 200 mls/ hr IV Q6H [facility]; Protocol Stop: 10/27/22 09:59 Last Infusion: 10/18/22 04:03 Dose: 0 mls/hr Documented By: Admin: 10/18/22 03:21 Dose: 200 mls/hr Documented By: Infusion: 10/17/22 23:02 Dose: 0 mls/hr Documented By: Admin: 10/17/22 22:21 Dose: 200 mls/hr Documented By: Infusion: 10/17/22 17:36 Dose: 0 mls/hr Documented By: Admin: 10/17/22 16:35 Dose: 200 mls/hr Documented By: Infusion: 10/17/22 12:10 Dose: 0 mls/hr Documented By: Admin: 10/17/22 10:59 Dose: 200 mls/hr Documented By: ALIX Insulin Aspart (Insulin Aspart Per Unit) 0 units SC ACHS [facility] Stop: 11/16/22 11:29 Last Admin: 10/17/22 22:08 Dose: Not Given Documented By: MADALYN Co-signed By: WES Admin: 10/17/22 17:52 Dose: Not Given Documented By: Admin: 10/17/22 13:09 Dose: Not Given Documented By: ALIX Magnesium Chloride (Magnesium Chloride W/Calcium 64mg Delayed Rel Tab) 64 mg PO BID [facility] Stop: 11/16/22 09:12 Last Admin: 10/17/22 20:07 Dose: 64 mg Documented By: Admin: 10/17/22 11:57 Dose: 64 mg Documented By: ALIX Metoprolol Tartrate (Metoprolol Tartrate 50 Mg Tab) 50 mg PO BID [facility] Stop: 11/16/22 09:12 Last Admin: 10/17/22 20:06 Dose: 50 mg Documented By: Admin: 10/17/22 11:57 Dose: 50 mg Documented By: ALIX Multivitamins/Minerals (Cerovite Adv Formula Tab) 1 tab PO DAILY [facility] Stop: 11/16/22 09:12 Last Admin: 10/17/22 11:57 Dose: 1 tab Documented By: ALIX Ondansetron HCl (Ondansetron Inj 2 Mg/Ml 2 Ml Vial) 4 mg IV Q6H PRN PRN Reason: Nausea Stop: 11/16/22 09:12 Last Admin: 10/17/22 22:31 Dose: 4 mg Documented By: Admin: 10/17/22 10:46 Dose: 4 mg Documented By: ALIX Simvastatin (Simvastatin 10 Mg Tab) 10 mg PO HS [facility] Stop: 11/16/22 20:59 Last Admin: 10/17/22 20:06 Dose: 10 mg Documented By: MADALYN Tamsulosin HCl (Tamsulosin Hcl 0.4 Mg Cap) 0.4 mg PO DAILY [facility] Stop: 11/16/22 09:12 Last Admin: 10/17/22 11:57 Dose: 0.4 mg Documented By: ALIX Discontinued Medications Magnesium Sulfate/Dextrose (Magnesium Sulfate / D5w) 1 gm in 100 mls @ 100 mls/hr IV NOW STA Stop: 10/17/22 02:06 Last Infusion: 10/17/22 02:28 Dose: 0 mls/hr Documented By: Admin: 10/17/22 01:28 Dose: 100 mls/hr Documented By: ABE Levofloxacin/Dextrose (Levaquin/D5w) 750 mg in 150 mls @ 100 mls/hr IV NOW STA Stop: 10/17/22 04:53 Last Infusion: 10/17/22 05:38 Dose: 0 mls/hr Documented By: Admin: 10/17/22 03:37 Dose: 100 mls/hr Documented By: ABE Prochlorperazine (Compazine) 1 mls @ 1 mls/min IV ONE ONE Stop: 10/17/22 06:23 Last Admin: 10/17/22 06:33 Dose: 1 mls/min Documented By: ABE Sodium Chloride (Nss 1000ml) 1,000 mls @ 125 mls/hr IV .Q8H [facility] Stop: 11/16/22 07:29 Last Admin: 10/17/22 19:15 Dose: Not Given Documented By: MADALYN Sodium Chloride (Nss 1000ml) 1,000 mls @ 75 mls/hr IV .[id number] [facility] Stop: 10/17/22 22:32 Last Infusion: 10/17/22 16:29 Dose: 0 mls/hr Documented By: Admin: 10/17/22 10:54 Dose: 75 mls/hr Documented By: ALIX Lactated Ringer's (Lr) 1,000 mls @ 80 mls/hr IV .[id number] [facility] Stop: 10/18/22 06:00 Last Infusion: 10/18/22 06:26 Dose: 0 mls/hr Documented By: Admin: 10/18/22 05:45 Dose: 80 mls/hr Documented By: Infusion: 10/18/22 05:36 Dose: 80 mls/hr Documented By: Infusion: 10/18/22 04:03 Dose: 80 mls/hr Documented By: Infusion: 10/18/22 03:20 Dose: 0 mls/hr Documented By: Infusion: 10/17/22 23:02 Dose: 80 mls/hr Documented By: Infusion: 10/17/22 22:21 Dose: 0 mls/hr Documented By: Admin: 10/17/22 15:41 Dose: 80 mls/hr Documented By: ALIX Ioversol (Optiray 350 100ml) 86 ml IV ONCE ONE Stop: 10/17/22 06:26 Last Admin: 10/17/22 06:26 Dose: 86 ml Documented By: SERGIO Ondansetron HCl (Ondansetron Inj 2 Mg/Ml 2 Ml Vial) Confirm Administered Dose 4 mg .ROUTE .STK-MED ONE Stop: 10/17/22 05:32 Last Admin: 10/17/22 05:38 Dose: 4 mg Documented By: ABE Imaging Data Radiologist's Impression: Chest X-Ray 10/17/22 00:22 SINGLE VIEW CHEST CLINICAL HISTORY: Cough FINDINGS: 2 AP, portable, upright chest radiographs are compared to study dated 09/22/2022. The examination is degraded by portable technique and patient rotation. The cardiomediastinal silhouette is top normal for projection noting atherosclerotic calcification of the thoracic aorta. Chronic interstitial thi ckening is similar to previous. The lungs and pleural spaces are clear noting bibasilar scarring/atelectasis. No pneumothorax is seen. The skeletal structures are osteopenic. The bony thorax is grossly intact. IMPRESSION: No acute cardiopulmonary abnormality. ACT 112: Negative or not required by law. Electronically signed by: Selwyn Diez M.D. 10/17/2022 1:01 AM Discharge Plan Visit Data Chief Complaint: Weakness Stated Complaint: WEAKNESS/NAUSEA ED Provider: Michelle Ardon Discharge Problem: Cough, Acute UTI (urinary tract infection), URI (upper respiratory infection), Nausea & vomiting Patient Disposition: Admitted As Inpatient Discharge Instructions Interventions: ED Discharge Assessment Last Done: 10/17/22 08:55
[2022-10-17 01:02] LABS: Albumin Level 3.6 gm/dl (3.4-5.0); Bilirubin,Total 0.5 mg/dl (0.2-1.0); Calcium 9.2 mg/dl (8.5-10.1); Magnesium 1.6 mg/dl (1.7-2.4); Potassium 3.8 mmol/L (3.5-5.1)
--- NOTE | 2022-10-17 01:04 | XRay Report ---
SINGLE VIEW CHEST CLINICAL HISTORY: Cough FINDINGS: 2 AP, portable, upright chest radiographs are compared to study dated 09/22/2022. The examin ation is degraded by portable technique and patient rotation. The cardiomediastinal silhouette is to p normal for projection noting atherosclerotic calcification of the thoracic aorta. Chronic interstit ial thickening is similar to previous. The lungs and pleural spaces are clear noting bibasilar scarri ng/atelectasis. No pneumothorax is seen. The skeletal structures are osteopenic. The bony thorax is g rossly intact. IMPRESSION: No acute cardiopulmonary abnormality. ACT 112: Negative or not required by law. Electronically signed by: Selwyn Diez M.D. 10/17/2022 1:01 AM
[2022-10-17] MEDS ORDERED: MAGNESIUM SULFATE / D5W 1 GM/100 ML BAG IV STA (01:07)
[2022-10-17 01:08] LABS: Albumin Globulin Ratio 1.3 (0.9-2); BUN Creatinine Ratio 23.1 (10-20); Creatinine Clr Calc Pharmacy 56.4 ml/min; Est GFR (African American) 86.3 ml/min; Est GFR (Non-African American) 74.5 ml/min; Globulin 2.8 gm/dl (2.5-4.0); Total Protein 6.4 gm/dl (6.0-8.3)
[2022-10-17 01:09] LABS: Troponin I High Sensitivity 13.8 pg/ml (0-20)
[2022-10-17 01:13] LABS: Basophils # (auto) 0.04 K/uL (0-0.2); Basophils % (auto) 0.4 %; Eosinophils # (auto) 0.08 K/uL (0-0.50); Eosinophils % (auto) 0.9 %; Hematocrit (blood only) 38.6 % (42.0-52.0); Hemoglobin 12.7 g/dl (14.0-18.0); Immature Granulocytes # (auto) 0.02 K/uL (0.01-0.20); Immature Granulocytes % (auto) 0.2 %; Lymphocytes # (auto) 1.44 K/uL (1.2-3.4); Lymphocytes % (auto) 16.2 %; Mean Corpuscular Hemoglobin 32.1 pg (25.0-34.0); Mean Corpuscular Hgb Conc 32.9 g/dL (32.0-36.0); Mean Corpuscular Volume 97.5 fL (80.0-100.0); Mean Platelet Volume 9.4 fL (9.4-12.4); Neutrophils # (auto) 6.53 K/uL (1.40-6.50); Neutrophils % (auto) 73.3 %; Platelet Count 135 K/uL (130-400); Platelet Estimate Normal (Normal); RDW Coefficient of Variation 12.5 % (11.5-14.5); RDW Standard Deviation 45.1 fL (36.4-46.3); Red Blood Count 3.96 M/uL (4.70-6.10); White Blood Count 8.91 K/ul (4.8-10.8)
[2022-10-17 01:40] LABS: Adenovirus PCR Not Detected (NotDetected); Bordetella parapertussis PCR Not Detected (NotDetected); Bordetella pertussis PCR Not Detected (NotDetected); Chlamydia pneumoniae PCR Not Detected (NotDetected); Coronavirus 229E PCR Not Detected (NotDetected); Coronavirus CoV-2 (COVID19)PCR Not Detected (NotDetected); Coronavirus HKU1 PCR Not Detected (NotDetected); Coronavirus NL63 PCR Not Detected (NotDetected); Coronavirus OC43PCR Not Detected (NotDetected); Human Metapneumovirus PCR Not Detected (NotDetected); Influenza A PCR Not Detected (NotDetected); Influenza B PCR Not Detected (NotDetected); Mycoplasma pneumoniae PCR Not Detected (NotDetected); Parainfluenza Virus 1 PCR Not Detected (NotDetected); Parainfluenza Virus 2 PCR Not Detected (NotDetected); Parainfluenza Virus 3 PCR Not Detected (NotDetected); Parainfluenza Virus 4 PCR Not Detected (NotDetected); Respiratory Syncytial VirusPCR Not Detected (NotDetected)
[2022-10-17 01:46] LABS: Rhinovirus/Enterovirus PCR DETECTED (NotDetected)
[2022-10-17 02:21] LABS: Appearance Urine Cloudy (Clear); Bacteria Urine Automated 1+ (Negative); Bilirubin Urine Negative (Negative); Blood Urine 1+ (Negative); Color Urine Yellow; Epithelial Cell Urine Auto 0-5 /lpf (0-5); Glucose Urine UA Negative (Negative); Ketones Urine Trace (Negative); Leukocyte Esterase Urine 1+ (Negative); Nitrite Urine Negative (Negative); Specific Gravity Urine 1.012 (1.000-1.030); Urobilinogen Urine Negative (Negative); WBC Urine Automated >30 /hpf (0-5); pH Urine 7.5 (4.5-7.5)
[2022-10-17 03:03] LABS: Protein Urine 2+ (Negative)
[2022-10-17] MEDS ORDERED: levoFLOXacin/D5W 750 MG/150 ML BAG IV STA (03:24)
[2022-10-17] MEDS ORDERED: ONDANSETRON INJ 2 MG/ML 2 ML VIAL ONE (05:31)
[2022-10-17] MEDS ORDERED: PROCHLORPERAZINE 1 ML IV ONE (06:22)
[2022-10-17] MEDS ORDERED: OPTIRAY 350 100ml IV ONE (06:25)
[2022-10-17] MEDS ORDERED: SODIUM CHLORIDE 0.9% 1000ML 1,000 ML IV SCH ×2 (07:30→09:13)
--- NOTE | 2022-10-17 09:10 | History and Physical Report ---
DATE OF ADMISSION: 10/17/2022. CHIEF COMPLAINT: Weakness, cough. HISTORY OF PRESENT ILLNESS: This is an 87-year-old male with past medical history significant for type 2 diabetes, hyperlipidemia, hypertension, BPH, anxiety disorder, history of chronic atrial fibrillation, currently living at [facility] in [place], was brought in because of weakness and patient having cough, sore throat and runny nose, and for possible pneumonia . The patient's symptoms started several days ago. The patient is a poor historian. Currently, denies any chest pain or headache. States vision is okay. No earache. He states he has some runny nose and sore throat. Denies any chest pain or shortness of breath, no nausea, says he is somewhat constipated. He says he is micturating a lot. No swelling in the legs. He says he is weak and could not ambulate much today. I tried to call the [facility] and the nurse who sent the patient , left and could not get much history from the [facility] at this time. ALLERGIES: WASP VENOM, BEE POLLEN, CODEINE. PAST MEDICAL HISTORY: As mentioned above. PAST SURGICAL HISTORY: Colonoscopy, EGD, cataract surgery, inguinal hernia repair. MEDICATIONS: Aspirin 81 mg p.o. daily, citalopram 30 mg p.o. daily, digoxin 125 mcg p.o. a.m., Colace 100 mg p.o. b.i.d. p.r.n., donepezil 5 mg p.o. at bedtime, finasteride 5 mg p.o. daily, ibuprofen 600 mg p.o. t.i.d. p.r.n., lorazepam 0.5 mg p.o. b.i.d. p.r.n., mag 64 mg p.o. b.i.d., metformin 500 mg p.o. b.i.d., metoprolol tartrate 50 mg p.o. b.i.d., Centrum Silver 1 tablet p.o. daily, Systane 2 drops ophthalmic b.i.d., simvastatin 10 mg p.o. at bedtime, Flomax 0.4 mg p.o. daily. FAMILY HISTORY: Significant for mother has asthma. SOCIAL HISTORY: Currently living at [facility]. Former smoker, quit in 1981. No alcohol use. No drug use. REVIEW OF SYSTEMS: As per HPI. Could not get review of systems as patient is a poor historian. PHYSICAL EXAMINATION: GENERAL: The patient is alert and awake, oriented to name, place and time, somewhat slow to answer today's date, not in acute distress. VITAL SIGNS: Temperature 36.6, pulse 57, respiratory rate 20, blood pressure 133/96, oxygen 92% on room air. HEENT: Pupils equal, round and reactive to light. Oral mucosa moist. NECK: No JVD, no neck masses. CARDIOVASCULAR: S1 and S2 heard. Regular rate and rhythm. No murmur, no gallop. RESPIRATORY SYSTEM: Normal AP diameter. No accessory muscle use. No wheezing, no crackles. ABDOMEN: Soft, bowel sounds present, nontender, no distention. CENTRAL NERVOUS SYSTEM: Alert and oriented. Speech is clear, speaking somewhat slowly. No facial droop. Obeys simple commands. Moves extremities. EXTREMITIES: No edema or erythema seen. LABORATORY DATA: WBC is 8.9, hemoglobin 12.7, hematocrit 38.6, platelets 135. Sodium 139, potassium 3.8, chloride 102, bicarbonate 32, BUN 21, creatinine 0.9, serum glucose 115, calcium 9.2, magnesium 1.6, total bilirubin 0.5, AST 16, ALT 12, alkaline phosphatase 49. Troponin I high sensitivity 13.8. Urinalysis cloudy, +1 leukocyte esterase and +1 bacteria. Respiratory BioFire positive for entero-rhinovirus. IMAGING DATA: Chest x-ray, no acute findings. CT of abdomen and pelvis results are pending. EKG: Atrial fibrillation at a rate of 70, no significant change was found. ASSESSMENT AND PLAN: This is an 87-year-old male who comes from [facility] with weakness and some upper respiratory symptoms. 1. Upper respiratory symptoms, cough, runny nose, and sore throat. Positive for entero-rhinovirus. Isolation, droplet precautions. Gentle fluids for now of 1 liter. 2. Weakness, possibly from urinary tract infection and viral infection. PT, OT when stable. 3. Urinary tract infections. He has history of enterococcus faecalis on urine culture done on 09/27/2022. He was given Levaquin in the ER. We will continue with Unasyn. Follow the cultures.Follow ct abd/pelvis 4. History of anxiety disorder, on Celexa and Ativan p.r.n. 5. Type 2 diabetes. Holding metformin. Placed on insulin sliding scale. Follow the blood sugars. 6. History of hypertension. On metoprolol. 7. History of atrial fibrillation, on digoxin, metoprolol and aspirin. 8. Benign prostatic hypertrophy. On finasteride and Flomax. 9. Hyperlipidemia. On statin. 10. Deep venous thrombosis prophylaxis. Placed on heparin subcutaneous. DISPOSITION: Admit to medical floor. PT/OT prior to discharge. Social service to help with discharge planning. CODE STATUS: The patient want to be DNR/DNI, but when called the [facility] they said he is a full code. The patient is a poor historian. We will keep him full code for now. Need to clarify later. Job ID: [id number] MTDD
[2022-10-17] MEDS ORDERED: POLYETHYLENE (MIRALAX) 17 GM PACK PO PRN (09:13)
[2022-10-17] MEDS ORDERED: GLUCOSE 10 TAB/TUBE PO PRN (09:13)
[2022-10-17] MEDS ORDERED: DOCUSATE SODIUM 100 MG CAP PO PRN (09:13)
[2022-10-17] MEDS ORDERED: DEXTROSE 50% 50 ML SYRINGE IV PRN (09:13)
[2022-10-17] MEDS ORDERED: LORazepam 0.5 MG TAB PO PRN (09:13)
[2022-10-17] MEDS ORDERED: CITALOPRAM 20 MG TAB PO SCH (09:13)
[2022-10-17] MEDS ORDERED: CARBOHYDRATES FOR HYPOGLYCEMIA PO PRN (09:13)
[2022-10-17] MEDS ORDERED: GLUCAGON FOR INJ 1 MG VIAL SQ PRN (09:13)
[2022-10-17] MEDS ORDERED: GLUCOSE 40% GEL 15 GM TUBE PO PRN (09:13)
--- NOTE | 2022-10-17 09:15 | CT Scan Report ---
ABDOMEN AND PELVIS CT WITH IV CONTRAST CT DOSE: 314.93 mGy.cm HISTORY: Acute generalized abdominal pain with nausea and vomiting abd pain, n/v TECHNIQUE: Multiaxial CT images of the abdomen and pelvis were performed following the IV administrat ion of 86 cc of Optiray, A dose lowering technique was utilized adhering to the principles of ALARA. COMPARISON STUDY: CT abdomen pelvis 03/30/2021 FINDINGS: Cardiomegaly with coronary artery calcifications. Mild subsegmental bibasilar atelectasis. No pneumatosis or pneumoperitoneum. Unremarkable spleen. 1.7 cm cystic structure of the pancreatic ta il is measured 1.5 cm. Mild generalized pancreatic atrophy. Unremarkable adrenal glands, gallbladder and liver. The study is limited secondary to respiratory motion artifact. Patency of the hepatic and portal veins. Nonspecific bilateral perinephric stranding. There are a few cysts of the kidneys measuring up to 2 c m on the left at 2.1 cm on the right. No hydronephrosis. Prostamegaly. Urinary bladder wall thickenin g with partial distention and perivesicular stranding. Atherosclerosis of the aorta without aneurysm. Small fat filled left inguinal hernia. No adenopathy. Small hiatal hernia. No bowel obstruction or bowel wall thickening. Moderate cortical retention of th e rectum. Extensive colonic diverticulosis. Fluid-filled mildly dilated appendix redemonstrated measu ring 8 mm. No acute periappendiceal inflammation. Degenerative changes of the spine, pelvis and hips. Lumbar levoscoliosis. IMPRESSION: 1. No acute intra-abdominal or intrapelvic abnormality. 2. No bowel obstruction or bowel wall thickening. 3. Colonic diverticulosis. 4. Small hiatal hernia. 5. Fluid-filled mildly dilated appendix is similar to the 03/30/2021 study. No inflammatory changes to suggest acute appendicitis, however and underlying mucocele could have this appearance. 6. Urinary bladder wall thickening with partial distention. Correlate with urinalysis. ACT 112: Negative or not required by law. The above report was generated using voice recognition software. It may contain grammatical, syntax o r spelling errors. Electronically signed by: Trey Good M.D. 10/17/2022 9:13 AM
[2022-10-17] MEDS: ONDANSETRON INJ 2 MG/ML 2 ML VIAL IV PRN ×2 (10:46→22:31)
[2022-10-17] MEDS: AMPICILLIN/SULBACTAM SOD 3,000 MG in 0.9 % SODIUM CHLORIDE 100 ML IV SCH ×3 (10:59→22:21)
--- NOTE | 2022-10-17 11:48 | Communication Note ---
Date of Service: October 17, 2022 Patient seen and examined on medical floor. He is lying on the bed comfortably; not in any distress. He is alert, oriented to self and place. He is unsure why he is in the hospital. He denies any discomfort or pain. Respiratory viral panel is positive for rhinovirus; continue supportive care. Continue droplet precaution. Urinalysis shows greater than 30 WBC, 1+ leukocyte esterase, 1+ bacteria. Urine culture in the past showed Enterococcus faecalis. Continue Unasyn; we will follow-up on repeat urine culture. Daughter called; unable to get in touch with her.
[2022-10-17] MEDS: ASPIRIN 81 MG ECTAB PO SCH (11:56)
[2022-10-17] MEDS: CITALOPRAM 20 MG TAB PO SCH (11:56)
[2022-10-17] MEDS: TAMSULOSIN HCL 0.4 MG CAP PO SCH (11:57)
[2022-10-17] MEDS: METOPROLOL TARTRATE 50 MG TAB PO SCH ×2 (11:57→20:06)
[2022-10-17] MEDS: MAGNESIUM CHLORIDE W/CALCIUM 64MG DELAYED REL TAB PO SCH ×2 (11:57→20:07)
[2022-10-17] MEDS: DIGOXIN 0.125 MG TAB PO SCH (11:57)
[2022-10-17] MEDS: CEROVITE ADV FORMULA TAB PO SCH (11:57)
[2022-10-17] MEDS: FINASTERIDE 5 MG TAB PO SCH (11:57)
[2022-10-17] MEDS: HEPARIN SOD 5,000 UNIT/0.5 ML VIAL SQ SCH ×2 (12:04→20:05)
[2022-10-17] MEDS: ARTIFICIAL TEARS OP SCH ×2 (12:07→20:05)
[2022-10-17] MEDS: INSULIN ASPART PER UNIT SC SCH ×3 (13:09→22:08)
--- NOTE | 2022-10-17 13:14 | Electrocardiogram Report ---
Test Reason : Blood Pressure : / mmHG Vent. Rate : 070 BPM Atrial Rate : 234 BPM P-R Int : 000 ms QRS Dur : 130 ms QT Int : 414 ms P-R-T Axes : 000 047 -05 degrees QTc Int : 447 ms Atrial fibrillation Right bundle branch block Abnormal ECG When compared with ECG of 22-SEP-2022 10:15, No significant change was found Confirmed by Leonidas Lemus ([id number]) on 10/17/2022 1:14:43 PM Referred By: Rose Mckinley [place] Confirmed By:Leonidas Lemus
[2022-10-17] MEDS: LACTATED RINGER'S 1,000 ML IV SCH (15:41)
--- NOTE | 2022-10-17 17:05 | Communication Note ---
Date of Service: October 17, 2022 Provided medical updates to his Daughter ( Mikayla) over the phone. Answered questions/queries. Code status confirmed to be DNR/DNI.
[2022-10-17] MEDS: DONEPEZIL HCL 5 MG TAB PO SCH (20:05)
[2022-10-17] MEDS: SIMVASTATIN 10 MG TAB PO SCH (20:06)
[2022-10-18] MEDS: AMPICILLIN/SULBACTAM SOD 3,000 MG in 0.9 % SODIUM CHLORIDE 100 ML IV SCH ×4 (03:21→22:20)
[2022-10-18 05:44] LABS: Basophils # (auto) 0.03 K/uL (0-0.2); Basophils % (auto) 0.4 %; Eosinophils # (auto) 0.01 K/uL (0-0.50); Eosinophils % (auto) 0.1 %; Hematocrit (blood only) 35.5 % (42.0-52.0); Hemoglobin 11.9 g/dl (14.0-18.0); Immature Granulocytes # (auto) 0.03 K/uL (0.01-0.20); Immature Granulocytes % (auto) 0.4 %; Lymphocytes # (auto) 1.29 K/uL (1.2-3.4); Lymphocytes % (auto) 16.2 %; Mean Corpuscular Hemoglobin 32.3 pg (25.0-34.0); Mean Corpuscular Hgb Conc 33.5 g/dL (32.0-36.0); Mean Corpuscular Volume 96.5 fL (80.0-100.0); Mean Platelet Volume 9.5 fL (9.4-12.4); Monocytes # (auto) 0.89 K/uL (0.11-0.59); Monocytes % (auto) 11.2 %; Neutrophils # (auto) 5.69 K/uL (1.40-6.50); Neutrophils % (auto) 71.7 %; Platelet Count 102 K/uL (130-400); RDW Coefficient of Variation 12.7 % (11.5-14.5); RDW Standard Deviation 45.1 fL (36.4-46.3); Red Blood Count 3.68 M/uL (4.70-6.10); White Blood Count 7.94 K/ul (4.8-10.8)
[2022-10-18] MEDS: LACTATED RINGER'S 1,000 ML IV SCH (05:45)
[2022-10-18 06:04] LABS: BUN Creatinine Ratio 21.3 (10-20); Calcium 9.1 mg/dl (8.5-10.1); Creatinine Clr Calc Pharmacy 54.6 ml/min; Est GFR (Non-African American) 71.6 ml/min; Magnesium 1.8 mg/dl (1.7-2.4); Potassium 3.7 mmol/L (3.5-5.1)
[2022-10-18] MEDS: INSULIN ASPART PER UNIT SC SCH ×4 (08:58→22:30)
[2022-10-18] MEDS: ARTIFICIAL TEARS OP SCH ×2 (09:04→20:33)
[2022-10-18] MEDS: CEROVITE ADV FORMULA TAB PO SCH (09:05)
[2022-10-18] MEDS: CITALOPRAM 20 MG TAB PO SCH (09:05)
[2022-10-18] MEDS: DIGOXIN 0.125 MG TAB PO SCH (09:06)
[2022-10-18] MEDS: ASPIRIN 81 MG ECTAB PO SCH (09:06)
[2022-10-18] MEDS: FINASTERIDE 5 MG TAB PO SCH (09:08)
[2022-10-18] MEDS: TAMSULOSIN HCL 0.4 MG CAP PO SCH (09:08)
[2022-10-18] MEDS: MAGNESIUM CHLORIDE W/CALCIUM 64MG DELAYED REL TAB PO SCH ×2 (09:09→20:34)
[2022-10-18] MEDS: HEPARIN SOD 5,000 UNIT/0.5 ML VIAL SQ SCH ×2 (09:10→20:35)
[2022-10-18] MEDS: METOPROLOL TARTRATE 50 MG TAB PO SCH ×2 (09:10→20:34)
--- NOTE | 2022-10-18 12:00 | Hospitalist Progress Note ---
Date of Service October 18, 2022 Assessment & Plan (1) URI (upper respiratory infection): (2) Cough: (3) Acute UTI (urinary tract infection): (4) Generalized weakness: Plan: Patient presented from [facility] with weakness and upper respiratory tract symptoms including cough, sore throat and runny nose. Respiratory viral panel was positive for rhinovirus. Urinalysis is suggestive of infection. His last urine culture done in the ED in September 27 shows enterococcus faecalis Otherwise, no leukocytosis. Hemodynamically stable Chest x-ray done in admission did not show pneumonia. CT abdomen/pelvis did not show any acute intra abdominal abnormality. Urinary bladder thickening with partial distention was present. Mentation appears to be at baseline. Plan; Continue on ampicillin based on urine culture from last visit. Follow-up on repeat urine culture. PT OT evaluation. Chronic conditions; History of anxiety disorder, on Celexa and Ativan p.r.n. Type 2 diabetes. Holding metformin. Placed on insulin sliding scale. Follow the blood sugars. History of hypertension. On metoprolol. History of atrial fibrillation, on digoxin, metoprolol and aspirin. Benign prostatic hypertrophy. On finasteride and Flomax. Hyperlipidemia. On statin. DNR/DNI as per discussion with his daughter. DVT prophylaxis [facility]. PT OT consulted Admission and Anticipated Discharge Date Admission Date: October 17, 2022 Subjective Patient seen and examined at bedside. He is sitting up on the bed; not in any distress. He is oriented to self and place. Pleasantly demented. Review of Systems Review of Systems: All systems reviewed & are unremarkable except as noted in Subjective Physical Exam Physical Exam: Constitutional: Awake, alert oriented to self and place. Pleasantly demented. Respiratory: Bilateral clear breath sound. No added sound. Cardiovascular: RRR, no murmur, no edema Vessels: no JVD or carotid bruit Chest: normal inspection of chest Abdomen: normal bowel sounds, soft, nontender, no hepatosplenomegaly Musculoskeletal: no cyanosis or clubbing, extremities motor strength 5/5 Skin: no rashes, warm and dry normal turgor Neurologic: PERRL, EOMI, accommodation nl, no face palsy, no dysarthria CN's II- XI intact bilaterally and moves all extremities Psychiatric: A+Ox3, euthymic affect Lymphatic: no cervical or axillary lymphadenopathy : deferred Results & Data Results & Data ([facility]) Vital Signs (Past 12 Hours) Vital Signs Temp Pulse Pulse Resp BP Pulse Ox O2 Del Method 10/18/22 07:40 Room Air 10/18/22 09:06 83 10/18/22 07:15 36.3 C L 73 16 155/76 H 94 Room Air Laboratory Results Laboratory Results WBC 7.94 K/ul (4.8-10.8) 10/18/22 05:13 RBC 3.68 M/uL (4.70-6.10) L 10/18/22 05:13 Hgb 11.9 g/dl (14.0-18.0) L 10/18/22 05:13 Hct 35.5 % (42.0-52.0) L 10/18/22 05:13 MCV 96.5 fL (80.0-100.0) 10/18/22 05:13 MCH 32.3 pg (25.0-34.0) 10/18/22 05:13 MCHC 33.5 g/dL (32.0-36.0) 10/18/22 05:13 RDW Std Deviation 45.1 fL (36.4-46.3) 10/18/22 05:13 RDW Coeff of Néstor 12.7 % (11.5-14.5) 10/18/22 05:13 Plt Count 102 K/uL (130-400) L 10/18/22 05:13 MPV 9.5 fL (9.4-12.4) 10/18/22 05:13 Immature Gran % (Auto) 0.4 % 10/18/22 05:13 Neut % (Auto) 71.7 % 10/18/22 05:13 Lymph % (Auto) 16.2 % 10/18/22 05:13 [place] % (Auto) 11.2 % 10/18/22 05:13 Eos % (Auto) 0.1 % 10/18/22 05:13 Baso % (Auto) 0.4 % 10/18/22 05:13 Neut # (Auto) 5.69 K/uL (1.40-6.50) 10/18/22 05:13 Lymph # (Auto) 1.29 K/uL (1.2-3.4) 10/18/22 05:13 [place] # (Auto) 0.89 K/uL (0.11-0.59) H 10/18/22 05:13 Eos # (Auto) 0.01 K/uL (0-0.50) 10/18/22 05:13 Baso # (Auto) 0.03 K/uL (0-0.2) 10/18/22 05:13 Immature Gran # (Auto) 0.03 K/uL (0.01-0.20) 10/18/22 05:13 Platelet Estimate Normal (Normal) 10/17/22 00:26 Sodium 138 mmol/L (136-145) 10/18/22 05:13 Potassium 3.7 mmol/L (3.5-5.1) 10/18/22 05:13 Chloride 101 mmol/L (98-107) 10/18/22 05:13 Carbon Dioxide 32 mmol/L (21-32) 10/18/22 05:13 Anion Gap 5 (3-11) 10/18/22 05:13 BUN 20 mg/dl (6-23) 10/18/22 05:13 Creatinine 0.94 mg/dl (0.6-1.4) 10/18/22 05:13 Est Cr Clr Drug Dosing 54.6 ml/min 10/18/22 05:13 Est GFR ( Amer) 83.0 ml/min 10/18/22 05:13 Est GFR (Non-Af Amer) 71.6 ml/min 10/18/22 05:13 BUN/Creatinine Ratio 21.3 (10-20) H 10/18/22 05:13 Glucose 103 mg/dl (70-99(Fasting)) H 10/18/22 05:13 POC Glucose 97 mg/dl (70-99) 10/18/22 08:01 Calcium 9.1 mg/dl (8.5-10.1) 10/18/22 05:13 Magnesium 1.8 mg/dl (1.7-2.4) 10/18/22 05:13 Total Bilirubin 0.5 mg/dl (0.2-1.0) 10/17/22 00:26 AST 16 U/L (13-39) 10/17/22 00:26 ALT 12 U/L (7-52) 10/17/22 00:26 Alkaline Phosphatase 49 U/L (34-104) 10/17/22 00:26 Troponin I High Sens 13.8 pg/ml (0-20) 10/17/22 00:26 Total Protein 6.4 gm/dl (6.0-8.3) 10/17/22 00:26 Albumin 3.6 gm/dl (3.4-5.0) 10/17/22 00:26 Globulin 2.8 gm/dl (2.5-4.0) 10/17/22 00:26 Albumin/Globulin Ratio 1.3 (0.9-2) 10/17/22 00:26 Urine Color Yellow 10/17/22 01:41 Urine Appearance Cloudy (Clear) A 10/17/22 01:41 Urine pH 7.5 (4.5-7.5) 10/17/22 01:41 Ur Specific [place] 1.012 (1.000-1.030) 10/17/22 01:41 Urine Protein 2+ (Negative) H 10/17/22 01:41 Urine Glucose (UA) Negative (Negative) 10/17/22 01:41 Urine Ketones Trace (Negative) H 10/17/22 01:41 Urine Blood 1+ (Negative) H 10/17/22 01:41 Urine Nitrite Negative (Negative) 10/17/22 01:41 Urine Bilirubin Negative (Negative) 10/17/22 01:41 Urine Urobilinogen Negative (Negative) 10/17/22 01:41 Ur Leukocyte Esterase 1+ (Negative) H 10/17/22 01:41 Urine WBC (Auto) >30 /hpf (0-5) H 10/17/22 01:41 Urine RBC (Auto) 10-30 /hpf (0-4) H 10/17/22 01:41 U Hyaline Cast (Auto) 1-5 /lpf (0-5) 10/17/22 01:41 U Epithel Cells (Auto) 0-5 /lpf (0-5) 10/17/22 01:41 Urine Bacteria (Auto) 1+ (Negative) H 10/17/22 01:41 Adenovirus (PCR) Not Detected (NotDetected) 10/17/22 00:21 B. pertussis DNA (PCR) Not Detected (NotDetected) 10/17/22 00:21 B.parapertussis DNA PCR Not Detected (NotDetected) 10/17/22 00:21 C. pneumoniae DNA (PCR) Not Detected (NotDetected) 10/17/22 00:21 Coronavirus OC43 (PCR) Not Detected (NotDetected) 10/17/22 00:21 Coronavirus HKU1 (PCR) Not Detected (NotDetected) 10/17/22 00:21 Coronavirus 229E (PCR) Not Detected (NotDetected) 10/17/22 00:21 SARS-CoV-2 (PCR) Not Detected (NotDetected) 10/17/22 00:21 Coronavirus NL63 (PCR) Not Detected (NotDetected) 10/17/22 00:21 Human Metapneumovir PCR Not Detected (NotDetected) 10/17/22 00:21 Influenza Type A (PCR) Not Detected (NotDetected) 10/17/22 00:21 Influenza Type B (PCR) Not Detected (NotDetected) 10/17/22 00:21 M. pneumoniae (PCR) Not Detected (NotDetected) 10/17/22 00:21 Parainfluenza 1 (PCR) Not Detected (NotDetected) 10/17/22 00:21 Parainfluenza 2 (PCR) Not Detected (NotDetected) 10/17/22 00:21 Parainfluenza 3 (PCR) Not Detected (NotDetected) 10/17/22 00:21 Parainfluenza 4 (PCR) Not Detected (NotDetected) 10/17/22 00:21 RSV (PCR) Not Detected (NotDetected) 10/17/22 00:21 Entero/Rhino (PCR) DETECTED (NotDetected) A* 10/17/22 00:21 Impressions Chest X-Ray 10/17/22 00:22 SINGLE VIEW CHEST CLINICAL HISTORY: Cough FINDINGS: 2 AP, portable, upright chest radiographs are compared to study dated 09/22/2022. The examination is degraded by portable technique and patient rotation. The cardiomediastinal silhouette is top normal for projection noting atherosclerotic calcification of the thoracic aorta. Chronic interstitial thickening is similar to previous. The lungs and pleural spaces are clear noting bibasilar scarring/atelectasis. No pneumothorax is seen. The skeletal structures are osteopenic. The bony thorax is grossly intact. IMPRESSION: No acute cardiopulmonary abnormality. ACT 112: Negative or not required by law. Electronically signed by: Selwyn Diez M.D. 10/17/2022 1:01 AM Abdomen/Pelvis CT 10/17/22 05:[address] WITH IV CONTRAST CT DOSE: 314.93 mGy.cm HISTORY: Acute generalized abdominal pain with nausea and vomiting abd pain, n/v TECHNIQUE: Multiaxial CT images of the abdomen and pelvis were performed following the IV administration of 86 cc of Optiray, A dose lowering technique was utilized adhering to the principles of ALARA. COMPARISON STUDY: CT abdomen pelvis 03/30/2021 FINDINGS: Cardiomegaly with coronary artery calcifications. Mild subsegmental bibasilar atelectasis. No pneumatosis or pneumoperitoneum. Unremarkable spleen. 1.7 cm cystic structure of the pancreatic tail is measured 1.5 cm. Mild generalized pancreatic atrophy. Unremarkable adrenal glands, gallbladder and liver. The study is limited secondary to respiratory motion artifact. Patency of the hepatic and portal veins. Nonspecific bilateral perinephric stranding. There are a few cysts of the kidneys measuring up to 2 cm on the left at 2.1 cm on the right. No hydronephrosis. Prostamegaly. Urinary bladder wall thickening with partial distention and perivesicular stranding. Atherosclerosis of the aorta without aneurysm. Small fat filled left inguinal hernia. No adenopathy. Small hiatal hernia. No bowel obstruction or bowel wall thickening. Moderate cortical retention of the rectum. Extensive colonic diverticulosis. Fluid-filled mildly dilated appendix redemonstrated measuring 8 mm. No acute periappendiceal inflammation. Degenerative changes of the spine, pelvis and hips. Lumbar levoscoliosis. IMPRESSION: 1. No acute intra-abdominal or intrapelvic abnormality. 2. No bowel obstruction or bowel wall thickening. 3. Colonic diverticulosis. 4. Small hiatal hernia. 5. Fluid-filled mildly dilated appendix is similar to the 03/30/2021 study. No inflammatory changes to suggest acute appendicitis, however and underlying mucocele could have this appearance. 6. Urinary bladder wall thickening with partial distention. Correlate with urinalysis. ACT 112: Negative or not required by law. The above report was generated using voice recognition software. It may contain grammatical, syntax or spelling errors. Electronically signed by: Trey Good M.D. 10/17/2022 9:13 AM
[2022-10-18] MEDS: SIMVASTATIN 10 MG TAB PO SCH (20:34)
[2022-10-18] MEDS: DONEPEZIL HCL 5 MG TAB PO SCH (20:35)
[2022-10-19] MEDS: AMPICILLIN/SULBACTAM SOD 3,000 MG in 0.9 % SODIUM CHLORIDE 100 ML IV SCH ×2 (03:27→09:48)
[2022-10-19 07:25] LABS: Estimated Average Glucose 117 mg/dl; Hemoglobin A1C 5.7 % (4.5-5.6)
[2022-10-19] MEDS: CITALOPRAM 20 MG TAB PO SCH (07:32)
[2022-10-19] MEDS: MAGNESIUM CHLORIDE W/CALCIUM 64MG DELAYED REL TAB PO SCH ×2 (07:32→20:57)
[2022-10-19] MEDS: FINASTERIDE 5 MG TAB PO SCH (07:33)
[2022-10-19] MEDS: ASPIRIN 81 MG ECTAB PO SCH (07:33)
[2022-10-19] MEDS: CEROVITE ADV FORMULA TAB PO SCH (07:33)
[2022-10-19] MEDS: METOPROLOL TARTRATE 50 MG TAB PO SCH ×2 (07:33→20:53)
[2022-10-19] MEDS: TAMSULOSIN HCL 0.4 MG CAP PO SCH (07:33)
[2022-10-19] MEDS: DIGOXIN 0.125 MG TAB PO SCH (07:33)
[2022-10-19] MEDS: HEPARIN SOD 5,000 UNIT/0.5 ML VIAL SQ SCH ×2 (07:34→20:56)
[2022-10-19] MEDS: ARTIFICIAL TEARS OP SCH ×2 (07:37→20:54)
[2022-10-19] MEDS: INSULIN ASPART PER UNIT SC SCH ×4 (08:20→20:56)
[2022-10-19] MEDS: guaiFENesin 600 MG TABCR PO SCH ×2 (09:48→20:55)
--- NOTE | 2022-10-19 10:21 | Hospitalist Progress Note ---
Date of Service October 19, 2022 Assessment & Plan (1) URI (upper respiratory infection): (2) Cough: (3) Acute UTI (urinary tract infection): (4) Generalized weakness: Plan: Patient presented from [facility] with weakness and upper respiratory tract symptoms including cough, sore throat and runny nose on 10/17/22. Respiratory viral panel was positive for rhinovirus. Urinalysis is suggestive of infection. His last urine culture done in the ED in September 27 shows enterococcus faecalis Otherwise, no leukocytosis. Hemodynamically stable Chest x-ray done in admission did not show pneumonia. CT abdomen/pelvis did not show any acute intra abdominal abnormality. Urinary bladder thickening with partial distention was present. Generalized Weakness Acute UTI De escalate to amoxicillin for additional 5 days, add daily probiotic - Urine culture +enterococcus, pansensitive PT OT evaluation. Acute URI 2/2 Rhinovirus pt with moist cough and rhonchi encourage use of ISP, add flutter valve and muccinex will repeat xr to r/o aspiration pt is already on Unasyn so this would be covered HTN bp elevated this a.m. improved to 150/70 continue metoprolol bp has been elevated throughout admission monitor T2DM hold metformin insulin sliding scale, bsg adequate Hx of afib continue dig, metoprolol and asa BPH continue flomax and finasteride HLD continue statin DNR/DNI as per discussion with his daughter. DVT prophylaxis Heparin [facility], pt will with course lung sounds, will do pulmonary toilet with hopes of clearing, consider d/c in next day or so if improved Pt was seen and examined in collaboration with Dr. Campuzano, please see addendum A total of 35 minutes were spent with greater than 50% of that time face to face with the patient, personally reviewing all current laboratories, imaging studies, past medication reconciliation, outpatient chart review, and discussion with specialists to collaborate care for the patient with attending. Please see attending documentation for corrections and/or additions. Admission and Anticipated Discharge Date Admission Date: October 17, 2022 Supervising Physician Co-Signing Physician Notes Pt seen and examined by me, care coordinated w/ Cee Fernandez PA-C, pls refer to her note above for further detail. Patient is currently lying in bed, in no acute distress. He is able to answer some simple questions appropriately. Currently denies any complaints to me. On physical exam, however patient does have rhonchi. He was diagnosed with rhinovirus on admission, chest x-ray on admission unremarkable. Chest x-ray repeated today. Following urine culture, concerning for Enterococcus, which patient was diagnosed with in the past as well. IV Unasyn switched to p.o. antibiotic (ampicillin) at this time. Encourage flutter valve/spirometer, added guaifenesin. Patient continues to breathe comfortably on room air, saturating 94%. If continues to do well, possibly plan for discharge tomorrow. MD Tatianna Subjective Patient was seen and examined in room 305. Follow-up rhinovirus and generalized weakness. He states he generally feels well today although feels congested and is coughing up mucus. He complains of wheezing. He denies fever, chills, sweats, lightheadedness, dizziness, chest pain, shortness breath, nausea, vomiting, abdominal pain. He overall has good appetite. Review of Systems Review of Systems: All systems reviewed & are unremarkable except as noted in HPI & below Physical Exam Physical Exam: Gen: WD/WN, Elderly, M, NAD, A&O x3 HEENT: Normocephalic, atraumatic, conjunctivae moist, sclerae anicteric, mucous membranes moist. Lung: Clear to Auscultation bilaterally, +rhonchi Bibasilar cleared with coughing, no wheezes/rales Heart: Regular rate, regular rhythm, no murmurs, rubs, or gallops Abdomen: Soft, NT, ND +BS x 4 Extremities: No edema Skin: Warm, no rash, negative turgor. Results & Data Results & Data ([facility]) Vital Signs (Past 12 Hours) Vital Signs Temp Pulse Pulse Resp BP Pulse Ox O2 Del Method 10/19/22 07:57 Room Air 10/19/22 07:42 36.5 C 70 16 178/83 H 94 Room Air 10/19/22 07:33 74 Laboratory Results 10/19/22 10/19/22 10/18/22 Range/Units 11:52 08:14 20:23 POC Glucose 150 H 96 125 H (70-99) mg/dl Estimat Average Glucose mg/dl Hemoglobin A1c (4.5-5.6) % 10/18/22 10/18/22 Range/Units 16:57 05:13 POC Glucose 101 H (70-99) mg/dl Estimat Average Glucose 117 mg/dl Hemoglobin A1c 5.7 H (4.5-5.6) % Medications Administered Current Inpatient Medications Acetaminophen (Acetaminophen 325 Mg Tab) 650 mg PO Q4H PRN PRN Reason: pain/fever Stop: 11/16/22 09:12 Artificial Tears (Artificial Tears) 2 drops OP BID [facility] Stop: 11/16/22 09:59 Last Admin: 10/19/22 07:37 Dose: 2 drops Aspirin (Aspirin 81 Mg Ectab) 81 mg PO DAILY [facility] Stop: 11/16/22 09:12 Last Admin: 10/19/22 07:33 Dose: 81 mg Citalopram Hydrobromide (Citalopram 20 Mg Tab) 30 mg PO DAILY [facility] Stop: 11/16/22 09:12 Last Admin: 10/19/22 07:32 Dose: 30 mg Dextrose (Dextrose 50% 50 Ml Syringe) 25 - 50 ml IV UD PRN; Protocol PRN Reason: Hypoglycemia Protocol Stop: 11/16/22 09:12 Digoxin (Digoxin 0.125 Mg Tab) 0.125 mg PO QAM [facility] Stop: 11/16/22 09:12 Last Admin: 10/19/22 07:33 Dose: 0.125 mg Docusate Sodium (Docusate Sodium 100 Mg Cap) 100 mg PO BID PRN PRN Reason: Constipation Stop: 11/16/22 09:12 Donepezil HCl (Donepezil Hcl 5 Mg Tab) 5 mg PO HS [facility] Stop: 11/16/22 20:59 Last Admin: 10/18/22 20:35 Dose: 5 mg Finasteride (Finasteride 5 Mg Tab) 5 mg PO DAILY [facility] Stop: 11/16/22 09:12 Last Admin: 10/19/22 07:33 Dose: 5 mg Glucagon (Glucagon For Inj 1 Mg Vial) 1 mg SQ UD PRN; Protocol PRN Reason: Hypoglycemia Protocol Stop: 11/16/22 09:12 Glucose (Glucose 40% Gel 15 Gm Tube) 15 - 30 gm PO UD PRN; Protocol PRN Reason: Hypoglycemia Protocol Stop: 11/16/22 09:12 Glucose (Glucose 10 Tab/Tube) 4 - 8 tab PO UD PRN; Protocol PRN Reason: Hypoglycemia Treatment Stop: 11/16/22 09:12 Guaifenesin (Guaifenesin 600 Mg Tabcr) 600 mg PO Q12 [facility] Stop: 11/18/22 08:59 Last Admin: 10/19/22 09:48 Dose: 600 mg Heparin Sodium (Porcine) (Heparin Sod 5,000 Unit/0.5 Ml Vial) 5,000 units SQ Q1 2 [facility] Stop: 11/16/22 09:12 Last Admin: 10/19/22 07:34 Dose: 5,000 units Ampicillin Sodium/Sulbactam Sodium 3,000 mg/ Sodium Chloride 108 mls @ 200 mls/hr IV Q6H [facility]; Protocol Stop: 10/27/22 09:59 Last Admin: 10/19/22 09:48 Dose: 200 mls/hr Insulin Aspart (Insulin Aspart Per Unit) 0 units SC ACHS [facility] Stop: 11/16/22 11:29 Last Admin: 10/19/22 08:20 Dose: Not Given Lorazepam (Lorazepam 0.5 Mg Tab) 0.5 mg PO Q12H PRN PRN Reason: Anxiety Stop: 11/16/22 09:12 Magnesium Chloride (Magnesium Chloride W/Calcium 64mg Delayed Rel Tab) 64 mg PO BID [facility] Stop: 11/16/22 09:12 Last Admin: 10/19/22 07:32 Dose: 64 mg Metoprolol Tartrate (Metoprolol Tartrate 50 Mg Tab) 50 mg PO BID [facility] Stop: 11/16/22 09:12 Last Admin: 10/19/22 07:33 Dose: 50 mg Miscellaneous (Carbohydrates For Hypoglycemia ) 15 - 30 gm PO UD PRN PRN Reason: Hypoglycemia Protocol Stop: 11/16/22 09:12 Multivitamins/Minerals (Cerovite Adv Formula Tab) 1 tab PO DAILY [facility] Stop: 11/16/22 09:12 Last Admin: 10/19/22 07:33 Dose: 1 tab Ondansetron HCl (Ondansetron Inj 2 Mg/Ml 2 Ml Vial) 4 mg IV Q6H PRN PRN Reason: Nausea Stop: 11/16/22 09:12 Last Admin: 10/17/22 22:31 Dose: 4 mg Polyethylene Glycol (Polyethylene (Miralax) 17 Gm Pack) 17 gm PO DAILY PRN PRN Reason: Constipation Stop: 11/16/22 09:12 Simvastatin (Simvastatin 10 Mg Tab) 10 mg PO HS [facility] Stop: 11/16/22 20:59 Last Admin: 10/18/22 20:34 Dose: 10 mg Tamsulosin HCl (Tamsulosin Hcl 0.4 Mg Cap) 0.4 mg PO DAILY [facility] Stop: 11/16/22 09:12 Last Admin: 10/19/22 07:33 Dose: 0.4 mg
--- NOTE | 2022-10-19 11:01 | XRay Report ---
XR chest 1V portable HISTORY: 87 years-old Male rhonchi noted on exam r/o asp acute shortness of breath COMPARISON: Chest radiograph 10/17/2022 TECHNIQUE: AP view of the chest FINDINGS: Cardiomediastinal and hilar silhouettes are within normal limits. The patient is slightly rotated tow ards the left. No pneumothorax, pleural effusion, airspace consolidation or overt pulmonary edema. Mi ld subsegmental left basilar atelectasis. Bones appear grossly intact. IMPRESSION: Mildly rotated exam without acute process. ACT 112: Negative or not required by law. The above report was generated using voice recognition software. It may contain grammatical, syntax o r spelling errors. Electronically signed by: Trey Good M.D. 10/19/2022 11:00 AM
[2022-10-19] MEDS: SACCHAROMYCES BOULARDII 250 MG CAP PO SCH (14:02)
[2022-10-19] MEDS: AMOXICILLIN 500 MG CAP PO SCH (20:54)
[2022-10-19] MEDS: DONEPEZIL HCL 5 MG TAB PO SCH (20:55)
[2022-10-19] MEDS: SIMVASTATIN 10 MG TAB PO SCH (20:58)
[2022-10-20] MEDS: ACETAMINOPHEN 325 MG TAB PO PRN ×2 (03:05→15:03)
[2022-10-20 06:44] LABS: Hematocrit (blood only) 34.1 % (42.0-52.0); Hemoglobin 11.6 g/dl (14.0-18.0); Mean Corpuscular Hemoglobin 32.4 pg (25.0-34.0); Mean Corpuscular Volume 95.3 fL (80.0-100.0); Mean Platelet Volume 9.9 fL (9.4-12.4); Platelet Count 108 K/uL (130-400); RDW Coefficient of Variation 12.5 % (11.5-14.5); Red Blood Count 3.58 M/uL (4.70-6.10); White Blood Count 7.21 K/ul (4.8-10.8)
[2022-10-20 07:18] LABS: BUN Creatinine Ratio 27.7 (10-20); Calcium 8.8 mg/dl (8.5-10.1); Creatinine Clr Calc Pharmacy 61.9 ml/min; Est GFR (African American) 90.4 ml/min; Magnesium 1.8 mg/dl (1.7-2.4); Phosphorus 2.3 mg/dl (2.5-4.9); Potassium 3.7 mmol/L (3.5-5.1)
[2022-10-20] MEDS: ASPIRIN 81 MG ECTAB PO SCH (08:33)
[2022-10-20] MEDS: CITALOPRAM 20 MG TAB PO SCH (08:34)
[2022-10-20] MEDS: CEROVITE ADV FORMULA TAB PO SCH (08:34)
[2022-10-20] MEDS: FINASTERIDE 5 MG TAB PO SCH (08:34)
[2022-10-20] MEDS: TAMSULOSIN HCL 0.4 MG CAP PO SCH (08:35)
[2022-10-20] MEDS: SACCHAROMYCES BOULARDII 250 MG CAP PO SCH (08:35)
[2022-10-20] MEDS: MAGNESIUM CHLORIDE W/CALCIUM 64MG DELAYED REL TAB PO SCH (08:36)
[2022-10-20] MEDS: METOPROLOL TARTRATE 50 MG TAB PO SCH (08:36)
[2022-10-20] MEDS: AMOXICILLIN 500 MG CAP PO SCH (08:36)
[2022-10-20] MEDS: guaiFENesin 600 MG TABCR PO SCH (08:38)
[2022-10-20] MEDS: DIGOXIN 0.125 MG TAB PO SCH (08:38)
[2022-10-20] MEDS: ARTIFICIAL TEARS OP SCH (08:39)
[2022-10-20] MEDS: HEPARIN SOD 5,000 UNIT/0.5 ML VIAL SQ SCH (08:46)
[2022-10-20] MEDS: POT PHOSPHATE MONOBASIC W/ SOD TAB PO SCH ×2 (08:52→13:08)
[2022-10-20] MEDS: INSULIN ASPART PER UNIT SC SCH ×2 (08:53→13:09)
--- NOTE | 2022-10-20 10:48 | Discharge Summary ---
Discharge Summary Date of Service October 20, 2022 Notes For Next Care Provider Please follow up with CBC, BMP and Phos in 3 days. Recommend continued pulmonary toilet with incentive spirometry, flutter valve and guaifenesin until cough resolves. Patient being treated for complicated Enterococcus urinary tract infection. He will receive 14 days of treatment. Medication Changes From Visit Amoxicillin 500 mg twice daily for 11 additional days secondary to complicated UTI. Florastor 250 mg once daily for additional 14 days for GI prophylaxis. Guaifenesin 600 mg twice daily for additional 5 days for cough expectoration. Neutra-Phos 1 tablet 4 times a day for 3 days secondary to low phosphorus. Admission HPI Per Admitting Provider This is an 87-year-old male with past medical history significant for type 2 diabetes, hyperlipidemia, hypertension, BPH, anxiety disorder, history of chronic atrial fibrillation, currently living at [facility], was brought in because of weakness and patient having cough, sore throat and runny nose, and for possible pneumonia . The patient's symptoms started several days ago. The patient is a poor historian. Currently, denies any chest pain or headache. States vision is okay. No earache. He states he has some runny nose and sore throat. Denies any chest pain or shortness of breath, no nausea, says he is somewhat constipated. He says he is micturating a lot. No swelling in the legs. He says he is weak and could not ambulate much today. I tried to call the [facility] and the nurse who sent the patient , left and could not get much history from the [facility] at this time. Admission Exam Per Admitting Provider PHYSICAL EXAMINATION: GENERAL: The patient is alert and awake, oriented to name, place and time, somewhat slow to answer today's date, not in acute distress. VITAL SIGNS: Temperature 36.6, pulse 57, respiratory rate 20, blood pressure 133/96, oxygen 92% on room air. HEENT: Pupils equal, round and reactive to light. Oral mucosa moist. NECK: No JVD, no neck masses. CARDIOVASCULAR: S1 and S2 heard. Regular rate and rhythm. No murmur, no gallop. RESPIRATORY SYSTEM: Normal AP diameter. No accessory muscle use. No wheezing, no crackles. ABDOMEN: Soft, bowel sounds present, nontender, no distention. CENTRAL NERVOUS SYSTEM: Alert and oriented. Speech is clear, speaking somewhat slowly. No facial droop. Obeys simple commands. Moves extremities. EXTREMITIES: No edema or erythema seen. Principal Dx & Hospital Course #1 = Principal Diagnosis (1) URI (upper respiratory infection): (2) Cough: (3) Acute UTI (urinary tract infection): (4) Generalized weakness: This is an 87-year-old male with significant past medical history of T2DM, HTN, HLD, history of chronic atrial fibrillation, BPH, generalized anxiety who currently lives at [facility] and presented to ED secondary to weakness and URI symptoms. He was diagnosed with rhinovirus and treated conservatively. Initial urinalysis was concerning for infection and he was also started on empiric IV antibiotics. Urine culture grew Enterococcus and he was transitioned to oral amoxicillin therapy. He will complete a 14-day course of for complicated UTI. In regards to rhinovirus his symptoms improved gradually with pulmonary toilet including incentive spirometry, flutter valve and Mucinex. On day of discharge he was hemodynamically stable saturating well on room air. He did have mild elevation in blood pressure as his blood pressure was labile throughout admission. He is on metoprolol tartrate for blood pressure and heart rate control in setting of A-fib. Close blood pressure monitoring is recommended at discharge. He was seen and evaluated by PT and OT and deemed safe to return back to personal care facility. On day of discharge he offers no acute complaints and generally feels well. Cough has significantly improved. Lab work on day of discharge did reveal mild hypophosphatemia at 2.3 and this is being replaced. His H&H are stable at 11.6 and 34.1 and platelet 108. Chest x- ray done on day prior to discharge was negative for pneumonia. Discharge Exam Gen: WD/WN, Elderly, M, NAD, A&O x3 HEENT: Normocephalic, atraumatic, conjunctivae moist, sclerae anicteric, mucous membranes moist. Lung: Clear to Auscultation bilaterally, no w/r/r Heart: IRR, regular rhythm, no murmurs, rubs, or gallops Abdomen: Soft, NT, ND +BS x 4 Extremities: No edema Skin: Warm, no rash, negative turgor. Updated Medication List Medication Instructions Recorded Confirmed Type citalopram 20 mg tablet 20 mg PO DAILY 03/23/21 10/17/22 History metformin 500 mg tablet 500 mg PO BIDWMEAL 03/23/21 10/17/22 History simvastatin 10 mg tablet 10 mg PO HS 03/23/21 10/17/22 History tamsulosin 0.4 mg capsule 0.4 mg PO DAILY 03/23/21 10/17/22 History magnesium chloride 64 mg 64 mg PO BID #30 tabs 04/10/21 10/17/22 Rx (magnesium chloride) tablet,delayed release (Mag 64) aspirin 81 mg tablet,delayed 81 mg PO DAILY 06/20/21 10/17/22 History release lorazepam 0.5 mg tablet 0.5 mg PO Q12H PRN Anxiety 06/20/21 10/17/22 History digoxin 125 mcg (0.125 mg) tablet 125 mcg PO QAM 02/06/22 10/17/22 History (Digitek) docusate sodium 100 mg capsule 100 mg PO BID PRN Constipation 02/06/22 10/17/22 History ibuprofen 600 mg tablet 600 mg PO TID PRN Pain 02/06/22 10/17/22 History metoprolol tartrate 50 mg tablet 50 mg PO BID 02/06/22 10/17/22 History qbtfpmce-tai-wdozc acid 300 1 tab PO DAILY 02/06/22 10/17/22 History mcg-lycopene 600 mcg-lutein 300 mcg tablet (Centrum Silver Men) citalopram 10 mg tablet 10 mg PO DAILY 10/17/22 10/17/22 History donepezil 5 mg tablet 5 mg PO HS 10/17/22 10/17/22 History finasteride 5 mg tablet 5 mg PO DAILY 10/17/22 10/17/22 History peg 400-propylene glycol (PF) 0.4 2 drp ophthalmic (eye) BID 10/17/22 10/17/22 History %-0.3 % eye drops in a dropperette (Systane (PF)) Saccharomyces boulardii 250 mg 250 mg PO DAILY #14 caps 10/20/22 Rx capsule (Florastor) amoxicillin 500 mg capsule 500 mg PO BID #23 caps 10/20/22 Rx guaifenesin 600 mg tablet, 600 mg PO Q12 #10 tabs 10/20/22 Rx extended release 12 hr (Mucinex) sodium di- and 1 tab PO QID #12 tabs 10/20/22 Rx monophosphate-potassium phos monobasic 250 mg tablet (Phospha Neutral) Hospital Stay Data Consultations 10/17/22 06:22 ED Decision to Admit Stat Diagnostic Imagining Performed Chest X-Ray 10/17/22 00:22 SINGLE VIEW CHEST CLINICAL HISTORY: Cough FINDINGS: 2 AP, portable, upright chest radiographs are compared to study dated 09/22/2022. The examination is degraded by portable technique and patient rotation. The cardiomediastinal silhouette is top normal for projection noting atherosclerotic calcification of the thoracic aorta. Chronic interstitial thickening is similar to previous. The lungs and pleural spaces are clear noting bibasilar scarring/atelectasis. No pneumothorax is seen. The skeletal structures are osteopenic. The bony thorax is grossly intact. IMPRESSION: No acute cardiopulmonary abnormality. ACT 112: Negative or not required by law. Electronically signed by: Selwyn Diez M.D. 10/17/2022 1:01 AM Abdomen/Pelvis CT 10/17/22 05:[address] WITH IV CONTRAST CT DOSE: 314.93 mGy.cm HISTORY: Acute generalized abdominal pain with nausea and vomiting abd pain, n/v TECHNIQUE: Multiaxial CT images of the abdomen and pelvis were performed following the IV administration of 86 cc of Optiray, A dose lowering technique was utilized adhering to the principles of ALARA. COMPARISON STUDY: CT abdomen pelvis 03/30/2021 FINDINGS: Cardiomegaly with coronary artery calcifications. Mild subsegmental bibasilar atelectasis. No pneumatosis or pneumoperitoneum. Unremarkable spleen. 1.7 cm cystic structure of the pancreatic tail is measured 1.5 cm. Mild generalized pancreatic atrophy. Unremarkable adrenal glands, gallbladder and liver. The study is limited secondary to respiratory motion artifact. Patency of the hepatic and portal veins. Nonspecific bilateral perinephric stranding. There are a few cysts of the kidneys measuring up to 2 cm on the left at 2.1 cm on the right. No hydronephrosis. Prostamegaly. Urinary bladder wall thickening with partial distention and perivesicular stranding. Atherosclerosis of the aorta without aneurysm. Small fat filled left inguinal hernia. No adenopathy. Small hiatal hernia. No bowel obstruction or bowel wall thickening. Moderate cortical retention of the rectum. Extensive colonic diverticulosis. Fluid-filled mildly dilated appendix redemonstrated measuring 8 mm. No acute periappendiceal inflammation. Degenerative changes of the spine, pelvis and hips. Lumbar levoscoliosis. IMPRESSION: 1. No acute intra-abdominal or intrapelvic abnormality. 2. No bowel obstruction or bowel wall thickening. 3. Colonic diverticulosis. 4. Small hiatal hernia. 5. Fluid-filled mildly dilated appendix is similar to the 03/30/2021 study. No inflammatory changes to suggest acute appendicitis, however and underlying mucocele could have this appearance. 6. Urinary bladder wall thickening with partial distention. Correlate with urinalysis. ACT 112: Negative or not required by law. The above report was generated using voice recognition software. It may contain grammatical, syntax or spelling errors. Electronically signed by: Trey Good M.D. 10/17/2022 9:13 AM Chest X-Ray 10/19/22 10:34 XR chest 1V portable HISTORY: 87 years-old Male rhonchi noted on exam r/o asp acute shortness of breath COMPARISON: Chest radiograph 10/17/2022 TECHNIQUE: AP view of the chest FINDINGS: Cardiomediastinal and hilar silhouettes are within normal limits. The patient is slightly rotated towards the left. No pneumothorax, pleural effusion, airspace consolidation or overt pulmonary edema. Mild subsegmental left basilar atelectasis. Bones appear grossly intact. IMPRESSION: Mildly rotated exam without acute process. ACT 112: Negative or not required by law. The above report was generated using voice recognition software. It may contain grammatical, syntax or spelling errors. Electronically signed by: Trey Good M.D. 10/19/2022 11:00 AM Pending Results Patient Have Any Pending Studies at Discharge: No Discharge Instructions Given to Patient (Per Discharging Provider) MEDICATION CHANGES: Amoxicillin 500 mg twice daily for 11 additional days secondary to complicated UTI. Florastor 250 mg once daily for additional 14 days for GI prophylaxis. Guaifenesin 600 mg twice daily for additional 5 days for cough expectoration. Neutra-Phos 1 tablet 4 times a day for 3 days secondary to low phosphorus. Continue all other medications as prescribed. SUMMARY OF TEST RESULTS: You admitted to hospital secondary to acute upper respiratory infection and tested positive for rhinovirus. You were also found to have a complicated urinary tract infection secondary to an organism called Enterococcus. You were treated with appropriate IV antibiotics and transition to oral antibiotics. You also treated with cough expectoration and pulmonary toilet including incentive spirometry and flutter valve. Your respiratory symptoms have improved significantly since admission. Repeat chest x-ray prior to discharge was negative for pneumonia. Your chronic medical conditions remained stable throughout hospitalization. PENDING TEST RESULTS: None RECOMMENDATIONS FOR FOLLOW-UP: Please complete antibiotics in its entirety. Recommend to continue encouraging incentive spirometry and flutter valve every shift with nursing assistance. Recommend follow-up with provider at personal care facility. Recommend CBC, BMP and phosphorus in 3 days. Your blood pressure was intermittently elevated throughout hospital stay. Recommend close monitoring of blood pressure every shift and adjust medications as necessary. OTHER INSTRUCTIONS: Seek medical attention if you have: * temperature above 101 * chest pain or trouble breathing * abdominal pain, nausea, vomiting * diarrhea, dark stools or bloody stools * any unanswered questions or concerns Call 911 if symptoms are severe. Please take good care of yourself. It has been a pleasure taking care of you. Please take care of yourself. If you have any questions regarding your recent hospitalization please contact [facility] and request michelle Gillisist @ [phone]. Helen Fernandez PA-C Total Time Total Time Spent Total Time Spent (In Minutes): 45 minutes Supervising Physician Co-Signing Physician Notes Pt seen and examined by me, care coordinated w/ B. KHALIDA Fernandez, pls refer to her note above for further detail. Patient was diagnosed with rhinovirus on admission, and Enterococcus UTI. Antibiotics for UTI were switched to p.o. Patient is breathing comfortably on room air, saturating 94%. He is awake alert oriented and answering questions ap propriately. Recommend to finish antibiotic treatment, in addition continue with probiotics. Recommend guaifenesin, spirometer and flutter valve. Plan to discharge patient back to [facility] and follow up with PCP. MD Tatianna
== END 2022-10-20 16:25 | disposition home or self-care (01) | DRG 153 ==
LOC: ED 00:06 → 3E 07:33 → SUATTDRO 07:33 → 3E 08:55